=== PATIENT | male | born 1935 | race Caucasian/White ===

== ENCOUNTER → 2016-10-07 | Outpatient (CLI) | payer MEDICARE, OTHER ==
[2015-12-22 11:11] VITALS: BP 136/76
[~2016-10-07] MED LIST: ASPI81TA2 PO; ATOR40TA PO; CARB1TAB20 PO; DILT180C29 PO; DILT180T7 PO; GABA-585 PO; GABA-586 PO; HUM100VI4 SQ; INSU100I13 SQ; LEVO500T38 PO; LISI-334 PO; LISI40TA PO; LOSA100T6 PO; METF-620 PO; METO25TA4 PO; OMEP20CA5 PO; PITA2TAB2 PO; SAW450CA2 PO; TRAM1TAB4 PO
--- NOTE | 2016-10-07 14:01 | RAD ---
APPROVED REPORT Patient Location: OUT-PATIENT Indications PAD VELOCITY AND DOPPLER WAVEFORM ANALYSIS RIGHT cm/secWaveformSeverity LEFT c m/secWaveformSeverity Ext Iliac Art. 121.0TriphasicExt Iliac Art. 81.0Triphasic pCFA 106.0TriphasicpCFA 55.0Triphasic dCFA 111.0TriphasicdCFA 53.0Triphasic Prof Fem Art. 48.0BiphasicProf Fem Art. 46.0Biphasic Fem Art Prox. 70.0TriphasicFem Art Prox. 72.0Triphasic Fem Art Mid. 73.0TriphasicFem Art Mid. 79.0Triphasic Fem Art Dist. 72.0TriphasicFem Art Dist. 57.0Triphasic Pop Art(AK) 85.0TriphasicPop Art(AK) 51.0Triphasic Pop Art(BK) 68.0TriphasicPop Art(BK) 40.0Triphasic MACHINIST MATE Prox. 72.0TriphasicPTA Prox. 39.0Triphasic MACHINIST MATE Dist. 36.0MonophasicPTA Dist. 58.0Triphasic ERIC Prox. 77.0TriphasicATA Prox. 75.0Monophasic Findings Villafuerte scale images of the bilateral lower extremity arterial vessels revealed mild atherosclerotic timothy que. Spectral waveforms are grossly normal from the common femoral to popliteal segments and are trip hasic and biphasic in nature. The P2 and P3 segments of the popliteal artery as well as the below-kne e vessels were not well visualized but overall there appears to be monophasic and biphasic waveforms in the anterior tibial, posterior tibial and popliteal vessels bilaterally. The peroneal vessels were not well visualized and may be occluded. No high-grade stenosis is identified overall. Critical Notification Critical Value: No <Conclusion> 1. No high-grade flow limiting stenosis identified in the bilateral lower extremity arterial vessels duplex study.
--- NOTE | 2016-10-07 14:07 | RAD ---
APPROVED REPORT Patient Location : OUT-PATIENT Indications Lower Extremity Edema : Bilateral Deep System Deep Venous Reflux present : No Findings The right great saphenous vein measures approximately 6.4 mm. Villafuerte scale images of the saphenofemoral junction and the great saphenous vein did not reveal any evidence of thrombus on limited imaging. Sp ectral waveforms and color Doppler did not reveal any evidence of reflux. The left great saphenous vein measures approximately 5.7 mm and does not reveal any evidence of throm bus on limited imaging. Spectral waveforms and color Doppler did not reveal any evidence of reflux. The bilateral lesser saphenous veins do not reveal any evidence of reflux. Critical Notification Critical Value: No <Conclusion> 1. Negative for reflux in the bilateral greater and lesser saphenous veins.
== END | disposition home or self-care (01) ==
LOC: US 11:55
PROVIDERS: ATTEND Internal Medicine Cardiovascular Disease
DX: I82.403 Acute embolism and thrombosis of unspecified deep veins of lower extremity, bilateral (principal); R60.0 Localized edema; I70.213 Atherosclerosis of native arteries of extremities with intermittent claudication, bilateral legs
CPT/HCPCS: 93925; 93970

== ENCOUNTER 2016-12-27 07:42 | Inpatient (IN) | payer MEDICARE, OTHER ==
[~2016-12-27] VITALS: Ht 172.7 cm; Wt 85.3 kg
[~2016-12-27 07:42] MED LIST changes: +ASPI-630 PO; -ASPI81TA2 PO; -LEVO500T38 PO; +LEVO500T59 PO
--- NOTE | 2016-12-27 09:00 | RAD ---
Indication hemoptysis. A single view of the chest was obtained. Comparison is made to an examination 12/21/2015. Postoperative changes are noted. There is no congestive heart failure. Heart size is within normal limits. There is no consolidated pneumonia. An acute finding in the chest is not apparent. IMPRESSION: No acute finding apparent in the chest
--- NOTE | 2016-12-27 09:23 | PHYS DOC ---
Past Medical History Past Medical History: Dementia, Diabetes-Type II, GERD, High Cholesterol, Hypertension Additional Past Medical Histor: neuropathy Past Surgical History: Other Additional Past Surgical Histo: CABG X 5 VESSELS, BACK SX Alcohol Use: Occasionally Drug Use: None Adult General Chief Complaint Chief Complaint: HEMATEMESIS/VOMITING BLOOD [facility] HPI Patient is a 81 year old male with history of hypertension, CABG, high cholesterol, diabetes type 2, who presents today complaining of hemoptysis for 1 -1/2 weeks. Patient denies any fever. Denies any chest pain. He states he has history of chronic shortness of breath due to COPD. PCP Dr. Hilario Mathis Review of Systems Review of Systems Constitutional: Denies fever or chills [] Eyes: Denies change in visual acuity, redness, or eye pain [] HENT: Denies nasal congestion or sore throat [] Respiratory: Hemoptysis with chronic shortness of breath Cardiovascular: No additional information not addressed in HPI [] GI: Denies abdominal pain, nausea, vomiting, bloody stools or diarrhea [] : Denies dysuria or hematuria [] Musculoskeletal: Denies back pain or joint pain [] Integument: Denies rash or skin lesions [] Neurologic: Denies headache, focal weakness or sensory changes [] Endocrine: Denies polyuria or polydipsia [] Current Medications Current Medications Current Medications Medications (Trade) Dose Ordered Sig/Jimmy Start Time Stop Time Status Last Admin Dose Admin Info (Do NOT chart on this entry -- for MONITORING) 1 each PRN DAILY PRN 12/27/16 10:30 12/29/16 10:29 Iohexol (Omnipaque 300 Mg/ml) 75 ml 1X ONCE 12/27/16 10:30 12/27/16 10:31 DC 12/27/16 10:49 75 ML Allergies Allergies Allergies Coded Allergies Type Severity Reaction Last Updated Verified I S O L A T I O N *CONTACT* Allergy Unknown 12/05/14 Yes No Known Medication Allergies Allergy Unknown 12/05/14 Yes Physical Exam Physical Exam Constitutional: Well developed, well nourished, no acute distress, non-toxic appearance. [] HENT: Normocephalic, atraumatic, bilateral external ears normal, oropharynx moist, no oral exudates, nose normal. [] Eyes: PERRLA, EOMI, conjunctiva normal, no discharge. [] Neck: Normal range of motion, no tenderness, supple, no stridor. [] Cardiovascular:Heart rate regular rhythm, no murmur [] Lungs & Thorax: Bilateral breath sounds clear to auscultation [] Abdomen: Bowel sounds normal, soft, no tenderness, no masses, no pulsatile masses. [] Skin: Warm, dry, no erythema, no rash. [] Back: No tenderness, no CVA tenderness. [] Extremities: No tenderness, no cyanosis, no clubbing, ROM intact, no edema. [] Neurologic: Alert and oriented X 3, normal motor function, normal sensory function, no focal deficits noted. [] Psychologic: Affect normal, judgement normal, mood normal. [] Current Patient Data Vital Signs Vital Signs Date Time Temp Pulse Resp B/P (MAP) Pulse Ox O2 Delivery O2 Flow Rate FiO2 12/27/16 10:12 76 25 123/60 (81) 96 Room Air 12/27/16 08:11 97.6 97.6 Lab Values Laboratory Tests Test 12/27/16 09:37 12/27/16 10:00 White Blood Count 7.6 x10^3/uL (4.0-11.0) Red Blood Count 4.24 x10^6/uL (4.30-5.70) L Hemoglobin 12.8 g/dL (13.0-17.5) L Hematocrit 37.8 % (39.0-53.0) L Mean Corpuscular Volume 89 fL (79-100) Mean Corpuscular Hemoglobin 30 pg (25-35) Mean Corpuscular Hemoglobin Concent 34 g/dL (31-37) Red Cell Distribution Width 14.1 % (11.5-14.5) Platelet Count 227 x10^3/uL (140-400) Neutrophils (%) (Auto) 69 % (31-73) Lymphocytes (%) (Auto) 18 % (24-48) L Monocytes (%) (Auto) 11 % (0-9) H Eosinophils (%) (Auto) 2 % (0-3) Basophils (%) (Auto) 1 % (0-3) Neutrophils # (Auto) 5.2 x10^3uL (1.8-7.7) Lymphocytes # (Auto) 1.3 x10^3/uL (1.0-4.8) Monocytes # (Auto) 0.8 x10^3/uL (0.0-1.1) Eosinophils # (Auto) 0.1 x10^3/uL (0.0-0.7) Basophils # (Auto) 0.0 x10^3/uL (0.0-0.2) Prothrombin Time 13.4 SEC (11.7-14.0) Prothrombin Time INR 1.1 (0.8-1.1) PTT 39 SEC (24-38) H D-Dimer (Isabel) 0.70 ug/mlFEU (0.00-0.50) H Sodium Level 140 mmol/L (136-145) Potassium Level 5.0 mmol/L (3.5-5.1) Chloride Level 105 mmol/L (98-107) Carbon Dioxide Level 31 mmol/L (21-32) Anion Gap 4 (6-14) L Blood Urea Nitrogen 13 mg/dL (8-26) Creatinine 1.0 mg/dL (0.7-1.3) Estimated GFR (Cockcroft-Gault) 71.9 Glucose Level 147 mg/dL (70-99) H Calcium Level 8.7 mg/dL (8.5-10.1) Magnesium Level 1.8 mg/dL (1.8-2.4) Creatine Kinase 106 U/L (39-308) Creatine Kinase MB (Mass) 4.1 ng/mL (0.0-3.6) H Creatine Kinase MB Relative Index 3.9 % (0-4) Troponin I Quantitative < 0.017 ng/mL (0.000-0.055) JO-Lyr-J-Type Natriuretic Peptide 619 pg/mL (0-449) H Urine Collection Type Void Urine Color Yellow Urine Clarity Clear Urine pH 7.0 Urine Specific [employer] 1.015 Urine Protein Negative mg/dL (NEG-TRACE) Urine Glucose (UA) Negative mg/dL (NEG) Urine Ketones (Stick) Negative mg/dL (NEG) Urine Blood Negative (NEG) Urine Nitrite Negative (NEG) Urine Bilirubin Negative (NEG) Urine Urobilinogen Dipstick 0.2 mg/dL (0.2 mg/dL) Urine Leukocyte Esterase Small (NEG) Urine RBC 0 /HPF (0-2) Urine WBC >40 /HPF (0-4) Urine Squamous Epithelial Cells Few /LPF Urine Bacteria 0 /HPF (0-FEW) Laboratory Tests 12/27/16 09:37 Laboratory Tests 12/27/16 09:37 EKG EKG 09: 52EKG interpreted by Dr. Fuentes, sinus rhythm heart rate 81, QRS interval 100, no STEMI. [] Radiology/Procedures Radiology/Procedures []PROCEDURE: CT ANGIOGRAPHY CHEST Indication hemoptysis. Axial images to the chest were obtained. The examination was tailored for the detection of pulmonary embolus. Approximately 75 cc of Omnipaque 300 was administered. MIP images were generated and reviewed. No prior CT imaging of the chest is available. Imaging through the abdomen shows no acute finding. There are low-density areas in the right lobe of the liver. There is incompletely evaluated on this exam. The etiology is unclear. Neoplastic disease is not entirely excluded. There is cholelithiasis. The thoracic aorta is unremarkable. Extensive coronary artery calcification is noted. The study is negative for pulmonary embolus. There are few mediastinal lymph nodes. These are positioned predominantly in the pretracheal space. The clinical significance is uncertain. Definite pathologic mediastinal adenopathy is not seen. No significant hilar adenopathy is apparent. There is a 4 cm parenchymal mass in the left lower lobe most suggestive of primary malignancy. There is a much smaller 4 mm nodule peripherally in the left lower lobe adjacent to the pleura probably incidental. The right lung is clear. There is a tiny amount left pleural fluid. A lipoma adjacent to the right scapula is noted IMPRESSION: Negative study for pulmonary embolus. 4 cm parenchymal mass in the left lower lobe most compatible with a primary malignancy. Mild mediastinal adenopathy. The clinical significance or etiology is uncertain. Low-density masses in the liver. These are incompletely evaluated. The etiology is unclear but metastatic disease is not excluded PQRS Compliance Statement: One or more of the following individualized dose reduction techniques were utilized for this examination: 1. Automated exposure control 2. Adjustment of the mA and/or kV according to patient size 3. Use of iterative reconstruction technique DICTATED and SIGNED BY: CAMPOS SEGURA MD DATE: 12/27/16 1101 CC: REJI ESTRADA APRN; NON,STAFF; HILARIO MATHIS Jr, MD ~ Course & Med Decision Making Course & Med Decision Making Pertinent Labs and Imaging studies reviewed. (See chart for details) This a 82-year-old male patient who presents with hemoptysis for 1-1/2 weeks and chronic shortness of breath. Chest x-ray was negative for any acute findings. CBC with hemoglobin of 12.8, hematocrit 37.8. BMP would not acute findings D-dimer was elevated at 0.70. CTA chest was ordered. CTA chest was noted for a 4 cm mass in the left lower lobe most compatible with primary malignancy, patient also has mild mediastinal adenopathy, low-density nose is also noted in the liver that they could not be completely evaluated. Metastatic etiology of this mass is could not be ruled out. Patient was admitted by Dr. Charlton Consulted with Dr. Adamson who will follow-up with patient for pulmonary Dragon Disclaimer Dragon Disclaimer This electronic medical record was generated, in whole or in part, using a voice recognition dictation system. Departure Departure Impression: Primary Impression: Hemoptysis Additional Impression: Lung cancer, lower lobe Disposition: ADMITTED INPATIENT Admitting Physician: Elena Charlton Condition: STABLE Referrals: HILARIO MATHIS Jr, MD (PCP) Problem Qualifiers Additional Impression: Lung cancer, lower lobe Laterality: left Qualified Codes: C34.32 - Malignant neoplasm of lower lobe , left bronchus or lung REJI ESTRADA CHICKEN VACCINATOR Dec 27, 2016 09:23
[2016-12-27 09:50] LABS: BASO % 1 % (0-3); EOS % 2 % (0-3); HEMATOCRIT 37.8 % (39.0-53.0); HEMOGLOBIN 12.8 g/dL (13.0-17.5); LYMPH # 1.3 x10^3/uL (1.0-4.8); LYMPH % 18 % (24-48); MEAN CORPUSCULAR HEMOGLOBIN 30 pg (25-35); MEAN CORPUSCULAR HGB CONC 34 g/dL (31-37); MEAN CORPUSCULAR VOLUME 89 fL (79-100); MONO % 11 % (0-9); NEUT % 69 % (31-73); PLATELET COUNT 227 x10^3/uL (140-400); RED BLOOD COUNT 4.24 x10^6/uL (4.30-5.70); RED CELL DISTRIBUTION WIDTH 14.1 % (11.5-14.5); WHITE BLOOD COUNT 7.6 x10^3/uL (4.0-11.0)
[2016-12-27 09:59] LABS: CALCIUM 8.7 mg/dL (8.5-10.1); GFR 71.9
[2016-12-27 10:00] LABS: MAGNESIUM 1.8 mg/dL (1.8-2.4)
[2016-12-27 10:02] LABS: INR 1.1 (0.8-1.1); PROTHROMBIN TIME PATIENT 13.4 SEC (11.7-14.0)
--- NOTE | 2016-12-27 10:04 | EKG ---
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
[2016-12-27 10:14] LABS: CKMB MASS 4.1 ng/mL (0.0-3.6)
[2016-12-27 10:25] LABS: BILIRUBIN,URINE NEGATIVE (NEG); GLUCOSE,URINE NEGATIVE (NEG); NITRITE,URINE NEGATIVE (NEG); PROTEIN,URINE NEGATIVE (NEG-TRACE); UROBILINOGEN,URINE 0.2 mg/dL (0.2 mg/dL)
[2016-12-27] MEDS ORDERED: IOHEXOL 300 MG/ML 75 ML VIAL IV ONE (10:30)
[2016-12-27] MEDS ORDERED: CONTRAST GIVEN MC PRN (10:30)
--- NOTE | 2016-12-27 11:14 | RAD ---
Indication hemoptysis. Axial images to the chest were obtained. The examination was tailored for the detection of pulmonary embolus. Approximately 75 cc of Omnipaque 300 was administered. MIP images were generated and reviewed. No prior CT imaging of the chest is available. Imaging through the abdomen shows no acute finding. There are low-density areas in the right lobe of the liver. There is incompletely evaluated on this exam. The etiology is unclear. Neoplastic disease is not entirely excluded. There is cholelithiasis. The thoracic aorta is unremarkable. Extensive coronary artery calcification is noted. The study is negative for pulmonary embolus. There are few mediastinal lymph nodes. These are positioned predominantly in the pretracheal space. The clinical significance is uncertain. Definite pathologic mediastinal adenopathy is not seen. No significant hilar adenopathy is apparent. There is a 4 cm parenchymal mass in the left lower lobe most suggestive of primary malignancy. There is a much smaller 4 mm nodule peripherally in the left lower lobe adjacent to the pleura probably incidental. The right lung is clear. There is a tiny amount left pleural fluid. A lipoma adjacent to the right scapula is noted IMPRESSION: Negative study for pulmonary embolus. 4 cm parenchymal mass in the left lower lobe most compatible with a primary malignancy. Mild mediastinal adenopathy. The clinical significance or etiology is uncertain. Low-density masses in the liver. These are incompletely evaluated. The etiology is unclear but metastatic disease is not excluded PQRS Compliance Statement: One or more of the following individualized dose reduction techniques were utilized for this examination: 1. Automated exposure control 2. Adjustment of the mA and/or kV according to patient size 3. Use of iterative reconstruction technique
[2016-12-27 11:23] LABS: BACTERIA,URINE 0 /HPF (0-FEW); RBC,URINE 0 /HPF (0-2); SQUAMOUS EPITHELIAL CELL,UR FEW /LPF; WBC,URINE >40 /HPF (0-4)
[2016-12-27] MEDS ORDERED: DEXTROSE 50% 25 GM / 50ML DISP.SYRIN. IV PRN ×2 (13:15→17:00)
[2016-12-27] MEDS ORDERED: ONDANSETRON PF 4 MG/2 ML VIAL. IV PRN ×2 (13:15→17:00)
[2016-12-27] MEDS ORDERED: MORPHINE SULFATE 4 MG/ML DISP.SYRIN. IV PRN (13:15)
[2016-12-27 15:49] VITALS: BP 110/77
[2016-12-27 15:50] VITALS: BP 110/77
--- NOTE | 2016-12-27 16:16 | PDOC ---
PULMONARY PROGRESS NOTES Vitals Vital Signs Date Time Temp Pulse Resp B/P (MAP) Pulse Ox O2 Delivery O2 Flow Rate FiO2 12/27/16 15:50 97.5 86 19 110/77 (88) 97 Room Air 97.5 General: Alert Lungs: Clear Cardiovascular: S1 Abdomen: Soft Extremities: Other Labs Laboratory Tests Test 12/27/16 09:37 12/27/16 10:00 White Blood Count 7.6 x10^3/uL (4.0-11.0) Red Blood Count 4.24 x10^6/uL (4.30-5.70) Hemoglobin 12.8 g/dL (13.0-17.5) Hematocrit 37.8 % (39.0-53.0) Mean Corpuscular Volume 89 fL (79-100) Mean Corpuscular Hemoglobin 30 pg (25-35) Mean Corpuscular Hemoglobin Concent 34 g/dL (31-37) Red Cell Distribution Width 14.1 % (11.5-14.5) Platelet Count 227 x10^3/uL (140-400) Neutrophils (%) (Auto) 69 % (31-73) Lymphocytes (%) (Auto) 18 % (24-48) Monocytes (%) (Auto) 11 % (0-9) Eosinophils (%) (Auto) 2 % (0-3) Basophils (%) (Auto) 1 % (0-3) Neutrophils # (Auto) 5.2 x10^3uL (1.8-7.7) Lymphocytes # (Auto) 1.3 x10^3/uL (1.0-4.8) Monocytes # (Auto) 0.8 x10^3/uL (0.0-1.1) Eosinophils # (Auto) 0.1 x10^3/uL (0.0-0.7) Basophils # (Auto) 0.0 x10^3/uL (0.0-0.2) Prothrombin Time 13.4 SEC (11.7-14.0) Prothromb Time International Ratio 1.1 (0.8-1.1) Activated Partial Thromboplast Time 39 SEC (24-38) D-Dimer (Isabel) 0.70 ug/mlFEU (0.00-0.50) Sodium Level 140 mmol/L (136-145) Potassium Level 5.0 mmol/L (3.5-5.1) Chloride Level 105 mmol/L (98-107) Carbon Dioxide Level 31 mmol/L (21-32) Anion Gap 4 (6-14) Blood Urea Nitrogen 13 mg/dL (8-26) Creatinine 1.0 mg/dL (0.7-1.3) Estimated GFR (Cockcroft-Gault) 71.9 Glucose Level 147 mg/dL (70-99) Calcium Level 8.7 mg/dL (8.5-10.1) Magnesium Level 1.8 mg/dL (1.8-2.4) Creatine Kinase 106 U/L (39-308) Creatine Kinase MB (Mass) 4.1 ng/mL (0.0-3.6) Creatine Kinase MB Relative Index 3.9 % (0-4) Troponin I Quantitative < 0.017 ng/mL (0.000-0.055) FS-Jer-L-Type Natriuretic Peptide 619 pg/mL (0-449) Urine Collection Type Void Urine Color Yellow Urine Clarity Clear Urine pH 7.0 Urine Specific [place] 1.015 Urine Protein Negative mg/dL (NEG-TRACE) Urine Glucose (UA) Negative mg/dL (NEG) Urine Ketones (Stick) Negative mg/dL (NEG) Urine Blood Negative (NEG) Urine Nitrite Negative (NEG) Urine Bilirubin Negative (NEG) Urine Urobilinogen Dipstick 0.2 mg/dL (0.2 mg/dL) Urine Leukocyte Esterase Small (NEG) Urine RBC 0 /HPF (0-2) Urine WBC >40 /HPF (0-4) Urine Squamous Epithelial Cells Few /LPF Urine Bacteria 0 /HPF (0-FEW) Laboratory Tests Test 12/27/16 09:37 12/27/16 10:00 White Blood Count 7.6 x10^3/uL (4.0-11.0) Red Blood Count 4.24 x10^6/uL (4.30-5.70) Hemoglobin 12.8 g/dL (13.0-17.5) Hematocrit 37.8 % (39.0-53.0) Mean Corpuscular Volume 89 fL (79-100) Mean Corpuscular Hemoglobin 30 pg (25-35) Mean Corpuscular Hemoglobin Concent 34 g/dL (31-37) Red Cell Distribution Width 14.1 % (11.5-14.5) Platelet Count 227 x10^3/uL (140-400) Neutrophils (%) (Auto) 69 % (31-73) Lymphocytes (%) (Auto) 18 % (24-48) Monocytes (%) (Auto) 11 % (0-9) Eosinophils (%) (Auto) 2 % (0-3) Basophils (%) (Auto) 1 % (0-3) Neutrophils # (Auto) 5.2 x10^3uL (1.8-7.7) Lymphocytes # (Auto) 1.3 x10^3/uL (1.0-4.8) Monocytes # (Auto) 0.8 x10^3/uL (0.0-1.1) Eosinophils # (Auto) 0.1 x10^3/uL (0.0-0.7) Basophils # (Auto) 0.0 x10^3/uL (0.0-0.2) Prothrombin Time 13.4 SEC (11.7-14.0) Prothromb Time International Ratio 1.1 (0.8-1.1) Activated Partial Thromboplast Time 39 SEC (24-38) D-Dimer (Isabel) 0.70 ug/mlFEU (0.00-0.50) Sodium Level 140 mmol/L (136-145) Potassium Level 5.0 mmol/L (3.5-5.1) Chloride Level 105 mmol/L (98-107) Carbon Dioxide Level 31 mmol/L (21-32) Anion Gap 4 (6-14) Blood Urea Nitrogen 13 mg/dL (8-26) Creatinine 1.0 mg/dL (0.7-1.3) Estimated GFR (Cockcroft-Gault) 71.9 Glucose Level 147 mg/dL (70-99) Calcium Level 8.7 mg/dL (8.5-10.1) Magnesium Level 1.8 mg/dL (1.8-2.4) Creatine Kinase 106 U/L (39-308) Creatine Kinase MB (Mass) 4.1 ng/mL (0.0-3.6) Creatine Kinase MB Relative Index 3.9 % (0-4) Troponin I Quantitative < 0.017 ng/mL (0.000-0.055) MF-Yme-X-Type Natriuretic Peptide 619 pg/mL (0-449) Urine Collection Type Void Urine Color Yellow Urine Clarity Clear Urine pH 7.0 Urine Specific [place] 1.015 Urine Protein Negative mg/dL (NEG-TRACE) Urine Glucose (UA) Negative mg/dL (NEG) Urine Ketones (Stick) Negative mg/dL (NEG) Urine Blood Negative (NEG) Urine Nitrite Negative (NEG) Urine Bilirubin Negative (NEG) Urine Urobilinogen Dipstick 0.2 mg/dL (0.2 mg/dL) Urine Leukocyte Esterase Small (NEG) Urine RBC 0 /HPF (0-2) Urine WBC >40 /HPF (0-4) Urine Squamous Epithelial Cells Few /LPF Urine Bacteria 0 /HPF (0-FEW) Medications Active Scripts Medications Dose Route/Sig Max Daily Dose Days Date Category [place] (Saw [place] Fruit) 450 Mg Capsule 450 Mg PO DAILY 12/21/15 Reported Losartan Potassium 100 Mg Tablet 100 Mg PO DAILY 12/21/15 Reported Metoprolol Tartrate 25 Mg Tablet 1 Tab PO DAILY 12/21/15 Reported Diltiazem 24HR Cd (Diltiazem Hcl) 180 Mg Cap.er.24h 1 Cap PO DAILY 12/21/15 Reported Lantus Solostar (Insulin Glargine,Hum.rec.anlog) 100 Unit/1 Ml Insuln.pen 30 Unit SQ QHS 12/21/15 Reported Gabapentin 300 Mg Capsule 300 Mg PO TID 11/30/14 Reported Lipitor (Atorvastatin Calcium) 40 Mg Tablet 40 Mg PO HS 11/03/14 Reported Carbidopa-Levodopa 10-100 Tab (Carbidopa/Levodopa) 1 Each Tablet 1 Each PO DAILY 03/01/14 Reported Metformin Hcl 1,000 Mg Tablet 1,000 Mg PO BID 10/17/13 Reported Prilosec (Omeprazole) 20 Mg Capsule.dr 20 Mg PO DAILY 10/17/13 Reported Aspirin 81 Mg Tab.chew Mg PO DAILY 10/17/13 Reported Impression . Hemoptysis suspect lung ca suspect bronch low yield will d/w IR for possible FNA see orders thanks JHONNY ALLEN MD Dec 27, 2016 16:16
--- NOTE | 2016-12-27 16:52 | PDOC1 ---
History and Physical Date of Admission Date of Admission 12/27/16 Identification/Chief Complaint Chief Complaint hemoptysis Problems: Source Source: Chart review, Patient History of Present Illness History of Present Illness HPI HPI Patient is a 81 year old male with history of hypertension, CABG, high cholesterol, diabetes type 2, comes today for hemoptysis x2 weeks. He quit smoking for 20ys. He started to cough with some blood especially in the morning, and some bloody mucus. NO fever, chills, n/v, chest pain, or sob. CT showed left lung mass with possible liver mets hb 12.[address] Hilario Love Past Medical History Cardiovascular: AFIB, CAD, HTN, Syncope, Other Pulmonary: COPD CENTRAL NERVOUS SYSTEM: Other GI: No pertinent hx Heme/Onc: No pertinent hx Hepatobiliary: No pertinent hx Psych: No pertinent hx Rheumatologic: No pertinent hx Infectious disease: No pertinent hx Renal/: UTI Endocrine: Diabetes Past Surgical History Past Surgical History: CABG, Tonsillectomy, Other Family History Family History: Cancer, Diabetes Social History Smoke: Quit ALCOHOL: heavy Drugs: None Current Problem List Problem List Problems Medical Problems: (1) Hemoptysis Status: Acute (2) Lung cancer, lower lobe Status: Acute Current Medications Current Medications Current Medications Medications (Trade) Dose Ordered Sig/Jimmy Start Time Stop Time Status Last Admin Dose Admin Dextrose (Dextrose 50%-Water Syringe) 12.5 gm PRN Q15MIN PRN 12/27/16 13:15 Info (Do NOT chart on this entry -- for MONITORING) 1 each PRN DAILY PRN 12/27/16 10:30 12/29/16 10:29 Iohexol (Omnipaque 300 Mg/ml) 75 ml 1X ONCE 12/27/16 10:30 12/27/16 10:31 DC 12/27/16 10:49 75 ML Levofloxacin/ Dextrose 50 ml @ 50 mls/hr Q24H 12/27/16 16:30 Methylprednisolone Sodium Succinate (SOLU-Medrol 125MG VIAL) 80 mg BID 12/27/16 21:00 Morphine Sulfate 4 mg PRN Q2HR PRN 12/27/16 13:15 12/28/16 13:14 Ondansetron HCl (Zofran) 4 mg PRN Q8HRS PRN 12/27/16 13:15 12/28/16 13:14 Allergies Allergies Allergies Coded Allergies Type Severity Reaction Last Updated Verified I S O L A T I O N *CONTACT* Allergy Unknown 12/05/14 Yes No Known Medication Allergies Allergy Unknown 12/05/14 Yes ROS Review of System CONSTITUTIONAL: No fever or chills EYES: No recent changes SKIN: No rash or itching CARDIOVASCULAR: No chest pain, syncope, palpitations, or edema RESPIRATORY: No SOB or cough GASTROINTESTINAL: No nausea, vomiting or abdominal pain NEUROLOGICAL: No headaches or weakness ENDOCRINE: No cold or heat intolerance GENITOURINARY: No urgency or frequency of urination MUSCULOSKELETAL: No back pain or joint pain LYMPHATICS: No enlarged lymph nodes PSYCHIATRIC: No anxiety or depression Physical Exam Physical Exam GEN.: No apparent distress. Alert and oriented. HEENT: Head is normocephalic, atraumatic NECK: Supple. LUNGS: Clear to auscultation. HEART: RRR, S1, S2 present. Peripheral pulses intact ABDOMEN: Soft, nontender. Positive bowel sounds. EXTREMITIES: Without any cyanosis. NEUROLOGIC: Normal speech, normal tone PSYCHIATRIC: Normal affect, normal mood. SKIN: No ulcerations Vitals Vitals Vital Signs Date Time Temp Pulse Resp B/P (MAP) Pulse Ox O2 Delivery O2 Flow Rate FiO2 12/27/16 15:50 97.5 86 19 110/77 (88) 97 Room Air 97.5 Labs Labs Laboratory Tests Test 12/27/16 09:37 12/27/16 10:00 White Blood Count 7.6 x10^3/uL (4.0-11.0) Red Blood Count 4.24 x10^6/uL (4.30-5.70) Hemoglobin 12.8 g/dL (13.0-17.5) Hematocrit 37.8 % (39.0-53.0) Mean Corpuscular Volume 89 fL (79-100) Mean Corpuscular Hemoglobin 30 pg (25-35) Mean Corpuscular Hemoglobin Concent 34 g/dL (31-37) Red Cell Distribution Width 14.1 % (11.5-14.5) Platelet Count 227 x10^3/uL (140-400) Neutrophils (%) (Auto) 69 % (31-73) Lymphocytes (%) (Auto) 18 % (24-48) Monocytes (%) (Auto) 11 % (0-9) Eosinophils (%) (Auto) 2 % (0-3) Basophils (%) (Auto) 1 % (0-3) Neutrophils # (Auto) 5.2 x10^3uL (1.8-7.7) Lymphocytes # (Auto) 1.3 x10^3/uL (1.0-4.8) Monocytes # (Auto) 0.8 x10^3/uL (0.0-1.1) Eosinophils # (Auto) 0.1 x10^3/uL (0.0-0.7) Basophils # (Auto) 0.0 x10^3/uL (0.0-0.2) Prothrombin Time 13.4 SEC (11.7-14.0) Prothromb Time International Ratio 1.1 (0.8-1.1) Activated Partial Thromboplast Time 39 SEC (24-38) D-Dimer (Isabel) 0.70 ug/mlFEU (0.00-0.50) Sodium Level 140 mmol/L (136-145) Potassium Level 5.0 mmol/L (3.5-5.1) Chloride Level 105 mmol/L (98-107) Carbon Dioxide Level 31 mmol/L (21-32) Anion Gap 4 (6-14) Blood Urea Nitrogen 13 mg/dL (8-26) Creatinine 1.0 mg/dL (0.7-1.3) Estimated GFR (Cockcroft-Gault) 71.9 Glucose Level 147 mg/dL (70-99) Calcium Level 8.7 mg/dL (8.5-10.1) Magnesium Level 1.8 mg/dL (1.8-2.4) Creatine Kinase 106 U/L (39-308) Creatine Kinase MB (Mass) 4.1 ng/mL (0.0-3.6) Creatine Kinase MB Relative Index 3.9 % (0-4) Troponin I Quantitative < 0.017 ng/mL (0.000-0.055) IV-Tjy-E-Type Natriuretic Peptide 619 pg/mL (0-449) Urine Collection Type Void Urine Color Yellow Urine Clarity Clear Urine pH 7.0 Urine Specific [place] 1.015 Urine Protein Negative mg/dL (NEG-TRACE) Urine Glucose (UA) Negative mg/dL (NEG) Urine Ketones (Stick) Negative mg/dL (NEG) Urine Blood Negative (NEG) Urine Nitrite Negative (NEG) Urine Bilirubin Negative (NEG) Urine Urobilinogen Dipstick 0.2 mg/dL (0.2 mg/dL) Urine Leukocyte Esterase Small (NEG) Urine RBC 0 /HPF (0-2) Urine WBC >40 /HPF (0-4) Urine Squamous Epithelial Cells Few /LPF Urine Bacteria 0 /HPF (0-FEW) Laboratory Tests Test 12/27/16 09:37 12/27/16 10:00 White Blood Count 7.6 x10^3/uL (4.0-11.0) Red Blood Count 4.24 x10^6/uL (4.30-5.70) Hemoglobin 12.8 g/dL (13.0-17.5) Hematocrit 37.8 % (39.0-53.0) Mean Corpuscular Volume 89 fL (79-100) Mean Corpuscular Hemoglobin 30 pg (25-35) Mean Corpuscular Hemoglobin Concent 34 g/dL (31-37) Red Cell Distribution Width 14.1 % (11.5-14.5) Platelet Count 227 x10^3/uL (140-400) Neutrophils (%) (Auto) 69 % (31-73) Lymphocytes (%) (Auto) 18 % (24-48) Monocytes (%) (Auto) 11 % (0-9) Eosinophils (%) (Auto) 2 % (0-3) Basophils (%) (Auto) 1 % (0-3) Neutrophils # (Auto) 5.2 x10^3uL (1.8-7.7) Lymphocytes # (Auto) 1.3 x10^3/uL (1.0-4.8) Monocytes # (Auto) 0.8 x10^3/uL (0.0-1.1) Eosinophils # (Auto) 0.1 x10^3/uL (0.0-0.7) Basophils # (Auto) 0.0 x10^3/uL (0.0-0.2) Prothrombin Time 13.4 SEC (11.7-14.0) Prothromb Time International Ratio 1.1 (0.8-1.1) Activated Partial Thromboplast Time 39 SEC (24-38) D-Dimer (Isabel) 0.70 ug/mlFEU (0.00-0.50) Sodium Level 140 mmol/L (136-145) Potassium Level 5.0 mmol/L (3.5-5.1) Chloride Level 105 mmol/L (98-107) Carbon Dioxide Level 31 mmol/L (21-32) Anion Gap 4 (6-14) Blood Urea Nitrogen 13 mg/dL (8-26) Creatinine 1.0 mg/dL (0.7-1.3) Estimated GFR (Cockcroft-Gault) 71.9 Glucose Level 147 mg/dL (70-99) Calcium Level 8.7 mg/dL (8.5-10.1) Magnesium Level 1.8 mg/dL (1.8-2.4) Creatine Kinase 106 U/L (39-308) Creatine Kinase MB (Mass) 4.1 ng/mL (0.0-3.6) Creatine Kinase MB Relative Index 3.9 % (0-4) Troponin I Quantitative < 0.017 ng/mL (0.000-0.055) XI-Guv-U-Type Natriuretic Peptide 619 pg/mL (0-449) Urine Collection Type Void Urine Color Yellow Urine Clarity Clear Urine pH 7.0 Urine Specific [place] 1.015 Urine Protein Negative mg/dL (NEG-TRACE) Urine Glucose (UA) Negative mg/dL (NEG) Urine Ketones (Stick) Negative mg/dL (NEG) Urine Blood Negative (NEG) Urine Nitrite Negative (NEG) Urine Bilirubin Negative (NEG) Urine Urobilinogen Dipstick 0.2 mg/dL (0.2 mg/dL) Urine Leukocyte Esterase Small (NEG) Urine RBC 0 /HPF (0-2) Urine WBC >40 /HPF (0-4) Urine Squamous Epithelial Cells Few /LPF Urine Bacteria 0 /HPF (0-FEW) VTE Prophylaxis Ordered VTE Prophylaxis Devices: Yes VTE Pharmacological Prophylaxi: No Assessment/Plan Assessment/Plan hemoptysis 2/[address] showed left lung MASS with possible liver mets, no PE copd previous smoker dm2 on lantus 30u qhs gerd htn hld h/o CAD with cabg plan: pulm consult, may need IR for bx cont home meds decrease lantus to 20u qhs, ssi labs tmr cough meds duoneb CT abd /pelvis to rule out mets no heparin or lovenox NATHALIA WASSERMAN MD Dec 27, 2016 16:52
[2016-12-27] MEDS ORDERED: ALBUTEROL SULFATE 2.5 MG/3 ML NEBU. NEB PRN (17:00)
[2016-12-27] MEDS ORDERED: MORPHINE SULFATE 2 MG/ML DISP.SYRIN. IV PRN (17:00)
[2016-12-27] MEDS ORDERED: traMADol 50 MG TABLET PO PRN (17:00)
[2016-12-27] MEDS ORDERED: ACETAMINOPHEN 325 MG TABLET. PO PRN (17:00)
[2016-12-27] MEDS ORDERED: DOCUSATE SODIUM 100 MG CAPSULE. PO PRN (17:00)
[2016-12-27] MEDS ORDERED: hydrALAZINE 20 MG/ML VIAL. IVP PRN (17:00)
[2016-12-27] MEDS ORDERED: GABA-585 PO (17:15)
[2016-12-27] MEDS ORDERED: GLUC1TAB71 PO (17:31)
[2016-12-27] MEDS ORDERED: CYAN10005 PO (17:31)
[2016-12-27] MEDS: INSULIN ASPART 300 UNITS/3 ML INSULN.PEN SQ SCH (18:14)
[2016-12-27 19:00] VITALS: BP 140/74
[2016-12-27] MEDS: IPRATRPIUM/ALBUTEROL 0.5/2.5MG 3 ML NEBU. NEB SCH (20:07)
[2016-12-27] MEDS: ATORVASTATIN CALCIUM 40 MG TABLET. PO SCH (20:38)
[2016-12-27] MEDS: GABAPENTIN 100 MG CAPSULE. PO SCH (20:38)
[2016-12-27] MEDS: methylPREDNISolone SOD SUCC PF 125 MG/2 ML VIAL. IV SCH (20:39)
[2016-12-27] MEDS ORDERED: INSULIN DETEMIR 300 UNITS/3 ML INSULN.PEN. SQ SCH ×2 (21:00)
[2016-12-27] MEDS ORDERED: GABAPENTIN 300 MG CAPSULE. PO SCH (21:00)
[2016-12-27 23:00] VITALS: BP 103/70
[2016-12-28 03:01] VITALS: BP 120/78
[2016-12-28 05:55] LABS: BASO % 0 % (0-3); EOS % 0 % (0-3); HEMATOCRIT 37.2 % (39.0-53.0); HEMOGLOBIN 12.2 g/dL (13.0-17.5); LYMPH # 0.5 x10^3/uL (1.0-4.8); LYMPH % 8 % (24-48); MEAN CORPUSCULAR HEMOGLOBIN 30 pg (25-35); MEAN CORPUSCULAR HGB CONC 33 g/dL (31-37); MEAN CORPUSCULAR VOLUME 91 fL (79-100); MONO % 1 % (0-9); NEUT % 91 % (31-73); PLATELET COUNT 197 x10^3/uL (140-400); RED CELL DISTRIBUTION WIDTH 13.8 % (11.5-14.5); WHITE BLOOD COUNT 6.4 x10^3/uL (4.0-11.0)
[2016-12-28 06:04] LABS: CALCIUM 8.3 mg/dL (8.5-10.1); GFR 71.9; POTASSIUM 4.8 mmol/L (3.5-5.1)
[2016-12-28 06:50] VITALS: BP 127/83
[2016-12-28 07:07] LABS: PLT ESTIMATE ADEQUATE (ADEQUATE)
[2016-12-28] MEDS: IPRATRPIUM/ALBUTEROL 0.5/2.5MG 3 ML NEBU. NEB SCH ×4 (08:23→19:44)
[2016-12-28] MEDS ORDERED: METOPROLOL TART IMMED RELEASE 25 MG TABLET. PO SCH (09:00)
[2016-12-28] MEDS: methylPREDNISolone SOD SUCC PF 125 MG/2 ML VIAL. IV SCH ×2 (09:26→20:45)
[2016-12-28] MEDS: CARBIDOPA/LEVODOPA 10/100MG TABLET PO SCH (09:28)
[2016-12-28] MEDS: CYANOCOBALAMIN (VITAMIN B-12) 1,000 MCG TABLET. PO SCH (09:28)
[2016-12-28] MEDS: GABAPENTIN 100 MG CAPSULE. PO SCH ×4 (09:28→21:08)
[2016-12-28] MEDS: PANTOPRAZOLE 40 MG TABLET.DR. PO SCH (09:28)
[2016-12-28] MEDS: LOSARTAN POTASSIUM 50 MG TABLET. PO SCH (09:29)
[2016-12-28] MEDS: INSULIN ASPART 300 UNITS/3 ML INSULN.PEN SQ SCH ×4 (09:38→17:27)
--- NOTE | 2016-12-28 10:01 | PDOC ---
PULMONARY PROGRESS NOTES Subjective PT WITH NO INCREASE SOA HAD HEMOPTYSIS THIS AM I WITNESS IT BRB Vitals Vital Signs Date Time Temp Pulse Resp B/P (MAP) Pulse Ox O2 Delivery O2 Flow Rate FiO2 12/28/16 09:29 114 127/83 12/28/16 08:25 97 Room Air 12/28/16 06:50 97.5 17 97.5 ROS: No Nausea, No Chest Pain, No Abdominal Pain, No Increase Cough General: Alert Lungs: Crackles Cardiovascular: S1 Abdomen: Soft Neuro Exam: Alert Extremities: No Edema, Other Skin: Warm Labs Laboratory Tests Test 12/27/16 09:37 12/27/16 10:00 12/27/16 20:36 12/28/16 04:50 White Blood Count 7.6 x10^3/uL (4.0-11.0) 6.4 x10^3/uL (4.0-11.0) Red Blood Count 4.24 x10^6/uL (4.30-5.70) 4.10 x10^6/uL (4.30-5.70) Hemoglobin 12.8 g/dL (13.0-17.5) 12.2 g/dL (13.0-17.5) Hematocrit 37.8 % (39.0-53.0) 37.2 % (39.0-53.0) Mean Corpuscular Volume 89 fL (79-100) 91 fL (79-100) Mean Corpuscular Hemoglobin 30 pg (25-35) 30 pg (25-35) Mean Corpuscular Hemoglobin Concent 34 g/dL (31-37) 33 g/dL (31-37) Red Cell Distribution Width 14.1 % (11.5-14.5) 13.8 % (11.5-14.5) Platelet Count 227 x10^3/uL (140-400) 197 x10^3/uL (140-400) Neutrophils (%) (Auto) 69 % (31-73) 91 % (31-73) Lymphocytes (%) (Auto) 18 % (24-48) 8 % (24-48) Monocytes (%) (Auto) 11 % (0-9) 1 % (0-9) Eosinophils (%) (Auto) 2 % (0-3) 0 % (0-3) Basophils (%) (Auto) 1 % (0-3) 0 % (0-3) Neutrophils # (Auto) 5.2 x10^3uL (1.8-7.7) 5.8 x10^3uL (1.8-7.7) Lymphocytes # (Auto) 1.3 x10^3/uL (1.0-4.8) 0.5 x10^3/uL (1.0-4.8) Monocytes # (Auto) 0.8 x10^3/uL (0.0-1.1) 0.1 x10^3/uL (0.0-1.1) Eosinophils # (Auto) 0.1 x10^3/uL (0.0-0.7) 0.0 x10^3/uL (0.0-0.7) Basophils # (Auto) 0.0 x10^3/uL (0.0-0.2) 0.0 x10^3/uL (0.0-0.2) Prothrombin Time 13.4 SEC (11.7-14.0) Prothromb Time International Ratio 1.1 (0.8-1.1) Activated Partial Thromboplast Time 39 SEC (24-38) D-Dimer (Isabel) 0.70 ug/mlFEU (0.00-0.50) Sodium Level 140 mmol/L (136-145) 137 mmol/L (136-145) Potassium Level 5.0 mmol/L (3.5-5.1) 4.8 mmol/L (3.5-5.1) Chloride Level 105 mmol/L (98-107) 102 mmol/L (98-107) Carbon Dioxide Level 31 mmol/L (21-32) 27 mmol/L (21-32) Anion Gap 4 (6-14) 8 (6-14) Blood Urea Nitrogen 13 mg/dL (8-26) 15 mg/dL (8-26) Creatinine 1.0 mg/dL (0.7-1.3) 1.0 mg/dL (0.7-1.3) Estimated GFR (Cockcroft-Gault) 71.9 71.9 Glucose Level 147 mg/dL (70-99) 254 mg/dL (70-99) Calcium Level 8.7 mg/dL (8.5-10.1) 8.3 mg/dL (8.5-10.1) Magnesium Level 1.8 mg/dL (1.8-2.4) Creatine Kinase 106 U/L (39-308) Creatine Kinase MB (Mass) 4.1 ng/mL (0.0-3.6) Creatine Kinase MB Relative Index 3.9 % (0-4) Troponin I Quantitative < 0.017 ng/mL (0.000-0.055) UX-Uwe-B-Type Natriuretic Peptide 619 pg/mL (0-449) Urine Collection Type Void Urine Color Yellow Urine Clarity Clear Urine pH 7.0 Urine Specific [place] 1.015 Urine Protein Negative mg/dL (NEG-TRACE) Urine Glucose (UA) Negative mg/dL (NEG) Urine Ketones (Stick) Negative mg/dL (NEG) Urine Blood Negative (NEG) Urine Nitrite Negative (NEG) Urine Bilirubin Negative (NEG) Urine Urobilinogen Dipstick 0.2 mg/dL (0.2 mg/dL) Urine Leukocyte Esterase Small (NEG) Urine RBC 0 /HPF (0-2) Urine WBC >40 /HPF (0-4) Urine Squamous Epithelial Cells Few /LPF Urine Bacteria 0 /HPF (0-FEW) Glucose (Fingerstick) 166 mg/dL (70-99) Segmented Neutrophils % 94 % (35-66) Lymphocytes % 5 % (24-48) Monocytes % 1 % (0-10) Platelet Estimate Adequate (ADEQUATE) Test 12/28/16 06:58 Glucose (Fingerstick) 256 mg/dL (70-99) Laboratory Tests Test 12/27/16 10:00 12/27/16 20:36 12/28/16 04:50 12/28/16 06:58 Urine Collection Type Void Urine Color Yellow Urine Clarity Clear Urine pH 7.0 Urine Specific [place] 1.015 Urine Protein Negative mg/dL (NEG-TRACE) Urine Glucose (UA) Negative mg/dL (NEG) Urine Ketones (Stick) Negative mg/dL (NEG) Urine Blood Negative (NEG) Urine Nitrite Negative (NEG) Urine Bilirubin Negative (NEG) Urine Urobilinogen Dipstick 0.2 mg/dL (0.2 mg/dL) Urine Leukocyte Esterase Small (NEG) Urine RBC 0 /HPF (0-2) Urine WBC >40 /HPF (0-4) Urine Squamous Epithelial Cells Few /LPF Urine Bacteria 0 /HPF (0-FEW) Glucose (Fingerstick) 166 mg/dL (70-99) 256 mg/dL (70-99) White Blood Count 6.4 x10^3/uL (4.0-11.0) Red Blood Count 4.10 x10^6/uL (4.30-5.70) Hemoglobin 12.2 g/dL (13.0-17.5) Hematocrit 37.2 % (39.0-53.0) Mean Corpuscular Volume 91 fL (79-100) Mean Corpuscular Hemoglobin 30 pg (25-35) Mean Corpuscular Hemoglobin Concent 33 g/dL (31-37) Red Cell Distribution Width 13.8 % (11.5-14.5) Platelet Count 197 x10^3/uL (140-400) Neutrophils (%) (Auto) 91 % (31-73) Lymphocytes (%) (Auto) 8 % (24-48) Monocytes (%) (Auto) 1 % (0-9) Eosinophils (%) (Auto) 0 % (0-3) Basophils (%) (Auto) 0 % (0-3) Neutrophils # (Auto) 5.8 x10^3uL (1.8-7.7) Lymphocytes # (Auto) 0.5 x10^3/uL (1.0-4.8) Monocytes # (Auto) 0.1 x10^3/uL (0.0-1.1) Eosinophils # (Auto) 0.0 x10^3/uL (0.0-0.7) Basophils # (Auto) 0.0 x10^3/uL (0.0-0.2) Segmented Neutrophils % 94 % (35-66) Lymphocytes % 5 % (24-48) Monocytes % 1 % (0-10) Platelet Estimate Adequate (ADEQUATE) Sodium Level 137 mmol/L (136-145) Potassium Level 4.8 mmol/L (3.5-5.1) Chloride Level 102 mmol/L (98-107) Carbon Dioxide Level 27 mmol/L (21-32) Anion Gap 8 (6-14) Blood Urea Nitrogen 15 mg/dL (8-26) Creatinine 1.0 mg/dL (0.7-1.3) Estimated GFR (Cockcroft-Gault) 71.9 Glucose Level 254 mg/dL (70-99) Calcium Level 8.3 mg/dL (8.5-10.1) Medications Active Scripts Medications Dose Route/Sig Max Daily Dose Days Date Category Saw [place] (Saw [place] Fruit) 450 Mg Capsule 450 Mg PO DAILY 12/21/15 Reported Losartan Potassium 100 Mg Tablet 100 Mg PO DAILY 12/21/15 Reported Metoprolol Tartrate 25 Mg Tablet 1 Tab PO DAILY 12/21/15 Reported Diltiazem 24HR Cd (Diltiazem Hcl) 180 Mg Cap.er.24h 1 Cap PO DAILY 12/21/15 Reported Lantus Solostar (Insulin Glargine,Hum.rec.anlog) 100 Unit/1 Ml Insuln.pen 30 Unit SQ QHS 12/21/15 Reported Gabapentin 300 Mg Capsule 300 Mg PO TID 11/30/14 Reported Lipitor (Atorvastatin Calcium) 40 Mg Tablet 40 Mg PO HS 11/03/14 Reported Carbidopa-Levodopa 10-100 Tab (Carbidopa/Levodopa) 1 Each Tablet 1 Each PO DAILY 03/01/14 Reported Metformin Hcl 1,000 Mg Tablet 1,000 Mg PO BID 10/17/13 Reported Prilosec (Omeprazole) 20 Mg Capsule.dr 20 Mg PO DAILY 10/17/13 Reported Aspirin 81 Mg Tab.chew Mg PO DAILY 10/17/13 Reported Impression . Hemoptysis suspect lung ca HTN Plan . CONSIDERING HEMOPTYSIS THAT I WITNESS WILL PROCEED WITH BRONCH TO ASSESS AIRWAY A REVIEWED R/B/A TO BRONCH WITH POSSIBLE BIOPSY PT ACCEPTED CONTINUE THE SAME FOR NOW JHONNY ALLEN MD Dec 28, 2016 10:01
[2016-12-28] MEDS ORDERED: CONTRAST GIVEN MC PRN (10:15)
[2016-12-28] MEDS ORDERED: IOHEXOL 300 MG/ML 75 ML VIAL IV ONE (10:15)
[2016-12-28 10:42] VITALS: BP 115/71
--- NOTE | 2016-12-28 11:15 | CONS ---
DATE OF CONSULTATION: 12/27/2016 ATTENDING PHYSICIAN: Jing Charlton MD. DICTATING PHYSICIAN: Jhonny Allen MD REASON FOR CONSULTATION: The patient is seen in pulmonary consultation at the request of Dr. Charlton for hemoptysis and abnormal CT of the chest. HISTORY OF PRESENT ILLNESS: The patient is an 81-year-old, has been having hemoptysis ____ for several weeks is not seek any medical attention. In fact, he had a lower extremity edema of the left side. He went to see a doctor and Venous Dopplers were obtained, which were negative; but he never told him about the hemoptysis. He presented today because his forced him to. He had mainly hemoptysis earlier in the morning. His chest x-ray was obtained, which reveal no significant findings and subsequent CT angiogram was obtained because of his hemoptysis. I reviewed there is a 4 cm parenchymal mass in the left lower lobe. Some mild mediastinal adenopathy and some low density masses in the liver. The patient denies any significant headaches, diplopia or blurred vision, no significant weight loss. PAST MEDICAL HISTORY: Otherwise remarkable for hypertension, type 2 diabetes, coronary artery disease with previous coronary artery bypass grafting. He has not been diagnosed with COPD. No frequent acute exacerbations of COPD, quit tobacco 25 years ago. PAST SURGICAL HISTORY: Coronary artery bypass grafting. ALLERGIES: No known drug allergies. SOCIAL HISTORY: He quit tobacco approximately 25 years ago. HOME MEDICATIONS: List was reviewed. He is currently not on any bronchodilators. REVIEW OF SYSTEMS: As indicated above, otherwise, a 10-point system was reviewed and negative. PHYSICAL EXAMINATION: GENERAL: The patient appeared to be younger than the stated age. VITAL SIGNS: Stable. O2 saturation was greater than 92%, currently on room air. HEENT: Eyes, the sclerae were nonicteric. NECK: Jugular venous distention was not elevated. No lymphadenopathy. CHEST: Full expansion. LUNGS: Adequate airway flow, no wheezes. CARDIOVASCULAR: Regular rate and rhythm with S1, S2, no S3. ABDOMEN: Soft, nontender, nondistended. EXTREMITIES: No clubbing, cyanosis or edema. NEUROLOGIC: The patient was awake, alert, following commands. A detailed neuro exam was not performed. LABORATORY DATA: Reviewed. Electrolytes were noted. BUN and creatinine was noted. White count was normal. Hemoglobin and hematocrit were slightly decreased. UA was noted. CT of the chest as indicated above. IMPRESSION: 1. Hemoptysis secondary to suspect primary bronchogenic carcinoma. 2. Abnormal CT of the chest revealing left lower lobe lung mass. 3. Acute bronchitis. 4. Suspect underlying chronic obstructive pulmonary disease. 5. CT angiogram negative for pulmonary embolism. PLAN: 1. We will continue current medical management, nebulized treatments. 2. Treat acute bronchitis with steroids and antibiotics. 3. Possible bronchoscopy versus fine needle aspiration left lower lobe. I do appreciate the privilege in sharing the patient's care. JHONNY ALLEN MD DR: DEIDRE/brenda JOB#: [id number] / [id number]
[2016-12-28] MEDS ORDERED: INSULIN ASPART 300 UNITS/3 ML INSULN.PEN SQ ONE ×2 (12:30→21:30)
[2016-12-28] MEDS ORDERED: INSULIN DETEMIR 300 UNITS/3 ML INSULN.PEN. SQ ONE (12:30)
--- NOTE | 2016-12-28 12:31 | PDOC ---
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 may need IR for bx if not succeed cont home meds increase levemir to 30u qhs, aspart 10 tid, ssi labs tmr cough meds duoneb CT abd /pelvis to rule out mets solumedrol bid as per pulm gi ppx no heparin or lovenox History of Present Illness History of Present Illness still mild hemoptysis with bloody mucus hyperglycemia with steroid Vitals Vitals Vital Signs Date Time Temp Pulse Resp B/P (MAP) Pulse Ox O2 Delivery O2 Flow Rate FiO2 12/28/16 10:42 97.9 120 17 115/71 (86) 96 Room Air 97.9 Physical Exam General: Alert, Oriented X3, Cooperative Heart: Regular rate, Normal S1, Normal S2 Lungs: Clear, Crackles Abdomen: Normal bowel sounds, Soft Extremities: No clubbing, No cyanosis Labs LABS Laboratory Tests Test 12/27/16 20:36 12/28/16 04:50 12/28/16 06:58 12/28/16 11:47 Glucose (Fingerstick) 166 mg/dL (70-99) 256 mg/dL (70-99) 398 mg/dL (70-99) White Blood Count 6.4 x10^3/uL (4.0-11.0) Red Blood Count 4.10 x10^6/uL (4.30-5.70) Hemoglobin 12.2 g/dL (13.0-17.5) Hematocrit 37.2 % (39.0-53.0) Mean Corpuscular Volume 91 fL (79-100) Mean Corpuscular Hemoglobin 30 pg (25-35) Mean Corpuscular Hemoglobin Concent 33 g/dL (31-37) Red Cell Distribution Width 13.8 % (11.5-14.5) Platelet Count 197 x10^3/uL (140-400) Neutrophils (%) (Auto) 91 % (31-73) Lymphocytes (%) (Auto) 8 % (24-48) Monocytes (%) (Auto) 1 % (0-9) Eosinophils (%) (Auto) 0 % (0-3) Basophils (%) (Auto) 0 % (0-3) Neutrophils # (Auto) 5.8 x10^3uL (1.8-7.7) Lymphocytes # (Auto) 0.5 x10^3/uL (1.0-4.8) Monocytes # (Auto) 0.1 x10^3/uL (0.0-1.1) Eosinophils # (Auto) 0.0 x10^3/uL (0.0-0.7) Basophils # (Auto) 0.0 x10^3/uL (0.0-0.2) Segmented Neutrophils % 94 % (35-66) Lymphocytes % 5 % (24-48) Monocytes % 1 % (0-10) Platelet Estimate Adequate (ADEQUATE) Sodium Level 137 mmol/L (136-145) Potassium Level 4.8 mmol/L (3.5-5.1) Chloride Level 102 mmol/L (98-107) Carbon Dioxide Level 27 mmol/L (21-32) Anion Gap 8 (6-14) Blood Urea Nitrogen 15 mg/dL (8-26) Creatinine 1.0 mg/dL (0.7-1.3) Estimated GFR (Cockcroft-Gault) 71.9 Glucose Level 254 mg/dL (70-99) Calcium Level 8.3 mg/dL (8.5-10.1) Review of Systems Review of Systems no fever, chills, sob or chest pain Assessment and Plan Assessmemt and Plan Problems Medical Problems: (1) Hemoptysis Status: Acute (2) Lung cancer, lower lobe Status: Acute Problems: Comment Review of Relevant I have reviewed the following items katie (where applicable) has been applied. Labs Laboratory Tests Test 12/27/16 09:37 12/27/16 10:00 12/27/16 20:36 12/28/16 04:50 White Blood Count 7.6 x10^3/uL (4.0-11.0) 6.4 x10^3/uL (4.0-11.0) Red Blood Count 4.24 x10^6/uL (4.30-5.70) 4.10 x10^6/uL (4.30-5.70) Hemoglobin 12.8 g/dL (13.0-17.5) 12.2 g/dL (13.0-17.5) Hematocrit 37.8 % (39.0-53.0) 37.2 % (39.0-53.0) Mean Corpuscular Volume 89 fL (79-100) 91 fL (79-100) Mean Corpuscular Hemoglobin 30 pg (25-35) 30 pg (25-35) Mean Corpuscular Hemoglobin Concent 34 g/dL (31-37) 33 g/dL (31-37) Red Cell Distribution Width 14.1 % (11.5-14.5) 13.8 % (11.5-14.5) Platelet Count 227 x10^3/uL (140-400) 197 x10^3/uL (140-400) Neutrophils (%) (Auto) 69 % (31-73) 91 % (31-73) Lymphocytes (%) (Auto) 18 % (24-48) 8 % (24-48) Monocytes (%) (Auto) 11 % (0-9) 1 % (0-9) Eosinophils (%) (Auto) 2 % (0-3) 0 % (0-3) Basophils (%) (Auto) 1 % (0-3) 0 % (0-3) Neutrophils # (Auto) 5.2 x10^3uL (1.8-7.7) 5.8 x10^3uL (1.8-7.7) Lymphocytes # (Auto) 1.3 x10^3/uL (1.0-4.8) 0.5 x10^3/uL (1.0-4.8) Monocytes # (Auto) 0.8 x10^3/uL (0.0-1.1) 0.1 x10^3/uL (0.0-1.1) Eosinophils # (Auto) 0.1 x10^3/uL (0.0-0.7) 0.0 x10^3/uL (0.0-0.7) Basophils # (Auto) 0.0 x10^3/uL (0.0-0.2) 0.0 x10^3/uL (0.0-0.2) Prothrombin Time 13.4 SEC (11.7-14.0) Prothromb Time International Ratio 1.1 (0.8-1.1) Activated Partial Thromboplast Time 39 SEC (24-38) D-Dimer (Isabel) 0.70 ug/mlFEU (0.00-0.50) Sodium Level 140 mmol/L (136-145) 137 mmol/L (136-145) Potassium Level 5.0 mmol/L (3.5-5.1) 4.8 mmol/L (3.5-5.1) Chloride Level 105 mmol/L (98-107) 102 mmol/L (98-107) Carbon Dioxide Level 31 mmol/L (21-32) 27 mmol/L (21-32) Anion Gap 4 (6-14) 8 (6-14) Blood Urea Nitrogen 13 mg/dL (8-26) 15 mg/dL (8-26) Creatinine 1.0 mg/dL (0.7-1.3) 1.0 mg/dL (0.7-1.3) Estimated GFR (Cockcroft-Gault) 71.9 71.9 Glucose Level 147 mg/dL (70-99) 254 mg/dL (70-99) Calcium Level 8.7 mg/dL (8.5-10.1) 8.3 mg/dL (8.5-10.1) Magnesium Level 1.8 mg/dL (1.8-2.4) Creatine Kinase 106 U/L (39-308) Creatine Kinase MB (Mass) 4.1 ng/mL (0.0-3.6) Creatine Kinase MB Relative Index 3.9 % (0-4) Troponin I Quantitative < 0.017 ng/mL (0.000-0.055) VD-Hli-K-Type Natriuretic Peptide 619 pg/mL (0-449) Urine Collection Type Void Urine Color Yellow Urine Clarity Clear Urine pH 7.0 Urine Specific [place] 1.015 Urine Protein Negative mg/dL (NEG-TRACE) Urine Glucose (UA) Negative mg/dL (NEG) Urine Ketones (Stick) Negative mg/dL (NEG) Urine Blood Negative (NEG) Urine Nitrite Negative (NEG) Urine Bilirubin Negative (NEG) Urine Urobilinogen Dipstick 0.2 mg/dL (0.2 mg/dL) Urine Leukocyte Esterase Small (NEG) Urine RBC 0 /HPF (0-2) Urine WBC >40 /HPF (0-4) Urine Squamous Epithelial Cells Few /LPF Urine Bacteria 0 /HPF (0-FEW) Glucose (Fingerstick) 166 mg/dL (70-99) Segmented Neutrophils % 94 % (35-66) Lymphocytes % 5 % (24-48) Monocytes % 1 % (0-10) Platelet Estimate Adequate (ADEQUATE) Test 12/28/16 06:58 12/28/16 11:47 Glucose (Fingerstick) 256 mg/dL (70-99) 398 mg/dL (70-99) Laboratory Tests Test 12/27/16 20:36 12/28/16 04:50 12/28/16 06:58 12/28/16 11:47 Glucose (Fingerstick) 166 mg/dL (70-99) 256 mg/dL (70-99) 398 mg/dL (70-99) White Blood Count 6.4 x10^3/uL (4.0-11.0) Red Blood Count 4.10 x10^6/uL (4.30-5.70) Hemoglobin 12.2 g/dL (13.0-17.5) Hematocrit 37.2 % (39.0-53.0) Mean Corpuscular Volume 91 fL (79-100) Mean Corpuscular Hemoglobin 30 pg (25-35) Mean Corpuscular Hemoglobin Concent 33 g/dL (31-37) Red Cell Distribution Width 13.8 % (11.5-14.5) Platelet Count 197 x10^3/uL (140-400) Neutrophils (%) (Auto) 91 % (31-73) Lymphocytes (%) (Auto) 8 % (24-48) Monocytes (%) (Auto) 1 % (0-9) Eosinophils (%) (Auto) 0 % (0-3) Basophils (%) (Auto) 0 % (0-3) Neutrophils # (Auto) 5.8 x10^3uL (1.8-7.7) Lymphocytes # (Auto) 0.5 x10^3/uL (1.0-4.8) Monocytes # (Auto) 0.1 x10^3/uL (0.0-1.1) Eosinophils # (Auto) 0.0 x10^3/uL (0.0-0.7) Basophils # (Auto) 0.0 x10^3/uL (0.0-0.2) Segmented Neutrophils % 94 % (35-66) Lymphocytes % 5 % (24-48) Monocytes % 1 % (0-10) Platelet Estimate Adequate (ADEQUATE) Sodium Level 137 mmol/L (136-145) Potassium Level 4.8 mmol/L (3.5-5.1) Chloride Level 102 mmol/L (98-107) Carbon Dioxide Level 27 mmol/L (21-32) Anion Gap 8 (6-14) Blood Urea Nitrogen 15 mg/dL (8-26) Creatinine 1.0 mg/dL (0.7-1.3) Estimated GFR (Cockcroft-Gault) 71.9 Glucose Level 254 mg/dL (70-99) Calcium Level 8.3 mg/dL (8.5-10.1) Medications Current Medications Iohexol (Omnipaque 300 Mg/ml) 75 ml 1X ONCE IV Last administered on 12/27/16 10:49; Start 12/27/16 at 10:30; Stop 12/27/16 at 10:31; Status DC Info (Do NOT chart on this entry -- for MONITORING) 1 each PRN DAILY PRN MC SEE COMMENTS; Start 12/27/16 at 10:30; Stop 12/29/16 at 10:29 Ondansetron HCl (Zofran) 4 mg PRN Q8HRS PRN IV NAUSEA/VOMITING; Start 12/27/16 at 13:15; Stop 12/28/16 at 13:14 Morphine Sulfate 4 mg PRN Q2HR PRN IV PAIN; Start 12/27/16 at 13:15; Stop at 13:14 Dextrose (Dextrose 50%-Water Syringe) 12.5 gm PRN Q15MIN PRN IV SEE COMMENTS; Start 12/27/16 at 13:15 Levofloxacin/ Dextrose 50 ml @ 50 mls/hr Q24H IV Last administered on 12/27/16 18:24; Start 12/27/16 at 16:30 Methylprednisolone Sodium Succinate (SOLU-Medrol 125MG VIAL) 80 mg BID IV Last administered on 12/28/16 09:26; Start 12/27/16 at 21:00 Atorvastatin Calcium (Lipitor) 40 mg HS PO Last administered on 12/27/16 20:38 ; Start 12/27/16 at 21:00 Carbidopa/Levodopa (Sinemet 10/100) 1 tab DAILY PO Last administered on 09:28; Start 12/28/16 at 09:00 Diltiazem HCl (Cardizem 24hr Cd) 180 mg DAILY PO Last administered on 12/28/16 09:28; Start 12/28/16 at 09:00 Metoprolol Tartrate (Lopressor) 25 mg DAILY PO ; Start 12/28/16 at 09:00; Stop at 09:00; Status DC Gabapentin (Neurontin) 300 mg TID PO ; Start 12/27/16 at 21:00; Status Cancel Insulin Detemir (Levemir) 30 units QHS SQ ; Start 12/27/16 at 21:00; Stop at 21:00; Status DC Losartan Potassium (Cozaar) 100 mg DAILY PO Last administered on 12/28/16 09:29 ; Start 12/28/16 at 09:00 Pantoprazole Sodium (Protonix) 40 mg DAILYAC PO Last administered on 12/28/16 09:28; Start 12/28/16 at 07:30 Acetaminophen (Tylenol) 650 mg PRN Q6HRS PRN PO FEVER; Start 12/27/16 at 17:00 Ondansetron HCl (Zofran) 4 mg PRN Q6HRS PRN IV NAUSEA/VOMITING; Start 12/27/16 at 17:00 Morphine Sulfate 2 mg PRN Q2HR PRN IV PAIN; Start 12/27/16 at 17:00 Tramadol HCl (Ultram) 50 mg PRN Q6HRS PRN PO PAIN Last administered on 20:39; Start 12/27/16 at 17:00 Hydralazine HCl (Apresoline) 10 mg PRN Q4HRS PRN IVP ELEVATED BP, SEE COMMENTS ; Start 12/27/16 at 17:00 Docusate Sodium (Colace) 100 mg PRN DAILY PRN PO CONSTIPATION; Start 12/27/16 at 17:00 Albuterol/ Ipratropium (Duoneb) 3 ml RTQID NEB Last administered on 12/28/16 08 :23; Start 12/27/16 at 20:00 Albuterol Sulfate (Ventolin Neb Soln) 2.5 mg PRN Q2HR PRN NEB SHORTNESS OF BREATH; Start 12/27/16 at 17:00 Guaifenesin (Mucinex) 600 mg BID PO Last administered on 12/28/16 09:28; Start 12/27/16 at 21:00 Insulin Detemir (Levemir) 20 units QHS SQ Last administered on 12/27/16 20:41; Start 12/27/16 at 21:00; Stop 12/28/16 at 09:40; Status DC Insulin Aspart (NovoLOG) 0-9 UNITS TIDWMEALS SQ Last administered on 12/28/16 09:38; Start 12/27/16 at 17:00 Dextrose (Dextrose 50%-Water Syringe) 12.5 gm PRN Q15MIN PRN IV SEE COMMENTS; Start 12/27/16 at 17:00; Status UNV Cyanocobalamin (Vitamin B-12) 1,000 mcg DAILY PO Last administered on 12/28/16 09:28; Start 12/28/16 at 09:00 Gabapentin (Neurontin) 100 mg TID PO Last administered on 12/28/16 09:28; Start 12/27/16 at 21:00 Insulin Detemir (Levemir) 30 units QHS SQ ; Start 12/28/16 at 21:00 Iohexol (Omnipaque 300 Mg/ml) 75 ml 1X ONCE IV Last administered on 12/28/16 11:10; Start 12/28/16 at 10:15; Stop 12/28/16 at 10:16; Status DC Info (Do NOT chart on this entry -- for MONITORING) 1 each PRN DAILY PRN MC SEE COMMENTS; Start 12/28/16 at 10:15; Stop 12/30/16 at 10:14 Insulin Aspart (NovoLOG) 15 units 1X ONCE SQ Last administered on 12/28/16 12: 24; Start 12/28/16 at 12:30; Stop 12/28/16 at 12:31 Insulin Detemir (Levemir) 10 units 1X ONCE SQ Last administered on 12/28/16 12 :22; Start 12/28/16 at 12:30; Stop 12/28/16 at 12:31 Active Scripts Active Reported Osteo Bi-Flex Caplet (Glucosamine/D3/Boswellia Shruthi) 1 Each Tablet 1 Each PO DAILY Vitamin B-12 (Cyanocobalamin (Vitamin B-12)) 1,000 Mcg Tablet 1 Tab PO DAILY Gabapentin 100 Mg Capsule 100 Mg PO TID Saw Cunningham (Saw [place] Fruit) 450 Mg Capsule 450 Mg PO DAILY Losartan Potassium 100 Mg Tablet 100 Mg PO DAILY Diltiazem 24HR Cd (Diltiazem Hcl) 180 Mg Cap.er.24h 1 Cap PO DAILY Lantus Solostar (Insulin Glargine,Hum.rec.anlog) 100 Unit/1 Ml Insuln.pen 30 Unit SQ QHS Lipitor (Atorvastatin Calcium) 40 Mg Tablet 40 Mg PO HS Carbidopa-Levodopa 10-100 Tab (Carbidopa/Levodopa) 1 Each Tablet 1 Each PO DAILY Metformin Hcl 1,000 Mg Tablet 1,000 Mg PO BID Prilosec (Omeprazole) 20 Mg Capsule.dr 20 Mg PO DAILY Aspirin 81 Mg Tab.chew Mg PO DAILY Vitals/I & O Vital Sign - Last 24 Hours 12/27/16 12/27/16 12/27/16 12/27/16 15:49 15:50 19:00 19:10 Temp 97.4 97.5 97.9 97.4 97.5 97.9 Pulse 86 86 90 Resp B/P (MAP) 110/77 (88) 110/77 (88) 140/74 (96) Pulse Ox 97 97 97 O2 Delivery Room Air Room Air Room Air Room Air 12/27/16 12/27/16 12/27/16 12/27/16 20:00 20:11 20:39 21:46 Pulse Ox 98 O2 Delivery Room Air Room Air Room Air 12/27/16 12/28/16 12/28/16 12/28/16 23:00 03:01 06:50 08:00 Temp 97.5 98.0 97.5 97.5 98.0 97.5 Pulse 105 107 114 Resp B/P (MAP) 103/70 (81) 120/78 (92) 127/83 (98) Pulse Ox 90 93 98 O2 Delivery Room Air Room Air Room Air Room Air 12/28/16 12/28/16 12/28/16 12/28/16 08:25 09:28 09:29 10:42 Temp 97.9 97.9 Pulse 114 114 120 Resp B/P (MAP) 127/83 127/83 115/71 (86) Pulse Ox 97 96 O2 Delivery Room Air Room Air Intake and Output 12/27/16 12/27/16 12/28/16 15:00 23:00 07:00 Intake Total 0 ml 0 ml Balance 0 ml 0 ml NATHALIA WASSERMAN MD Dec 28, 2016 12:31
--- NOTE | 2016-12-28 14:02 | RAD ---
Indication lung mass highly suspect for primary malignancy. Assess for potential metastatic disease in the abdomen or pelvis. Axial images through the abdomen and pelvis were obtained. 75 cc of Omnipaque 300 was administered intravenously. No oral contrast was administered. Note is made of the CT examination one day earlier demonstrating findings highly suspect for primary malignancy in the left lung. Known pathology in the left lower lobe is reproduced. No new or unexpected finding at either lung base, relative to yesterday's examination, is seen. There are several low-density masses in the liver. The largest measures approximately 1.7 cm. The etiology is unclear. They're not entirely typical of cysts. Metastatic disease is not excluded. Hepatic MRI would be useful for additional characterization if clinically warranted. There is cholelithiasis. The spleen appears unremarkable. No pancreatic abnormality is seen. There are no adrenal masses and the kidneys appear unremarkable. Acute finding in the abdomen is not seen. In the pelvis the prostate is noted to be enlarged. A vascular graft is noted in the left pelvis. There are diverticula seen associated with the large bowel. Active inflammation is not seen. Acute finding in the pelvis is not apparent. There is a sclerotic focus at the symphysis in the area the inferior pubic ramus likely reflecting a bone island. There are degenerative changes in the lumbar spine. There is heavy plaquing associated with the abdominal aorta. There is probable moderate narrowing associated with the right common iliac arteries IMPRESSION: Several hepatic masses. The etiology is unclear. Metastatic disease is not excluded. Hepatic MRI should be considered. Enlarged prostate. Cholelithiasis
[2016-12-28 15:19] VITALS: BP 83/53
[2016-12-28 19:00] VITALS: BP 117/74
[2016-12-28] MEDS: ATORVASTATIN CALCIUM 40 MG TABLET. PO SCH (20:44)
[2016-12-28] MEDS: GABAPENTIN 300 MG CAPSULE. PO SCH (21:16)
[2016-12-28] MEDS: INSULIN DETEMIR 300 UNITS/3 ML INSULN.PEN. SQ SCH (21:25)
[2016-12-28 23:00] VITALS: BP 97/50
[2016-12-28] MEDS ORDERED: HYDROcodone/CHLORPHEN POLIS 5 ML SUS.ER.12H PO PRN (23:15)
[2016-12-29] VITALS (7 sets, daily range): BP systolic 86–121; BP diastolic 58–73
[2016-12-29 04:13] LABS: BASO % 0 % (0-3); EOS % 0 % (0-3); HEMATOCRIT 34.6 % (39.0-53.0); HEMOGLOBIN 11.5 g/dL (13.0-17.5); LYMPH # 0.4 x10^3/uL (1.0-4.8); LYMPH % 4 % (24-48); MEAN CORPUSCULAR HEMOGLOBIN 30 pg (25-35); MEAN CORPUSCULAR HGB CONC 33 g/dL (31-37); MEAN CORPUSCULAR VOLUME 91 fL (79-100); MONO % 3 % (0-9); NEUT % 93 % (31-73); PLATELET COUNT 177 x10^3/uL (140-400); RED BLOOD COUNT 3.82 x10^6/uL (4.30-5.70); WHITE BLOOD COUNT 11.8 x10^3/uL (4.0-11.0)
[2016-12-29 04:29] LABS: CALCIUM 8.3 mg/dL (8.5-10.1); CREATININE 1.2 mg/dL (0.7-1.3); GFR 58.3; POTASSIUM 4.3 mmol/L (3.5-5.1)
[2016-12-29] MEDS: PANTOPRAZOLE 40 MG TABLET.DR. PO SCH (07:07)
[2016-12-29] MEDS: LOSARTAN POTASSIUM 50 MG TABLET. PO SCH (07:08)
[2016-12-29] MEDS: CARBIDOPA/LEVODOPA 10/100MG TABLET PO SCH (07:08)
[2016-12-29] MEDS: CYANOCOBALAMIN (VITAMIN B-12) 1,000 MCG TABLET. PO SCH (07:08)
[2016-12-29] MEDS: GABAPENTIN 100 MG CAPSULE. PO SCH ×2 (07:08→13:46)
[2016-12-29] MEDS: IPRATRPIUM/ALBUTEROL 0.5/2.5MG 3 ML NEBU. NEB SCH ×4 (07:09→20:04)
[2016-12-29] MEDS: methylPREDNISolone SOD SUCC PF 125 MG/2 ML VIAL. IV SCH ×2 (08:22→20:19)
[2016-12-29] MEDS: INSULIN ASPART 300 UNITS/3 ML INSULN.PEN SQ SCH ×7 (08:28→21:11)
--- NOTE | 2016-12-29 09:17 | PDOC ---
PULMONARY PROGRESS NOTES Subjective PT WITH NO INCREASE SOA HAD HEMOPTYSIS THIS AM Vitals Vital Signs Date Time Temp Pulse Resp B/P (MAP) Pulse Ox O2 Delivery O2 Flow Rate FiO2 12/29/16 08:00 Room Air 12/29/16 07:15 98.5 118 18 121/65 (83) 96 98.5 ROS: No Nausea, No Chest Pain, No Increase Cough General: Alert, No acute distress Lungs: Clear Cardiovascular: S1 Abdomen: Soft Neuro Exam: Alert Extremities: No Edema, Other Skin: Warm Labs Laboratory Tests Test 12/27/16 09:37 12/27/16 10:00 12/27/16 20:36 12/28/16 04:50 White Blood Count 7.6 x10^3/uL (4.0-11.0) 6.4 x10^3/uL (4.0-11.0) Red Blood Count 4.24 x10^6/uL (4.30-5.70) 4.10 x10^6/uL (4.30-5.70) Hemoglobin 12.8 g/dL (13.0-17.5) 12.2 g/dL (13.0-17.5) Hematocrit 37.8 % (39.0-53.0) 37.2 % (39.0-53.0) Mean Corpuscular Volume 89 fL (79-100) 91 fL (79-100) Mean Corpuscular Hemoglobin 30 pg (25-35) 30 pg (25-35) Mean Corpuscular Hemoglobin Concent 34 g/dL (31-37) 33 g/dL (31-37) Red Cell Distribution Width 14.1 % (11.5-14.5) 13.8 % (11.5-14.5) Platelet Count 227 x10^3/uL (140-400) 197 x10^3/uL (140-400) Neutrophils (%) (Auto) 69 % (31-73) 91 % (31-73) Lymphocytes (%) (Auto) 18 % (24-48) 8 % (24-48) Monocytes (%) (Auto) 11 % (0-9) 1 % (0-9) Eosinophils (%) (Auto) 2 % (0-3) 0 % (0-3) Basophils (%) (Auto) 1 % (0-3) 0 % (0-3) Neutrophils # (Auto) 5.2 x10^3uL (1.8-7.7) 5.8 x10^3uL (1.8-7.7) Lymphocytes # (Auto) 1.3 x10^3/uL (1.0-4.8) 0.5 x10^3/uL (1.0-4.8) Monocytes # (Auto) 0.8 x10^3/uL (0.0-1.1) 0.1 x10^3/uL (0.0-1.1) Eosinophils # (Auto) 0.1 x10^3/uL (0.0-0.7) 0.0 x10^3/uL (0.0-0.7) Basophils # (Auto) 0.0 x10^3/uL (0.0-0.2) 0.0 x10^3/uL (0.0-0.2) Prothrombin Time 13.4 SEC (11.7-14.0) Prothromb Time International Ratio 1.1 (0.8-1.1) Activated Partial Thromboplast Time 39 SEC (24-38) D-Dimer (Isabel) 0.70 ug/mlFEU (0.00-0.50) Sodium Level 140 mmol/L (136-145) 137 mmol/L (136-145) Potassium Level 5.0 mmol/L (3.5-5.1) 4.8 mmol/L (3.5-5.1) Chloride Level 105 mmol/L (98-107) 102 mmol/L (98-107) Carbon Dioxide Level 31 mmol/L (21-32) 27 mmol/L (21-32) Anion Gap 4 (6-14) 8 (6-14) Blood Urea Nitrogen 13 mg/dL (8-26) 15 mg/dL (8-26) Creatinine 1.0 mg/dL (0.7-1.3) 1.0 mg/dL (0.7-1.3) Estimated GFR (Cockcroft-Gault) 71.9 71.9 Glucose Level 147 mg/dL (70-99) 254 mg/dL (70-99) Calcium Level 8.7 mg/dL (8.5-10.1) 8.3 mg/dL (8.5-10.1) Magnesium Level 1.8 mg/dL (1.8-2.4) Creatine Kinase 106 U/L (39-308) Creatine Kinase MB (Mass) 4.1 ng/mL (0.0-3.6) Creatine Kinase MB Relative Index 3.9 % (0-4) Troponin I Quantitative < 0.017 ng/mL (0.000-0.055) CA-Gkh-V-Type Natriuretic Peptide 619 pg/mL (0-449) Urine Collection Type Void Urine Color Yellow Urine Clarity Clear Urine pH 7.0 Urine Specific [place] 1.015 Urine Protein Negative mg/dL (NEG-TRACE) Urine Glucose (UA) Negative mg/dL (NEG) Urine Ketones (Stick) Negative mg/dL (NEG) Urine Blood Negative (NEG) Urine Nitrite Negative (NEG) Urine Bilirubin Negative (NEG) Urine Urobilinogen Dipstick 0.2 mg/dL (0.2 mg/dL) Urine Leukocyte Esterase Small (NEG) Urine RBC 0 /HPF (0-2) Urine WBC >40 /HPF (0-4) Urine Squamous Epithelial Cells Few /LPF Urine Bacteria 0 /HPF (0-FEW) Glucose (Fingerstick) 166 mg/dL (70-99) Segmented Neutrophils % 94 % (35-66) Lymphocytes % 5 % (24-48) Monocytes % 1 % (0-10) Platelet Estimate Adequate (ADEQUATE) Test 12/28/16 05:30 12/28/16 06:58 12/28/16 11:47 12/28/16 16:23 Nasal Screen MRSA (PCR) Negative (Negative) Glucose (Fingerstick) 256 mg/dL (70-99) 398 mg/dL (70-99) 370 mg/dL (70-99) Test 12/28/16 20:57 12/29/16 03:30 12/29/16 08:25 Glucose (Fingerstick) 428 mg/dL (70-99) 318 mg/dL (70-99) White Blood Count 11.8 x10^3/uL (4.0-11.0) Red Blood Count 3.82 x10^6/uL (4.30-5.70) Hemoglobin 11.5 g/dL (13.0-17.5) Hematocrit 34.6 % (39.0-53.0) Mean Corpuscular Volume 91 fL (79-100) Mean Corpuscular Hemoglobin 30 pg (25-35) Mean Corpuscular Hemoglobin Concent 33 g/dL (31-37) Red Cell Distribution Width 14.0 % (11.5-14.5) Platelet Count 177 x10^3/uL (140-400) Neutrophils (%) (Auto) 93 % (31-73) Lymphocytes (%) (Auto) 4 % (24-48) Monocytes (%) (Auto) 3 % (0-9) Eosinophils (%) (Auto) 0 % (0-3) Basophils (%) (Auto) 0 % (0-3) Neutrophils # (Auto) 11.0 x10^3uL (1.8-7.7) Lymphocytes # (Auto) 0.4 x10^3/uL (1.0-4.8) Monocytes # (Auto) 0.4 x10^3/uL (0.0-1.1) Eosinophils # (Auto) 0.0 x10^3/uL (0.0-0.7) Basophils # (Auto) 0.0 x10^3/uL (0.0-0.2) Sodium Level 137 mmol/L (136-145) Potassium Level 4.3 mmol/L (3.5-5.1) Chloride Level 103 mmol/L (98-107) Carbon Dioxide Level 26 mmol/L (21-32) Anion Gap 8 (6-14) Blood Urea Nitrogen 23 mg/dL (8-26) Creatinine 1.2 mg/dL (0.7-1.3) Estimated GFR (Cockcroft-Gault) 58.3 Glucose Level 253 mg/dL (70-99) Calcium Level 8.3 mg/dL (8.5-10.1) Laboratory Tests Test 12/28/16 11:47 12/28/16 16:23 12/28/16 20:57 12/29/16 03:30 Glucose (Fingerstick) 398 mg/dL (70-99) 370 mg/dL (70-99) 428 mg/dL (70-99) White Blood Count 11.8 x10^3/uL (4.0-11.0) Red Blood Count 3.82 x10^6/uL (4.30-5.70) Hemoglobin 11.5 g/dL (13.0-17.5) Hematocrit 34.6 % (39.0-53.0) Mean Corpuscular Volume 91 fL (79-100) Mean Corpuscular Hemoglobin 30 pg (25-35) Mean Corpuscular Hemoglobin Concent 33 g/dL (31-37) Red Cell Distribution Width 14.0 % (11.5-14.5) Platelet Count 177 x10^3/uL (140-400) Neutrophils (%) (Auto) 93 % (31-73) Lymphocytes (%) (Auto) 4 % (24-48) Monocytes (%) (Auto) 3 % (0-9) Eosinophils (%) (Auto) 0 % (0-3) Basophils (%) (Auto) 0 % (0-3) Neutrophils # (Auto) 11.0 x10^3uL (1.8-7.7) Lymphocytes # (Auto) 0.4 x10^3/uL (1.0-4.8) Monocytes # (Auto) 0.4 x10^3/uL (0.0-1.1) Eosinophils # (Auto) 0.0 x10^3/uL (0.0-0.7) Basophils # (Auto) 0.0 x10^3/uL (0.0-0.2) Sodium Level 137 mmol/L (136-145) Potassium Level 4.3 mmol/L (3.5-5.1) Chloride Level 103 mmol/L (98-107) Carbon Dioxide Level 26 mmol/L (21-32) Anion Gap 8 (6-14) Blood Urea Nitrogen 23 mg/dL (8-26) Creatinine 1.2 mg/dL (0.7-1.3) Estimated GFR (Cockcroft-Gault) 58.3 Glucose Level 253 mg/dL (70-99) Calcium Level 8.3 mg/dL (8.5-10.1) Test 12/29/16 08:25 Glucose (Fingerstick) 318 mg/dL (70-99) Medications Active Scripts Medications Dose Route/Sig Max Daily Dose Days Date Category Saw [place] (Saw [place] Fruit) 450 Mg Capsule 450 Mg PO DAILY 12/21/15 Reported Losartan Potassium 100 Mg Tablet 100 Mg PO DAILY 12/21/15 Reported Metoprolol Tartrate 25 Mg Tablet 1 Tab PO DAILY 12/21/15 Reported Diltiazem 24HR Cd (Diltiazem Hcl) 180 Mg Cap.er.24h 1 Cap PO DAILY 12/21/15 Reported Lantus Solostar (Insulin Glargine,Hum.rec.anlog) 100 Unit/1 Ml Insuln.pen 30 Unit SQ QHS 12/21/15 Reported Gabapentin 300 Mg Capsule 300 Mg PO TID 11/30/14 Reported Lipitor (Atorvastatin Calcium) 40 Mg Tablet 40 Mg PO HS 11/03/14 Reported Carbidopa-Levodopa 10-100 Tab (Carbidopa/Levodopa) 1 Each Tablet 1 Each PO DAILY 03/01/14 Reported Metformin Hcl 1,000 Mg Tablet 1,000 Mg PO BID 10/17/13 Reported Prilosec (Omeprazole) 20 Mg Capsule.dr 20 Mg PO DAILY 10/17/13 Reported Aspirin 81 Mg Tab.chew Mg PO DAILY 10/17/13 Reported Impression . 1. 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 Abnormal CT of the chest revealing left lower lobe lung mass. 3. Acute bronchitis. 4. Suspect underlying chronic obstructive pulmonary disease. 5. CT angiogram negative for pulmonary embolism. 6. Multiple liver mets Plan . 1. We will continue current medical management, nebulized treatments. 2. Treat acute bronchitis with steroids and antibiotics. 3. bronchoscopy today. All R/B explained. pt and son agrees to proceed 4. Full PFTS later 5. PET scan as OP KOFFI HERNANDEZ MD Dec 29, 2016 09:17
--- NOTE | 2016-12-29 11:47 | PDOC ---
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 30u qhs - UNCONTROLLED gerd htn hld h/o CAD with cabg History of Present Illness History of Present Illness BS high - 3002- 400s ON solumedrol high doses here per pulmo For bronch later NO hemoptysis today BP also on low side - 90s systolic\ PLAn: Bronhc later OP PET scan Inc novolog to 15 TID Keep levemir 30 qhs HOLD cardizem Vitals Vitals Vital Signs Date Time Temp Pulse Resp B/P (MAP) Pulse Ox O2 Delivery O2 Flow Rate FiO2 12/29/16 11:04 108 109/65 (80) 12/29/16 11:00 97.9 18 97 Room Air 97.9 Physical Exam General: Alert, Oriented X3, Cooperative Heart: Regular rate, Normal S1, Normal S2 Lungs: Clear Abdomen: Normal bowel sounds, Soft Extremities: No clubbing, No cyanosis Labs LABS Laboratory Tests Test 12/28/16 11:47 12/28/16 16:23 12/28/16 20:57 12/29/16 03:30 Glucose (Fingerstick) 398 mg/dL (70-99) 370 mg/dL (70-99) 428 mg/dL (70-99) White Blood Count 11.8 x10^3/uL (4.0-11.0) Red Blood Count 3.82 x10^6/uL (4.30-5.70) Hemoglobin 11.5 g/dL (13.0-17.5) Hematocrit 34.6 % (39.0-53.0) Mean Corpuscular Volume 91 fL (79-100) Mean Corpuscular Hemoglobin 30 pg (25-35) Mean Corpuscular Hemoglobin Concent 33 g/dL (31-37) Red Cell Distribution Width 14.0 % (11.5-14.5) Platelet Count 177 x10^3/uL (140-400) Neutrophils (%) (Auto) 93 % (31-73) Lymphocytes (%) (Auto) 4 % (24-48) Monocytes (%) (Auto) 3 % (0-9) Eosinophils (%) (Auto) 0 % (0-3) Basophils (%) (Auto) 0 % (0-3) Neutrophils # (Auto) 11.0 x10^3uL (1.8-7.7) Lymphocytes # (Auto) 0.4 x10^3/uL (1.0-4.8) Monocytes # (Auto) 0.4 x10^3/uL (0.0-1.1) Eosinophils # (Auto) 0.0 x10^3/uL (0.0-0.7) Basophils # (Auto) 0.0 x10^3/uL (0.0-0.2) Sodium Level 137 mmol/L (136-145) Potassium Level 4.3 mmol/L (3.5-5.1) Chloride Level 103 mmol/L (98-107) Carbon Dioxide Level 26 mmol/L (21-32) Anion Gap 8 (6-14) Blood Urea Nitrogen 23 mg/dL (8-26) Creatinine 1.2 mg/dL (0.7-1.3) Estimated GFR (Cockcroft-Gault) 58.3 Glucose Level 253 mg/dL (70-99) Calcium Level 8.3 mg/dL (8.5-10.1) Test 12/29/16 08:25 Glucose (Fingerstick) 318 mg/dL (70-99) Review of Systems Review of Systems denies 14 pt, low BP he claims Assessment and Plan Assessmemt and Plan Problems Medical Problems: (1) Hemoptysis Status: Acute (2) Lung cancer, lower lobe Status: Acute Problems: Comment Review of Relevant I have reviewed the following items katie (where applicable) has been applied. Labs Laboratory Tests Test 12/27/16 20:36 12/28/16 04:50 12/28/16 05:30 12/28/16 06:58 Glucose (Fingerstick) 166 mg/dL (70-99) 256 mg/dL (70-99) White Blood Count 6.4 x10^3/uL (4.0-11.0) Red Blood Count 4.10 x10^6/uL (4.30-5.70) Hemoglobin 12.2 g/dL (13.0-17.5) Hematocrit 37.2 % (39.0-53.0) Mean Corpuscular Volume 91 fL (79-100) Mean Corpuscular Hemoglobin 30 pg (25-35) Mean Corpuscular Hemoglobin Concent 33 g/dL (31-37) Red Cell Distribution Width 13.8 % (11.5-14.5) Platelet Count 197 x10^3/uL (140-400) Neutrophils (%) (Auto) 91 % (31-73) Lymphocytes (%) (Auto) 8 % (24-48) Monocytes (%) (Auto) 1 % (0-9) Eosinophils (%) (Auto) 0 % (0-3) Basophils (%) (Auto) 0 % (0-3) Neutrophils # (Auto) 5.8 x10^3uL (1.8-7.7) Lymphocytes # (Auto) 0.5 x10^3/uL (1.0-4.8) Monocytes # (Auto) 0.1 x10^3/uL (0.0-1.1) Eosinophils # (Auto) 0.0 x10^3/uL (0.0-0.7) Basophils # (Auto) 0.0 x10^3/uL (0.0-0.2) Segmented Neutrophils % 94 % (35-66) Lymphocytes % 5 % (24-48) Monocytes % 1 % (0-10) Platelet Estimate Adequate (ADEQUATE) Sodium Level 137 mmol/L (136-145) Potassium Level 4.8 mmol/L (3.5-5.1) Chloride Level 102 mmol/L (98-107) Carbon Dioxide Level 27 mmol/L (21-32) Anion Gap 8 (6-14) Blood Urea Nitrogen 15 mg/dL (8-26) Creatinine 1.0 mg/dL (0.7-1.3) Estimated GFR (Cockcroft-Gault) 71.9 Glucose Level 254 mg/dL (70-99) Calcium Level 8.3 mg/dL (8.5-10.1) Nasal Screen MRSA (PCR) Negative (Negative) Test 12/28/16 11:47 12/28/16 16:23 12/28/16 20:57 12/29/16 03:30 Glucose (Fingerstick) 398 mg/dL (70-99) 370 mg/dL (70-99) 428 mg/dL (70-99) White Blood Count 11.8 x10^3/uL (4.0-11.0) Red Blood Count 3.82 x10^6/uL (4.30-5.70) Hemoglobin 11.5 g/dL (13.0-17.5) Hematocrit 34.6 % (39.0-53.0) Mean Corpuscular Volume 91 fL (79-100) Mean Corpuscular Hemoglobin 30 pg (25-35) Mean Corpuscular Hemoglobin Concent 33 g/dL (31-37) Red Cell Distribution Width 14.0 % (11.5-14.5) Platelet Count 177 x10^3/uL (140-400) Neutrophils (%) (Auto) 93 % (31-73) Lymphocytes (%) (Auto) 4 % (24-48) Monocytes (%) (Auto) 3 % (0-9) Eosinophils (%) (Auto) 0 % (0-3) Basophils (%) (Auto) 0 % (0-3) Neutrophils # (Auto) 11.0 x10^3uL (1.8-7.7) Lymphocytes # (Auto) 0.4 x10^3/uL (1.0-4.8) Monocytes # (Auto) 0.4 x10^3/uL (0.0-1.1) Eosinophils # (Auto) 0.0 x10^3/uL (0.0-0.7) Basophils # (Auto) 0.0 x10^3/uL (0.0-0.2) Sodium Level 137 mmol/L (136-145) Potassium Level 4.3 mmol/L (3.5-5.1) Chloride Level 103 mmol/L (98-107) Carbon Dioxide Level 26 mmol/L (21-32) Anion Gap 8 (6-14) Blood Urea Nitrogen 23 mg/dL (8-26) Creatinine 1.2 mg/dL (0.7-1.3) Estimated GFR (Cockcroft-Gault) 58.3 Glucose Level 253 mg/dL (70-99) Calcium Level 8.3 mg/dL (8.5-10.1) Test 12/29/16 08:25 Glucose (Fingerstick) 318 mg/dL (70-99) Laboratory Tests Test 12/28/16 11:47 12/28/16 16:23 12/28/16 20:57 12/29/16 03:30 Glucose (Fingerstick) 398 mg/dL (70-99) 370 mg/dL (70-99) 428 mg/dL (70-99) White Blood Count 11.8 x10^3/uL (4.0-11.0) Red Blood Count 3.82 x10^6/uL (4.30-5.70) Hemoglobin 11.5 g/dL (13.0-17.5) Hematocrit 34.6 % (39.0-53.0) Mean Corpuscular Volume 91 fL (79-100) Mean Corpuscular Hemoglobin 30 pg (25-35) Mean Corpuscular Hemoglobin Concent 33 g/dL (31-37) Red Cell Distribution Width 14.0 % (11.5-14.5) Platelet Count 177 x10^3/uL (140-400) Neutrophils (%) (Auto) 93 % (31-73) Lymphocytes (%) (Auto) 4 % (24-48) Monocytes (%) (Auto) 3 % (0-9) Eosinophils (%) (Auto) 0 % (0-3) Basophils (%) (Auto) 0 % (0-3) Neutrophils # (Auto) 11.0 x10^3uL (1.8-7.7) Lymphocytes # (Auto) 0.4 x10^3/uL (1.0-4.8) Monocytes # (Auto) 0.4 x10^3/uL (0.0-1.1) Eosinophils # (Auto) 0.0 x10^3/uL (0.0-0.7) Basophils # (Auto) 0.0 x10^3/uL (0.0-0.2) Sodium Level 137 mmol/L (136-145) Potassium Level 4.3 mmol/L (3.5-5.1) Chloride Level 103 mmol/L (98-107) Carbon Dioxide Level 26 mmol/L (21-32) Anion Gap 8 (6-14) Blood Urea Nitrogen 23 mg/dL (8-26) Creatinine 1.2 mg/dL (0.7-1.3) Estimated GFR (Cockcroft-Gault) 58.3 Glucose Level 253 mg/dL (70-99) Calcium Level 8.3 mg/dL (8.5-10.1) Test 12/29/16 08:25 Glucose (Fingerstick) 318 mg/dL (70-99) Medications Current Medications Iohexol (Omnipaque 300 Mg/ml) 75 ml 1X ONCE IV Last administered on 12/27/16 10:49; Start 12/27/16 at 10:30; Stop 12/27/16 at 10:31; Status DC Info (Do NOT chart on this entry -- for MONITORING) 1 each PRN DAILY PRN MC SEE COMMENTS; Start 12/27/16 at 10:30; Stop 12/29/16 at 10:29; Status Cancel Ondansetron HCl (Zofran) 4 mg PRN Q8HRS PRN IV NAUSEA/VOMITING; Start 12/27/16 at 13:15; Stop 12/28/16 at 13:14; Status DC Morphine Sulfate 4 mg PRN Q2HR PRN IV PAIN; Start 12/27/16 at 13:15; Stop at 13:14; Status DC Dextrose (Dextrose 50%-Water Syringe) 12.5 gm PRN Q15MIN PRN IV SEE COMMENTS; Start 12/27/16 at 13:15 Levofloxacin/ Dextrose 50 ml @ 50 mls/hr Q24H IV Last administered on 12/28/16 17:18; Start 12/27/16 at 16:30 Methylprednisolone Sodium Succinate (SOLU-Medrol 125MG VIAL) 80 mg BID IV Last administered on 12/29/16 08:22; Start 12/27/16 at 21:00 Atorvastatin Calcium (Lipitor) 40 mg HS PO Last administered on 12/28/16 20:44 ; Start 12/27/16 at 21:00 Carbidopa/Levodopa (Sinemet 10/100) 1 tab DAILY PO Last administered on 09:28; Start 12/28/16 at 09:00 Diltiazem HCl (Cardizem 24hr Cd) 180 mg DAILY PO Last administered on 12/28/16 09:28; Start 12/28/16 at 09:00 Metoprolol Tartrate (Lopressor) 25 mg DAILY PO ; Start 12/28/16 at 09:00; Stop at 09:00; Status DC Gabapentin (Neurontin) 300 mg TID PO ; Start 12/27/16 at 21:00; Status Cancel Insulin Detemir (Levemir) 30 units QHS SQ ; Start 12/27/16 at 21:00; Stop at 21:00; Status DC Losartan Potassium (Cozaar) 100 mg DAILY PO Last administered on 12/28/16 09:29 ; Start 12/28/16 at 09:00 Pantoprazole Sodium (Protonix) 40 mg DAILYAC PO Last administered on 12/28/16 09:28; Start 12/28/16 at 07:30 Acetaminophen (Tylenol) 650 mg PRN Q6HRS PRN PO FEVER; Start 12/27/16 at 17:00 Ondansetron HCl (Zofran) 4 mg PRN Q6HRS PRN IV NAUSEA/VOMITING; Start 12/27/16 at 17:00 Morphine Sulfate 2 mg PRN Q2HR PRN IV PAIN; Start 12/27/16 at 17:00 Tramadol HCl (Ultram) 50 mg PRN Q6HRS PRN PO PAIN Last administered on 20:39; Start 12/27/16 at 17:00 Hydralazine HCl (Apresoline) 10 mg PRN Q4HRS PRN IVP ELEVATED BP, SEE COMMENTS ; Start 12/27/16 at 17:00 Docusate Sodium (Colace) 100 mg PRN DAILY PRN PO CONSTIPATION; Start 12/27/16 at 17:00 Albuterol/ Ipratropium (Duoneb) 3 ml RTQID NEB Last administered on 12/29/16 11 :00; Start 12/27/16 at 20:00 Albuterol Sulfate (Ventolin Neb Soln) 2.5 mg PRN Q2HR PRN NEB SHORTNESS OF BREATH; Start 12/27/16 at 17:00 Guaifenesin (Mucinex) 600 mg BID PO Last administered on 12/28/16 20:44; Start 12/27/16 at 21:00 Insulin Detemir (Levemir) 20 units QHS SQ Last administered on 12/27/16 20:41; Start 12/27/16 at 21:00; Stop 12/28/16 at 09:40; Status DC Insulin Aspart (NovoLOG) 0-9 UNITS TIDWMEALS SQ Last administered on 12/28/16 17:27; Start 12/27/16 at 17:00; Stop 12/28/16 at 21:09; Status DC Dextrose (Dextrose 50%-Water Syringe) 12.5 gm PRN Q15MIN PRN IV SEE COMMENTS; Start 12/27/16 at 17:00; Status UNV Cyanocobalamin (Vitamin B-12) 1,000 mcg DAILY PO Last administered on 12/28/16 09:28; Start 12/28/16 at 09:00 Gabapentin (Neurontin) 100 mg TID PO Last administered on 12/28/16 14:09; Start 12/27/16 at 21:00; Stop 12/28/16 at 21:09; Status DC Insulin Detemir (Levemir) 30 units QHS SQ Last administered on 12/28/16 21:25; Start 12/28/16 at 21:00 Iohexol (Omnipaque 300 Mg/ml) 75 ml 1X ONCE IV Last administered on 12/28/16 11:10; Start 12/28/16 at 10:15; Stop 12/28/16 at 10:16; Status DC Info (Do NOT chart on this entry -- for MONITORING) 1 each PRN DAILY PRN MC SEE COMMENTS; Start 12/28/16 at 10:15; Stop 12/30/16 at 10:14 Insulin Aspart (NovoLOG) 15 units 1X ONCE SQ Last administered on 12/28/16 12: 24; Start 12/28/16 at 12:30; Stop 12/28/16 at 12:31; Status DC Insulin Detemir (Levemir) 10 units 1X ONCE SQ Last administered on 12/28/16 12 :22; Start 12/28/16 at 12:30; Stop 12/28/16 at 12:31; Status DC Insulin Aspart (NovoLOG) 10 units TIDAC SQ Last administered on 12/29/16 08:28 ; Start 12/28/16 at 16:30; Stop 12/29/16 at 10:14; Status DC Gabapentin (Neurontin) 100 mg BID92 PO ; Start 12/29/16 at 09:00 Insulin Aspart (NovoLOG) 0-9 UNITS TIDACHC SQ Last administered on 12/29/16 08: 29; Start 12/29/16 at 07:30 Insulin Aspart (NovoLOG) 12 units 1X ONCE SQ Last administered on 12/28/16 21: 26; Start 12/28/16 at 21:30; Stop 12/28/16 at 21:31; Status DC Gabapentin (Neurontin) 300 mg HS PO Last administered on 12/28/16 21:16; Start 12/28/16 at 21:30 Chlorphenir/ Hydrocodone Polistirex (Tussionex) 5 ml PRN Q12HR PRN PO COUGH Last administered on 12/28/16 23:35; Start 12/28/16 at 23:15 Insulin Aspart (NovoLOG) 15 units TIDAC SQ ; Start 12/29/16 at 11:30 Active Scripts Active Reported Osteo Bi-Flex Caplet (Glucosamine/D3/Boswellia Shruthi) 1 Each Tablet 1 Each PO DAILY Vitamin B-12 (Cyanocobalamin (Vitamin B-12)) 1,000 Mcg Tablet 1 Tab PO DAILY Gabapentin 100 Mg Capsule 100 Mg PO TID Saw Rodessa (Saw Rodessa Fruit) 450 Mg Capsule 450 Mg PO DAILY Losartan Potassium 100 Mg Tablet 100 Mg PO DAILY Diltiazem 24HR Cd (Diltiazem Hcl) 180 Mg Cap.er.24h 1 Cap PO DAILY Lantus Solostar (Insulin Glargine,Hum.rec.anlog) 100 Unit/1 Ml Insuln.pen 30 Unit SQ QHS Lipitor (Atorvastatin Calcium) 40 Mg Tablet 40 Mg PO HS Carbidopa-Levodopa 10-100 Tab (Carbidopa/Levodopa) 1 Each Tablet 1 Each PO DAILY Metformin Hcl 1,000 Mg Tablet 1,000 Mg PO BID Prilosec (Omeprazole) 20 Mg Capsule.dr 20 Mg PO DAILY Aspirin 81 Mg Tab.chew Mg PO DAILY Vitals/I & O Vital Sign - Last 24 Hours 12/28/16 12/28/16 12/28/16 12/28/16 12:55 15:19 16:47 19:00 Temp 97.5 97.4 97.5 97.4 Pulse 102 50 Resp 17 18 B/P (MAP) 83/53 (63) 117/74 (88) Pulse Ox 95 93 O2 Delivery Room Air Room Air Room Air Room Air 12/28/16 12/28/16 12/28/16 12/29/16 19:45 20:05 23:00 03:00 Temp 97.7 96.6 97.7 96.6 Pulse 86 66 Resp 18 18 B/P (MAP) 97/50 (66) 105/63 (77) Pulse Ox 95 95 O2 Delivery Room Air Room Air Room Air Room Air 12/29/16 12/29/16 12/29/16 12/29/16 07:09 07:15 08:00 11:00 Temp 98.5 98.5 Pulse 118 Resp 18 B/P (MAP) 121/65 (83) Pulse Ox 96 96 O2 Delivery Room Air Room Air Room Air Room Air 12/29/16 12/29/16 11:00 11:04 Temp 97.9 97.9 Pulse 105 108 Resp 18 B/P (MAP) 86/58 (67) 109/65 (80) Pulse Ox 97 O2 Delivery Room Air Intake and Output 12/28/16 12/28/16 12/29/16 15:00 23:00 07:00 Intake Total 800 ml Balance 800 ml CAROL MELTON MD Dec 29, 2016 11:47
[2016-12-29] MEDS ORDERED: PROPOFOL 0 ML IV ONE (12:40)
[2016-12-29] MEDS ORDERED: PROPOFOL 20 ML IV ONE (12:40)
--- NOTE | 2016-12-29 14:02 | OP ---
DATE OF SURGERY: 12/29/2016 ATTENDING PHYSICIAN: Dr. Charlton. INDICATIONS: Hemoptysis, lung mass. DESCRIPTION OF PROCEDURE: Informed consent was obtained from the patient, all risks and benefits were explained. They agreed to proceed with the procedure. Sedation with propofol was used by Anesthesia. Bronch was introduced into the left nostril. The upper area was passed. Vocal cords were reached. They moved equally with respiration. The stalin was sharp. The right lung was first examined. There was evidence of bronchomalacia at the right main stem bronchus and white creamy secretions were seen in the right lower lobe and also in the bronchus intermedius. No definite endobronchial lesions seen. Bronch was then introduced into the left lung. Again seen with some creamy secretions in the left upper lobe and lingula. No endobronchial lesions seen in the left upper lobe or lingula. The left lower lobe was examined. There was narrowing of the superior subsegment of the left lower lobe. There was some oozing of blood noticed from this subsegment. Bronchoscope could not be advanced into this subsegment. 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 Bronchoalveolar lavage x 2 was performed from this area and cytology brush x 2 was also performed from this area. No endobronchial biopsies were performed. The patient also was given 2 squirts of epinephrine to stop the oozing of blood. We may not be able to make the diagnosis with this procedure. IMPRESSION: 1. Mucopurulent secretions seen in both the lungs as discussed above. 2. 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 3. Bronchial lavage x 2 and cytology brush x 2 was performed from this area. No endobronchial biopsies were performed. 4. If this is nondiagnostic, then the patient will require CT-guided biopsy of the lung mass or liver mets 5. Follow the results of the cytology. KOFFI HERNANDEZ MD DR: HOLLIS/brenda JOB#: [id number] / [id number] LELO
[2016-12-29] MEDS: ATORVASTATIN CALCIUM 40 MG TABLET. PO SCH (20:19)
[2016-12-29] MEDS: GABAPENTIN 300 MG CAPSULE. PO SCH (20:20)
[2016-12-29] MEDS ORDERED: INSULIN ASPART 300 UNITS/3 ML INSULN.PEN SQ ONE (21:05)
[2016-12-29] MEDS: INSULIN DETEMIR 300 UNITS/3 ML INSULN.PEN. SQ SCH (21:09)
[2016-12-29 22:18] LABS: ALBUMIN 3.1 g/dL (3.4-5.0); DIRECT BILIRUBIN 0.1 mg/dL (0.0-0.2); TOTAL BILIRUBIN 0.3 mg/dL (0.2-1.0); TOTAL PROTEIN 6.8 g/dL (6.4-8.2)
--- NOTE | 2016-12-29 23:52 | ACF ---
Admission Forms Criteria TELEMETRY CARE Telemetry Admission Guidelines (Place 'X' for any and all applicable criteria): Admission to telemetry [A] may be indicated for ANY ONE of the following(1)(2)(3 )(4)(5): [ ]I. Cardiac disease, including ANY ONE of the following (9)(10)(11)(12)(13 ): [ ]a) Postacute AR [ ]b) Low-risk patients with ST-segment elevation AR who have undergone successful percutaneous coronary intervention [ ]c) Unstable angina [ ]d) Suspected AR (until it is ruled out) [ ]e) Post cardiac surgery (first 48 to 72 hours unless complications occur) [ ]f) Acute arrhythmias (including significant tachycardia or bradycardia) [B] [ ]g) Firing of an implantable cardioverter defibrillator [C] [ ]h) Suspected pacemaker or implantable cardioverter defibrillator malfunction (10) [ ]i) New administration or adjustment of an antiarrhythmic drug [D ] [ ]j) Child admitted for acute congestive heart failure [ ]j) Long QT syndrome [ ]k) Advanced heart block (eg, second-degree Mobitz type II, third- degree heart block) [ ]l) Acute myocarditis or pericarditis [ ]m) Short-term (ambulatory or inpatient) monitoring after a cardiac procedure as indicated by ANY ONE of the following [E]: [ ]i) Electrophysiologic studies [ ]ii) Percutaneous coronary intervention with stent placement [ ]iii) Pacemaker placement with cardiac conduction defect [ ]iv) Implantable cardiac defibrillator placement [ ]II. Drug overdose or poisoning with substance that causes arrhythmias or QT prolongation (eg, phenothiazines, sympathomimetic agents, cyclic antidepressants, digitalis, antiarrhythmic drugs)(15) [X ]III. Short-term (ambulatory or inpatient) monitoring after therapeutic or diagnostic procedure requiring conscious sedation or anesthesia (eg, endoscopy, elective cardioversion) [ ]IV. Acute cerebrovascular even[F](18) [ ]V. Massive blood transfusion (eg, at least 10 units of packed red blood cells in 24 hours) [ ]. Variceal bleeding after endoscopy, sclerotherapy, or IV vasopressin [ ]VII. Uncorrected electrolyte abnormalities associated with an increased risk of dangerous arrhythmia [G]; examples include [ ]a) Hyperkalemia with attributable ECG changes [ ]b) Potassium greater than 6.5 mmol/L (mEq/L) in a patient without history of chronic renal disease [ ]c) Prolonged QT attributed to hypokalemia, hypomagnesemia, or hypocalcemia [ ]VIII.Unexplained syncope or other neurologic event suspected of being due to arrhythmia due to a finding that increases risk; examples include(19)(20)(21): [ ]a) High-risk ECG findings (eg, bifascicular block, bradycardia, abnormal QT interval, ventricular pre- excitation) [ ]b) History of previous syncope due to arrhythmia [ ]c) Abnormal ventricular function (eg, reduced ejection fraction ) [ ]d) Exertional or supine syncope [ ]e) Concerning syncope characteristics (eg, sudden loss of consciousness without prodrome) [ ]f) Family history of sudden [ ]g) Use of arrhythmogenic medication [ ]h) Suspected cardiac ischemia [ ]i) Known channelopathy (eg, long QT syndrome, Brugada syndrome, or catecholaminergic paroxysmal ventricular tachycardia) [ ]j) Known structural heart disease (eg, hypertrophic cardiomyopathy , severe valvular disease) [ ]k) Palpitations preceding syncope The original [employer] content created by [employer] has been revised. The portions of the content which have been revised are identified through the use of italic text or in bold, and [employer] [facility] has neither reviewed nor approved the modified material. All other unmodified content is copyright [employer]. Please see references footnoted in the original [employer] edition 2016 Admission Criteria Met?: Yes NITA SANTILLAN Dec 29, 2016 23:52
[2016-12-30] VITALS (17 sets, daily range): BP systolic 88–138; BP diastolic 54–78
[2016-12-30] MEDS: IPRATRPIUM/ALBUTEROL 0.5/2.5MG 3 ML NEBU. NEB SCH ×2 (07:21→11:20)
[2016-12-30] MEDS: INSULIN ASPART 300 UNITS/3 ML INSULN.PEN SQ SCH ×6 (07:30→13:39)
[2016-12-30] MEDS: CYANOCOBALAMIN (VITAMIN B-12) 1,000 MCG TABLET. PO SCH (08:16)
[2016-12-30] MEDS: CARBIDOPA/LEVODOPA 10/100MG TABLET PO SCH (08:16)
[2016-12-30] MEDS: GABAPENTIN 100 MG CAPSULE. PO SCH ×3 (08:16→13:34)
[2016-12-30] MEDS: PANTOPRAZOLE 40 MG TABLET.DR. PO SCH (08:16)
[2016-12-30] MEDS: LOSARTAN POTASSIUM 50 MG TABLET. PO SCH (08:17)
[2016-12-30] MEDS: methylPREDNISolone SOD SUCC PF 125 MG/2 ML VIAL. IV SCH (08:18)
--- NOTE | 2016-12-30 09:15 | PDOC ---
PULMONARY PROGRESS NOTES Subjective no further hemoptysis s/p Bronch 12/29 Vitals Vital Signs Date Time Temp Pulse Resp B/P (MAP) Pulse Ox O2 Delivery O2 Flow Rate FiO2 12/30/16 08:17 98 128/78 12/30/16 07:25 Room Air 12/30/16 07:22 96 12/30/16 07:08 97.5 18 97.5 12/30/16 03:32 94.0 ROS: No Nausea, No Chest Pain, No Increase Cough General: Alert, No acute distress Lungs: Clear Cardiovascular: S1 Abdomen: Soft Neuro Exam: Alert Extremities: No Edema, Other Skin: Warm Labs Laboratory Tests Test 12/28/16 11:47 12/28/16 16:23 12/28/16 20:57 12/29/16 03:30 Glucose (Fingerstick) 398 mg/dL (70-99) 370 mg/dL (70-99) 428 mg/dL (70-99) White Blood Count 11.8 x10^3/uL (4.0-11.0) Red Blood Count 3.82 x10^6/uL (4.30-5.70) Hemoglobin 11.5 g/dL (13.0-17.5) Hematocrit 34.6 % (39.0-53.0) Mean Corpuscular Volume 91 fL (79-100) Mean Corpuscular Hemoglobin 30 pg (25-35) Mean Corpuscular Hemoglobin Concent 33 g/dL (31-37) Red Cell Distribution Width 14.0 % (11.5-14.5) Platelet Count 177 x10^3/uL (140-400) Neutrophils (%) (Auto) 93 % (31-73) Lymphocytes (%) (Auto) 4 % (24-48) Monocytes (%) (Auto) 3 % (0-9) Eosinophils (%) (Auto) 0 % (0-3) Basophils (%) (Auto) 0 % (0-3) Neutrophils # (Auto) 11.0 x10^3uL (1.8-7.7) Lymphocytes # (Auto) 0.4 x10^3/uL (1.0-4.8) Monocytes # (Auto) 0.4 x10^3/uL (0.0-1.1) Eosinophils # (Auto) 0.0 x10^3/uL (0.0-0.7) Basophils # (Auto) 0.0 x10^3/uL (0.0-0.2) Sodium Level 137 mmol/L (136-145) Potassium Level 4.3 mmol/L (3.5-5.1) Chloride Level 103 mmol/L (98-107) Carbon Dioxide Level 26 mmol/L (21-32) Anion Gap 8 (6-14) Blood Urea Nitrogen 23 mg/dL (8-26) Creatinine 1.2 mg/dL (0.7-1.3) Estimated GFR (Cockcroft-Gault) 58.3 Glucose Level 253 mg/dL (70-99) Calcium Level 8.3 mg/dL (8.5-10.1) Total Bilirubin 0.3 mg/dL (0.2-1.0) Direct Bilirubin 0.1 mg/dL (0.0-0.2) Aspartate Amino Transf (AST/SGOT) 23 U/L (15-37) Alanine Aminotransferase (ALT/SGPT) 26 U/L (16-63) Alkaline Phosphatase 63 U/L (46-116) Total Protein 6.8 g/dL (6.4-8.2) Albumin 3.1 g/dL (3.4-5.0) Test 12/29/16 08:25 12/29/16 11:45 12/29/16 16:27 12/29/16 20:47 Glucose (Fingerstick) 318 mg/dL (70-99) 404 mg/dL (70-99) 370 mg/dL (70-99) 377 mg/dL (70-99) Test 12/30/16 07:07 Glucose (Fingerstick) 217 mg/dL (70-99) Laboratory Tests Test 12/29/16 11:45 12/29/16 16:27 12/29/16 20:47 12/30/16 07:07 Glucose (Fingerstick) 404 mg/dL (70-99) 370 mg/dL (70-99) 377 mg/dL (70-99) 217 mg/dL (70-99) Medications Active Scripts Medications Dose Route/Sig Max Daily Dose Days Date Category Saw Perry (Saw Perry Fruit) 450 Mg Capsule 450 Mg PO DAILY 12/21/15 Reported Losartan Potassium 100 Mg Tablet 100 Mg PO DAILY 12/21/15 Reported Metoprolol Tartrate 25 Mg Tablet 1 Tab PO DAILY 12/21/15 Reported Diltiazem 24HR Cd (Diltiazem Hcl) 180 Mg Cap.er.24h 1 Cap PO DAILY 12/21/15 Reported Lantus Solostar (Insulin Glargine,Hum.rec.anlog) 100 Unit/1 Ml Insuln.pen 30 Unit SQ QHS 12/21/15 Reported Gabapentin 300 Mg Capsule 300 Mg PO TID 11/30/14 Reported Lipitor (Atorvastatin Calcium) 40 Mg Tablet 40 Mg PO HS 11/03/14 Reported Carbidopa-Levodopa 10-100 Tab (Carbidopa/Levodopa) 1 Each Tablet 1 Each PO DAILY 03/01/14 Reported Metformin Hcl 1,000 Mg Tablet 1,000 Mg PO BID 10/17/13 Reported Prilosec (Omeprazole) 20 Mg Capsule.dr 20 Mg PO DAILY 10/17/13 Reported Aspirin 81 Mg Tab.chew Mg PO DAILY 10/17/13 Reported Impression . 1. 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 Abnormal CT of the chest revealing left lower lobe lung mass/ liver mets 3. Acute bronchitis. 4. Suspect underlying chronic obstructive pulmonary disease. 5. CT angiogram negative for pulmonary embolism. 6. Multiple liver mets Plan . 1. s/p Bronch. oozing of blood from superior segment LLL, controlled with epi. BAL done. Doubt will give us diagnosis. will consult IR and go for either liver or Lung mass biopsy today 2. Treat acute bronchitis with steroids and antibiotics. 3. pt and son agrees to proceed with IR biopsy. d/w IR 4. Full PFTS later 5. PET scan as OP 6. Consult Oncology. can go home after biopsy KOFFI HERNANDEZ MD Dec 30, 2016 09:15
[2016-12-30] MEDS ORDERED: LIDOCAINE 1% / SOD BICARB 8.4% 20 ML VIAL. IJ ONE ×2 (11:43→12:30)
--- NOTE | 2016-12-30 12:01 | PDOC ---
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 30u qhs - UNCONTROLLED gerd htn hld h/o CAD with cabg History of Present Illness History of Present Illness s/p bronch 12/29/16- saw some bleeding and was addressed with injectable medication NO more hemoptysis so far HGb and VS ok BUt suspicious lesion in liver - for biopsy today BS still high! (377) on high doses steroids PLAN: inc novolog to 20 TID from 15 Inc levemir to 40 fro 30 qhs LIver biopsy today COnt pt/ot Vitals Vitals Vital Signs Date Time Temp Pulse Resp B/P (MAP) Pulse Ox O2 Delivery O2 Flow Rate FiO2 12/30/16 11:21 Room Air 12/30/16 10:52 97.9 106 19 108/70 (83) 98 97.9 12/30/16 03:32 94.0 Physical Exam General: Alert, Oriented X3, Cooperative Heart: Regular rate, Normal S1, Normal S2 Lungs: Clear Abdomen: Normal bowel sounds, Soft Extremities: No clubbing, No cyanosis Labs LABS Laboratory Tests Test 12/29/16 16:27 12/29/16 20:47 12/30/16 07:07 12/30/16 11:50 Glucose (Fingerstick) 370 mg/dL (70-99) 377 mg/dL (70-99) 217 mg/dL (70-99) 309 mg/dL (70-99) Review of Systems Review of Systems denies 14 pt reviewed Assessment and Plan Assessmemt and Plan Problems Medical Problems: (1) Hemoptysis Status: Acute (2) Lung cancer, lower lobe Status: Acute Problems: Comment Review of Relevant I have reviewed the following items katie (where applicable) has been applied. Labs Laboratory Tests Test 12/28/16 16:23 12/28/16 20:57 12/29/16 03:30 12/29/16 08:25 Glucose (Fingerstick) 370 mg/dL (70-99) 428 mg/dL (70-99) 318 mg/dL (70-99) White Blood Count 11.8 x10^3/uL (4.0-11.0) Red Blood Count 3.82 x10^6/uL (4.30-5.70) Hemoglobin 11.5 g/dL (13.0-17.5) Hematocrit 34.6 % (39.0-53.0) Mean Corpuscular Volume 91 fL (79-100) Mean Corpuscular Hemoglobin 30 pg (25-35) Mean Corpuscular Hemoglobin Concent 33 g/dL (31-37) Red Cell Distribution Width 14.0 % (11.5-14.5) Platelet Count 177 x10^3/uL (140-400) Neutrophils (%) (Auto) 93 % (31-73) Lymphocytes (%) (Auto) 4 % (24-48) Monocytes (%) (Auto) 3 % (0-9) Eosinophils (%) (Auto) 0 % (0-3) Basophils (%) (Auto) 0 % (0-3) Neutrophils # (Auto) 11.0 x10^3uL (1.8-7.7) Lymphocytes # (Auto) 0.4 x10^3/uL (1.0-4.8) Monocytes # (Auto) 0.4 x10^3/uL (0.0-1.1) Eosinophils # (Auto) 0.0 x10^3/uL (0.0-0.7) Basophils # (Auto) 0.0 x10^3/uL (0.0-0.2) Sodium Level 137 mmol/L (136-145) Potassium Level 4.3 mmol/L (3.5-5.1) Chloride Level 103 mmol/L (98-107) Carbon Dioxide Level 26 mmol/L (21-32) Anion Gap 8 (6-14) Blood Urea Nitrogen 23 mg/dL (8-26) Creatinine 1.2 mg/dL (0.7-1.3) Estimated GFR (Cockcroft-Gault) 58.3 Glucose Level 253 mg/dL (70-99) Calcium Level 8.3 mg/dL (8.5-10.1) Total Bilirubin 0.3 mg/dL (0.2-1.0) Direct Bilirubin 0.1 mg/dL (0.0-0.2) Aspartate Amino Transf (AST/SGOT) 23 U/L (15-37) Alanine Aminotransferase (ALT/SGPT) 26 U/L (16-63) Alkaline Phosphatase 63 U/L (46-116) Total Protein 6.8 g/dL (6.4-8.2) Albumin 3.1 g/dL (3.4-5.0) Test 12/29/16 11:45 12/29/16 16:27 12/29/16 20:47 12/30/16 07:07 Glucose (Fingerstick) 404 mg/dL (70-99) 370 mg/dL (70-99) 377 mg/dL (70-99) 217 mg/dL (70-99) Test 12/30/16 11:50 Glucose (Fingerstick) 309 mg/dL (70-99) Laboratory Tests Test 12/29/16 16:27 12/29/16 20:47 12/30/16 07:07 12/30/16 11:50 Glucose (Fingerstick) 370 mg/dL (70-99) 377 mg/dL (70-99) 217 mg/dL (70-99) 309 mg/dL (70-99) Microbiology 12/29/16 Gram Stain - Final, Complete Medications Current Medications Iohexol (Omnipaque 300 Mg/ml) 75 ml 1X ONCE IV Last administered on 12/27/16 10:49; Start 12/27/16 at 10:30; Stop 12/27/16 at 10:31; Status DC Info (Do NOT chart on this entry -- for MONITORING) 1 each PRN DAILY PRN MC SEE COMMENTS; Start 12/27/16 at 10:30; Stop 12/29/16 at 10:29; Status Cancel Ondansetron HCl (Zofran) 4 mg PRN Q8HRS PRN IV NAUSEA/VOMITING; Start 12/27/16 at 13:15; Stop 12/28/16 at 13:14; Status DC Morphine Sulfate 4 mg PRN Q2HR PRN IV PAIN; Start 12/27/16 at 13:15; Stop at 13:14; Status DC Dextrose (Dextrose 50%-Water Syringe) 12.5 gm PRN Q15MIN PRN IV SEE COMMENTS; Start 12/27/16 at 13:15 Levofloxacin/ Dextrose 50 ml @ 50 mls/hr Q24H IV Last administered on 12/29/16t 17:36; Start 12/27/16 at 16:30 Methylprednisolone Sodium Succinate (SOLU-Medrol 125MG VIAL) 80 mg BID IV Last administered on 12/30/16 08:18; Start 12/27/16 at 21:00 Atorvastatin Calcium (Lipitor) 40 mg HS PO Last administered on 12/29/16 20:19 ; Start 12/27/16 at 21:00 Carbidopa/Levodopa (Sinemet 10/100) 1 tab DAILY PO Last administered on 08:16; Start 12/28/16 at 09:00 Diltiazem HCl (Cardizem 24hr Cd) 180 mg DAILY PO Last administered on 12/28/16 09:28; Start 12/28/16 at 09:00; Stop 12/29/16 at 11:45; Status DC Metoprolol Tartrate (Lopressor) 25 mg DAILY PO ; Start 12/28/16 at 09:00; Stop at 09:00; Status DC Gabapentin (Neurontin) 300 mg TID PO ; Start 12/27/16 at 21:00; Status Cancel Insulin Detemir (Levemir) 30 units QHS SQ ; Start 12/27/16 at 21:00; Stop at 21:00; Status DC Losartan Potassium (Cozaar) 100 mg DAILY PO Last administered on 12/30/16 08:17 ; Start 12/28/16 at 09:00 Pantoprazole Sodium (Protonix) 40 mg DAILYAC PO Last administered on 12/30/16 08:16; Start 12/28/16 at 07:30 Acetaminophen (Tylenol) 650 mg PRN Q6HRS PRN PO FEVER; Start 12/27/16 at 17:00 Ondansetron HCl (Zofran) 4 mg PRN Q6HRS PRN IV NAUSEA/VOMITING; Start 12/27/16 at 17:00 Morphine Sulfate 2 mg PRN Q2HR PRN IV PAIN; Start 12/27/16 at 17:00 Tramadol HCl (Ultram) 50 mg PRN Q6HRS PRN PO PAIN Last administered on 20:39; Start 12/27/16 at 17:00 Hydralazine HCl (Apresoline) 10 mg PRN Q4HRS PRN IVP ELEVATED BP, SEE COMMENTS ; Start 12/27/16 at 17:00 Docusate Sodium (Colace) 100 mg PRN DAILY PRN PO CONSTIPATION; Start 12/27/16 at 17:00 Albuterol/ Ipratropium (Duoneb) 3 ml RTQID NEB Last administered on 12/30/16 11 :20; Start 12/27/16 at 20:00 Albuterol Sulfate (Ventolin Neb Soln) 2.5 mg PRN Q2HR PRN NEB SHORTNESS OF BREATH Last administered on 12/29/16 12:44; Start 12/27/16 at 17:00 Guaifenesin (Mucinex) 600 mg BID PO Last administered on 12/30/16 08:16; Start 12/27/16 at 21:00 Insulin Detemir (Levemir) 20 units QHS SQ Last administered on 12/27/16 20:41; Start 12/27/16 at 21:00; Stop 12/28/16 at 09:40; Status DC Insulin Aspart (NovoLOG) 0-9 UNITS TIDWMEALS SQ Last administered on 12/28/16 17:27; Start 12/27/16 at 17:00; Stop 12/28/16 at 21:09; Status DC Dextrose (Dextrose 50%-Water Syringe) 12.5 gm PRN Q15MIN PRN IV SEE COMMENTS; Start 12/27/16 at 17:00; Status UNV Cyanocobalamin (Vitamin B-12) 1,000 mcg DAILY PO Last administered on 12/30/16 08:16; Start 12/28/16 at 09:00 Gabapentin (Neurontin) 100 mg TID PO Last administered on 12/28/16 14:09; Start 12/27/16 at 21:00; Stop 12/28/16 at 21:09; Status DC Insulin Detemir (Levemir) 30 units QHS SQ Last administered on 12/29/16 21:09; Start 12/28/16 at 21:00; Stop 12/30/16 at 07:54; Status DC Iohexol (Omnipaque 300 Mg/ml) 75 ml 1X ONCE IV Last administered on 12/28/16 11:10; Start 12/28/16 at 10:15; Stop 12/28/16 at 10:16; Status DC Info (Do NOT chart on this entry -- for MONITORING) 1 each PRN DAILY PRN MC SEE COMMENTS; Start 12/28/16 at 10:15; Stop 12/30/16 at 10:17; Status DC Insulin Aspart (NovoLOG) 15 units 1X ONCE SQ Last administered on 12/28/16 12: 24; Start 12/28/16 at 12:30; Stop 12/28/16 at 12:31; Status DC Insulin Detemir (Levemir) 10 units 1X ONCE SQ Last administered on 12/28/16 12 :22; Start 12/28/16 at 12:30; Stop 12/28/16 at 12:31; Status DC Insulin Aspart (NovoLOG) 10 units TIDAC SQ Last administered on 12/29/16 08:28 ; Start 12/28/16 at 16:30; Stop 12/29/16 at 10:14; Status DC Gabapentin (Neurontin) 100 mg [id number] PO Last administered on 12/30/16 08:16; Start 12/29/16 at 09:00 Insulin Aspart (NovoLOG) 0-9 UNITS TIDACHC SQ Last administered on 12/30/16 08: 22; Start 12/29/16 at 07:30 Insulin Aspart (NovoLOG) 12 units 1X ONCE SQ Last administered on 12/28/16 21: 26; Start 12/28/16 at 21:30; Stop 12/28/16 at 21:31; Status DC Gabapentin (Neurontin) 300 mg HS PO Last administered on 12/29/16 20:20; Start 12/28/16 at 21:30 Chlorphenir/ Hydrocodone Polistirex (Tussionex) 5 ml PRN Q12HR PRN PO COUGH Last administered on 12/28/16 23:35; Start 12/28/16 at 23:15 Insulin Aspart (NovoLOG) 15 units TIDAC SQ Last administered on 12/29/16 17:42 ; Start 12/29/16 at 11:30; Stop 12/30/16 at 07:54; Status DC Propofol 0 ml @ As Directed STK-MED ONCE IV ; Start 12/29/16 at 12:40; Stop at 12:41; Status DC Propofol 20 ml @ As Directed STK-MED ONCE IV ; Start 12/29/16 at 12:40; Stop 12/29 at 12:41; Status DC Insulin Aspart (NovoLOG) 15 units 1X ONCE SQ Last administered on 12/29/16t 21: 11; Start 12/29/16 at 21:05; Stop 12/29/16 at 21:06; Status DC Insulin Aspart (NovoLOG) 20 units TIDAC SQ ; Start 12/30/16 at 11:30 Insulin Detemir (Levemir) 40 units QHS SQ ; Start 12/30/16 at 21:00 Lidocaine/Sodium Bicarbonate (Buffered Lidocaine 1%) 20 ml STK-MED ONCE IJ ; Start 12/30/16 at 11:43; Stop 12/30/16 at 11:44; Status DC Active Scripts Active Reported Osteo Bi-Flex Caplet (Glucosamine/D3/Boswellia Shruthi) 1 Each Tablet 1 Each PO DAILY Vitamin B-12 (Cyanocobalamin (Vitamin B-12)) 1,000 Mcg Tablet 1 Tab PO DAILY Gabapentin 100 Mg Capsule 100 Mg PO TID Saw [place] (Saw [place] Fruit) 450 Mg Capsule 450 Mg PO DAILY Losartan Potassium 100 Mg Tablet 100 Mg PO DAILY Diltiazem 24HR Cd (Diltiazem Hcl) 180 Mg Cap.er.24h 1 Cap PO DAILY Lantus Solostar (Insulin Glargine,Hum.rec.anlog) 100 Unit/1 Ml Insuln.pen 30 Unit SQ QHS Lipitor (Atorvastatin Calcium) 40 Mg Tablet 40 Mg PO HS Carbidopa-Levodopa 10-100 Tab (Carbidopa/Levodopa) 1 Each Tablet 1 Each PO DAILY Metformin Hcl 1,000 Mg Tablet 1,000 Mg PO BID Prilosec (Omeprazole) 20 Mg Capsule.dr 20 Mg PO DAILY Aspirin 81 Mg Tab.chew Mg PO DAILY Vitals/I & O Vital Sign - Last 24 Hours 12/29/16 12/29/16 12/29/16 12/29/16 12:09 12:45 13:30 13:37 Temp 97.9 97.9 97.9 97.9 97.9 97.9 Pulse 118 111 110 Resp 20 18 20 B/P (MAP) 82/56 62/45 Pulse Ox 96 95 96 97 O2 Delivery Room Air Room Air Room Air O2 Flow Rate 3 12/29/16 12/29/16 12/29/16 12/29/16 13:46 13:50 13:56 15:06 Temp 97.9 97.9 97.5 97.9 97.9 97.5 Pulse 112 109 109 115 Resp 18 18 18 19 B/P (MAP) 82/60 90/63 96/63 103/71 (82) Pulse Ox 92 94 98 92 O2 Delivery Simple Mask Simple Mask Nasal Cannula Room Air O2 Flow Rate 5 5 3 12/29/16 12/29/16 12/29/16 12/29/16 15:17 19:44 20:00 20:04 Temp 97.5 97.5 Pulse 113 Resp 16 B/P (MAP) 106/73 (84) Pulse Ox 93 100 O2 Delivery Room Air Room Air Room Air Room Air 12/29/16 12/30/16 12/30/16 12/30/16 23:19 03:32 07:08 07:22 Temp 97.8 97.7 97.5 97.8 97.7 97.5 Pulse 108 100 98 Resp 16 16 18 B/P (MAP) 102/64 (77) 114/72 (86) 128/78 (95) Pulse Ox 95 94 96 O2 Delivery Room Air Room Air Room Air Room Air O2 Flow Rate 94.0 12/30/16 12/30/16 12/30/16 12/30/16 07:25 08:17 10:52 11:21 Temp 97.9 97.9 Pulse 98 106 Resp 19 B/P (MAP) 128/78 108/70 (83) Pulse Ox 98 O2 Delivery Room Air Room Air Room Air Intake and Output 12/29/16 12/29/16 12/30/16 15:00 23:00 07:00 Intake Total 400 ml 300 ml 210 ml Balance 400 ml 300 ml 210 ml CAROL MELTON MD Dec 30, 2016 12:01
[2016-12-30] MEDS ORDERED: fentaNYL PF VIAL 100 MCG/2 ML VIAL ONE (12:07)
[2016-12-30] MEDS ORDERED: MIDAZOLAM HCL/PF 2 MG/2 ML VIAL. ONE (12:07)
[2016-12-30] MEDS ORDERED: GELATIN SPONGE SIZE 12-7MM SPONGE. ONE (12:12)
[2016-12-30] MEDS ORDERED: MIDAZOLAM HCL/PF 2 MG/2 ML VIAL. IV ONE (12:30)
[2016-12-30] MEDS ORDERED: fentaNYL PF VIAL 100 MCG/2 ML VIAL IV ONE (12:30)
--- NOTE | 2016-12-30 12:35 | PDOC3 ---
Discharge Summary Visit Information Date of Admission: Dec 27, 2016 Date of Discharge: Dec 30, 2016 Admitting Diagnosis Comment: hemoptysis 2/2 lung Ca likely s/p bronch ct showed left lung MASS with possible liver mets, no PE s/p liver biopsy copd previous smoker dm2 on lantus 30u qhs - UNCONTROLLED sec to high doses steroids in house gerd htn hld h/o CAD with cabg Final Diagnosis Problems Medical Problems: (1) Hemoptysis Status: Acute (2) Lung cancer, lower lobe Status: Acute Brief Hospital Course Allergies Allergies Coded Allergies Type Severity Reaction Last Updated Verified No Known Medication Allergies Allergy Unknown 12/29/16 Yes Vital Signs Vital Signs Date Time Temp Pulse Resp B/P (MAP) Pulse Ox O2 Delivery O2 Flow Rate FiO2 12/30/16 12:30 114 24 98 Nasal Cannula 2.0 12/30/16 10:52 97.9 108/70 (83) 97.9 Lab Results Laboratory Tests Test 12/28/16 16:23 12/28/16 20:57 12/29/16 03:30 12/29/16 08:25 Glucose (Fingerstick) 370 mg/dL (70-99) 428 mg/dL (70-99) 318 mg/dL (70-99) White Blood Count 11.8 x10^3/uL (4.0-11.0) Red Blood Count 3.82 x10^6/uL (4.30-5.70) Hemoglobin 11.5 g/dL (13.0-17.5) Hematocrit 34.6 % (39.0-53.0) Mean Corpuscular Volume 91 fL (79-100) Mean Corpuscular Hemoglobin 30 pg (25-35) Mean Corpuscular Hemoglobin Concent 33 g/dL (31-37) Red Cell Distribution Width 14.0 % (11.5-14.5) Platelet Count 177 x10^3/uL (140-400) Neutrophils (%) (Auto) 93 % (31-73) Lymphocytes (%) (Auto) 4 % (24-48) Monocytes (%) (Auto) 3 % (0-9) Eosinophils (%) (Auto) 0 % (0-3) Basophils (%) (Auto) 0 % (0-3) Neutrophils # (Auto) 11.0 x10^3uL (1.8-7.7) Lymphocytes # (Auto) 0.4 x10^3/uL (1.0-4.8) Monocytes # (Auto) 0.4 x10^3/uL (0.0-1.1) Eosinophils # (Auto) 0.0 x10^3/uL (0.0-0.7) Basophils # (Auto) 0.0 x10^3/uL (0.0-0.2) Sodium Level 137 mmol/L (136-145) Potassium Level 4.3 mmol/L (3.5-5.1) Chloride Level 103 mmol/L (98-107) Carbon Dioxide Level 26 mmol/L (21-32) Anion Gap 8 (6-14) Blood Urea Nitrogen 23 mg/dL (8-26) Creatinine 1.2 mg/dL (0.7-1.3) Estimated GFR (Cockcroft-Gault) 58.3 Glucose Level 253 mg/dL (70-99) Calcium Level 8.3 mg/dL (8.5-10.1) Total Bilirubin 0.3 mg/dL (0.2-1.0) Direct Bilirubin 0.1 mg/dL (0.0-0.2) Aspartate Amino Transf (AST/SGOT) 23 U/L (15-37) Alanine Aminotransferase (ALT/SGPT) 26 U/L (16-63) Alkaline Phosphatase 63 U/L (46-116) Total Protein 6.8 g/dL (6.4-8.2) Albumin 3.1 g/dL (3.4-5.0) Test 12/29/16 11:45 12/29/16 16:27 12/29/16 20:47 12/30/16 07:07 Glucose (Fingerstick) 404 mg/dL (70-99) 370 mg/dL (70-99) 377 mg/dL (70-99) 217 mg/dL (70-99) Test 12/30/16 11:50 Glucose (Fingerstick) 309 mg/dL (70-99) Laboratory Tests Test 12/29/16 16:27 12/29/16 20:47 12/30/16 07:07 12/30/16 11:50 Glucose (Fingerstick) 370 mg/dL (70-99) 377 mg/dL (70-99) 217 mg/dL (70-99) 309 mg/dL (70-99) Brief Hospital Course Mr. Bridges is a 81 old very pleasant male, admitted for work up of new left lung mass when he presented with hemoptysis, had bronch, also new liver lesion could be metastatic, PET scan to be doen as OP. but did have liver biopsy done on day of dc, Tolerated both procedures well. To ff u heme onc as OP < Dw. Dr. Gregorio Stephen RN [place] Pt seen and examined DispO; home Discharge Information Condition at Discharge: Improved, Stable Follow Up: Weeks (ff up Noam vanessa as OP for biopsy results) Disposition/Orders: D/C to Home Scheduled Aspirin (Aspirin), MG PO DAILY, (Reported) Atorvastatin Calcium (Lipitor), 40 MG PO HS, (Reported) Carbidopa/Levodopa (Carbidopa-Levodopa 10-100 Tab), 1 EACH PO DAILY, (Reported) Cyanocobalamin (Vitamin B-12) (Vitamin B-12), 1 TAB PO DAILY, (Reported) Diltiazem Hcl (Diltiazem 24HR Cd), 1 CAP PO DAILY, (Reported) Gabapentin (Gabapentin), 100 MG PO TID, (Reported) Glucosamine/D3/Boswellia Shruthi (Osteo Bi-Flex Caplet), 1 EACH PO DAILY, ( Reported) Insulin Glargine,Hum.rec.anlog (Lantus Solostar), 30 UNIT SQ QHS, (Reported) Losartan Potassium (Losartan Potassium), 100 MG PO DAILY, (Reported) Metformin Hcl (Metformin Hcl), 1,000 MG PO BID, (Reported) Omeprazole (Prilosec), 20 MG PO DAILY, (Reported) Saw [place] Fruit (Saw [place]), 450 MG PO DAILY, (Reported) Discontinued Medications Gabapentin (Gabapentin), 300 MG PO TID, (Reported) Metoprolol Tartrate (Metoprolol Tartrate), 1 TAB PO DAILY, (Reported) CAROL MELTON MD Dec 30, 2016 12:35
--- NOTE | 2016-12-30 12:44 | PDOC ---
Provider Note Provider Note Reviewed pt's chart and attempted to see pt but he was done for IR bx. D/w - - pt plans to DC this PM. I will plan to set up outpt f/u in our onc clinic early next week when path results available. Clinical contact info provided. D/ W Dr. Awna as well. CASSIE ROBERSON DO Dec 30, 2016 12:44
--- NOTE | 2016-12-30 15:15 | RAD ---
Ultrasound of the liver 01/11/2017 Clinical history: Metastatic lung cancer. Technique: A real-time ultrasound examination of the liver was performed. Multiple images were obtained. Findings: Comparison is made to the patient's CT scan of the abdomen dated 12/29/2015. The liver is normal in size. It measures 15 cm in length. Several hypoechoic masses are seen scattered throughout both lobes of the liver. These measure 1 to 2-cm in size. They are consistent with hepatic metastasis. Impression: Multiple metastasis seen involving the liver as outlined above.
--- NOTE | 2016-12-30 15:57 | RAD ---
Ultrasound-guided biopsy of left hepatic mass 12/30/2016 Indication: Left pelvic mass. Left lung mass. Findings concerning for metastatic lung cancer Discussion: The risks and benefits of the procedure were discussed the patient and his representatives. Informed consent was obtained. The patient brought to the interventional suite and placed in supine position. A timeout procedure was performed. Ultrasound evaluation of the upper abdomen demonstrates a left hepatic mass measuring approximately 2 cm in diameter, amenable percutaneous biopsy. The upper abdomen was prepped and draped using maximum sterile barrier technique. 1% lidocaine without epinephrine was administered for local anesthesia. Under direct ultrasound guidance a 17-gauge guiding needle was advanced into the aforementioned left-sided nodule. 2 x 18-gauge core biopsy samples were obtained from this position. Gelfoam embolization of the biopsy tract was removed performed before movable of the guiding needle. Manual pressure was held for several minutes. A sterile dressing was applied. Repeat ultrasound performed demonstrating no hematoma or other evidence of complication. The patient tolerated the procedure well. The procedure was performed under conscious sedation including continuous cardiopulmonary monitoring via dedicated station nurse. Sedation time: 30 minutes Impression: Successful ultrasound-guided biopsy of left hepatic mass
[2016-12-30] MEDS ORDERED: INSULIN DETEMIR 300 UNITS/3 ML INSULN.PEN. SQ SCH (21:00)
--- NOTE | 2016-12-31 14:56 | PATHOLOGY ---
CYTOPATHOLOGY REPORT CLINICAL HISTORY: Hemoptysis LLL Cancer SPECIMEN(S) RECEIVED: A.Bronchoalveolar lavage, LLL B.Bronchial brushings, Superior subsegment C.Bronchial brush rinse FINAL DIAGNOSIS: A. Left lower lobe bronchoalveolar lavage, ThinPrep: - Few atypical cells identified amongst bronchial epithelial cells, pulmonary macrophages, and inflammatory cells. B. Superior subsegment bronchial brushings, smears: - Atypical cells identified amongst focally reactive bronchial epithelial cells, few squamous epithelial cells, few inflammatory cells and pulmonary macrophages, and red blood cells. C. Bronchial brush rinse, ThinPrep: - Few atypical cells identified amongst focally reactive bronchial epithelial cells, squamous epithelial cells, pulmonary macrophages, and scattered inflammatory cells. COMMENT: There are clusters of atypical epithelial cells identified, some of which show air drying artifact in the brushings, and some of which contain cilia. The findings are nondiagnostic. The case is also examined by Dr. Mamta Escobedo and Dr. Dagmar Pearl, who concurs with the diagnosis. (JPM:mgr; 12/31/2016) PATHOLOGIST: Ryan Arriaza M.D. REPORT ELECTRONICALLY SIGNED BY: Ryan Arriaza M.D. DATE/TIME: 12/31/2016 14:55 GROSS PATHOLOGY: A. Bronchoalveolar lavage, LLL: The specimen is submitted unfixed, labeled "Naveed Ayala". Received by the Cytology Department is five mL of cloudy pink fluid. One ThinPrep slide was prepared. B. Bronchial brushings, Superior subsegment: The specimen is labeled "Naveed Ayala" and consists of two fixed slides. C. Bronchial brush rinse: The specimen is labeled "Naveed Ayala" and consists of a brush tip in fixative. One ThinPrep slide was prepared. (mm 8..2016) SALES SERVICE TECHNICIAN(S): RALPH Hardin([facility]) INITIAL CPT CODE(S): A; 28852 B; 08314 C; 43044 Professional services performed by [facility] at [facility] [address] [place] [id number] Technical services performed by [facility] at [address] [place] [address], [address], [place] [address]. PATIENT: NAVEED AYALA /AGE: 10 1935 (Age: 81) SEX: M PATIENT #: [id number] ALT CASE #: SPECIMEN COLLECTION DATE: 12/29/2016 SPECIMEN RECEIVED DATE: 12/29/2016 [facility] [address] [facility], [address] [place] [address] PHONE: [phone] DIRECTOR: Juan José Jensen M.D. * * * END OF REPORT * * *
--- NOTE | 2017-01-01 17:12 | PATHOLOGY ---
PATHOLOGY REPORT * * * * * * * * FINAL DIAGNOSIS: Liver mass, CT-guided needle biopsy: - Negative for malignancy. See comment. COMMENT: A liver biopsy was performed to rule out metastatic disease. There is no evidence of malignancy present within the liver tissue. However, the liver tissue does appear abnormal and shows focal fatty change and focal prominent areas of portal fibrosis and chronic inflammation. A panel of routine liver special stains will be performed, and the case will be submitted to a health care consultant liver pathologist, the results of which will be reported separately. (JPM:mm; 01/01/2017) REPORT ELECTRONICALLY SIGNED BY: Ryan Arriaza M.D. DATE/TIME: 01/01/2017 17:12 * * * * * * * * GROSS PATHOLOGY: Received in formalin labeled "Naveed Ayala, liver biopsy," are two needle cores of carey soft tissue measuring 0.8 and 2.0 cm in length and less than 0.1 cm in diameter. The specimen is submitted entirely in cassette A1. Multiple slides will be requested. (JPM; 12/30/16) INITIAL CPT CODE(S): A; 04298, 66978, 78572, 19942, 18627, 67336 Professional services performed by [facility] [place] [address] Technical services performed by [facility] at [address] [place] [address], [place] [address]. SPECIMEN(S) RECEIVED: A.Liver mass CLINICAL HISTORY: Hemoptysis, LLL cancer, liver mass PATIENT: NAVEED AYALA /AGE: 10 1935 (Age: 81) PATIENT #: [id number] ALT CASE #: SPECIMEN COLLECTION DATE: 12/30/2016 SPECIMEN RECEIVED DATE: 12/30/2016 [facility] - [address] [place] [address] - PHONE: [phone] * * * END OF REPORT * * *
== END 2016-12-30 16:20 | disposition home or self-care (01) | DRG 167 ==
LOC: ER 07:42 → ED HOLD 12:14 → 6 SOUTH 14:07
PROVIDERS: ADMIT Internal Medicine; ATTEND Internal Medicine
PROC: 0B9J8ZX Drainage of Left Lower Lung Lobe, Via Natural or Artificial Opening Endoscopic, Diagnostic (ICD-10-PCS; principal; 2016-12-29 13:00)
PROC: 0FB23ZX Excision of Left Lobe Liver, Percutaneous Approach, Diagnostic (ICD-10-PCS; 2016-12-30)
DX: C34.90 Malignant neoplasm of unspecified part of unspecified bronchus or lung (principal); K92.0 Hematemesis; J44.0 Chronic obstructive pulmonary disease with (acute) lower respiratory infection; E11.65 Type 2 diabetes mellitus with hyperglycemia; J44.9 Chronic obstructive pulmonary disease, unspecified; I25.10 Atherosclerotic heart disease of native coronary artery without angina pectoris; I10 Essential (primary) hypertension; K21.9 Gastro-esophageal reflux disease without esophagitis; E78.5 Hyperlipidemia, unspecified; E78.00 Pure hypercholesterolemia, unspecified; F03.90 Unspecified dementia, unspecified severity, without behavioral disturbance, psychotic disturbance, mood disturbance, and anxiety; I48.91 Unspecified atrial fibrillation; J98.09 Other diseases of bronchus, not elsewhere classified; Z95.1 Presence of aortocoronary bypass graft; Z91.041 Radiographic dye allergy status; Z87.891 Personal history of nicotine dependence; Z83.3 Family history of diabetes mellitus; Z80.9 Family history of malignant neoplasm, unspecified; Z79.4 Long term (current) use of insulin
CPT/HCPCS: 31622; 36415; 47000; 71010; 71275; 74177; 76705; 76942; 80048; 80076; 81001; 82553; 82962; 83735; 83880; 84484; 85007; 85027; 85379; 85610; 85730; 87070; 87205; 87641; 88104; 88175; 88307; 88313; 93005; 94250; 94640; 94760; 99152; 99153; G0379; J1815; J1956; J2250; J2704; J2930; J3010; J7613; J7620; Q9967; 97110; 97116; 97530; 97535; 99285-25

== ENCOUNTER 2017-01-06 08:19 | Outpatient (CLI) | payer MEDICARE, OTHER ==
[2017-01-06] VITALS (11 sets, daily range): BP systolic 99–137; BP diastolic 50–86
[~2017-01-06] VITALS: Ht 172.7 cm; Wt 85.3 kg
[~2017-01-06 08:19] MED LIST changes: +CYAN10005 PO; +GLUC1TAB71 PO
[2017-01-06 08:45] LABS: BASO # 0.1 x10^3/uL (0.0-0.2); BASO % 1 % (0-3); EOS % 1 % (0-3); HEMATOCRIT 42.8 % (39.0-53.0); HEMOGLOBIN 14.5 g/dL (13.0-17.5); LYMPH # 1.6 x10^3/uL (1.0-4.8); LYMPH % 17 % (24-48); MEAN CORPUSCULAR HEMOGLOBIN 30 pg (25-35); MEAN CORPUSCULAR HGB CONC 34 g/dL (31-37); MEAN CORPUSCULAR VOLUME 88 fL (79-100); MONO % 11 % (0-9); NEUT % 70 % (31-73); PLATELET COUNT 215 x10^3/uL (140-400); RED BLOOD COUNT 4.87 x10^6/uL (4.30-5.70); RED CELL DISTRIBUTION WIDTH 14.1 % (11.5-14.5); WHITE BLOOD COUNT 9.6 x10^3/uL (4.0-11.0)
[2017-01-06] MEDS ORDERED: LIDOCAINE 1% / SOD BICARB 8.4% 20 ML VIAL. IJ ONE ×2 (08:48→09:45)
[2017-01-06 08:58] LABS: PROTHROMBIN TIME PATIENT 12.5 SEC (11.7-14.0)
[2017-01-06] MEDS ORDERED: fentaNYL PF VIAL 100 MCG/2 ML VIAL ONE (09:25)
[2017-01-06] MEDS ORDERED: MIDAZOLAM HCL/PF 2 MG/2 ML VIAL. ONE (09:26)
[2017-01-06] MEDS ORDERED: MIDAZOLAM HCL/PF 2 MG/2 ML VIAL. IV ONE (09:45)
[2017-01-06] MEDS ORDERED: fentaNYL PF VIAL 100 MCG/2 ML VIAL IV ONE (09:45)
--- NOTE | 2017-01-06 09:56 | PDOC1 ---
History and Physical Date of Procedure Date of Admission History of Present Illness Reason for Visit left lung mass Past Medical History Past Medical History see nursing pre-op assessment Current Medications Current Medications Current Medications Lidocaine/Sodium Bicarbonate (Buffered Lidocaine 1%) 20 ml STK-MED ONCE IJ ; Start 01/06/17 at 08:48; Stop 01/06/17 at 08:49; Status DC Fentanyl Citrate (Fentanyl 2ml Vial) 100 mcg STK-MED ONCE .ROUTE ; Start at 09:25; Stop 01/06/17 at 09:26; Status DC Midazolam HCl (Versed) 2 mg STK-MED ONCE .ROUTE ; Start 01/06/17 at 09:26; Stop 01/06/17 at 09:27; Status DC Lidocaine/Sodium Bicarbonate (Buffered Lidocaine 1%) 20 ml 1X ONCE IJ Last administered on 01/06/17 09:53; Start 01/06/17 at 09:45; Stop 01/06/17 at 09:46 ; Status DC Midazolam HCl (Versed) 2 mg 1X ONCE IV Last administered on 01/06/17 09:54; Start 01/06/17 at 09:45; Stop 01/06/17 at 09:46; Status DC Fentanyl Citrate (Fentanyl 2ml Vial) 100 mcg 1X ONCE IV Last administered on 09:53; Start 01/06/17 at 09:45; Stop 01/06/17 at 09:46; Status DC Active Scripts Active Reported Osteo Bi-Flex Caplet (Glucosamine/D3/Boswellia Shruthi) 1 Each Tablet 1 Each PO DAILY Vitamin B-12 (Cyanocobalamin (Vitamin B-12)) 1,000 Mcg Tablet 1 Tab PO DAILY Gabapentin 100 Mg Capsule 100 Mg PO TID Saw [place] (Saw [place] Fruit) 450 Mg Capsule 450 Mg PO DAILY Losartan Potassium 100 Mg Tablet 100 Mg PO DAILY Diltiazem 24HR Cd (Diltiazem Hcl) 180 Mg Cap.er.24h 1 Cap PO DAILY Lantus Solostar (Insulin Glargine,Hum.rec.anlog) 100 Unit/1 Ml Insuln.pen 30 Unit SQ QHS Lipitor (Atorvastatin Calcium) 40 Mg Tablet 40 Mg PO HS Carbidopa-Levodopa 10-100 Tab (Carbidopa/Levodopa) 1 Each Tablet 1 Each PO DAILY Metformin Hcl 1,000 Mg Tablet 1,000 Mg PO BID Prilosec (Omeprazole) 20 Mg Capsule.dr 20 Mg PO DAILY Aspirin 81 Mg Tab.chew Mg PO DAILY Allergies Allergies: Coded Allergies: No Known Medication Allergies (Verified Allergy, Unknown, 12/29/16) Physical Exam Vital Signs Vital Signs Date Time Temp Pulse Resp B/P (MAP) Pulse Ox O2 Delivery O2 Flow Rate FiO2 01/06/17 09:53 16 98 Nasal Cannula 2.0 01/06/17 09:51 88 01/06/17 08:49 97.9 115/79 (91) 97.9 Other see nursing pre-op assessment Assessment Assessment left lung mass Problems: Plan Plan CT bx of left lung mass MAITE PRASAD MD Jan 06, 2017 09:56
--- NOTE | 2017-01-06 09:56 | PDOC ---
BRIEF OPERATIVE NOTE Pre-Op Diagnosis left lung mass Post-Op Diagnosis same Procedure Performed CT lung biopsy Surgeon Bob Anesthesia Type: Conscious Sedation Specimens Obtained 4 x 20g cores Complications trace pneumothorax MAITE PRASAD MD Jan 06, 2017 09:56
--- NOTE | 2017-01-06 09:57 | PDOC ---
MODERATE SEDATION ASSESSMENT RISKS/ALTERNATIVES Risks/Alternatives Risks and alternatives of this type of sedation and procedure discussed with: RISK/ALTERNATIVES: Patient H & P ON CHART H & P H & P on chart and reviewed for co-morbid conditions and appropriate labs. H&P ON CHART: Yes STATUS PREG STATUS ASSESSED: Yes MEDS/ALLERGIES REVIEWED Meds/Allergies Reviewed Medications and Allergies including time and route of recently administered narcotics and sedatives. MEDS/ALLERGIES REVIEWED: Yes ASA RATING ASA RATING: II AIRWAY ASSESSMENT Airway Assessment Airway patency, oral function limitations, presence of caps, crowns, dentures, partials, and ability to extend neck assessed. AIRWAY ASSESSMENT: Yes MALLAMPATI SCORE MALLAMPATI SCORE: II PRE-SEDATION ASSESSMENT PRE-SEDATION ASSESSMENT: Yes MAITE PRASAD MD Jan 06, 2017 09:57
--- NOTE | 2017-01-06 12:28 | RAD ---
Chest radiograph 01/06/2017 at 1205 hours Indication: Status post left lung biopsy. Comparison: Chest radiograph 12/27/2016 Technique: Single portable frontal view of the chest is provided. Findings: Cardiomediastinal silhouette is similar in appearance with obscuration of the left lung mass. Median sternotomy changes are present. No pleural effusions, pulmonary vascular congestion or pneumothorax. The lungs are clear. Osseous structures are normal. Impression: No evidence for pneumothorax.
--- NOTE | 2017-01-06 14:42 | RAD ---
Procedure: CT-guided left lung biopsy Clinical Indication: 81-year-old male with posterior left lung mass Sedation: Conscious sedation was administered for 11 minutes. The patient was monitored by a qualified independent observer throughout the time of sedation. Please refer to the medical record for exact doses of medications utilized to achieve moderate sedation. Antibiotics: None Contrast: None Sterility: The procedure was performed in its entirety using appropriate elements of sterile technique. Consent: The procedure was explained in its entirety to the patient or the patients designated accounting representative by a member of the treatment team, including a discussion of the risks, benefits and commonly accepted alternatives to the procedure, as well as the expected consequences of no therapy whatsoever. Discussion of the risks included, but was not limited to, those that are most frequent and those that are rare but possibly severe or life-threatening, as well as the possibility of unforeseen complications. Technique and Findings: Following informed consent, the patient was prepped and draped in usual sterile fashion. Preliminary CT scan of the area of interest was performed. 1% lidocaine was used to achieve local anesthesia over the area of interest. A small dermatotomy was made. Under periodic CT surveillance, a 19-gauge needle guide was advanced into the area of interest in 4 separate 20-gauge core biopsy specimens were obtained and preserved in formalin. A blood patch was applied as the needle guide was removed and hemostasis was achieved with manual compression. Complications: No immediate Impression: 1. CT-guided left lung biopsy as described PQRS Compliance Statement: One or more of the following individualized dose reduction techniques were utilized for this examination: 1. Automated exposure control 2. Adjustment of the mA and/or kV according to patient size 3. Use of iterative reconstruction technique
--- NOTE | 2017-01-08 13:57 | PATHOLOGY ---
PATHOLOGY REPORT * * * * * * * * FINAL DIAGNOSIS: Lung tissue, left lung mass CT guided biopsies: - SQUAMOUS CELL CARCINOMA, POORLY DIFFERENTIATED. SEE COMMENT. COMMENT: Sections of the left lung mass CT guided biopsy show extensive replacement of lung parenchyma by a malignant epithelial neoplasm. The malignant cells are present in irregular solid nests which infiltrate a reactive desmoplastic, elastotic and inflamed stroma. There are focal individual malignant cells invading the stroma. The malignant cells are relatively large and have ample amounts of amphophilic to pale eosinophilic cytoplasm. The malignant cells possess enlarged, moderately to focally markedly pleomorphic hyperchromatic nuclei sometimes containing prominent nucleoli. Mitotic figures are present. The tumor shows no obvious glandular or squamous differentiation. A panel of immunoperoxidase stains is obtained and yields the following results: Cytokeratin 7: Tumor cells positive. CK5/6: Tumor cells positive. P63: Tumor cells positive. P40: Tumor cells positive. TTF-1: Tumor cells negative. Napsin A: Tumor cells negative. CD56: Few tumor cells focally positive. The morphologic and immunophenotypic findings are supportive of the diagnosis of a poorly differentiated squamous cell carcinoma. The case is also examined by Dr. Escoebdo, who concurs with the diagnosis. (JPM:pit/mary; 01/08/2017) Special Stain: Immunoperoxidase for CK7, TTF-1, Napsin A, CD56, CK5/6, p63 and p40. REPORT ELECTRONICALLY SIGNED BY: Ryan Arriaza M.D. DATE/TIME: 01/08/2017 13:57 * * * * * * * * GROSS PATHOLOGY: Received in formalin labeled "Kang Ayala left lung biopsy," are multiple fragmented needle cores of carey soft tissue ranging from 0.1 to 0.6 cm in length, which are submitted entirely in cassette A1. Multiple slides will be requested. (JPM; 01/06/17) INITIAL CPT CODE(S): A; 30130, 81758, 05852, 76500, 29716, 51345, 68538, 39735 Professional services performed by [facility] at [facility] [address] [place] [id number] Technical services performed by [facility] at [address] [place] [address], [address], [place] [address]. SPECIMEN(S) RECEIVED: A.Left lung mass CLINICAL HISTORY: Left lung mass PATIENT: KANG AYALA /AGE: 10 1935 (Age: 81) PATIENT #: [id number] ALT CASE #: SPECIMEN COLLECTION DATE: 01/06/2017 SPECIMEN RECEIVED DATE: 01/06/2017 [facility] - [address] [place] [address] - PHONE: [phone] * * * END OF REPORT * * *
== END 2017-01-06 12:30 | disposition home or self-care (01) ==
LOC: INTRAD 08:19
PROVIDERS: ATTEND Internal Medicine Critical Care Medicine
DX: C34.92 Malignant neoplasm of unspecified part of left bronchus or lung (principal); E78.00 Pure hypercholesterolemia, unspecified; E11.51 Type 2 diabetes mellitus with diabetic peripheral angiopathy without gangrene; I48.91 Unspecified atrial fibrillation; I10 Essential (primary) hypertension; E66.9 Obesity, unspecified; F17.200 Nicotine dependence, unspecified, uncomplicated; Z98.41 Cataract extraction status, right eye; Z98.42 Cataract extraction status, left eye; Z86.69 Personal history of other diseases of the nervous system and sense organs; Z87.01 Personal history of pneumonia (recurrent); Z68.45 Body mass index [BMI] 70 or greater, adult; Z87.440 Personal history of urinary (tract) infections; Z72.89 Other problems related to lifestyle; Z86.39 Personal history of other endocrine, nutritional and metabolic disease; Z86.14 Personal history of Methicillin resistant Staphylococcus aureus infection
CPT/HCPCS: 32405; 36415; 71035; 77012; 85025; 85610; J2250; J3010; 99152

== ENCOUNTER → 2017-01-22 | Outpatient (CLI) | payer MEDICARE, OTHER ==
[2017-01-06 12:00] VITALS: BP 119/62
[~2017-01-22] MED LIST changes: +GADOBUTROL 7.5 MMOL/7.5 ML VIAL IV ONE; +METO25TA9 PO
--- NOTE | 2017-01-22 12:08 | RAD ---
MRI Brain with and without contrast History: Unsteady gait, new lung cancer diagnosis Technique: Multiplanar, multi sequential pre and postcontrast MR imaging was performed of the brain. Contrast: 7.5 cc Gadavist Comparison: None Findings: There is some motion degradation. There is a small focus of increased diffusion signal of the right parietal peripheral deep and subcortical white matter although isointense on ADC map. There is corresponding T2 and FLAIR hyperintense signal. There is also associated small focus of enhancement on the order of 2 to 3 mm. There is a separate tiny focus of enhancement more posteriorly along the right parietal cortex on the order of 1 mm. There are some possible tiny foci of enhancement of the right frontal lobe as seen on axial images 19 and 18 measuring less than 1 mm difficult to visualize on other planes of postcontrast imaging, not associated with other mass effect or signal change. Ventricular size is within normal limits. There is moderate generalized supratentorial atrophy. There is mild T2 and FLAIR hyperintense abnormality of the supratentorial periventricular white matter bilaterally, other minimal T2 and FLAIR hyperintense abnormality of the deep white matter. There are very small old lacunar infarcts such as of the left stroud radiata and right basal ganglia. There is preservation of the major intracranial flow-voids at the skull base. The cerebellar tonsils are normal in location. There is no significant abnormality of the pineal gland or pituitary gland. There has been lens surgery bilaterally. There is mild bilateral maxillary sinus mucosal thickening, also mucous retention cysts bilaterally, the largest on the left 1.8 cm. There is somewhat complex likely mucous retention cyst of the posterior right maxillary sinus 0.9 cm. There is mild bilateral ethmoid air cell as well as sphenoid and frontal sinus mucosal thickening. The mastoid air cells are aerated. There is preserved marrow signal of the clivus. Impression: 1. There is a small focus of enhancement right parietal lobe, some associated diffusion signal change. Considerations would include a small metastasis or focus of late subacute infarct. There are also a few tiny foci of enhancement of the right parietal cortical surface and right frontal lobe, concerning for tiny metastases given history. Close interval follow-up imaging may be beneficial such as in 6-8 weeks to evaluate for change. 2. Other minimal T2 and FLAIR hyperintense abnormality of the supratentorial white matter is probably due to chronic microvascular ischemic disease in a patient this age. There are old lacunar infarcts as stated. 3. There is moderate generalized supratentorial atrophy. 4. There is paranasal sinus mucosal thickening and mucous retention cysts as stated. Electronically signed by: Huang Dupree MD (01/22/2017 12:05 PM) [id number]
== END | disposition home or self-care (01) ==
LOC: PETSC 09:28
PROVIDERS: ATTEND Internal Medicine Hematology & Oncology
DX: C34.32 Malignant neoplasm of lower lobe, left bronchus or lung (principal)
CPT/HCPCS: 70553; A9585

== ENCOUNTER → 2017-01-23 | Outpatient (CLI) | payer MEDICARE, OTHER ==
[2017-01-06 12:00] VITALS: BP 119/62
[~2017-01-23] MED LIST changes: -GADOBUTROL 7.5 MMOL/7.5 ML VIAL IV ONE; -METO25TA9 PO
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
== END | disposition home or self-care (01) ==
LOC: ONC 09:26
PROVIDERS: ATTEND Radiology Radiation Oncology
DX: C34.32 Malignant neoplasm of lower lobe, left bronchus or lung (principal); J90 Pleural effusion, not elsewhere classified; E11.9 Type 2 diabetes mellitus without complications; I10 Essential (primary) hypertension; I25.10 Atherosclerotic heart disease of native coronary artery without angina pectoris; I73.9 Peripheral vascular disease, unspecified; E11.42 Type 2 diabetes mellitus with diabetic polyneuropathy; E11.40 Type 2 diabetes mellitus with diabetic neuropathy, unspecified; G20 Parkinson's disease; J44.9 Chronic obstructive pulmonary disease, unspecified; E78.5 Hyperlipidemia, unspecified
CPT/HCPCS: 99213

== ENCOUNTER → 2017-01-29 | Outpatient (CLI) | payer MEDICARE, OTHER ==
[2017-01-06 12:00] VITALS: BP 119/62
[~2017-01-29] MED LIST changes: +METO-239 PO
--- NOTE | 2017-01-29 16:16 | RAD ---
FDG tumor localization scan, PET/CT, 01/29/2017: History: Lung cancer Following IV injection of 12.9 mCi of 18 F-FDG, imaging was performed from the skull base to the proximal thighs. The noncontrast CT component was performed for attenuation correction and anatomic localization purposes rather than for primary diagnosis. The patient's blood glucose level at the time of injection was 113 mg/DL. The patient's known left lower lobe mass is hypermetabolic demonstrating a maximum SUV of 19. It lies along the posterior inferior aspect of the left hilum and measures approximately 4.3 cm in diameter. There is a cluster of small hypermetabolic adjacent nodules along the inferomedial margin of the main mass along the anterior aspect of the descending thoracic aorta. These demonstrate a maximum SUV of 4.8. The overall process cannot be clearly from the aorta. No other separate hypermetabolic mediastinal lymph nodes are seen. The chest activity is otherwise unremarkable. Physiologic uptake is evident in the neck. Normal GI tract and urinary tract activity is present in the abdomen and pelvis. No hypermetabolic abdominal or pelvic process is seen. The hepatic activity is heterogeneous as is often the case. FDG activity of the patient's known small hepatic lesions cannot be clearly assessed in the presence of this heterogeneous background uptake. Incidental CT findings include moderate prostatic enlargement. The bladder panchal are thickened, probably due to chronic bladder outlet obstruction. Gallstones are present in the gallbladder. The hepatic margins are slightly irregular raising the possibility of cirrhosis. There is extensive calcific plaquing of the aorta and its branches including the coronary arteries. An intramuscular lipoma is noted along the posterior aspect of the right scapula. The spleen is mildly enlarged. IMPRESSION: 1. Hypermetabolic left infrahilar mass compatible with a primary lung malignancy. 2. Adjacent tiny hypermetabolic nodules along the anterior aspect of the descending thoracic aorta suggesting direct tumor spread versus contiguous adenopathy. 3. No definite PET evidence of metastatic disease in the abdomen or pelvis. 4. Incidental CT findings as described above.
== END | disposition home or self-care (01) ==
LOC: PETSC 11:54
PROVIDERS: ATTEND Internal Medicine Hematology & Oncology
DX: C34.32 Malignant neoplasm of lower lobe, left bronchus or lung (principal); N40.0 Benign prostatic hyperplasia without lower urinary tract symptoms; N32.0 Bladder-neck obstruction; R16.1 Splenomegaly, not elsewhere classified
CPT/HCPCS: 78815; A9552

== ENCOUNTER 2017-02-19 11:52 | Inpatient (IN) | payer MEDICARE, OTHER ==
[~2017-02-19] VITALS: Ht 175.3 cm; Wt 86.2 kg
[2017-02-19 13:03] VITALS: BP 101/50
[2017-02-19 13:04] VITALS: BP 101/50
[2017-02-19] MEDS ORDERED: CALCIUM CARBONATE 500 MG TAB.CHEW PO PRN (13:45)
[2017-02-19] MEDS ORDERED: PROCHLORPERAZINE 25 MG SUPP.RECT. PR PRN (13:45)
[2017-02-19] MEDS ORDERED: MAGNESIUM HYDROXIDE 2,400 MG/30 ML ORAL.SUSP. PO PRN (13:45)
[2017-02-19] MEDS ORDERED: ACETAMINOPHEN 325 MG TABLET. PO PRN (13:45)
[2017-02-19] MEDS ORDERED: MORPHINE SULFATE 4 MG/ML DISP.SYRIN. IV PRN (13:45)
[2017-02-19] MEDS ORDERED: MAG HYDROX/ALUMINUM HYD/SIMETH 30 ML ORAL.SUSP PO PRN (13:45)
[2017-02-19] MEDS ORDERED: BISACODYL 10 MG SUPP.RECT. PR PRN (13:45)
[2017-02-19] MEDS ORDERED: DEXTROSE 50% 25 GM / 50ML DISP.SYRIN. IV PRN (13:45)
[2017-02-19] MEDS ORDERED: ONDANSETRON PF 4 MG/2 ML VIAL. IV PRN (13:45)
[2017-02-19] MEDS ORDERED: PROCHLORPERAZINE 10 MG/2 ML VIAL. IV PRN (13:45)
--- NOTE | 2017-02-19 13:55 | PDOC1 ---
History and Physical Date of Admission Date of Admission DATE: 02/19/17 TIME: 13:47 Identification/Chief Complaint Chief Complaint left arm numbness and weakness x 3 days Problems: Source Source: Caregiver, Chart review, Patient History of Present Illness History of Present Illness 84 y.o very pleasant male with stage 3 lung CA, planned for OP RTx by rad onc Dr. 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 No hx of GI ulcers Past Medical History Cardiovascular: AFIB, CAD, HTN, Syncope, Other Pulmonary: COPD CENTRAL NERVOUS SYSTEM: Other GI: No pertinent hx Heme/Onc: No pertinent hx Hepatobiliary: No pertinent hx Psych: No pertinent hx Musculoskeletal: No pain Rheumatologic: No pertinent hx Infectious disease: No pertinent hx Renal/: UTI Endocrine: Diabetes Past Surgical History Past Surgical History: CABG, Tonsillectomy, Other Family History Family History: Cancer, Diabetes Social History Smoke: No ALCOHOL: none Drugs: None Current Medications Current Medications Current Medications Ondansetron HCl (Zofran) 4 mg PRN Q6HRS PRN IV NAUSEA/VOMITING; Start 02/19/17 at 13:45; Status UNV Prochlorperazine Edisylate (Compazine) 10 mg PRN Q6HRS PRN IV NAUSEA/VOMITING; Start 02/19/17 at 13:45; Status UNV Prochlorperazine (Compazine) 25 mg PRN Q12HR PRN WI NAUSEA/VOMITING; Start at 13:45; Status UNV Al Hydroxide/Mg Hydroxide (Mylanta Plus Xs) 30 ml PRN Q3HRS PRN PO HEARTBURN / GAS; Start 02/19/17 at 13:45; Status UNV Calcium Carbonate/ Glycine (Tums) 500 mg PRN Q3HRS PRN PO UPSET STOMACH; Start 02/19/17 at 13:45; Status UNV Morphine Sulfate 1 mg PRN Q1HR PRN IV PAIN; Start 02/19/17 at 13:45; Status UNV Acetaminophen (Tylenol) 650 mg PRN Q6HRS PRN PO Headaches, Temp > 101.5F; Start 02/19/17 at 13:45; Status UNV Ibuprofen (Motrin) 400 mg PRN Q6HRS PRN PO MILD PAIN; Start 02/19/17 at 13:45; Status UNV Docusate Sodium (Colace) 100 mg BID PO ; Start 02/19/17 at 21:00; Status UNV Magnesium Hydroxide (Milk Of Magnesia) 2,400 mg PRN Q12HR PRN PO CONSTIPATION; Start 02/19/17 at 13:45; Status UNV Bisacodyl (Dulcolax Supp) 10 mg PRN DAILY PRN WI CONSTIPATION; Start 02/19/17 at 13:45; Status UNV Atorvastatin Calcium (Lipitor) 40 mg HS PO ; Start 02/19/17 at 21:00; Status UNV Carbidopa/Levodopa (Sinemet 10/100) 1 tab DAILY PO ; Start 02/20/17 at 09:00; Status UNV Cyanocobalamin (Vitamin B-12) 1,000 mcg DAILY PO ; Start 02/20/17 at 09:00; Status UNV Diltiazem HCl (Cardizem 24hr Cd) 180 mg DAILY PO ; Start 02/20/17 at 09:00; Status UNV Gabapentin (Neurontin) 100 mg TID PO ; Start 02/19/17 at 14:00; Status UNV Lisinopril (Prinivil) 20 mg DAILY PO ; Start 02/20/17 at 09:00; Status UNV Metformin HCl (Glucophage) 1,000 mg BID PO ; Start 02/19/17 at 21:00; Status UNV Non-Formulary Medication 1 each DAILY PO ; Start 02/20/17 at 09:00; Status UNV Non-Formulary Medication 30 unit QHS SQ ; Start 02/19/17 at 21:00; Status UNV Non-Formulary Medication 100 mg DAILY PO ; Start 02/20/17 at 09:00; Status UNV Non-Formulary Medication 20 mg DAILY PO ; Start 02/20/17 at 09:00; Status UNV Non-Formulary Medication 450 mg DAILY PO ; Start 02/20/17 at 09:00; Status UNV Clopidogrel Bisulfate (Plavix) 75 mg DAILYWBKFT PO ; Start 02/19/17 at 13:45; Status UNV Insulin Aspart (NovoLOG) 0-7 UNITS TIDWMEALS SQ ; Start 02/19/17 at 17:00; Status UNV Dextrose (Dextrose 50%-Water Syringe) 12.5 gm PRN Q15MIN PRN IV SEE COMMENTS; Start 02/19/17 at 13:45; Status UNV Active Scripts Active Reported Lisinopril 20 Mg Tablet 20 Mg PO DAILY Osteo Bi-Flex Caplet (Glucosamine/D3/Boswellia Shruthi) 1 Each Tablet 1 Each PO DAILY Vitamin B-12 (Cyanocobalamin (Vitamin B-12)) 1,000 Mcg Tablet 1 Tab PO DAILY Gabapentin 100 Mg Capsule 100 Mg PO TID Saw [place]ve[place] (Saw [place] Fruit) 450 Mg Capsule 450 Mg PO DAILY Losartan Potassium 100 Mg Tablet 100 Mg PO DAILY Diltiazem 24HR Cd (Diltiazem Hcl) 180 Mg Cap.er.24h 1 Cap PO DAILY Lantus Solostar (Insulin Glargine,Hum.rec.anlog) 100 Unit/1 Ml Insuln.pen 30 Unit SQ QHS Lipitor (Atorvastatin Calcium) 40 Mg Tablet 40 Mg PO HS Carbidopa-Levodopa 10-100 Tab (Carbidopa/Levodopa) 1 Each Tablet 1 Each PO DAILY Metformin Hcl 1,000 Mg Tablet 1,000 Mg PO BID Prilosec (Omeprazole) 20 Mg Capsule.dr 20 Mg PO DAILY Aspirin 81 Mg Tab.chew Mg PO DAILY Allergies Allergies: Coded Allergies: No Known Medication Allergies (Verified Allergy, Unknown, 12/29/16) ROS Review of System per HPI, otherwise denies all 14 pt Physical Exam General: Alert, Oriented X3, Cooperative, No acute distress HEENT: Atraumatic, PERRLA Lungs: Clear to auscultation, Normal air movement Heart: S1S2, RRR, no thrills, no rubs, no gallops, no murmurs Cardiovascular: S1, S2 Abdomen: Normal bowel sounds, Soft, No tenderness, No hepatosplenomegaly, No masses Male Genitals Exam: normal genitalia, normal prostate Rectal Exam: not examined PELVIC: Nml ext genitalia Skin: No rashes, No breakdown, No significant lesion Neuro: Normal gait, Normal speech, Normal tone, Sensation intact, Cranial nerves 3-12 NL, Reflexes 2+, Other (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 Acute parieto-occipital ischemic CVA 2. Stage 3 lung CA with NO brain mets - was intially planned for OP radtx 3. Distant hx CABG Plan: Admit Neuro consult SInce was on ASA 81 [employer], and has a new stroke, either he upgrades to ASA 325 or plavix, I have chosen the later - further recs per neuro, and would follow their recs Lipid panel Check echo and carotids stroke protocol PT/OT\ Resume home meds Lives at home with but agreeable to rehab upon dc if needed. Seen in room, dw him and RN CAROL Herman Dr., MD Feb 19, 2017 13:55
[2017-02-19] MEDS: LISINOPRIL 20 MG TABLET PO SCH (14:00)
[2017-02-19] MEDS: CARBIDOPA/LEVODOPA 10/100MG TABLET PO SCH (14:00)
[2017-02-19] MEDS: LOSARTAN POTASSIUM 50 MG TABLET. PO SCH (14:00)
[2017-02-19] MEDS: CLOPIDOGREL BISULFATE 75 MG TABLET PO SCH (14:31)
[2017-02-19] MEDS: GABAPENTIN 100 MG CAPSULE. PO SCH ×2 (14:31→21:16)
[2017-02-19] MEDS: CYANOCOBALAMIN (VITAMIN B-12) 1,000 MCG TABLET. PO SCH (14:31)
[2017-02-19 14:55] VITALS: BP 129/62
--- NOTE | 2017-02-19 15:32 | EKG ---
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
--- NOTE | 2017-02-19 15:40 | RAD ---
Exam : Carotid Duplex with Grayscale Ultrasound and Spectral and Color Doppler Analysis: Clinical Indications: Carotid stenosis. Comparison study: Carotid duplex ultrasound evaluation October 20, 2012 PQRS Compliance Statement - Stenosis calculations for CT, MR and conventional angiography are based upon measurement of the distal ICA diameter in accordance with the NASCET methodology. Stenosis calculations for carotid ultrasound studies are derived from validated velocity criteria which are known to correlate with the NASCET methodology. Findings: The distal right common carotid artery appears to be occluded. There is occlusion of the visualized right internal and external carotid arteries. Flow within the proximal right common carotid artery is seen, though this vessel appears to be heavily calcified. No flow is visualized in the right vertebral artery. The left carotid bifurcation is heavily calcified. Left common carotid artery is heavily calcified. There is mild visual narrowing at the proximal left internal carotid artery. The patient's pulse appears to be irregular. Left vertebral artery flow appears to be antegrade. The following are the velocities and ratios in the carotid arteries on both sides: RIGHT ICA PV: Occludedcm/sec RIGHT CCA PV: Occluded at the bifurcation RIGHT ICA ED: RIGHT IC/CCPV: Not applicable RIGHT VERTEBRAL: No flow visualized, likely occluded LEFT ICA PV: 63cm/sec LEFT CCA PV: 57cm/sec LEFT ICA ED: 16cm/sec LEFT IC/CCPV: 1.2 LEFT VERTEBRAL: antegrade flow LEFT % STENOSIS: [Less than 50%] <50% ICA Stenosis: PSV < 125cm/s (EDV < 40cm/s; SVR < 2.0) 50-69% ICA Stenosis: PSV < 125-229cm/s (EDV 40-99cm/s; SVR 2.0-3.9) >70% ICA Stenosis: PSV > 230cm/s (EDV >100cm/s; SVR >4.0) Impression: 1. 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 2. Occlusion of the right vertebral artery, finding is new from prior study. 3. Significant atherosclerotic vascular calcification of the left carotid bifurcation mild visual narrowing of the proximal left internal carotid artery. Narrowing is less than 50% by ultrasound velocity criteria. 4. Consider CTA for further characterization as clinically indicated 5. Irregular pulse on spectral waveforms. Consider evaluation for arrhythmia.
[2017-02-19 16:25] LABS: BASO % 0 % (0-3); EOS % 1 % (0-3); HEMATOCRIT 39.3 % (39.0-53.0); HEMOGLOBIN 13.2 g/dL (13.0-17.5); LYMPH # 0.5 x10^3/uL (1.0-4.8); LYMPH % 11 % (24-48); MEAN CORPUSCULAR HEMOGLOBIN 29 pg (25-35); MEAN CORPUSCULAR HGB CONC 34 g/dL (31-37); MEAN CORPUSCULAR VOLUME 86 fL (79-100); MONO % 5 % (0-9); NEUT % 84 % (31-73); PLATELET COUNT 185 x10^3/uL (140-400); RED BLOOD COUNT 4.55 x10^6/uL (4.30-5.70); RED CELL DISTRIBUTION WIDTH 13.8 % (11.5-14.5); WHITE BLOOD COUNT 4.7 x10^3/uL (4.0-11.0)
[2017-02-19 16:33] LABS: PROTHROMBIN TIME PATIENT 12.4 SEC (11.7-14.0)
[2017-02-19 16:41] LABS: ALBUMIN 3.3 g/dL (3.4-5.0); ALBUMIN/GLOBULIN RATIO 0.8 (1.0-1.7); CALCIUM 9.6 mg/dL (8.5-10.1); CREATININE 0.9 mg/dL (0.7-1.3); GFR 81.2; POTASSIUM 3.9 mmol/L (3.5-5.1); TOTAL BILIRUBIN 1.1 mg/dL (0.2-1.0); TOTAL PROTEIN 7.3 g/dL (6.4-8.2)
[2017-02-19 16:59] LABS: CHOLESTEROL/HDL RATIO 2.8
[2017-02-19] MEDS: ASPIRIN CHEWABLE 81 MG TABLET. PO SCH (17:07)
[2017-02-19] MEDS: PANTOPRAZOLE 40 MG TABLET.DR. PO SCH (17:07)
[2017-02-19] MEDS: INSULIN ASPART 300 UNITS/3 ML INSULN.PEN SQ SCH (17:12)
--- NOTE | 2017-02-19 18:01 | PDOC2 ---
NEUROLOGY CONSULT Date of Admission Date of Admission DATE: 02/19/17 TIME: 17:50 Reason for Consult Reason for Consult: IMPRESSION: Multiple subacute infracts in right hemisphere. Left side numbness and weakness x 4 days before admission. 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 DM HLD PD Obesity RECOMMENDATIONS/PLAN: Plavix 75 mg daily. ASA 325 mg daily. Lipitor 40 mg HS. Echo + Bubble study. Lab: see orders. OT/PT Rehab as needed. Discussed with his son in detail at bedside. HISTORY OF THE PRESENT ILLNESS: 89-y-old male patient with above medical diseases developed symptoms of left side UE > Le numbness and weakness to come to the ER of [facility] today on . Further evaluation revealed multiple subacute embolic infarcts and artery occlusion in anterior and posterior circulation. Past Medical History Cardiovascular: AFIB, CAD, HTN, Syncope, Other Pulmonary: COPD CENTRAL NERVOUS SYSTEM: Other GI: No pertinent hx Heme/Onc: No pertinent hx Hepatobiliary: No pertinent hx Psych: No pertinent hx Musculoskeletal: No pain Rheumatologic: No pertinent hx Infectious disease: No pertinent hx Renal/: UTI Endocrine: Diabetes Past Surgical History CABG, Tonsillectomy, Other Family History Cancer, Diabetes Social History Smoke: No ALCOHOL: none Drugs: None ALLERGY: Reviewed. MEDICATIONS: Refer to [facility] REVIEW OF SYSTEMS: Constitutional: No malnutrition, weight loss, cachexia. Head: No traumatic brain or head injury. Skin: No edema, or rash. Ear: No infection. Eyes: No vision loss or color blindness. Nose: No bleeding or purulent discharges. Hearing: No hearing decrease. Neck: No injury. Cardiac: HTN, HLD. Pulmonary: No COPD. GI: No GI ulcer, GI bleeding. Urinary/genital: UTI. Endocrinologic: Diabetes Mellitus, obesity. Skeletomuscular: No muscular atrophy, deformity=. Neurological: see HP. Psychiatric: Denies drug use/abuse. Otherwise, not [id number] review of systems. PHYSICAL EXAMINATION: General appearance is in subacute distress. HEENT: Normocephalic and nontraumatic. Eyes, nose, ears, and throat are unremarkable. Neck is supple. No lymphadenopathy. No crepitus. Cardiovascular: S1, S2, seemed regular rate and rhythm. Pulmonary: Clear to auscultation bilaterally. Abdomen: Bowel sounds are positive. Extremities: No rash, lesions, or edema. No restriction of range of motion NEUROLOGICAL EXAMINATION: Awake. Oriented to time, place and person. PERRL. EOMI. CN: no focal findings. Muscle tone: within normal. Muscle strength: 3+ left UE, 4 left LE, 5 right side. DTR: 2 UE, 0-1 knee. Plantar reflex: Neutral response bilaterally Gait: not examined in chair. Sensory exam: no acute abnormal findings. No acute cerebellar signs elicited. F-T-N test not very accurate. Current Medications Current Medications Current Medications Ondansetron HCl (Zofran) 4 mg PRN Q6HRS PRN IV NAUSEA/VOMITING; Start 02/19/17 at 13:45 Prochlorperazine Edisylate (Compazine) 10 mg PRN Q6HRS PRN IV NAUSEA/VOMITING; Start 02/19/17 at 13:45 Prochlorperazine (Compazine) 25 mg PRN Q12HR PRN RI NAUSEA/VOMITING; Start at 13:45 Al Hydroxide/Mg Hydroxide (Mylanta Plus Xs) 30 ml PRN Q3HRS PRN PO HEARTBURN / GAS; Start 02/19/17 at 13:45 Calcium Carbonate/ Glycine (Tums) 500 mg PRN Q3HRS PRN PO UPSET STOMACH; Start 02/19/17 at 13:45 Morphine Sulfate 1 mg PRN Q1HR PRN IV PAIN; Start 02/19/17 at 13:45 Acetaminophen (Tylenol) 650 mg PRN Q6HRS PRN PO Headaches, Temp > 101.5F; Start 02/19/17 at 13:45 Ibuprofen (Motrin) 400 mg PRN Q6HRS PRN PO MILD PAIN; Start 02/19/17 at 13:45 Docusate Sodium (Colace) 100 mg BID PO ; Start 02/19/17 at 21:00 Magnesium Hydroxide (Milk Of Magnesia) 2,400 mg PRN Q12HR PRN PO CONSTIPATION; Start 02/19/17 at 13:45 Bisacodyl (Dulcolax Supp) 10 mg PRN DAILY PRN RI CONSTIPATION; Start 02/19/17 at 13:45 Atorvastatin Calcium (Lipitor) 40 mg HS PO ; Start 02/19/17 at 21:00 Carbidopa/Levodopa (Sinemet 10/100) 1 tab DAILY PO ; Start 02/19/17 at 14:00 Cyanocobalamin (Vitamin B-12) 1,000 mcg DAILY PO Last administered on 14:31; Start 02/19/17 at 14:00 Diltiazem HCl (Cardizem 24hr Cd) 180 mg DAILY PO ; Start 02/19/17 at 14:00 Gabapentin (Neurontin) 100 mg TID PO Last administered on 02/19/17 14:31; Start 02/19/17 at 14:00 Lisinopril (Prinivil) 20 mg DAILY PO ; Start 02/19/17 at 14:00 Metformin HCl (Glucophage) 1,000 mg BIDWMEALS PO Last administered on 17:07; Start 02/19/17 at 17:00 Non-Formulary Medication 1 each DAILY PO ; Start 02/20/17 at 09:00; Stop at 09:00; Status DC Insulin Detemir (Levemir) 30 units QHS SQ ; Start 02/19/17 at 21:00 Losartan Potassium (Cozaar) 100 mg DAILY PO ; Start 02/19/17 at 14:00 Pantoprazole Sodium (Protonix) 40 mg DAILYAC PO Last administered on 02/19/17 17:07; Start 02/19/17 at 16:30 Non-Formulary Medication 450 mg DAILY PO ; Start 02/20/17 at 09:00; Stop at 09:00; Status DC Clopidogrel Bisulfate (Plavix) 75 mg DAILYWBKFT PO Last administered on 14:31; Start 02/19/17 at 13:45 Insulin Aspart (NovoLOG) 0-7 UNITS TIDWMEALS SQ Last administered on 02/19/17 17:12; Start 02/19/17 at 17:00 Dextrose (Dextrose 50%-Water Syringe) 12.5 gm PRN Q15MIN PRN IV SEE COMMENTS; Start 02/19/17 at 13:45 Aspirin (Children'S Aspirin) 81 mg DAILYWBKFT PO Last administered on 17:07; Start 02/19/17 at 17:00 Active Scripts Active Reported Lisinopril 20 Mg Tablet 20 Mg PO DAILY Osteo Bi-Flex Caplet (Glucosamine/D3/Boswellia Shruthi) 1 Each Tablet 1 Each PO DAILY Vitamin B-12 (Cyanocobalamin (Vitamin B-12)) 1,000 Mcg Tablet 1 Tab PO DAILY Gabapentin 100 Mg Capsule 100 Mg PO TID Saw [place] (Saw [place] Fruit) 450 Mg Capsule 450 Mg PO DAILY Losartan Potassium 100 Mg Tablet 100 Mg PO DAILY Diltiazem 24HR Cd (Diltiazem Hcl) 180 Mg Cap.er.24h 1 Cap PO DAILY Lantus Solostar (Insulin Glargine,Hum.rec.anlog) 100 Unit/1 Ml Insuln.pen 30 Unit SQ QHS Lipitor (Atorvastatin Calcium) 40 Mg Tablet 40 Mg PO HS Carbidopa-Levodopa 10-100 Tab (Carbidopa/Levodopa) 1 Each Tablet 1 Each PO DAILY Metformin Hcl 1,000 Mg Tablet 1,000 Mg PO BID Prilosec (Omeprazole) 20 Mg Capsule.dr 20 Mg PO DAILY Aspirin 81 Mg Tab.chew Mg PO DAILY Allergies Allergies: Coded Allergies: No Known Medication Allergies (Verified Allergy, Unknown, 12/29/16) Vitals VITALS Vital Signs Date Time Temp Pulse Resp B/P (MAP) Pulse Ox O2 Delivery O2 Flow Rate FiO2 02/19/17 14:55 98.1 65 19 129/62 (84) 97 Room Air 98.1 Labs Labs Laboratory Tests Test 02/19/17 15:55 02/19/17 17:08 White Blood Count 4.7 x10^3/uL (4.0-11.0) Red Blood Count 4.55 x10^6/uL (4.30-5.70) Hemoglobin 13.2 g/dL (13.0-17.5) Hematocrit 39.3 % (39.0-53.0) Mean Corpuscular Volume 86 fL (79-100) Mean Corpuscular Hemoglobin 29 pg (25-35) Mean Corpuscular Hemoglobin Concent 34 g/dL (31-37) Red Cell Distribution Width 13.8 % (11.5-14.5) Platelet Count 185 x10^3/uL (140-400) Neutrophils (%) (Auto) 84 % (31-73) Lymphocytes (%) (Auto) 11 % (24-48) Monocytes (%) (Auto) 5 % (0-9) Eosinophils (%) (Auto) 1 % (0-3) Basophils (%) (Auto) 0 % (0-3) Neutrophils # (Auto) 3.9 x10^3uL (1.8-7.7) Lymphocytes # (Auto) 0.5 x10^3/uL (1.0-4.8) Monocytes # (Auto) 0.2 x10^3/uL (0.0-1.1) Eosinophils # (Auto) 0.0 x10^3/uL (0.0-0.7) Basophils # (Auto) 0.0 x10^3/uL (0.0-0.2) Prothrombin Time 12.4 SEC (11.7-14.0) Prothromb Time International Ratio 1.0 (0.8-1.1) Sodium Level 139 mmol/L (136-145) Potassium Level 3.9 mmol/L (3.5-5.1) Chloride Level 103 mmol/L (98-107) Carbon Dioxide Level 27 mmol/L (21-32) Anion Gap 9 (6-14) Blood Urea Nitrogen 33 mg/dL (8-26) Creatinine 0.9 mg/dL (0.7-1.3) Estimated GFR (Cockcroft-Gault) 81.2 BUN/Creatinine Ratio 37 (6-20) Glucose Level 110 mg/dL (70-99) Calcium Level 9.6 mg/dL (8.5-10.1) Total Bilirubin 1.1 mg/dL (0.2-1.0) Aspartate Amino Transf (AST/SGOT) 30 U/L (15-37) Alanine Aminotransferase (ALT/SGPT) 52 U/L (16-63) Alkaline Phosphatase 71 U/L (46-116) Total Protein 7.3 g/dL (6.4-8.2) Albumin 3.3 g/dL (3.4-5.0) Albumin/Globulin Ratio 0.8 (1.0-1.7) Triglycerides Level 83 mg/dL (0-150) Cholesterol Level 109 mg/dL (0-200) LDL Cholesterol, Calculated 53 mg/dL (0-100) VLDL Cholesterol, Calculated 17 mg/dL (0-40) Non-HDL Cholesterol Calculated 70 mg/dL (0-129) HDL Cholesterol 39 mg/dL (40-60) Cholesterol/HDL Ratio 2.8 Glucose (Fingerstick) 235 mg/dL (70-99) Laboratory Tests Test 02/19/17 15:55 02/19/17 17:08 White Blood Count 4.7 x10^3/uL (4.0-11.0) Red Blood Count 4.55 x10^6/uL (4.30-5.70) Hemoglobin 13.2 g/dL (13.0-17.5) Hematocrit 39.3 % (39.0-53.0) Mean Corpuscular Volume 86 fL (79-100) Mean Corpuscular Hemoglobin 29 pg (25-35) Mean Corpuscular Hemoglobin Concent 34 g/dL (31-37) Red Cell Distribution Width 13.8 % (11.5-14.5) Platelet Count 185 x10^3/uL (140-400) Neutrophils (%) (Auto) 84 % (31-73) Lymphocytes (%) (Auto) 11 % (24-48) Monocytes (%) (Auto) 5 % (0-9) Eosinophils (%) (Auto) 1 % (0-3) Basophils (%) (Auto) 0 % (0-3) Neutrophils # (Auto) 3.9 x10^3uL (1.8-7.7) Lymphocytes # (Auto) 0.5 x10^3/uL (1.0-4.8) Monocytes # (Auto) 0.2 x10^3/uL (0.0-1.1) Eosinophils # (Auto) 0.0 x10^3/uL (0.0-0.7) Basophils # (Auto) 0.0 x10^3/uL (0.0-0.2) Prothrombin Time 12.4 SEC (11.7-14.0) Prothromb Time International Ratio 1.0 (0.8-1.1) Sodium Level 139 mmol/L (136-145) Potassium Level 3.9 mmol/L (3.5-5.1) Chloride Level 103 mmol/L (98-107) Carbon Dioxide Level 27 mmol/L (21-32) Anion Gap 9 (6-14) Blood Urea Nitrogen 33 mg/dL (8-26) Creatinine 0.9 mg/dL (0.7-1.3) Estimated GFR (Cockcroft-Gault) 81.2 BUN/Creatinine Ratio 37 (6-20) Glucose Level 110 mg/dL (70-99) Calcium Level 9.6 mg/dL (8.5-10.1) Total Bilirubin 1.1 mg/dL (0.2-1.0) Aspartate Amino Transf (AST/SGOT) 30 U/L (15-37) Alanine Aminotransferase (ALT/SGPT) 52 U/L (16-63) Alkaline Phosphatase 71 U/L (46-116) Total Protein 7.3 g/dL (6.4-8.2) Albumin 3.3 g/dL (3.4-5.0) Albumin/Globulin Ratio 0.8 (1.0-1.7) Triglycerides Level 83 mg/dL (0-150) Cholesterol Level 109 mg/dL (0-200) LDL Cholesterol, Calculated 53 mg/dL (0-100) VLDL Cholesterol, Calculated 17 mg/dL (0-40) Non-HDL Cholesterol Calculated 70 mg/dL (0-129) HDL Cholesterol 39 mg/dL (40-60) Cholesterol/HDL Ratio 2.8 Glucose (Fingerstick) 235 mg/dL (70-99) MARTHA PAGAN MD Feb 19, 2017 18:01
[2017-02-19 19:25] VITALS: BP 114/59
[2017-02-19 20:17] LABS: BILIRUBIN,URINE NEGATIVE (NEG); GLUCOSE,URINE 250 mg/dL (NEG); NITRITE,URINE NEGATIVE (NEG); PROTEIN,URINE NEGATIVE (NEG-TRACE); UROBILINOGEN,URINE 0.2 mg/dL (0.2 mg/dL)
[2017-02-19 20:25] LABS: BACTERIA,URINE FEW /HPF (0-FEW); RBC,URINE OCC /HPF (0-2); SQUAMOUS EPITHELIAL CELL,UR OCC /LPF; WBC,URINE >40 /HPF (0-4)
[2017-02-19] MEDS: DOCUSATE SODIUM 100 MG CAPSULE. PO SCH (21:16)
[2017-02-19] MEDS: ATORVASTATIN CALCIUM 40 MG TABLET. PO SCH (21:16)
[2017-02-19] MEDS: INSULIN DETEMIR 300 UNITS/3 ML INSULN.PEN. SQ SCH (21:20)
[2017-02-19] MEDS: IBUPROFEN 400 MG TABLET. PO PRN (21:22)
[2017-02-19 23:25] VITALS: BP 123/65
[2017-02-20 03:30] VITALS: BP 106/58
[2017-02-20 07:00] VITALS: BP 158/86
[2017-02-20] MEDS: INSULIN ASPART 300 UNITS/3 ML INSULN.PEN SQ SCH ×3 (08:00→16:28)
[2017-02-20] MEDS: GABAPENTIN 100 MG CAPSULE. PO SCH ×3 (08:11→21:01)
[2017-02-20] MEDS: PANTOPRAZOLE 40 MG TABLET.DR. PO SCH (08:11)
[2017-02-20] MEDS: CYANOCOBALAMIN (VITAMIN B-12) 1,000 MCG TABLET. PO SCH (08:11)
[2017-02-20] MEDS: CLOPIDOGREL BISULFATE 75 MG TABLET PO SCH (08:11)
[2017-02-20] MEDS: CARBIDOPA/LEVODOPA 10/100MG TABLET PO SCH (08:11)
[2017-02-20] MEDS: ASPIRIN CHEWABLE 81 MG TABLET. PO SCH (08:11)
[2017-02-20] MEDS: DOCUSATE SODIUM 100 MG CAPSULE. PO SCH ×2 (08:11→21:01)
[2017-02-20] MEDS: LOSARTAN POTASSIUM 50 MG TABLET. PO SCH (08:12)
[2017-02-20] MEDS: LISINOPRIL 20 MG TABLET PO SCH (08:13)
[2017-02-20] MEDS ORDERED: NON FORMULARY ITEM (Saw Palmetto Fruit (Saw Palmetto) 450 MG) PO SCH (09:00)
[2017-02-20] MEDS ORDERED: NON FORMULARY ITEM (Glucosamine/D3/Boswellia Serra (Osteo Bi-Flex Caplet) 1 EACH) PO SCH (09:00)
--- NOTE | 2017-02-20 09:00 | PDOC ---
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 On treatment with radiation and chemo. Prior mild left hand weakness and numbness that progressed over two days prior to admit. MRI head small right parietal lobe ischemic infarcts and larger rt occipital infarct new vs MRI. Dopplers U/S of carotid arteries: occlusion of distal right common carotid, internal carotid and vertebral arteries. Lt side < 50 % occluded. Neurology recommended asa and Plavix. Now feeling better with improved left hand strength. Impression: St III squamous cell carcinoma of lung. He presented with hemoptysis which has resolves while on treatment. Treatment well tolerated thus far. We will resume today. Multiple rt hemispheric embolic CVA. Sxs improving. Agree with recommendation for antiplatelet treatment as hemoptysis has resolved following the initiation of treatment of lung cancer. Discussed with patient and son by phone and Dr Herring. DUNG FRANCO MD Feb 20, 2017 09:00
--- NOTE | 2017-02-20 09:58 | PDOC ---
PROGRESS NOTES Chief Complaint Chief Complaint Stage III lung cancer CVA AFIB, CAD, HTN, Syncope, Other COPD History of Present Illness History of Present Illness Pt S&E VSS ADRIANO OH RN and daughter too Vitals Vitals Vital Signs Date Time Temp Pulse Resp B/P (MAP) Pulse Ox O2 Delivery O2 Flow Rate FiO2 02/20/17 08:13 88 158/86 02/20/17 07:47 Room Air 02/20/17 07:00 98.0 20 96 98.0 Physical Exam General: Alert, Oriented X3, Cooperative, No acute distress Heart: Regular rate, Normal S1 Lungs: Clear Abdomen: Normal bowel sounds, Soft, No tenderness, No hepatosplenomegaly, No masses Extremities: No clubbing, No cyanosis Skin: No rashes, No breakdown, No significant lesion Labs LABS Laboratory Tests Test 02/19/17 15:55 02/19/17 17:08 02/19/17 18:00 02/19/17 21:16 White Blood Count 4.7 x10^3/uL (4.0-11.0) Red Blood Count 4.55 x10^6/uL (4.30-5.70) Hemoglobin 13.2 g/dL (13.0-17.5) Hematocrit 39.3 % (39.0-53.0) Mean Corpuscular Volume 86 fL (79-100) Mean Corpuscular Hemoglobin 29 pg (25-35) Mean Corpuscular Hemoglobin Concent 34 g/dL (31-37) Red Cell Distribution Width 13.8 % (11.5-14.5) Platelet Count 185 x10^3/uL (140-400) Neutrophils (%) (Auto) 84 % (31-73) Lymphocytes (%) (Auto) 11 % (24-48) Monocytes (%) (Auto) 5 % (0-9) Eosinophils (%) (Auto) 1 % (0-3) Basophils (%) (Auto) 0 % (0-3) Neutrophils # (Auto) 3.9 x10^3uL (1.8-7.7) Lymphocytes # (Auto) 0.5 x10^3/uL (1.0-4.8) Monocytes # (Auto) 0.2 x10^3/uL (0.0-1.1) Eosinophils # (Auto) 0.0 x10^3/uL (0.0-0.7) Basophils # (Auto) 0.0 x10^3/uL (0.0-0.2) Prothrombin Time 12.4 SEC (11.7-14.0) Prothromb Time International Ratio 1.0 (0.8-1.1) Sodium Level 139 mmol/L (136-145) Potassium Level 3.9 mmol/L (3.5-5.1) Chloride Level 103 mmol/L (98-107) Carbon Dioxide Level 27 mmol/L (21-32) Anion Gap 9 (6-14) Blood Urea Nitrogen 33 mg/dL (8-26) Creatinine 0.9 mg/dL (0.7-1.3) Estimated GFR (Cockcroft-Gault) 81.2 BUN/Creatinine Ratio 37 (6-20) Glucose Level 110 mg/dL (70-99) Calcium Level 9.6 mg/dL (8.5-10.1) Total Bilirubin 1.1 mg/dL (0.2-1.0) Aspartate Amino Transf (AST/SGOT) 30 U/L (15-37) Alanine Aminotransferase (ALT/SGPT) 52 U/L (16-63) Alkaline Phosphatase 71 U/L (46-116) Total Protein 7.3 g/dL (6.4-8.2) Albumin 3.3 g/dL (3.4-5.0) Albumin/Globulin Ratio 0.8 (1.0-1.7) Triglycerides Level 83 mg/dL (0-150) Cholesterol Level 109 mg/dL (0-200) LDL Cholesterol, Calculated 53 mg/dL (0-100) VLDL Cholesterol, Calculated 17 mg/dL (0-40) Non-HDL Cholesterol Calculated 70 mg/dL (0-129) HDL Cholesterol 39 mg/dL (40-60) Cholesterol/HDL Ratio 2.8 Glucose (Fingerstick) 235 mg/dL (70-99) 189 mg/dL (70-99) Urine Collection Type Unknown Urine Color Yellow Urine Clarity Cloudy Urine pH 6.0 Urine Specific [place] 1.020 Urine Protein Negative mg/dL (NEG-TRACE) Urine Glucose (UA) 250 mg/dL (NEG) Urine Ketones (Stick) Negative mg/dL (NEG) Urine Blood Trace (NEG) Urine Nitrite Negative (NEG) Urine Bilirubin Negative (NEG) Urine Urobilinogen Dipstick 0.2 mg/dL (0.2 mg/dL) Urine Leukocyte Esterase Large (NEG) Urine RBC Occ /HPF (0-2) Urine WBC >40 /HPF (0-4) Urine Squamous Epithelial Cells Occ /LPF Urine Bacteria Few /HPF (0-FEW) Urine Mucus Slight /LPF Test 02/20/17 07:45 02/20/17 08:11 Glucose (Fingerstick) 64 mg/dL (70-99) 110 mg/dL (70-99) Review of Systems Review of Systems co weakness co thirst Assessment and Plan Assessmemt and Plan Stage III lung cancer CVA AFIB, CAD, HTN, Syncope, Other COPD Plan Radiation Therapy today Echo today PTOT Home meds Labs Problems: Comment Review of Relevant I have reviewed the following items katie (where applicable) has been applied. Labs Laboratory Tests Test 02/19/17 15:55 02/19/17 17:08 02/19/17 18:00 02/19/17 21:16 White Blood Count 4.7 x10^3/uL (4.0-11.0) Red Blood Count 4.55 x10^6/uL (4.30-5.70) Hemoglobin 13.2 g/dL (13.0-17.5) Hematocrit 39.3 % (39.0-53.0) Mean Corpuscular Volume 86 fL (79-100) Mean Corpuscular Hemoglobin 29 pg (25-35) Mean Corpuscular Hemoglobin Concent 34 g/dL (31-37) Red Cell Distribution Width 13.8 % (11.5-14.5) Platelet Count 185 x10^3/uL (140-400) Neutrophils (%) (Auto) 84 % (31-73) Lymphocytes (%) (Auto) 11 % (24-48) Monocytes (%) (Auto) 5 % (0-9) Eosinophils (%) (Auto) 1 % (0-3) Basophils (%) (Auto) 0 % (0-3) Neutrophils # (Auto) 3.9 x10^3uL (1.8-7.7) Lymphocytes # (Auto) 0.5 x10^3/uL (1.0-4.8) Monocytes # (Auto) 0.2 x10^3/uL (0.0-1.1) Eosinophils # (Auto) 0.0 x10^3/uL (0.0-0.7) Basophils # (Auto) 0.0 x10^3/uL (0.0-0.2) Prothrombin Time 12.4 SEC (11.7-14.0) Prothromb Time International Ratio 1.0 (0.8-1.1) Sodium Level 139 mmol/L (136-145) Potassium Level 3.9 mmol/L (3.5-5.1) Chloride Level 103 mmol/L (98-107) Carbon Dioxide Level 27 mmol/L (21-32) Anion Gap 9 (6-14) Blood Urea Nitrogen 33 mg/dL (8-26) Creatinine 0.9 mg/dL (0.7-1.3) Estimated GFR (Cockcroft-Gault) 81.2 BUN/Creatinine Ratio 37 (6-20) Glucose Level 110 mg/dL (70-99) Calcium Level 9.6 mg/dL (8.5-10.1) Total Bilirubin 1.1 mg/dL (0.2-1.0) Aspartate Amino Transf (AST/SGOT) 30 U/L (15-37) Alanine Aminotransferase (ALT/SGPT) 52 U/L (16-63) Alkaline Phosphatase 71 U/L (46-116) Total Protein 7.3 g/dL (6.4-8.2) Albumin 3.3 g/dL (3.4-5.0) Albumin/Globulin Ratio 0.8 (1.0-1.7) Triglycerides Level 83 mg/dL (0-150) Cholesterol Level 109 mg/dL (0-200) LDL Cholesterol, Calculated 53 mg/dL (0-100) VLDL Cholesterol, Calculated 17 mg/dL (0-40) Non-HDL Cholesterol Calculated 70 mg/dL (0-129) HDL Cholesterol 39 mg/dL (40-60) Cholesterol/HDL Ratio 2.8 Glucose (Fingerstick) 235 mg/dL (70-99) 189 mg/dL (70-99) Urine Collection Type Unknown Urine Color Yellow Urine Clarity Cloudy Urine pH 6.0 Urine Specific [place] 1.020 Urine Protein Negative mg/dL (NEG-TRACE) Urine Glucose (UA) 250 mg/dL (NEG) Urine Ketones (Stick) Negative mg/dL (NEG) Urine Blood Trace (NEG) Urine Nitrite Negative (NEG) Urine Bilirubin Negative (NEG) Urine Urobilinogen Dipstick 0.2 mg/dL (0.2 mg/dL) Urine Leukocyte Esterase Large (NEG) Urine RBC Occ /HPF (0-2) Urine WBC >40 /HPF (0-4) Urine Squamous Epithelial Cells Occ /LPF Urine Bacteria Few /HPF (0-FEW) Urine Mucus Slight /LPF Test 02/20/17 07:45 02/20/17 08:11 Glucose (Fingerstick) 64 mg/dL (70-99) 110 mg/dL (70-99) Laboratory Tests Test 02/19/17 15:55 02/19/17 17:08 02/19/17 18:00 02/19/17 21:16 White Blood Count 4.7 x10^3/uL (4.0-11.0) Red Blood Count 4.55 x10^6/uL (4.30-5.70) Hemoglobin 13.2 g/dL (13.0-17.5) Hematocrit 39.3 % (39.0-53.0) Mean Corpuscular Volume 86 fL (79-100) Mean Corpuscular Hemoglobin 29 pg (25-35) Mean Corpuscular Hemoglobin Concent 34 g/dL (31-37) Red Cell Distribution Width 13.8 % (11.5-14.5) Platelet Count 185 x10^3/uL (140-400) Neutrophils (%) (Auto) 84 % (31-73) Lymphocytes (%) (Auto) 11 % (24-48) Monocytes (%) (Auto) 5 % (0-9) Eosinophils (%) (Auto) 1 % (0-3) Basophils (%) (Auto) 0 % (0-3) Neutrophils # (Auto) 3.9 x10^3uL (1.8-7.7) Lymphocytes # (Auto) 0.5 x10^3/uL (1.0-4.8) Monocytes # (Auto) 0.2 x10^3/uL (0.0-1.1) Eosinophils # (Auto) 0.0 x10^3/uL (0.0-0.7) Basophils # (Auto) 0.0 x10^3/uL (0.0-0.2) Prothrombin Time 12.4 SEC (11.7-14.0) Prothromb Time International Ratio 1.0 (0.8-1.1) Sodium Level 139 mmol/L (136-145) Potassium Level 3.9 mmol/L (3.5-5.1) Chloride Level 103 mmol/L (98-107) Carbon Dioxide Level 27 mmol/L (21-32) Anion Gap 9 (6-14) Blood Urea Nitrogen 33 mg/dL (8-26) Creatinine 0.9 mg/dL (0.7-1.3) Estimated GFR (Cockcroft-Gault) 81.2 BUN/Creatinine Ratio 37 (6-20) Glucose Level 110 mg/dL (70-99) Calcium Level 9.6 mg/dL (8.5-10.1) Total Bilirubin 1.1 mg/dL (0.2-1.0) Aspartate Amino Transf (AST/SGOT) 30 U/L (15-37) Alanine Aminotransferase (ALT/SGPT) 52 U/L (16-63) Alkaline Phosphatase 71 U/L (46-116) Total Protein 7.3 g/dL (6.4-8.2) Albumin 3.3 g/dL (3.4-5.0) Albumin/Globulin Ratio 0.8 (1.0-1.7) Triglycerides Level 83 mg/dL (0-150) Cholesterol Level 109 mg/dL (0-200) LDL Cholesterol, Calculated 53 mg/dL (0-100) VLDL Cholesterol, Calculated 17 mg/dL (0-40) Non-HDL Cholesterol Calculated 70 mg/dL (0-129) HDL Cholesterol 39 mg/dL (40-60) Cholesterol/HDL Ratio 2.8 Glucose (Fingerstick) 235 mg/dL (70-99) 189 mg/dL (70-99) Urine Collection Type Unknown Urine Color Yellow Urine Clarity Cloudy Urine pH 6.0 Urine Specific [place] 1.020 Urine Protein Negative mg/dL (NEG-TRACE) Urine Glucose (UA) 250 mg/dL (NEG) Urine Ketones (Stick) Negative mg/dL (NEG) Urine Blood Trace (NEG) Urine Nitrite Negative (NEG) Urine Bilirubin Negative (NEG) Urine Urobilinogen Dipstick 0.2 mg/dL (0.2 mg/dL) Urine Leukocyte Esterase Large (NEG) Urine RBC Occ /HPF (0-2) Urine WBC >40 /HPF (0-4) Urine Squamous Epithelial Cells Occ /LPF Urine Bacteria Few /HPF (0-FEW) Urine Mucus Slight /LPF Test 02/20/17 07:45 02/20/17 08:11 Glucose (Fingerstick) 64 mg/dL (70-99) 110 mg/dL (70-99) Medications Current Medications Ondansetron HCl (Zofran) 4 mg PRN Q6HRS PRN IV NAUSEA/VOMITING; Start 02/19/17 at 13:45 Prochlorperazine Edisylate (Compazine) 10 mg PRN Q6HRS PRN IV NAUSEA/VOMITING; Start 02/19/17 at 13:45 Prochlorperazine (Compazine) 25 mg PRN Q12HR PRN [place] NAUSEA/VOMITING; Start at 13:45 Al Hydroxide/Mg Hydroxide (Mylanta Plus Xs) 30 ml PRN Q3HRS PRN PO HEARTBURN / GAS; Start 02/19/17 at 13:45 Calcium Carbonate/ Glycine (Tums) 500 mg PRN Q3HRS PRN PO UPSET STOMACH; Start 02/19/17 at 13:45 Morphine Sulfate 1 mg PRN Q1HR PRN IV PAIN; Start 02/19/17 at 13:45 Acetaminophen (Tylenol) 650 mg PRN Q6HRS PRN PO Headaches, Temp > 101.5F; Start 02/19/17 at 13:45 Ibuprofen (Motrin) 400 mg PRN Q6HRS PRN PO MILD PAIN Last administered on 21:22; Start 02/19/17 at 13:45 Docusate Sodium (Colace) 100 mg BID PO Last administered on 02/20/17 08:11; Start 02/19/17 at 21:00 Magnesium Hydroxide (Milk Of Magnesia) 2,400 mg PRN Q12HR PRN PO CONSTIPATION; Start 02/19/17 at 13:45 Bisacodyl (Dulcolax Supp) 10 mg PRN DAILY PRN [place] CONSTIPATION; Start 02/19/17 at 13:45 Atorvastatin Calcium (Lipitor) 40 mg HS PO Last administered on 02/19/17 21:16 ; Start 02/19/17 at 21:00 Carbidopa/Levodopa (Sinemet 10/100) 1 tab DAILY PO Last administered on 08:11; Start 02/19/17 at 14:00 Cyanocobalamin (Vitamin B-12) 1,000 mcg DAILY PO Last administered on 08:11; Start 02/19/17 at 14:00 Diltiazem HCl (Cardizem 24hr Cd) 180 mg DAILY PO Last administered on 08:12; Start 02/19/17 at 14:00 Gabapentin (Neurontin) 100 mg TID PO Last administered on 02/20/17 08:11; Start 02/19/17 at 14:00 Lisinopril (Prinivil) 20 mg DAILY PO Last administered on 02/20/17 08:13; Start 02/19/17 at 14:00 Metformin HCl (Glucophage) 1,000 mg BIDWMEALS PO Last administered on 08:11; Start 02/19/17 at 17:00 Non-Formulary Medication 1 each DAILY PO ; Start 02/20/17 at 09:00; Stop at 09:00; Status DC Insulin Detemir (Levemir) 30 units QHS SQ Last administered on 02/19/17 21:20 ; Start 02/19/17 at 21:00 Losartan Potassium (Cozaar) 100 mg DAILY PO Last administered on 02/20/17 08: 12; Start 02/19/17 at 14:00 Pantoprazole Sodium (Protonix) 40 mg DAILYAC PO Last administered on 02/20/17 08:11; Start 02/19/17 at 16:30 Non-Formulary Medication 450 mg DAILY PO ; Start 02/20/17 at 09:00; Stop at 09:00; Status DC Clopidogrel Bisulfate (Plavix) 75 mg DAILYWBKFT PO Last administered on 08:11; Start 02/19/17 at 13:45 Insulin Aspart (NovoLOG) 0-7 UNITS TIDWMEALS SQ Last administered on 02/19/17 17:12; Start 02/19/17 at 17:00 Dextrose (Dextrose 50%-Water Syringe) 12.5 gm PRN Q15MIN PRN IV SEE COMMENTS; Start 02/19/17 at 13:45 Aspirin (Children'S Aspirin) 81 mg DAILYWBKFT PO Last administered on t 08:11; Start 02/19/17 at 17:00 Active Scripts Active Reported Lisinopril 20 Mg Tablet 20 Mg PO DAILY Osteo Bi-Flex Caplet (Glucosamine/D3/Boswellia Shruthi) 1 Each Tablet 1 Each PO DAILY Vitamin B-12 (Cyanocobalamin (Vitamin B-12)) 1,000 Mcg Tablet 1 Tab PO DAILY Gabapentin 100 Mg Capsule 100 Mg PO TID [place] ([place] Fruit) 450 Mg Capsule 450 Mg PO DAILY Losartan Potassium 100 Mg Tablet 100 Mg PO DAILY Diltiazem 24HR Cd (Diltiazem Hcl) 180 Mg Cap.er.24h 1 Cap PO DAILY Lantus Solostar (Insulin Glargine,Hum.rec.anlog) 100 Unit/1 Ml Insuln.pen 30 Unit SQ QHS Lipitor (Atorvastatin Calcium) 40 Mg Tablet 40 Mg PO HS Carbidopa-Levodopa 10-100 Tab (Carbidopa/Levodopa) 1 Each Tablet 1 Each PO DAILY Metformin Hcl 1,000 Mg Tablet 1,000 Mg PO BID Prilosec (Omeprazole) 20 Mg Capsule.dr 20 Mg PO DAILY Aspirin 81 Mg Tab.chew Mg PO DAILY Vitals/I & O Vital Sign - Last 24 Hours 02/19/17 02/19/17 02/19/17 02/19/17 13:03 13:04 13:08 14:55 Temp 97.9 97.9 98.1 97.9 97.9 98.1 Pulse 83 83 65 Resp 18 18 19 B/P (MAP) 101/50 (67) 101/50 (67) 129/62 (84) Pulse Ox 98 98 97 O2 Delivery Room Air Room Air Room Air Room Air 02/19/17 02/19/17 02/19/17 02/20/17 19:25 20:00 23:25 03:30 Temp 97.4 97.7 97.5 97.4 97.7 97.5 Pulse 101 96 86 Resp 18 18 18 B/P (MAP) 114/59 (77) 123/65 (84) 106/58 (74) Pulse Ox 98 97 96 O2 Delivery Room Air Room Air Room Air Room Air 02/20/17 02/20/17 02/20/17 02/20/17 07:00 07:47 08:12 08:12 Temp 98.0 98.0 Pulse 88 88 88 Resp 20 B/P (MAP) 158/86 (110) 158/86 158/86 Pulse Ox 96 O2 Delivery Room Air Room Air 02/20/17 08:13 Pulse 88 B/P (MAP) 158/86 GRIFFIN JOYA III DO Feb 20, 2017 09:58
[2017-02-20 11:00] VITALS: BP 140/76
--- NOTE | 2017-02-20 11:29 | CARD ---
APPROVED REPORT EXAM: Two-dimensional and M-mode echocardiogram with Doppler and color Doppler. Other Information Quality : Good INDICATION CVA/TIA 2D DIMENSIONS RVDd2.7 (2.9-3.5cm)Left Atrium(2D)4.3 (1.6-4.0cm) IVSd1.6 (0.7-1.1cm)Aortic Root(2D)3.1 (2.0-3.7cm) LVDd3.3 (3.9-5.9cm)LVOT Diameter2.2 (1.8-2.4cm) PWd1.3 (0.7-1.1cm)LVDs2.5 (2.5-4.0cm) FS (%) 25.0 %SV21.5 ml LVEF(%)50.0 (>50%) Aortic Valve AoV Peak Garfield.77.2cm/sAoV VTI14.1cm AO Peak GR.2.4mmHgLVOT VTI 13.52cm AO Mean GR.1mmHgAVA (VTI)3.60cm2 Mitral Valve MV E Xyvwpbxg71.3cm/sMV DECEL ULQJ853ms MV A Ezzhbkrp964.6cm/sE/A Ratio0.6 TDI Lateral E' P. V5.99cm/sMedial E' P. V4.31cm/s E/Lateral E'12.9E/Medial E'17.9 Tricuspid Valve TR P. Ewcbnhqx732ai/sRAP ITWEKOGN3jmQr TR Peak Gr.79xpLfABNA25yfTl Pulmonary Vein S1 Jpcnogrf04.1cm/sS2 Ghniyqqr57.54cm/s D2 Wbrgwaig52.5cm/s LEFT VENTRICLE The left ventricle is normal size. There is mild to moderate concentric left ventricular hypertrophy. Left ventricle systolic function is likely moderately reduced. Difficult to estimate due to suboptim al images. Suspect EF of 40%. There is moderate hypokinesis in the anteroseptal and inferior panchal. T ransmitral Doppler flow pattern is Grade I-abnormal relaxation pattern. RIGHT VENTRICLE The right ventricle is normal size. The right ventricular systolic function is normal. ATRIA The left atrium is mildly dilated. The right atrium size is normal. The interatrial septum is intact with no evidence for an atrial septal defect or patent foramen ovale as noted on 2-D or Doppler imagi ng. AORTIC VALVE The aortic valve is calcified and is not well visualized. Doppler and Color Flow revealed no signific ant aortic regurgitation. There is no significant aortic valvular stenosis. MITRAL VALVE The mitral valve is calcified but opens well. Mitral annular calcification is mild. There is no evide nce of mitral valve prolapse. There is no mitral valve stenosis. Doppler and Color-flow revealed trac e mitral regurgitation. TRICUSPID VALVE The tricuspid valve is normal in structure and function. Doppler and Color Flow revealed trace tricus pid regurgitation. There is mild pulmonary hypertension. The PA pressure was estimated at 30 mmHg. Th ere is no tricuspid valve stenosis. PULMONIC VALVE Doppler and Color Flow revealed trace to mild pulmonic valvular regurgitation. There is no pulmonic v alvular stenosis. GREAT VESSELS The aortic root is normal in size. The ascending aorta is normal in size. The IVC is normal in size a nd collapses >50% with inspiration. PERICARDIAL EFFUSION There is no evidence of significant pericardial effusion. Critical Notification Critical Value: No <Conclusion> Left ventricle systolic function is likely moderately reduced. Difficult to estimate due to suboptima l images. Suspect EF of 40%. There is moderate hypokinesis in the anteroseptal and inferior panchal. Aortic valve not well visualized, cannot rule out stenosis.
--- NOTE | 2017-02-20 11:49 | CONS ---
DATE OF CONSULTATION: 02/19/2017 REFERRING PHYSICIAN: Cornelio Sun MD. 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 Following diagnosis, he was initiated on chest radiation and chemotherapy with radiation initiated here on 02/04/2017. He now has had progressive left arm weakness and numbness extending to the left leg, worse over the last 2 days. MRI scan of the brain obtained earlier today on 02/19/2017 reveals multiple foci of acute early subacute infarcts in the right cerebral hemisphere, largest in the right occipital lobe and several tiny foci in the right frontoparietal cortical surfaces compatible with new CVA. He is now being admitted for further assessment and management of this with a direct admission from our clinic to the hospital service. ICD 10 C34.32 The patient is an 81-year-old gentleman who presented with intermittent gross hemoptysis that began in August 2016, which then cleared. During this time, he had stable chronic shortness of breath with no chest pain with stable weight and appetite. CT scan of the chest on 12/27/2016 revealed a 4 cm mass in the left lower lobe extending to the adjacent airway with a 4 mm peripheral left lower lobe nodule adjacent to the pleura and minimal pleural effusion. There was subcarinal and pretracheal lymph nodes bordering on adenopathy and ill-defined low density lesions in the liver. Initial bronchoscopy was nondiagnostic. Ultrasound liver biopsy, which did reveal several hypoechoic masses throughout both lobes of the liver. Biopsy of liver revealed no malignancy. Followup CT-guided biopsy of the primary left lower lobe lesion did confirm poorly differentiated squamous cell carcinoma. Followup PET CT imaging on 01/29/2017 revealed hypermetabolic left infrahilar mass consistent with primary lung cancer with a cluster of small hypermetabolic adjacent nodules along the margin of the mass, along the anterior aspect of the descending aorta. Liver and mediastinum revealed no uptake to suggest metastatic disease. MRI scan of the brain from 01/22/2017 revealed 3 small foci of enhancement in the posterior right parietal lobe of uncertain significance. He then initiated chest radiation with systemic chemotherapy beginning chest radiation on 02/04/2017. To date he has received 12 of 33 treatments or 24 Gy thus far. Over the last 2 weeks, worse over the last 2 days, he has had progressive left hand weakness and numbness extending into the forearm and arm, now also impairing his left leg with some weakness and numbness as well. He has had no headache, nausea, vomiting or seizures. Repeat MRI obtained earlier today with gadolinium on 02/19/2017 revealed multiple foci of acute early subacute infarcts in the right cerebral hemisphere, largest in the inferior pole of the right occipital lobe, multiple tiny foci in the right frontoparietal cortical surfaces. 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 No hemorrhagic findings were noted. Previously noted enhancing spots in the right parietal lobe were absent. As a result of these findings, we are advising admission for further stroke assessment and treatment as well as rehabilitation for recovery. Depending on his overall status, we may continue treatment for his lung cancer as well. PAST MEDICAL HISTORY: Remarkable for diabetes, hypertension, coronary artery disease, peripheral vascular disease, hyperlipidemia, COPD, osteoarthritis, Parkinson disease, diabetic neuropathy affecting his feet, previous coronary artery bypass graft surgery, left femoral endarterectomy, tonsillectomy, lumbar back surgery, herpes zoster over the left flank with postherpetic numbness. ALLERGIES: No known allergies. MEDICATIONS PRIOR TO ADMISSION: Aspirin, atorvastatin, Sinemet, diltiazem, gabapentin, lisinopril, glucosamine and chondroitin, metformin, metoprolol, omeprazole. FAMILY HISTORY: Father from metastatic lung cancer at age 81. SOCIAL HISTORY: for 61 years, 2 sons alive, one handicapped son from chocking at age 32. Lives in [place] in [place], [place], an area recently devastated by the [place]. 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 Lives on [place] with his . He smoked 2-3 packs a day from 18 to 55. No significant alcohol use. PHYSICAL EXAMINATION: GENERAL: Revealed a pleasant elderly gentleman in no acute distress, conversant, alert, and appropriate. VITAL SIGNS: Blood pressure 92/70, pulse 92, pulse oximetry on room air is 97%. HEENT: Unremarkable. LYMPH NODES: He had no palpable adenopathy. LUNGS: Clear. HEART: Regular. ABDOMEN: Unremarkable. 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 Left arm had diminished sensation to light touch. He was globally weak in both legs, subtly worse on the left side. Cranial nerves 2-12 are grossly intact and no facial oximetry. Gait was not tested. LABORATORY DATA: Most recent laboratory studies from 02/16/[address] Sun's office, hemoglobin 12.9, white count 8500, platelet count 209,000. Chemistry panel from 02/09/2017, normal electrolytes, creatinine 0.99, glucose 353. Normal liver function tests. ASSESSMENT AND PLAN: In summary, my impression is that of stage IIIA (T2N2M0) squamous cell carcinoma of the left lower lobe. He had been doing well with combined treatment. His disease-related hemoptysis has resolved. 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 At this time, he will be admitted for the consideration of anticoagulant and antiplatelet therapy and physical therapy to improve functional status. We will reassess him to consider ongoing treatment while hospitalized here. I reviewed this with the patient and his family as well as with Dr. Awan, who will be the admitting hospitalist in his care. Thank you for allowing us to participate in his evaluation. DUNG FRANCO MD DR: REJI/brenda JOB#: [id number] / [id number] JHONNY Banda MD, WILLIAM MD MTDD
[2017-02-20 15:00] VITALS: BP 107/61
--- NOTE | 2017-02-20 15:04 | PDOC ---
PROGRESS NOTES Assessment Assessment Multiple subacute infracts in right hemisphere. Left side numbness and weakness x 4 days before admission. 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 CHF, EF 40%. DM HLD PD Lung cancer, stage III. Falls and risk of falls. Obesity RECOMMENDATIONS/PLAN: Plavix 75 mg daily. ASA 325 mg daily. Lipitor 40 mg HS. Please consult Cardiology for CHF and other cardiac issues. OT/PT Rehab as needed. Discussed with his son in detail at bedside. Echo + Bubble study : HISTORY OF THE PRESENT ILLNESS: 89-y-old male patient with above medical diseases developed symptoms of left side UE > Le numbness and weakness to come to the ER of [facility] today on . Further evaluation revealed multiple subacute embolic infarcts and artery occlusion in anterior and posterior circulation. Past Medical History Cardiovascular: AFIB, CAD, HTN, Syncope, Other Pulmonary: COPD CENTRAL NERVOUS SYSTEM: Other GI: No pertinent hx Heme/Onc: No pertinent hx Hepatobiliary: No pertinent hx Psych: No pertinent hx Musculoskeletal: No pain Rheumatologic: No pertinent hx Infectious disease: No pertinent hx Renal/: UTI Endocrine: Diabetes Past Surgical History CABG, Tonsillectomy, Other Family History Cancer, Diabetes Social History Smoke: No ALCOHOL: none Drugs: None ALLERGY: Reviewed. MEDICATIONS: Refer to [facility] REVIEW OF SYSTEMS: Constitutional: No malnutrition, weight loss, cachexia. Head: No traumatic brain or head injury. Skin: No edema, or rash. Ear: No infection. Eyes: No vision loss or color blindness. Nose: No bleeding or purulent discharges. Hearing: No hearing decrease. Neck: No injury. Cardiac: HTN, HLD. Pulmonary: No COPD. GI: No GI ulcer, GI bleeding. Urinary/genital: UTI. Endocrinologic: Diabetes Mellitus, obesity. Skeletomuscular: No muscular atrophy, deformity=. Neurological: see HP. Psychiatric: Denies drug use/abuse. Otherwise, not [id number] review of systems. PHYSICAL EXAMINATION: General appearance is in subacute distress. HEENT: Normocephalic and nontraumatic. Eyes, nose, ears, and throat are unremarkable. Neck is supple. No lymphadenopathy. No crepitus. Cardiovascular: S1, S2, seemed regular rate and rhythm. Pulmonary: Clear to auscultation bilaterally. Abdomen: Bowel sounds are positive. Extremities: No rash, lesions, or edema. No restriction of range of motion NEUROLOGICAL EXAMINATION: Awake. Oriented to time, place and person. PERRL. EOMI. CN: no focal findings. Muscle tone: within normal. Muscle strength: 4 left UE, 4+ left LE, 5 right side. DTR: 2 UE, 0-1 knee. Plantar reflex: Neutral response bilaterally Gait: not examined in bed. Sensory exam: no acute abnormal findings. No acute cerebellar signs elicited. F-T-N test fine. Objective Objective Vital Signs Date Time Temp Pulse Resp B/P (MAP) Pulse Ox O2 Delivery O2 Flow Rate FiO2 02/20/17 11:00 97.9 82 22 140/76 (97) 97 Room Air 97.9 Vitals Signs Vitals VS - Last 72 Hours, by Label Date Time Temp Pulse Resp B/P (MAP) Pulse Ox O2 Delivery O2 Flow Rate FiO2 02/20/17 11:00 97.9 82 22 140/76 (97) 97 Room Air 97.9 02/20/17 08:13 88 158/86 02/20/17 08:12 88 158/86 02/20/17 08:12 88 158/86 02/20/17 07:47 Room Air 02/20/17 07:00 98.0 88 20 158/86 (110) 96 Room Air 98.0 02/20/17 03:30 97.5 86 18 106/58 (74) 96 Room Air 97.5 02/19/17 23:25 97.7 96 18 123/65 (84) 97 Room Air 97.7 02/19/17 20:00 Room Air 02/19/17 19:25 97.4 101 18 114/59 (77) 98 Room Air 97.4 02/19/17 14:55 98.1 65 19 129/62 (84) 97 Room Air 98.1 02/19/17 13:08 Room Air 02/19/17 13:04 97.9 83 18 101/50 (67) 98 Room Air 97.9 02/19/17 13:03 97.9 83 18 101/50 (67) 98 Room Air 97.9 Laboratory Laboratory Laboratory Tests Test 02/19/17 15:55 02/19/17 17:08 02/19/17 18:00 02/19/17 21:16 White Blood Count 4.7 x10^3/uL (4.0-11.0) Red Blood Count 4.55 x10^6/uL (4.30-5.70) Hemoglobin 13.2 g/dL (13.0-17.5) Hematocrit 39.3 % (39.0-53.0) Mean Corpuscular Volume 86 fL (79-100) Mean Corpuscular Hemoglobin 29 pg (25-35) Mean Corpuscular Hemoglobin Concent 34 g/dL (31-37) Red Cell Distribution Width 13.8 % (11.5-14.5) Platelet Count 185 x10^3/uL (140-400) Neutrophils (%) (Auto) 84 % (31-73) Lymphocytes (%) (Auto) 11 % (24-48) Monocytes (%) (Auto) 5 % (0-9) Eosinophils (%) (Auto) 1 % (0-3) Basophils (%) (Auto) 0 % (0-3) Neutrophils # (Auto) 3.9 x10^3uL (1.8-7.7) Lymphocytes # (Auto) 0.5 x10^3/uL (1.0-4.8) Monocytes # (Auto) 0.2 x10^3/uL (0.0-1.1) Eosinophils # (Auto) 0.0 x10^3/uL (0.0-0.7) Basophils # (Auto) 0.0 x10^3/uL (0.0-0.2) Prothrombin Time 12.4 SEC (11.7-14.0) Prothromb Time International Ratio 1.0 (0.8-1.1) Sodium Level 139 mmol/L (136-145) Potassium Level 3.9 mmol/L (3.5-5.1) Chloride Level 103 mmol/L (98-107) Carbon Dioxide Level 27 mmol/L (21-32) Anion Gap 9 (6-14) Blood Urea Nitrogen 33 mg/dL (8-26) Creatinine 0.9 mg/dL (0.7-1.3) Estimated GFR (Cockcroft-Gault) 81.2 BUN/Creatinine Ratio 37 (6-20) Glucose Level 110 mg/dL (70-99) Calcium Level 9.6 mg/dL (8.5-10.1) Total Bilirubin 1.1 mg/dL (0.2-1.0) Aspartate Amino Transf (AST/SGOT) 30 U/L (15-37) Alanine Aminotransferase (ALT/SGPT) 52 U/L (16-63) Alkaline Phosphatase 71 U/L (46-116) Total Protein 7.3 g/dL (6.4-8.2) Albumin 3.3 g/dL (3.4-5.0) Albumin/Globulin Ratio 0.8 (1.0-1.7) Triglycerides Level 83 mg/dL (0-150) Cholesterol Level 109 mg/dL (0-200) LDL Cholesterol, Calculated 53 mg/dL (0-100) VLDL Cholesterol, Calculated 17 mg/dL (0-40) Non-HDL Cholesterol Calculated 70 mg/dL (0-129) HDL Cholesterol 39 mg/dL (40-60) Cholesterol/HDL Ratio 2.8 Glucose (Fingerstick) 235 mg/dL (70-99) 189 mg/dL (70-99) Urine Collection Type Unknown Urine Color Yellow Urine Clarity Cloudy Urine pH 6.0 Urine Specific [place] 1.020 Urine Protein Negative mg/dL (NEG-TRACE) Urine Glucose (UA) 250 mg/dL (NEG) Urine Ketones (Stick) Negative mg/dL (NEG) Urine Blood Trace (NEG) Urine Nitrite Negative (NEG) Urine Bilirubin Negative (NEG) Urine Urobilinogen Dipstick 0.2 mg/dL (0.2 mg/dL) Urine Leukocyte Esterase Large (NEG) Urine RBC Occ /HPF (0-2) Urine WBC >40 /HPF (0-4) Urine Squamous Epithelial Cells Occ /LPF Urine Bacteria Few /HPF (0-FEW) Urine Mucus Slight /LPF Test 02/20/17 07:45 02/20/17 08:11 02/20/17 11:18 Glucose (Fingerstick) 64 mg/dL (70-99) 110 mg/dL (70-99) 234 mg/dL (70-99) Medication Medications Current Medications Aspirin (Children'S Aspirin) 81 mg DAILYWBKFT PO Last administered on 08:11; Start 02/19/17 at 17:00 Atorvastatin Calcium (Lipitor) 40 mg HS PO Last administered on 02/19/17 21:16 ; Start 02/19/17 at 21:00 Docusate Sodium (Colace) 100 mg BID PO Last administered on 02/20/17 08:11; Start 02/19/17 at 21:00 Insulin Aspart (NovoLOG) 0-7 UNITS TIDWMEALS SQ Last administered on 02/20/17 11:41; Start 02/19/17 at 17:00 Insulin Detemir (Levemir) 30 units QHS SQ Last administered on 02/19/17 21:20 ; Start 02/19/17 at 21:00 Metformin HCl (Glucophage) 1,000 mg BIDWMEALS PO Last administered on 08:11; Start 02/19/17 at 17:00 Non-Formulary Medication 1 each DAILY PO ; Start 02/20/17 at 09:00; Stop at 09:00; Status DC Non-Formulary Medication 450 mg DAILY PO ; Start 02/20/17 at 09:00; Stop at 09:00; Status DC Pantoprazole Sodium (Protonix) 40 mg DAILYAC PO Last administered on 02/20/17 08:11; Start 02/19/17 at 16:30 Comment Review of Relevant I have reviewed the following items katie (where applicable) has been applied. MARTHA PAGAN MD Feb 20, 2017 15:03
[2017-02-20 19:20] VITALS: BP 116/67
[2017-02-20] MEDS: IBUPROFEN 400 MG TABLET. PO PRN (21:01)
[2017-02-20] MEDS: ATORVASTATIN CALCIUM 40 MG TABLET. PO SCH (21:01)
[2017-02-20] MEDS: INSULIN DETEMIR 300 UNITS/3 ML INSULN.PEN. SQ SCH (21:04)
[2017-02-20 23:20] VITALS: BP 105/62
[2017-02-21 03:20] VITALS: BP 90/52
[2017-02-21 07:20] VITALS: BP 118/70
[2017-02-21] MEDS: INSULIN ASPART 300 UNITS/3 ML INSULN.PEN SQ SCH ×3 (08:00→17:35)
--- NOTE | 2017-02-21 08:22 | PDOC2 ---
ELLI GALDAMEZ APRN 02/21/17 0821: CARDIAC CONSULT DATE OF CONSULT Date of Consult DATE: 02/21/17 TIME: 08:10 HISTORY OF PRESENT ILLNESS HISTORY OF PRESENT ILLNESS Mr Bridges is an 81 year old male with history of coronary artery disease s/p bypass, PAD, PAF and lung cancer who presents with complaints of several days of progressive weakness on the right side who had MRI suggestive of embolic stroke. Consult was called due to cardiac history. He denies any chest discomfort. He reports dyspnea on exertion that he says is baseline. He denies any congestive symptoms, palpitations, lightheadedness or syncope. PAST MEDICAL HISTORY Past Medical History Cardiovascular: AFIB, CAD, HTN, Syncope, Other (PVD with left EIA to SFA bypass with re-implantation of profunda and left femoral endarterectomy; 11/2014) , syncope Pulmonary: COPD CENTRAL NERVOUS SYSTEM: Other (none) GI: No pertinent hx Heme/Onc: lung cancer Hepatobiliary: No pertinent hx Psych: No pertinent hx Musculoskeletal: No pain Rheumatologic: No pertinent hx Infectious disease: No pertinent hx ENT: No pertinent hx Renal/: UTI Endocrine: Diabetes (with neuropathy) Dermatology: No pertinent hx PAST SURGICAL HISTORY Past Surgical History PAST SURGICAL HISTORY Past Surgical History: CABG x 5 2012, Tonsillectomy, Other (left EIA to SFA bypass with re-implantation of profunda and left femoral endarterectomy) FAMILY HISTORY Family History FAMILY HISTORY Family History: Cancer (father), Diabetes (mother; sister) SOCIAL HISTORY Social History SOCIAL HISTORY Smoke: Quit ALCOHOL: heavy (8 ounces of wine/day) Drugs: None Lives: with Family CURRENT MEDICATIONS CURRENT MEDICATIONS Current cardiac meds Atorvastatin 40 mg HS aspirin 81 mg daily lisinopril 10 mg daily Losartan 100 mg daily cardizem 180 mg daily plavix 75 mg daily ALLERGIES ALLERGIES: Coded Allergies: No Known Medication Allergies (Verified Allergy, Unknown, 12/29/16) ROS Review of System as per HPI PHYSICAL EXAM General: Alert, Oriented X3, Cooperative, No acute distress HEENT: Atraumatic, EOMI Lungs: Clear to auscultation Heart: Regular rate, Normal S1, Normal S2, No murmurs, Other (no gallops clicks or rubs) Abdomen: Normal bowel sounds, Soft Extremities: No cyanosis, No edema Neuro: Normal speech, Other (left sided weakness) Psych/Mental Status: Mental status NL, Mood NL VITALS VITALS Vital Signs Date Time Temp Pulse Resp B/P (MAP) Pulse Ox O2 Delivery O2 Flow Rate FiO2 02/21/17 03:20 97.6 90 18 90/52 (65) 94 Room Air 97.6 LABS Lab: Laboratory Tests Test 02/20/17 08:11 02/20/17 11:18 02/20/17 16:28 02/20/17 20:26 Glucose (Fingerstick) 110 mg/dL (70-99) 234 mg/dL (70-99) 125 mg/dL (70-99) 213 mg/dL (70-99) IMAGES IMAGES carotid duplex Impression: 1. 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 2. Occlusion of the right vertebral artery, finding is new from prior study. 3. Significant atherosclerotic vascular calcification of the left carotid bifurcation mild visual narrowing of the proximal left internal carotid artery. Narrowing is less than 50% by ultrasound velocity criteria. 4. Consider CTA for further characterization as clinically indicated 5. Irregular pulse on spectral waveforms. Consider evaluation for arrhythmia. EKG EKG sinus rhythm with pac, no acute st/t abn ECHOCARDIOGRAM ECHOCARDIOGRAM 02/20/17 Left ventricle systolic function is likely moderately reduced. Difficult to estimate due to suboptimal images. Suspect EF of 40%. There is moderate hypokinesis in the anteroseptal and inferior panchal. Aortic valve not well visualized, cannot rule out stenosis. No evidence of ASD/PFO ASSESSMENT/PLAN ASSESSMENT/PLAN 1. CAD/CABG status 2012 - angina free. Echo shows decreased EF and wall motion abn new from last echo 2. CVA, embolic 3. PAF - sinus rhythm at this time. on cardizem and aspirin. [id number] = 7. History of hemoptysis earlier this year, resolved. Consider addition of full anticoagulation. outpatient [facility] for af burden. 4. hypertension - mildly hypotensive, on both ACEI and ARB - will discontinue one 5. hyperlipidemia - continue statin 6. CMP - no overt heart failure. resume beta estefania as BP tolerates 7. PAD - new right sided carotid and vertebral artery occlusion. Problems: BAMBI BARRAGAN MD 02/21/17 1316: CARDIAC CONSULT ALLERGIES ALLERGIES: Coded Allergies: No Known Medication Allergies (Verified Allergy, Unknown, 12/29/16) ASSESSMENT/PLAN ASSESSMENT/PLAN Patient seen and examined. Agree with above nurse practitioner note. 81-year-old male presenting with a new onset stroke with multiple emboli. Prior history of proximal atrial fibrillation. Denies any current chest pain but has had some chronic dyspnea and fatigue. On examination his lung sounds are fairly clear. Heart sounds are normal. Reviewed echocardiograms from one year ago and yesterday and he does have significant change in LV function. We will initiate anticoagulation in the form of Eliquis 5 mg twice a day and most likely hold Plavix unless necessary from a neurologic perspective. Ultimately on an outpatient basis he may benefit from myocardial perfusion imaging to further assess for any new onset ischemic heart disease as a source of his LV dysfunction. Thank you for this consultation we will follow along closely. Problems: ELLI GALDAMEZ APRN Feb 21, 2017 08:21 BAMBI BARRAGAN MD Feb 21, 2017 13:16
[2017-02-21] MEDS: CARBIDOPA/LEVODOPA 10/100MG TABLET PO SCH (08:24)
[2017-02-21] MEDS: CLOPIDOGREL BISULFATE 75 MG TABLET PO SCH (08:24)
[2017-02-21] MEDS: CYANOCOBALAMIN (VITAMIN B-12) 1,000 MCG TABLET. PO SCH (08:24)
[2017-02-21] MEDS: DOCUSATE SODIUM 100 MG CAPSULE. PO SCH ×2 (08:25→21:07)
[2017-02-21] MEDS: PANTOPRAZOLE 40 MG TABLET.DR. PO SCH (08:25)
[2017-02-21] MEDS: ASPIRIN CHEWABLE 81 MG TABLET. PO SCH (08:25)
[2017-02-21] MEDS: GABAPENTIN 100 MG CAPSULE. PO SCH ×3 (08:25→21:07)
[2017-02-21] MEDS: LISINOPRIL 20 MG TABLET PO SCH ×2 (08:28→11:30)
[2017-02-21] MEDS: LOSARTAN POTASSIUM 50 MG TABLET. PO SCH (08:34)
[2017-02-21 10:42] VITALS: BP 131/68
[2017-02-21] MEDS: IBUPROFEN 400 MG TABLET. PO PRN (11:30)
--- NOTE | 2017-02-21 13:19 | PDOC ---
PROGRESS NOTES Chief Complaint Chief Complaint Left arm weakness/numbness for 3 days PMH: Afib CAD HTN Syncope CPOD DM UTIs Stage 3 lung cancer History of Present Illness History of Present Illness PT was in bed and conversant. was also in the room. Discussed plan of care with them including keeping him longer for abnormal U/A and low BP. Pt and were ok with this. No other complaints from PT, just wants to know when he can leave. Neuro - multiple subacute infarcts in right hemisphere Right vertebral artery occlusion Left ICA 50% stenosed Plavix 75 mg ASA 325 mg Lipitor 40 mg Possible echo and bubble study Vitals Vitals Vital Signs Date Time Temp Pulse Resp B/P (MAP) Pulse Ox O2 Delivery O2 Flow Rate FiO2 02/21/17 11:30 68 131/68 02/21/17 10:42 98.4 19 97 Room Air 98.4 Physical Exam General: Alert, Oriented X3, Cooperative, No acute distress Heart: Regular rate, Normal S1, Normal S2, No murmurs, Other (no gallops clicks or rubs) Lungs: Clear Abdomen: Normal bowel sounds, Soft Extremities: No cyanosis, No edema Skin: No rashes, No breakdown, No significant lesion Labs LABS Laboratory Tests Test 02/20/17 16:28 02/20/17 20:26 02/21/17 07:59 02/21/17 10:55 Glucose (Fingerstick) 125 mg/dL (70-99) 213 mg/dL (70-99) 79 mg/dL (70-99) 219 mg/dL (70-99) Review of Systems Review of Systems Pt complains of fatigue Pt complains of hunger Assessment and Plan Assessmemt and Plan Left arm weakness/numbness for 3 days PMH: Afib CAD HTN Syncope CPOD DM UTIs Stage 3 lung cancer Plan: Give NS at 100 mL/hr Give cipro 400 mg BID Continue monitoring cont. meds Appreciate subspecialty input recheck labs PT/OT Problems: Comment Review of Relevant I have reviewed the following items katie (where applicable) has been applied. Labs Laboratory Tests Test 02/19/17 15:55 02/19/17 17:08 02/19/17 18:00 02/19/17 21:16 White Blood Count 4.7 x10^3/uL (4.0-11.0) Red Blood Count 4.55 x10^6/uL (4.30-5.70) Hemoglobin 13.2 g/dL (13.0-17.5) Hematocrit 39.3 % (39.0-53.0) Mean Corpuscular Volume 86 fL (79-100) Mean Corpuscular Hemoglobin 29 pg (25-35) Mean Corpuscular Hemoglobin Concent 34 g/dL (31-37) Red Cell Distribution Width 13.8 % (11.5-14.5) Platelet Count 185 x10^3/uL (140-400) Neutrophils (%) (Auto) 84 % (31-73) Lymphocytes (%) (Auto) 11 % (24-48) Monocytes (%) (Auto) 5 % (0-9) Eosinophils (%) (Auto) 1 % (0-3) Basophils (%) (Auto) 0 % (0-3) Neutrophils # (Auto) 3.9 x10^3uL (1.8-7.7) Lymphocytes # (Auto) 0.5 x10^3/uL (1.0-4.8) Monocytes # (Auto) 0.2 x10^3/uL (0.0-1.1) Eosinophils # (Auto) 0.0 x10^3/uL (0.0-0.7) Basophils # (Auto) 0.0 x10^3/uL (0.0-0.2) Prothrombin Time 12.4 SEC (11.7-14.0) Prothromb Time International Ratio 1.0 (0.8-1.1) Sodium Level 139 mmol/L (136-145) Potassium Level 3.9 mmol/L (3.5-5.1) Chloride Level 103 mmol/L (98-107) Carbon Dioxide Level 27 mmol/L (21-32) Anion Gap 9 (6-14) Blood Urea Nitrogen 33 mg/dL (8-26) Creatinine 0.9 mg/dL (0.7-1.3) Estimated GFR (Cockcroft-Gault) 81.2 BUN/Creatinine Ratio 37 (6-20) Glucose Level 110 mg/dL (70-99) Calcium Level 9.6 mg/dL (8.5-10.1) Total Bilirubin 1.1 mg/dL (0.2-1.0) Aspartate Amino Transf (AST/SGOT) 30 U/L (15-37) Alanine Aminotransferase (ALT/SGPT) 52 U/L (16-63) Alkaline Phosphatase 71 U/L (46-116) Total Protein 7.3 g/dL (6.4-8.2) Albumin 3.3 g/dL (3.4-5.0) Albumin/Globulin Ratio 0.8 (1.0-1.7) Triglycerides Level 83 mg/dL (0-150) Cholesterol Level 109 mg/dL (0-200) LDL Cholesterol, Calculated 53 mg/dL (0-100) VLDL Cholesterol, Calculated 17 mg/dL (0-40) Non-HDL Cholesterol Calculated 70 mg/dL (0-129) HDL Cholesterol 39 mg/dL (40-60) Cholesterol/HDL Ratio 2.8 Glucose (Fingerstick) 235 mg/dL (70-99) 189 mg/dL (70-99) Urine Collection Type Unknown Urine Color Yellow Urine Clarity Cloudy Urine pH 6.0 Urine Specific [place] 1.020 Urine Protein Negative mg/dL (NEG-TRACE) Urine Glucose (UA) 250 mg/dL (NEG) Urine Ketones (Stick) Negative mg/dL (NEG) Urine Blood Trace (NEG) Urine Nitrite Negative (NEG) Urine Bilirubin Negative (NEG) Urine Urobilinogen Dipstick 0.2 mg/dL (0.2 mg/dL) Urine Leukocyte Esterase Large (NEG) Urine RBC Occ /HPF (0-2) Urine WBC >40 /HPF (0-4) Urine Squamous Epithelial Cells Occ /LPF Urine Bacteria Few /HPF (0-FEW) Urine Mucus Slight /LPF Test 02/20/17 07:45 02/20/17 08:11 02/20/17 11:18 02/20/17 16:28 Glucose (Fingerstick) 64 mg/dL (70-99) 110 mg/dL (70-99) 234 mg/dL (70-99) 125 mg/dL (70-99) Test 02/20/17 20:26 02/21/17 07:59 02/21/17 10:55 Glucose (Fingerstick) 213 mg/dL (70-99) 79 mg/dL (70-99) 219 mg/dL (70-99) Laboratory Tests Test 02/20/17 16:28 02/20/17 20:26 02/21/17 07:59 02/21/17 10:55 Glucose (Fingerstick) 125 mg/dL (70-99) 213 mg/dL (70-99) 79 mg/dL (70-99) 219 mg/dL (70-99) Medications Current Medications Ondansetron HCl (Zofran) 4 mg PRN Q6HRS PRN IV NAUSEA/VOMITING; Start 02/19/17 at 13:45 Prochlorperazine Edisylate (Compazine) 10 mg PRN Q6HRS PRN IV NAUSEA/VOMITING; Start 02/19/17 at 13:45 Prochlorperazine (Compazine) 25 mg PRN Q12HR PRN [place] NAUSEA/VOMITING; Start at 13:45 Al Hydroxide/Mg Hydroxide (Mylanta Plus Xs) 30 ml PRN Q3HRS PRN PO HEARTBURN / GAS; Start 02/19/17 at 13:45 Calcium Carbonate/ Glycine (Tums) 500 mg PRN Q3HRS PRN PO UPSET STOMACH; Start 02/19/17 at 13:45 Morphine Sulfate 1 mg PRN Q1HR PRN IV PAIN; Start 02/19/17 at 13:45 Acetaminophen (Tylenol) 650 mg PRN Q6HRS PRN PO Headaches, Temp > 101.5F; Start 02/19/17 at 13:45 Ibuprofen (Motrin) 400 mg PRN Q6HRS PRN PO MILD PAIN Last administered on 11:30; Start 02/19/17 at 13:45 Docusate Sodium (Colace) 100 mg BID PO Last administered on 02/21/17 08:25; Start 02/19/17 at 21:00 Magnesium Hydroxide (Milk Of Magnesia) 2,400 mg PRN Q12HR PRN PO CONSTIPATION; Start 02/19/17 at 13:45 Bisacodyl (Dulcolax Supp) 10 mg PRN DAILY PRN [place] CONSTIPATION; Start 02/19/17 at 13:45 Atorvastatin Calcium (Lipitor) 40 mg HS PO Last administered on 02/20/17 21:01 ; Start 02/19/17 at 21:00 Carbidopa/Levodopa (Sinemet 10/100) 1 tab DAILY PO Last administered on 08:24; Start 02/19/17 at 14:00 Cyanocobalamin (Vitamin B-12) 1,000 mcg DAILY PO Last administered on 08:24; Start 02/19/17 at 14:00 Diltiazem HCl (Cardizem 24hr Cd) 180 mg DAILY PO Last administered on 08:35; Start 02/19/17 at 14:00 Gabapentin (Neurontin) 100 mg TID PO Last administered on 02/21/17 08:25; Start 02/19/17 at 14:00 Lisinopril (Prinivil) 20 mg DAILY PO Last administered on 02/21/17 11:30; Start 02/19/17 at 14:00 Metformin HCl (Glucophage) 1,000 mg BIDWMEALS PO Last administered on 11:30; Start 02/19/17 at 17:00 Non-Formulary Medication 1 each DAILY PO ; Start 02/20/17 at 09:00; Stop at 09:00; Status DC Insulin Detemir (Levemir) 30 units QHS SQ Last administered on 02/20/17 21:04 ; Start 02/19/17 at 21:00 Losartan Potassium (Cozaar) 100 mg DAILY PO Last administered on 02/21/17 08: 34; Start 02/19/17 at 14:00; Stop 02/21/17 at 11:47; Status DC Pantoprazole Sodium (Protonix) 40 mg DAILYAC PO Last administered on 02/21/17 08:25; Start 02/19/17 at 16:30 Non-Formulary Medication 450 mg DAILY PO ; Start 02/20/17 at 09:00; Stop at 09:00; Status DC Clopidogrel Bisulfate (Plavix) 75 mg DAILYWBKFT PO Last administered on 08:24; Start 02/19/17 at 13:45 Insulin Aspart (NovoLOG) 0-7 UNITS TIDWMEALS SQ Last administered on 02/21/17 11:32; Start 02/19/17 at 17:00 Dextrose (Dextrose 50%-Water Syringe) 12.5 gm PRN Q15MIN PRN IV SEE COMMENTS; Start 02/19/17 at 13:45 Aspirin (Children'S Aspirin) 81 mg DAILYWBKFT PO Last administered on t 08:25; Start 02/19/17 at 17:00 Sodium Chloride 1,000 ml @ 100 mls/hr Q10H IV ; Start 02/21/17 at 13:30 Ciprofloxacin/ Dextrose 200 ml @ 200 mls/hr Q12HR IV ; Start 02/21/17 at 13:30 Active Scripts Active Reported Lisinopril 20 Mg Tablet 20 Mg PO DAILY Osteo Bi-Flex Caplet (Glucosamine/D3/Boswellia Shruthi) 1 Each Tablet 1 Each PO DAILY Vitamin B-12 (Cyanocobalamin (Vitamin B-12)) 1,000 Mcg Tablet 1 Tab PO DAILY Gabapentin 100 Mg Capsule 100 Mg PO TID Saw Aurora (Saw Aurora Fruit) 450 Mg Capsule 450 Mg PO DAILY Losartan Potassium 100 Mg Tablet 100 Mg PO DAILY Diltiazem 24HR Cd (Diltiazem Hcl) 180 Mg Cap.er.24h 1 Cap PO DAILY Lantus Solostar (Insulin Glargine,Hum.rec.anlog) 100 Unit/1 Ml Insuln.pen 30 Unit SQ QHS Lipitor (Atorvastatin Calcium) 40 Mg Tablet 40 Mg PO HS Carbidopa-Levodopa 10-100 Tab (Carbidopa/Levodopa) 1 Each Tablet 1 Each PO DAILY Metformin Hcl 1,000 Mg Tablet 1,000 Mg PO BID Prilosec (Omeprazole) 20 Mg Capsule.dr 20 Mg PO DAILY Aspirin 81 Mg Tab.chew Mg PO DAILY Vitals/I & O Vital Sign - Last 24 Hours 02/20/17 02/20/17 02/20/17 02/20/17 15:00 19:20 20:00 23:20 Temp 97.7 97.5 97.7 97.7 97.5 97.7 Pulse 97 95 90 Resp 20 20 18 B/P (MAP) 107/61 (76) 116/67 (83) 105/62 (76) Pulse Ox 96 98 95 O2 Delivery Room Air Room Air Room Air Room Air 02/21/17 02/21/17 02/21/17 02/21/17 03:20 07:20 08:05 08:34 Temp 97.6 98.6 97.6 98.6 Pulse 90 81 81 Resp 18 19 B/P (MAP) 90/52 (65) 118/70 (86) 118/70 Pulse Ox 94 96 O2 Delivery Room Air Room Air Room Air 02/21/17 02/21/17 02/21/17 08:35 10:42 11:30 Temp 98.4 98.4 Pulse 81 68 68 Resp 19 B/P (MAP) 118/70 131/68 (89) 131/68 Pulse Ox 97 O2 Delivery Room Air GRIFFIN JOYA III DO Feb 21, 2017 13:19
[2017-02-21] MEDS: IV NORMAL SALINE 1000ML BAG 1,000 ML IV SCH (14:47)
[2017-02-21] MEDS: CIPROFLOXACIN 400MG PREMIX 200 ML IV SCH ×2 (14:47→21:14)
[2017-02-21] MEDS: APIXABAN 5 MG TABLET. PO SCH ×2 (14:48→21:07)
[2017-02-21 15:53] VITALS: BP 99/46
[2017-02-21 19:28] LABS: BILIRUBIN,URINE NEGATIVE (NEG); GLUCOSE,URINE 250 mg/dL (NEG); NITRITE,URINE NEGATIVE (NEG); PH,URINE 5.5; PROTEIN,URINE NEGATIVE (NEG-TRACE); UROBILINOGEN,URINE 0.2 mg/dL (0.2 mg/dL)
[2017-02-21 19:50] LABS: BACTERIA,URINE FEW /HPF (0-FEW); RBC,URINE 20-40 /HPF (0-2); SQUAMOUS EPITHELIAL CELL,UR OCC /LPF; WBC,URINE OCC /HPF (0-4)
[2017-02-21 19:53] VITALS: BP 119/62
[2017-02-21] MEDS: diphenhydrAMINE HCL 25 MG CAPSULE PO PRN (21:07)
[2017-02-21] MEDS: ATORVASTATIN CALCIUM 40 MG TABLET. PO SCH (21:07)
[2017-02-21] MEDS: INSULIN DETEMIR 300 UNITS/3 ML INSULN.PEN. SQ SCH (21:11)
[2017-02-21 23:07] VITALS: BP 127/70
[2017-02-22 03:05] VITALS: BP 106/60
[2017-02-22] MEDS: IV NORMAL SALINE 1000ML BAG 1,000 ML IV SCH ×3 (03:17→17:19)
[2017-02-22 04:57] LABS: BASO % 1 % (0-3); EOS % 1 % (0-3); HEMATOCRIT 33.9 % (39.0-53.0); HEMOGLOBIN 11.6 g/dL (13.0-17.5); LYMPH # 0.4 x10^3/uL (1.0-4.8); LYMPH % 19 % (24-48); MEAN CORPUSCULAR HEMOGLOBIN 29 pg (25-35); MEAN CORPUSCULAR HGB CONC 34 g/dL (31-37); MEAN CORPUSCULAR VOLUME 85 fL (79-100); MONO % 11 % (0-9); NEUT % 68 % (31-73); PLATELET COUNT 122 x10^3/uL (140-400); RED BLOOD COUNT 3.99 x10^6/uL (4.30-5.70); RED CELL DISTRIBUTION WIDTH 13.8 % (11.5-14.5); WHITE BLOOD COUNT 2.3 x10^3/uL (4.0-11.0)
[2017-02-22 05:02] LABS: CALCIUM 8.4 mg/dL (8.5-10.1); CREATININE 0.8 mg/dL (0.7-1.3); POTASSIUM 4.1 mmol/L (3.5-5.1)
[2017-02-22 06:59] VITALS: BP 113/71
[2017-02-22] MEDS: GABAPENTIN 100 MG CAPSULE. PO SCH ×3 (07:56→21:07)
[2017-02-22] MEDS: CIPROFLOXACIN 400MG PREMIX 200 ML IV SCH ×2 (07:57→21:07)
[2017-02-22] MEDS: ASPIRIN CHEWABLE 81 MG TABLET. PO SCH (07:57)
[2017-02-22] MEDS: CYANOCOBALAMIN (VITAMIN B-12) 1,000 MCG TABLET. PO SCH (07:57)
[2017-02-22] MEDS: APIXABAN 5 MG TABLET. PO SCH ×2 (07:57→21:07)
[2017-02-22] MEDS: DOCUSATE SODIUM 100 MG CAPSULE. PO SCH ×2 (07:57→21:07)
[2017-02-22] MEDS: PANTOPRAZOLE 40 MG TABLET.DR. PO SCH (07:57)
[2017-02-22] MEDS: CARBIDOPA/LEVODOPA 10/100MG TABLET PO SCH (07:57)
[2017-02-22] MEDS: LISINOPRIL 20 MG TABLET PO SCH (07:58)
[2017-02-22] MEDS: INSULIN ASPART 300 UNITS/3 ML INSULN.PEN SQ SCH ×3 (08:00→17:00)
--- NOTE | 2017-02-22 10:25 | PDOC ---
CARDIOLOGY PROGRESS NOTE SUBJECTIVE: No events overnight. OBJECTIVE: Vital SIgns: Vital Signs Date Time Temp Pulse Resp B/P (MAP) Pulse Ox O2 Delivery O2 Flow Rate FiO2 02/22/17 08:05 Room Air 02/22/17 07:58 101 113/71 02/22/17 06:59 98.6 19 99 98.6 Objective: GEN.: No apparent distress. Alert and oriented. HEENT: Head is normocephalic, atraumatic NECK: Supple. LUNGS: Clear to auscultation. HEART: RRR, S1, S2 present. Peripheral pulses intact ABDOMEN: Soft, nontender. Positive bowel sounds. EXTREMITIES: Without any cyanosis. NEUROLOGIC: Normal speech, normal tone PSYCHIATRIC: Normal affect, normal mood. SKIN: No ulcerations CURRENT MEDICATIONS: Current Medications Medications (Trade) Dose Ordered Sig/Jimmy Start Time Stop Time Status Last Admin Dose Admin Acetaminophen (Tylenol) 650 mg PRN Q6HRS PRN 02/19/17 13:45 Al Hydroxide/Mg Hydroxide (Mylanta Plus Xs) 30 ml PRN Q3HRS PRN 02/19/17 13:45 Apixaban (Eliquis) 5 mg BID 02/21/17 14:00 02/22/17 07:57 5 MG Aspirin (Children'S Aspirin) 81 mg DAILYWBKFT 02/19/17 17:00 02/22/17 07:57 81 MG Atorvastatin Calcium (Lipitor) 40 mg HS 02/19/17 21:00 02/21/17 21:07 40 MG Bisacodyl (Dulcolax Supp) 10 mg PRN DAILY PRN 02/19/17 13:45 Calcium Carbonate/ Glycine (Tums) 500 mg PRN Q3HRS PRN 02/19/17 13:45 Carbidopa/Levodopa (Sinemet 10/100) 1 tab DAILY 02/19/17 14:00 02/22/17 07:57 1 TAB Ciprofloxacin/ Dextrose 200 ml @ 200 mls/hr Q12HR 02/21/17 13:30 02/22/17 07:57 200 MLS/HR Clopidogrel Bisulfate (Plavix) 75 mg DAILYWBKFT 02/19/17 13:45 02/21/17 13:20 DC 02/21/17 08:24 75 MG Cyanocobalamin (Vitamin B-12) 1,000 mcg DAILY 02/19/17 14:00 02/22/17 07:57 1,000 MCG Dextrose (Dextrose 50%-Water Syringe) 12.5 gm PRN Q15MIN PRN 02/19/17 13:45 Diltiazem HCl (Cardizem 24hr Cd) 180 mg DAILY 02/19/17 14:00 02/22/17 07:58 180 MG Diphenhydramine HCl (Benadryl) 25 mg PRN QHS PRN 02/21/17 18:45 02/21/17 21:07 25 MG Docusate Sodium (Colace) 100 mg BID 02/19/17 21:00 02/22/17 07:57 100 MG Gabapentin (Neurontin) 100 mg TID 02/19/17 14:00 02/22/17 07:56 100 MG Ibuprofen (Motrin) 400 mg PRN Q6HRS PRN 02/19/17 13:45 02/21/17 11:30 400 MG Info (Anti-Coagulation Monitoring By Pharmacy) 1 each PRN DAILY PRN 02/21/17 19:00 Insulin Aspart (NovoLOG) 0-7 UNITS TIDWMEALS 02/19/17 17:00 02/21/17 17:35 3 UNITS Insulin Detemir (Levemir) 30 units QHS 02/19/17 21:00 02/21/17 21:11 30 UNITS Lisinopril (Prinivil) 20 mg DAILY 02/19/17 14:00 02/22/17 07:58 20 MG Losartan Potassium (Cozaar) 100 mg DAILY 02/19/17 14:00 02/21/17 11:47 DC 02/21/17 08:34 100 MG Magnesium Hydroxide (Milk Of Magnesia) 2,400 mg PRN Q12HR PRN 02/19/17 13:45 Metformin HCl (Glucophage) 1,000 mg BIDWMEALS 02/19/17 17:00 02/22/17 07:57 1,000 MG Morphine Sulfate 1 mg PRN Q1HR PRN 02/19/17 13:45 Non-Formulary Medication 450 mg DAILY 02/20/17 09:00 02/20/17 09:00 DC Ondansetron HCl (Zofran) 4 mg PRN Q6HRS PRN 02/19/17 13:45 Pantoprazole Sodium (Protonix) 40 mg DAILYAC 02/19/17 16:30 02/22/17 07:57 40 MG Prochlorperazine (Compazine) 25 mg PRN Q12HR PRN 02/19/17 13:45 Prochlorperazine Edisylate (Compazine) 10 mg PRN Q6HRS PRN 02/19/17 13:45 Sodium Chloride 1,000 ml @ 100 mls/hr Q10H 02/21/17 13:30 02/22/17 03:17 100 MLS/HR ASSESSMENT: 1. PAf 2. CVA 3. HTN 4. New onset cardiomyopathy 5. CAD Problems: PLAN: 1. Continue present medical therapy. 2. home on Eliquis. Will call from office regarding eliquis samples and help with any payments prn. Ultimately, if he has persistent LV dysfunction, may need to stop dilt. Ok to DC from CV perspective. Thanks for consult. Will set up outpt f/u tmrw with Dr. Ashton. BAMBI BARRAGAN MD Feb 22, 2017 10:24
[2017-02-22 11:10] VITALS: BP 97/74
--- NOTE | 2017-02-22 12:17 | PDOC ---
PROGRESS NOTES Chief Complaint Chief Complaint Left arm weakness/numbness for 3 days UTI PMH: Afib CAD HTN Syncope CPOD DM UTIs Stage 3 lung cancer History of Present Illness History of Present Illness PT was sitting in bed and conversant. was also in the room. Discussed plan of care including possibly going home tomorrow if ok w/ subspecialists. Pt mentioned starting radiation tomorrow and chemotherapy on Thursday for lung CA. Pt has no other complaints at this time. UA - still positive for large LE since yesterday WBC have gone down Few bacteria Vitals Vitals Vital Signs Date Time Temp Pulse Resp B/P (MAP) Pulse Ox O2 Delivery O2 Flow Rate FiO2 02/22/17 11:10 97.4 57 20 97/74 (82) 100 Room Air 97.4 Physical Exam General: Alert, Oriented X3, Cooperative, No acute distress Heart: Regular rate, Normal S1, Normal S2, No murmurs, Other (no gallops clicks or rubs) Lungs: Wheezing Abdomen: Normal bowel sounds, Soft Extremities: No cyanosis, No edema Skin: No rashes, No breakdown, No significant lesion Labs LABS Laboratory Tests Test 02/21/17 16:08 02/21/17 19:00 02/22/17 04:00 02/22/17 07:34 Glucose (Fingerstick) 183 mg/dL (70-99) 110 mg/dL (70-99) Urine Collection Type Unknown Urine Color Yellow Urine Clarity Clear Urine pH 5.5 Urine Specific [place] 1.020 Urine Protein Negative mg/dL (NEG-TRACE) Urine Glucose (UA) 250 mg/dL (NEG) Urine Ketones (Stick) Negative mg/dL (NEG) Urine Blood Negative (NEG) Urine Nitrite Negative (NEG) Urine Bilirubin Negative (NEG) Urine Urobilinogen Dipstick 0.2 mg/dL (0.2 mg/dL) Urine Leukocyte Esterase Large (NEG) Urine RBC 20-40 /HPF (0-2) Urine WBC Occ /HPF (0-4) Urine Squamous Epithelial Cells Occ /LPF Urine Bacteria Few /HPF (0-FEW) White Blood Count 2.3 x10^3/uL (4.0-11.0) Red Blood Count 3.99 x10^6/uL (4.30-5.70) Hemoglobin 11.6 g/dL (13.0-17.5) Hematocrit 33.9 % (39.0-53.0) Mean Corpuscular Volume 85 fL (79-100) Mean Corpuscular Hemoglobin 29 pg (25-35) Mean Corpuscular Hemoglobin Concent 34 g/dL (31-37) Red Cell Distribution Width 13.8 % (11.5-14.5) Platelet Count 122 x10^3/uL (140-400) Neutrophils (%) (Auto) 68 % (31-73) Lymphocytes (%) (Auto) 19 % (24-48) Monocytes (%) (Auto) 11 % (0-9) Eosinophils (%) (Auto) 1 % (0-3) Basophils (%) (Auto) 1 % (0-3) Neutrophils # (Auto) 1.6 x10^3uL (1.8-7.7) Lymphocytes # (Auto) 0.4 x10^3/uL (1.0-4.8) Monocytes # (Auto) 0.2 x10^3/uL (0.0-1.1) Eosinophils # (Auto) 0.0 x10^3/uL (0.0-0.7) Basophils # (Auto) 0.0 x10^3/uL (0.0-0.2) Sodium Level 141 mmol/L (136-145) Potassium Level 4.1 mmol/L (3.5-5.1) Chloride Level 107 mmol/L (98-107) Carbon Dioxide Level 28 mmol/L (21-32) Anion Gap 6 (6-14) Blood Urea Nitrogen 17 mg/dL (8-26) Creatinine 0.8 mg/dL (0.7-1.3) Estimated GFR (Cockcroft-Gault) 93.0 Glucose Level 60 mg/dL (70-99) Calcium Level 8.4 mg/dL (8.5-10.1) Test 02/22/17 11:24 Glucose (Fingerstick) 158 mg/dL (70-99) Review of Systems Review of Systems Pt complains of hunger Pt complains of fatigue Pt complains of achiness Assessment and Plan Assessmemt and Plan Left arm weakness/numbness for 3 days UTI PMH: Afib CAD HTN Syncope CPOD DM UTIs Stage 3 lung cancer Plan: Plan to keep one more day Cont. Cipro Cont. fluids Appreciate subspecialty input Recheck labs Hope to D/C tomorrow if ok with subspecialists PT/OT Problems: Comment Review of Relevant I have reviewed the following items katie (where applicable) has been applied. Labs Laboratory Tests Test 02/20/17 16:28 02/20/17 20:26 02/21/17 07:59 02/21/17 10:55 Glucose (Fingerstick) 125 mg/dL (70-99) 213 mg/dL (70-99) 79 mg/dL (70-99) 219 mg/dL (70-99) Test 02/21/17 16:08 02/21/17 19:00 02/22/17 04:00 02/22/17 07:34 Glucose (Fingerstick) 183 mg/dL (70-99) 110 mg/dL (70-99) Urine Collection Type Unknown Urine Color Yellow Urine Clarity Clear Urine pH 5.5 Urine Specific [place] 1.020 Urine Protein Negative mg/dL (NEG-TRACE) Urine Glucose (UA) 250 mg/dL (NEG) Urine Ketones (Stick) Negative mg/dL (NEG) Urine Blood Negative (NEG) Urine Nitrite Negative (NEG) Urine Bilirubin Negative (NEG) Urine Urobilinogen Dipstick 0.2 mg/dL (0.2 mg/dL) Urine Leukocyte Esterase Large (NEG) Urine RBC 20-40 /HPF (0-2) Urine WBC Occ /HPF (0-4) Urine Squamous Epithelial Cells Occ /LPF Urine Bacteria Few /HPF (0-FEW) White Blood Count 2.3 x10^3/uL (4.0-11.0) Red Blood Count 3.99 x10^6/uL (4.30-5.70) Hemoglobin 11.6 g/dL (13.0-17.5) Hematocrit 33.9 % (39.0-53.0) Mean Corpuscular Volume 85 fL (79-100) Mean Corpuscular Hemoglobin 29 pg (25-35) Mean Corpuscular Hemoglobin Concent 34 g/dL (31-37) Red Cell Distribution Width 13.8 % (11.5-14.5) Platelet Count 122 x10^3/uL (140-400) Neutrophils (%) (Auto) 68 % (31-73) Lymphocytes (%) (Auto) 19 % (24-48) Monocytes (%) (Auto) 11 % (0-9) Eosinophils (%) (Auto) 1 % (0-3) Basophils (%) (Auto) 1 % (0-3) Neutrophils # (Auto) 1.6 x10^3uL (1.8-7.7) Lymphocytes # (Auto) 0.4 x10^3/uL (1.0-4.8) Monocytes # (Auto) 0.2 x10^3/uL (0.0-1.1) Eosinophils # (Auto) 0.0 x10^3/uL (0.0-0.7) Basophils # (Auto) 0.0 x10^3/uL (0.0-0.2) Sodium Level 141 mmol/L (136-145) Potassium Level 4.1 mmol/L (3.5-5.1) Chloride Level 107 mmol/L (98-107) Carbon Dioxide Level 28 mmol/L (21-32) Anion Gap 6 (6-14) Blood Urea Nitrogen 17 mg/dL (8-26) Creatinine 0.8 mg/dL (0.7-1.3) Estimated GFR (Cockcroft-Gault) 93.0 Glucose Level 60 mg/dL (70-99) Calcium Level 8.4 mg/dL (8.5-10.1) Test 02/22/17 11:24 Glucose (Fingerstick) 158 mg/dL (70-99) Laboratory Tests Test 02/21/17 16:08 02/21/17 19:00 02/22/17 04:00 02/22/17 07:34 Glucose (Fingerstick) 183 mg/dL (70-99) 110 mg/dL (70-99) Urine Collection Type Unknown Urine Color Yellow Urine Clarity Clear Urine pH 5.5 Urine Specific [place] 1.020 Urine Protein Negative mg/dL (NEG-TRACE) Urine Glucose (UA) 250 mg/dL (NEG) Urine Ketones (Stick) Negative mg/dL (NEG) Urine Blood Negative (NEG) Urine Nitrite Negative (NEG) Urine Bilirubin Negative (NEG) Urine Urobilinogen Dipstick 0.2 mg/dL (0.2 mg/dL) Urine Leukocyte Esterase Large (NEG) Urine RBC 20-40 /HPF (0-2) Urine WBC Occ /HPF (0-4) Urine Squamous Epithelial Cells Occ /LPF Urine Bacteria Few /HPF (0-FEW) White Blood Count 2.3 x10^3/uL (4.0-11.0) Red Blood Count 3.99 x10^6/uL (4.30-5.70) Hemoglobin 11.6 g/dL (13.0-17.5) Hematocrit 33.9 % (39.0-53.0) Mean Corpuscular Volume 85 fL (79-100) Mean Corpuscular Hemoglobin 29 pg (25-35) Mean Corpuscular Hemoglobin Concent 34 g/dL (31-37) Red Cell Distribution Width 13.8 % (11.5-14.5) Platelet Count 122 x10^3/uL (140-400) Neutrophils (%) (Auto) 68 % (31-73) Lymphocytes (%) (Auto) 19 % (24-48) Monocytes (%) (Auto) 11 % (0-9) Eosinophils (%) (Auto) 1 % (0-3) Basophils (%) (Auto) 1 % (0-3) Neutrophils # (Auto) 1.6 x10^3uL (1.8-7.7) Lymphocytes # (Auto) 0.4 x10^3/uL (1.0-4.8) Monocytes # (Auto) 0.2 x10^3/uL (0.0-1.1) Eosinophils # (Auto) 0.0 x10^3/uL (0.0-0.7) Basophils # (Auto) 0.0 x10^3/uL (0.0-0.2) Sodium Level 141 mmol/L (136-145) Potassium Level 4.1 mmol/L (3.5-5.1) Chloride Level 107 mmol/L (98-107) Carbon Dioxide Level 28 mmol/L (21-32) Anion Gap 6 (6-14) Blood Urea Nitrogen 17 mg/dL (8-26) Creatinine 0.8 mg/dL (0.7-1.3) Estimated GFR (Cockcroft-Gault) 93.0 Glucose Level 60 mg/dL (70-99) Calcium Level 8.4 mg/dL (8.5-10.1) Test 02/22/17 11:24 Glucose (Fingerstick) 158 mg/dL (70-99) Medications Current Medications Ondansetron HCl (Zofran) 4 mg PRN Q6HRS PRN IV NAUSEA/VOMITING; Start 02/19/17 at 13:45 Prochlorperazine Edisylate (Compazine) 10 mg PRN Q6HRS PRN IV NAUSEA/VOMITING; Start 02/19/17 at 13:45 Prochlorperazine (Compazine) 25 mg PRN Q12HR PRN RI NAUSEA/VOMITING; Start at 13:45 Al Hydroxide/Mg Hydroxide (Mylanta Plus Xs) 30 ml PRN Q3HRS PRN PO HEARTBURN / GAS; Start 02/19/17 at 13:45 Calcium Carbonate/ Glycine (Tums) 500 mg PRN Q3HRS PRN PO UPSET STOMACH; Start 02/19/17 at 13:45 Morphine Sulfate 1 mg PRN Q1HR PRN IV PAIN; Start 02/19/17 at 13:45 Acetaminophen (Tylenol) 650 mg PRN Q6HRS PRN PO Headaches, Temp > 101.5F; Start 02/19/17 at 13:45 Ibuprofen (Motrin) 400 mg PRN Q6HRS PRN PO MILD PAIN Last administered on 11:30; Start 02/19/17 at 13:45 Docusate Sodium (Colace) 100 mg BID PO Last administered on 02/22/17 07:57; Start 02/19/17 at 21:00 Magnesium Hydroxide (Milk Of Magnesia) 2,400 mg PRN Q12HR PRN PO CONSTIPATION; Start 02/19/17 at 13:45 Bisacodyl (Dulcolax Supp) 10 mg PRN DAILY PRN RI CONSTIPATION; Start 02/19/17 at 13:45 Atorvastatin Calcium (Lipitor) 40 mg HS PO Last administered on 02/21/17 21:07 ; Start 02/19/17 at 21:00 Carbidopa/Levodopa (Sinemet 10/100) 1 tab DAILY PO Last administered on 07:57; Start 02/19/17 at 14:00 Cyanocobalamin (Vitamin B-12) 1,000 mcg DAILY PO Last administered on 07:57; Start 02/19/17 at 14:00 Diltiazem HCl (Cardizem 24hr Cd) 180 mg DAILY PO Last administered on 07:58; Start 02/19/17 at 14:00 Gabapentin (Neurontin) 100 mg TID PO Last administered on 02/22/17 07:56; Start 02/19/17 at 14:00 Lisinopril (Prinivil) 20 mg DAILY PO Last administered on 02/22/17 07:58; Start 02/19/17 at 14:00 Metformin HCl (Glucophage) 1,000 mg BIDWMEALS PO Last administered on 07:57; Start 02/19/17 at 17:00 Non-Formulary Medication 1 each DAILY PO ; Start 02/20/17 at 09:00; Stop at 09:00; Status DC Insulin Detemir (Levemir) 30 units QHS SQ Last administered on 02/21/17 21:11 ; Start 02/19/17 at 21:00 Losartan Potassium (Cozaar) 100 mg DAILY PO Last administered on 02/21/17 08: 34; Start 02/19/17 at 14:00; Stop 02/21/17 at 11:47; Status DC Pantoprazole Sodium (Protonix) 40 mg DAILYAC PO Last administered on 02/22/17 07:57; Start 02/19/17 at 16:30 Non-Formulary Medication 450 mg DAILY PO ; Start 02/20/17 at 09:00; Stop at 09:00; Status DC Clopidogrel Bisulfate (Plavix) 75 mg DAILYWBKFT PO Last administered on 08:24; Start 02/19/17 at 13:45; Stop 02/21/17 at 13:20; Status DC Insulin Aspart (NovoLOG) 0-7 UNITS TIDWMEALS SQ Last administered on 02/22/17 11:56; Start 02/19/17 at 17:00 Dextrose (Dextrose 50%-Water Syringe) 12.5 gm PRN Q15MIN PRN IV SEE COMMENTS; Start 02/19/17 at 13:45 Aspirin (Children'S Aspirin) 81 mg DAILYWBKFT PO Last administered on 07:57; Start 02/19/17 at 17:00 Sodium Chloride 1,000 ml @ 100 mls/hr Q10H IV Last administered on 02/22/17 03:17; Start 02/21/17 at 13:30 Ciprofloxacin/ Dextrose 200 ml @ 200 mls/hr Q12HR IV Last administered on 02/22 07:57; Start 02/21/17 at 13:30 Apixaban (Eliquis) 5 mg BID PO Last administered on 02/22/17 07:57; Start at 14:00 Diphenhydramine HCl (Benadryl) 25 mg PRN QHS PRN PO INSOMNIA Last administered on 02/21/17 21:07; Start 02/21/17 at 18:45 Info (Anti-Coagulation Monitoring By Pharmacy) 1 each PRN DAILY PRN MC SEE COMMENTS; Start 02/21/17 at 19:00 Active Scripts Active Reported Lisinopril 20 Mg Tablet 20 Mg PO DAILY Osteo Bi-Flex Caplet (Glucosamine/D3/Boswellia Shruthi) 1 Each Tablet 1 Each PO DAILY Vitamin B-12 (Cyanocobalamin (Vitamin B-12)) 1,000 Mcg Tablet 1 Tab PO DAILY Gabapentin 100 Mg Capsule 100 Mg PO TID [place] (Saw [place] Fruit) 450 Mg Capsule 450 Mg PO DAILY Losartan Potassium 100 Mg Tablet 100 Mg PO DAILY Diltiazem 24HR Cd (Diltiazem Hcl) 180 Mg Cap.er.24h 1 Cap PO DAILY Lantus Solostar (Insulin Glargine,Hum.rec.anlog) 100 Unit/1 Ml Insuln.pen 30 Unit SQ QHS Lipitor (Atorvastatin Calcium) 40 Mg Tablet 40 Mg PO HS Carbidopa-Levodopa 10-100 Tab (Carbidopa/Levodopa) 1 Each Tablet 1 Each PO DAILY Metformin Hcl 1,000 Mg Tablet 1,000 Mg PO BID Prilosec (Omeprazole) 20 Mg Capsule.dr 20 Mg PO DAILY Aspirin 81 Mg Tab.chew Mg PO DAILY Vitals/I & O Vital Sign - Last 24 Hours 02/21/17 02/21/17 02/21/17 02/21/17 15:53 19:53 20:00 23:07 Temp 98.5 97.8 97.8 98.5 97.8 97.8 Pulse 69 87 81 Resp 19 20 20 B/P (MAP) 99/46 (63) 119/62 (81) 127/70 (89) Pulse Ox 97 99 97 O2 Delivery Room Air Room Air Room Air Room Air 02/22/17 02/22/17 02/22/17 02/22/17 03:05 06:59 07:58 07:58 Temp 98.1 98.6 98.1 98.6 Pulse 105 101 101 101 Resp 16 19 B/P (MAP) 106/60 (75) 113/71 (85) 113/71 113/71 Pulse Ox 93 99 O2 Delivery Room Air Room Air 02/22/17 02/22/17 08:05 11:10 Temp 97.4 97.4 Pulse 57 Resp 20 B/P (MAP) 97/74 (82) Pulse Ox 100 O2 Delivery Room Air Room Air GRIFFIN JOYA III DO Feb 22, 2017 12:17
[2017-02-22] MEDS: ANTI-COAG MONITOR BY PHARMACY. MC PRN (13:23)
[2017-02-22 15:46] VITALS: BP 123/64
[2017-02-22 19:48] VITALS: BP 134/72
[2017-02-22] MEDS: diphenhydrAMINE HCL 25 MG CAPSULE PO PRN (21:07)
[2017-02-22] MEDS: ATORVASTATIN CALCIUM 40 MG TABLET. PO SCH (21:07)
[2017-02-22] MEDS: INSULIN DETEMIR 300 UNITS/3 ML INSULN.PEN. SQ SCH (21:11)
[2017-02-22 23:14] VITALS: BP 147/81
[2017-02-23 03:10] VITALS: BP 88/58
[2017-02-23] MEDS: IV NORMAL SALINE 1000ML BAG 1,000 ML IV SCH ×2 (03:41→05:36)
[2017-02-23 05:30] LABS: BASO % 1 % (0-3); EOS % 1 % (0-3); HEMATOCRIT 31.8 % (39.0-53.0); HEMOGLOBIN 10.6 g/dL (13.0-17.5); LYMPH # 0.5 x10^3/uL (1.0-4.8); LYMPH % 19 % (24-48); MEAN CORPUSCULAR HEMOGLOBIN 29 pg (25-35); MEAN CORPUSCULAR HGB CONC 33 g/dL (31-37); MEAN CORPUSCULAR VOLUME 87 fL (79-100); MONO % 13 % (0-9); NEUT % 67 % (31-73); PLATELET COUNT 117 x10^3/uL (140-400); RED BLOOD COUNT 3.67 x10^6/uL (4.30-5.70); WHITE BLOOD COUNT 2.6 x10^3/uL (4.0-11.0)
[2017-02-23 06:00] LABS: CALCIUM 8.1 mg/dL (8.5-10.1); CREATININE 0.7 mg/dL (0.7-1.3); GFR 108.5
[2017-02-23 07:00] VITALS: BP 108/61
[2017-02-23] MEDS: INSULIN ASPART 300 UNITS/3 ML INSULN.PEN SQ SCH ×2 (08:00→12:00)
[2017-02-23] MEDS: CARBIDOPA/LEVODOPA 10/100MG TABLET PO SCH (08:18)
[2017-02-23] MEDS: CYANOCOBALAMIN (VITAMIN B-12) 1,000 MCG TABLET. PO SCH (08:18)
[2017-02-23] MEDS: APIXABAN 5 MG TABLET. PO SCH (08:18)
[2017-02-23] MEDS: GABAPENTIN 100 MG CAPSULE. PO SCH ×2 (08:18→15:04)
[2017-02-23] MEDS: CIPROFLOXACIN 400MG PREMIX 200 ML IV SCH (08:19)
[2017-02-23] MEDS: DOCUSATE SODIUM 100 MG CAPSULE. PO SCH (08:20)
[2017-02-23] MEDS: PANTOPRAZOLE 40 MG TABLET.DR. PO SCH (08:20)
[2017-02-23] MEDS: ASPIRIN CHEWABLE 81 MG TABLET. PO SCH (08:22)
[2017-02-23] MEDS: LISINOPRIL 20 MG TABLET PO SCH (08:28)
[2017-02-23] MEDS: ANTI-COAG MONITOR BY PHARMACY. MC PRN (10:40)
--- NOTE | 2017-02-23 10:50 | PDOC ---
PROGRESS NOTES Chief Complaint Chief Complaint Left arm weakness/numbness for 3 days UTI PMH: Afib CAD HTN Syncope CPOD DM UTIs Stage 3 lung cancer History of Present Illness History of Present Illness Pt was sitting in bed and conversant. Discussed plan of care with pt including the drop in SBP overnight to <90. Will plan to D/C to home if BP remains stable. Pt was on NS 100ml/hr and cipro 400 mg BID Vitals Vitals Vital Signs Date Time Temp Pulse Resp B/P (MAP) Pulse Ox O2 Delivery O2 Flow Rate FiO2 02/23/17 08:28 101 108/61 02/23/17 08:00 Room Air 02/23/17 07:00 98.0 18 96 98.0 Physical Exam General: Alert, Oriented X3, Cooperative, No acute distress Heart: Regular rate, Normal S1, Normal S2, No murmurs, Other (no gallops clicks or rubs) Lungs: Wheezing Abdomen: Normal bowel sounds, Soft Extremities: No clubbing, No cyanosis, No edema Skin: No rashes, No breakdown, No significant lesion Labs LABS Laboratory Tests Test 02/22/17 11:24 02/22/17 15:57 02/22/17 20:47 02/23/17 04:10 Glucose (Fingerstick) 158 mg/dL (70-99) 141 mg/dL (70-99) 235 mg/dL (70-99) White Blood Count 2.6 x10^3/uL (4.0-11.0) Red Blood Count 3.67 x10^6/uL (4.30-5.70) Hemoglobin 10.6 g/dL (13.0-17.5) Hematocrit 31.8 % (39.0-53.0) Mean Corpuscular Volume 87 fL (79-100) Mean Corpuscular Hemoglobin 29 pg (25-35) Mean Corpuscular Hemoglobin Concent 33 g/dL (31-37) Red Cell Distribution Width 14.0 % (11.5-14.5) Platelet Count 117 x10^3/uL (140-400) Neutrophils (%) (Auto) 67 % (31-73) Lymphocytes (%) (Auto) 19 % (24-48) Monocytes (%) (Auto) 13 % (0-9) Eosinophils (%) (Auto) 1 % (0-3) Basophils (%) (Auto) 1 % (0-3) Neutrophils # (Auto) 1.8 x10^3uL (1.8-7.7) Lymphocytes # (Auto) 0.5 x10^3/uL (1.0-4.8) Monocytes # (Auto) 0.3 x10^3/uL (0.0-1.1) Eosinophils # (Auto) 0.0 x10^3/uL (0.0-0.7) Basophils # (Auto) 0.0 x10^3/uL (0.0-0.2) Sodium Level 141 mmol/L (136-145) Potassium Level 4.0 mmol/L (3.5-5.1) Chloride Level 108 mmol/L (98-107) Carbon Dioxide Level 25 mmol/L (21-32) Anion Gap 8 (6-14) Blood Urea Nitrogen 12 mg/dL (8-26) Creatinine 0.7 mg/dL (0.7-1.3) Estimated GFR (Cockcroft-Gault) 108.5 Glucose Level 59 mg/dL (70-99) Calcium Level 8.1 mg/dL (8.5-10.1) Test 02/23/17 07:40 Glucose (Fingerstick) 58 mg/dL (70-99) Review of Systems Review of Systems Pt complains of fatigue Pt complains of hunger Pt complains of mild arm weakness Assessment and Plan Assessmemt and Plan Left arm weakness/numbness for 3 days UTI PMH: Afib CAD HTN Syncope CPOD DM UTIs Stage 3 lung cancer Plan: Recheck labs cont. IVF cont. Abx PT/OT BP monitoring Appreciate subspecialty input Will D/C if BP remains normal Problems: Comment Review of Relevant I have reviewed the following items katie (where applicable) has been applied. Labs Laboratory Tests Test 02/21/17 10:55 02/21/17 16:08 02/21/17 19:00 02/21/17 20:45 Glucose (Fingerstick) 219 mg/dL (70-99) 183 mg/dL (70-99) 157 mg/dL (70-99) Urine Collection Type Unknown Urine Color Yellow Urine Clarity Clear Urine pH 5.5 Urine Specific [place] 1.020 Urine Protein Negative mg/dL (NEG-TRACE) Urine Glucose (UA) 250 mg/dL (NEG) Urine Ketones (Stick) Negative mg/dL (NEG) Urine Blood Negative (NEG) Urine Nitrite Negative (NEG) Urine Bilirubin Negative (NEG) Urine Urobilinogen Dipstick 0.2 mg/dL (0.2 mg/dL) Urine Leukocyte Esterase Large (NEG) Urine RBC 20-40 /HPF (0-2) Urine WBC Occ /HPF (0-4) Urine Squamous Epithelial Cells Occ /LPF Urine Bacteria Few /HPF (0-FEW) Test 02/22/17 04:00 02/22/17 07:34 02/22/17 11:24 02/22/17 15:57 White Blood Count 2.3 x10^3/uL (4.0-11.0) Red Blood Count 3.99 x10^6/uL (4.30-5.70) Hemoglobin 11.6 g/dL (13.0-17.5) Hematocrit 33.9 % (39.0-53.0) Mean Corpuscular Volume 85 fL (79-100) Mean Corpuscular Hemoglobin 29 pg (25-35) Mean Corpuscular Hemoglobin Concent 34 g/dL (31-37) Red Cell Distribution Width 13.8 % (11.5-14.5) Platelet Count 122 x10^3/uL (140-400) Neutrophils (%) (Auto) 68 % (31-73) Lymphocytes (%) (Auto) 19 % (24-48) Monocytes (%) (Auto) 11 % (0-9) Eosinophils (%) (Auto) 1 % (0-3) Basophils (%) (Auto) 1 % (0-3) Neutrophils # (Auto) 1.6 x10^3uL (1.8-7.7) Lymphocytes # (Auto) 0.4 x10^3/uL (1.0-4.8) Monocytes # (Auto) 0.2 x10^3/uL (0.0-1.1) Eosinophils # (Auto) 0.0 x10^3/uL (0.0-0.7) Basophils # (Auto) 0.0 x10^3/uL (0.0-0.2) Sodium Level 141 mmol/L (136-145) Potassium Level 4.1 mmol/L (3.5-5.1) Chloride Level 107 mmol/L (98-107) Carbon Dioxide Level 28 mmol/L (21-32) Anion Gap 6 (6-14) Blood Urea Nitrogen 17 mg/dL (8-26) Creatinine 0.8 mg/dL (0.7-1.3) Estimated GFR (Cockcroft-Gault) 93.0 Glucose Level 60 mg/dL (70-99) Calcium Level 8.4 mg/dL (8.5-10.1) Glucose (Fingerstick) 110 mg/dL (70-99) 158 mg/dL (70-99) 141 mg/dL (70-99) Test 02/22/17 20:47 02/23/17 04:10 02/23/17 07:40 Glucose (Fingerstick) 235 mg/dL (70-99) 58 mg/dL (70-99) White Blood Count 2.6 x10^3/uL (4.0-11.0) Red Blood Count 3.67 x10^6/uL (4.30-5.70) Hemoglobin 10.6 g/dL (13.0-17.5) Hematocrit 31.8 % (39.0-53.0) Mean Corpuscular Volume 87 fL (79-100) Mean Corpuscular Hemoglobin 29 pg (25-35) Mean Corpuscular Hemoglobin Concent 33 g/dL (31-37) Red Cell Distribution Width 14.0 % (11.5-14.5) Platelet Count 117 x10^3/uL (140-400) Neutrophils (%) (Auto) 67 % (31-73) Lymphocytes (%) (Auto) 19 % (24-48) Monocytes (%) (Auto) 13 % (0-9) Eosinophils (%) (Auto) 1 % (0-3) Basophils (%) (Auto) 1 % (0-3) Neutrophils # (Auto) 1.8 x10^3uL (1.8-7.7) Lymphocytes # (Auto) 0.5 x10^3/uL (1.0-4.8) Monocytes # (Auto) 0.3 x10^3/uL (0.0-1.1) Eosinophils # (Auto) 0.0 x10^3/uL (0.0-0.7) Basophils # (Auto) 0.0 x10^3/uL (0.0-0.2) Sodium Level 141 mmol/L (136-145) Potassium Level 4.0 mmol/L (3.5-5.1) Chloride Level 108 mmol/L (98-107) Carbon Dioxide Level 25 mmol/L (21-32) Anion Gap 8 (6-14) Blood Urea Nitrogen 12 mg/dL (8-26) Creatinine 0.7 mg/dL (0.7-1.3) Estimated GFR (Cockcroft-Gault) 108.5 Glucose Level 59 mg/dL (70-99) Calcium Level 8.1 mg/dL (8.5-10.1) Laboratory Tests Test 02/22/17 11:24 02/22/17 15:57 02/22/17 20:47 02/23/17 04:10 Glucose (Fingerstick) 158 mg/dL (70-99) 141 mg/dL (70-99) 235 mg/dL (70-99) White Blood Count 2.6 x10^3/uL (4.0-11.0) Red Blood Count 3.67 x10^6/uL (4.30-5.70) Hemoglobin 10.6 g/dL (13.0-17.5) Hematocrit 31.8 % (39.0-53.0) Mean Corpuscular Volume 87 fL (79-100) Mean Corpuscular Hemoglobin 29 pg (25-35) Mean Corpuscular Hemoglobin Concent 33 g/dL (31-37) Red Cell Distribution Width 14.0 % (11.5-14.5) Platelet Count 117 x10^3/uL (140-400) Neutrophils (%) (Auto) 67 % (31-73) Lymphocytes (%) (Auto) 19 % (24-48) Monocytes (%) (Auto) 13 % (0-9) Eosinophils (%) (Auto) 1 % (0-3) Basophils (%) (Auto) 1 % (0-3) Neutrophils # (Auto) 1.8 x10^3uL (1.8-7.7) Lymphocytes # (Auto) 0.5 x10^3/uL (1.0-4.8) Monocytes # (Auto) 0.3 x10^3/uL (0.0-1.1) Eosinophils # (Auto) 0.0 x10^3/uL (0.0-0.7) Basophils # (Auto) 0.0 x10^3/uL (0.0-0.2) Sodium Level 141 mmol/L (136-145) Potassium Level 4.0 mmol/L (3.5-5.1) Chloride Level 108 mmol/L (98-107) Carbon Dioxide Level 25 mmol/L (21-32) Anion Gap 8 (6-14) Blood Urea Nitrogen 12 mg/dL (8-26) Creatinine 0.7 mg/dL (0.7-1.3) Estimated GFR (Cockcroft-Gault) 108.5 Glucose Level 59 mg/dL (70-99) Calcium Level 8.1 mg/dL (8.5-10.1) Test 02/23/17 07:40 Glucose (Fingerstick) 58 mg/dL (70-99) Medications Current Medications Ondansetron HCl (Zofran) 4 mg PRN Q6HRS PRN IV NAUSEA/VOMITING; Start 02/19/17 at 13:45 Prochlorperazine Edisylate (Compazine) 10 mg PRN Q6HRS PRN IV NAUSEA/VOMITING; Start 02/19/17 at 13:45 Prochlorperazine (Compazine) 25 mg PRN Q12HR PRN UT NAUSEA/VOMITING; Start at 13:45 Al Hydroxide/Mg Hydroxide (Mylanta Plus Xs) 30 ml PRN Q3HRS PRN PO HEARTBURN / GAS; Start 02/19/17 at 13:45 Calcium Carbonate/ Glycine (Tums) 500 mg PRN Q3HRS PRN PO UPSET STOMACH; Start 02/19/17 at 13:45 Morphine Sulfate 1 mg PRN Q1HR PRN IV PAIN; Start 02/19/17 at 13:45 Acetaminophen (Tylenol) 650 mg PRN Q6HRS PRN PO Headaches, Temp > 101.5F; Start 02/19/17 at 13:45 Ibuprofen (Motrin) 400 mg PRN Q6HRS PRN PO MILD PAIN Last administered on 11:30; Start 02/19/17 at 13:45 Docusate Sodium (Colace) 100 mg BID PO Last administered on 02/23/17 08:20; Start 02/19/17 at 21:00 Magnesium Hydroxide (Milk Of Magnesia) 2,400 mg PRN Q12HR PRN PO CONSTIPATION; Start 02/19/17 at 13:45 Bisacodyl (Dulcolax Supp) 10 mg PRN DAILY PRN UT CONSTIPATION; Start 02/19/17 at 13:45 Atorvastatin Calcium (Lipitor) 40 mg HS PO Last administered on 02/22/17 21:07 ; Start 02/19/17 at 21:00 Carbidopa/Levodopa (Sinemet 10/100) 1 tab DAILY PO Last administered on 08:18; Start 02/19/17 at 14:00 Cyanocobalamin (Vitamin B-12) 1,000 mcg DAILY PO Last administered on 08:18; Start 02/19/17 at 14:00 Diltiazem HCl (Cardizem 24hr Cd) 180 mg DAILY PO Last administered on 08:28; Start 02/19/17 at 14:00 Gabapentin (Neurontin) 100 mg TID PO Last administered on 02/23/17 08:18; Start 02/19/17 at 14:00 Lisinopril (Prinivil) 20 mg DAILY PO Last administered on 02/23/17 08:28; Start 02/19/17 at 14:00 Metformin HCl (Glucophage) 1,000 mg BIDWMEALS PO Last administered on 08:18; Start 02/19/17 at 17:00 Non-Formulary Medication 1 each DAILY PO ; Start 02/20/17 at 09:00; Stop at 09:00; Status DC Insulin Detemir (Levemir) 30 units QHS SQ Last administered on 02/22/17 21:11 ; Start 02/19/17 at 21:00 Losartan Potassium (Cozaar) 100 mg DAILY PO Last administered on 02/21/17 08: 34; Start 02/19/17 at 14:00; Stop 02/21/17 at 11:47; Status DC Pantoprazole Sodium (Protonix) 40 mg DAILYAC PO Last administered on 02/23/17 08:20; Start 02/19/17 at 16:30 Non-Formulary Medication 450 mg DAILY PO ; Start 02/20/17 at 09:00; Stop at 09:00; Status DC Clopidogrel Bisulfate (Plavix) 75 mg DAILYWBKFT PO Last administered on 08:24; Start 02/19/17 at 13:45; Stop 02/21/17 at 13:20; Status DC Insulin Aspart (NovoLOG) 0-7 UNITS TIDWMEALS SQ Last administered on 02/22/17 11:56; Start 02/19/17 at 17:00 Dextrose (Dextrose 50%-Water Syringe) 12.5 gm PRN Q15MIN PRN IV SEE COMMENTS; Start 02/19/17 at 13:45 Aspirin (Children'S Aspirin) 81 mg DAILYWBKFT PO Last administered on 08:22; Start 02/19/17 at 17:00 Sodium Chloride 1,000 ml @ 100 mls/hr Q10H IV Last administered on 02/23/17 03:41; Start 02/21/17 at 13:30 Ciprofloxacin/ Dextrose 200 ml @ 200 mls/hr Q12HR IV Last administered on 02/23 08:19; Start 02/21/17 at 13:30 Apixaban (Eliquis) 5 mg BID PO Last administered on 02/23/17 08:18; Start at 14:00 Diphenhydramine HCl (Benadryl) 25 mg PRN QHS PRN PO INSOMNIA Last administered on 02/22/17 21:07; Start 02/21/17 at 18:45 Info (Anti-Coagulation Monitoring By Pharmacy) 1 each PRN DAILY PRN MC SEE COMMENTS Last administered on 02/23/17 10:40; Start 02/21/17 at 19:00 Active Scripts Active Reported Lisinopril 20 Mg Tablet 20 Mg PO DAILY Osteo Bi-Flex Caplet (Glucosamine/D3/Boswellia Shruthi) 1 Each Tablet 1 Each PO DAILY Vitamin B-12 (Cyanocobalamin (Vitamin B-12)) 1,000 Mcg Tablet 1 Tab PO DAILY Gabapentin 100 Mg Capsule 100 Mg PO TID Saw [place] (Saw [place] Fruit) 450 Mg Capsule 450 Mg PO DAILY Losartan Potassium 100 Mg Tablet 100 Mg PO DAILY Diltiazem 24HR Cd (Diltiazem Hcl) 180 Mg Cap.er.24h 1 Cap PO DAILY Lantus Solostar (Insulin Glargine,Hum.rec.anlog) 100 Unit/1 Ml Insuln.pen 30 Unit SQ QHS Lipitor (Atorvastatin Calcium) 40 Mg Tablet 40 Mg PO HS Carbidopa-Levodopa 10-100 Tab (Carbidopa/Levodopa) 1 Each Tablet 1 Each PO DAILY Metformin Hcl 1,000 Mg Tablet 1,000 Mg PO BID Prilosec (Omeprazole) 20 Mg Capsule.dr 20 Mg PO DAILY Aspirin 81 Mg Tab.chew Mg PO DAILY Vitals/I & O Vital Sign - Last 24 Hours 02/22/17 02/22/17 02/22/17 02/22/17 11:10 15:46 19:48 20:00 Temp 97.4 98.0 97.9 97.4 98.0 97.9 Pulse 57 82 100 Resp 20 19 20 B/P (MAP) 97/74 (82) 123/64 (83) 134/72 (92) Pulse Ox 100 97 98 O2 Delivery Room Air Room Air Room Air Room Air 02/22/17 02/23/17 02/23/17 02/23/17 23:14 03:10 07:00 08:00 Temp 97.9 98.6 98.0 97.9 98.6 98.0 Pulse 96 94 101 Resp 20 20 18 B/P (MAP) 147/81 (103) 88/58 (68) 108/61 (77) Pulse Ox 97 98 96 O2 Delivery Room Air Room Air Room Air Room Air 02/23/17 02/23/17 08:28 08:28 Pulse 101 101 B/P (MAP) 108/61 108/61 GRIFFIN JOYA III DO Feb 23, 2017 10:49
[2017-02-23 11:00] VITALS: BP 138/79
--- NOTE | 2017-02-23 11:20 | PDOC ---
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 He developed progressive left arm weakness prior to admission. MRI multiple right parietal and right occipital ischemic infarcts, No evidence for metastatic disease. No recurrent hemoptysis from lung cancer since beginning treatment so he did resume aspirin and Plavix was added. Now feeling better. Left sided weakness better. No treatment related sore throat. Impression: Good tolerance of chest radiation. We will continue as planned. Right CVA, sxs better since beginning Plavix. OK to discharge from my perspective and continue treatment as an outpatient. DUNG FRANCO MD Feb 23, 2017 11:20
--- NOTE | 2017-02-23 11:52 | PDOC ---
CARDIO Progress Notes Date and Time Date of Service 02/23/2017 Time of Evaluation 1130 Subjective Subjective: No Chest Pain, No shortness of breath, No Palpitations Vitals Vitals Vital Signs Date Time Temp Pulse Resp B/P (MAP) Pulse Ox O2 Delivery O2 Flow Rate FiO2 02/23/17 11:00 97.8 105 18 138/79 (98) 96 Room Air 97.8 Weight Weight [ ] Laboratory Labs Laboratory Tests Test 02/22/17 15:57 02/22/17 20:47 02/23/17 04:10 02/23/17 07:40 Glucose (Fingerstick) 141 mg/dL (70-99) 235 mg/dL (70-99) 58 mg/dL (70-99) White Blood Count 2.6 x10^3/uL (4.0-11.0) Red Blood Count 3.67 x10^6/uL (4.30-5.70) Hemoglobin 10.6 g/dL (13.0-17.5) Hematocrit 31.8 % (39.0-53.0) Mean Corpuscular Volume 87 fL (79-100) Mean Corpuscular Hemoglobin 29 pg (25-35) Mean Corpuscular Hemoglobin Concent 33 g/dL (31-37) Red Cell Distribution Width 14.0 % (11.5-14.5) Platelet Count 117 x10^3/uL (140-400) Neutrophils (%) (Auto) 67 % (31-73) Lymphocytes (%) (Auto) 19 % (24-48) Monocytes (%) (Auto) 13 % (0-9) Eosinophils (%) (Auto) 1 % (0-3) Basophils (%) (Auto) 1 % (0-3) Neutrophils # (Auto) 1.8 x10^3uL (1.8-7.7) Lymphocytes # (Auto) 0.5 x10^3/uL (1.0-4.8) Monocytes # (Auto) 0.3 x10^3/uL (0.0-1.1) Eosinophils # (Auto) 0.0 x10^3/uL (0.0-0.7) Basophils # (Auto) 0.0 x10^3/uL (0.0-0.2) Sodium Level 141 mmol/L (136-145) Potassium Level 4.0 mmol/L (3.5-5.1) Chloride Level 108 mmol/L (98-107) Carbon Dioxide Level 25 mmol/L (21-32) Anion Gap 8 (6-14) Blood Urea Nitrogen 12 mg/dL (8-26) Creatinine 0.7 mg/dL (0.7-1.3) Estimated GFR (Cockcroft-Gault) 108.5 Glucose Level 59 mg/dL (70-99) Calcium Level 8.1 mg/dL (8.5-10.1) Physical Exam HEENT: Neck Supple W Full Motion Chest: Symmetric LUNGS: Clear to Auscultation Heart: S1S2, RRR Abdomen: Soft N/T Extremities: No Calf Tenderness Neurology: alert, oriented, follow commands Assessment Assessment 1. PAFIB 2. CVA: neurology following 3. HTN 4. 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 CAD 6. Stage 3 Squamous cell lung CA: radiation ongoing. Chemo being planned. Recommendations 1. Follow up in office in 4 weeks with TTE. Continue with secondary prevention 2. Continue with ECASA 81 mg daily. No plavix but will continue with eliquis and will provide initial samples. 3. Responding well with cardizem. No BB for now with episodes of low BP. Continue cardizem for now and will obtain event monitor and note AFIB burden and any further need for therapy adjustment. SASKIA BANGURA APRN Feb 23, 2017 11:52
--- NOTE | 2017-02-23 13:32 | PDOC ---
PROGRESS NOTES Assessment Multiple subacute infracts in right hemisphere. 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 Lung cancer, stage III. Falls and risk of falls. Obesity Plan Plavix 75 mg daily. ASA 325 mg daily. Lipitor 40 mg HS. Okay for discharge Outpatient rehab, inpatient rehab is recommended, but given the cancer diagnosis , most appropriate to let them go home and have some outpatient rehab Follow-up with neurology as needed. Subjective No complaints Objective Vital Signs Date Time Temp Pulse Resp B/P (MAP) Pulse Ox O2 Delivery O2 Flow Rate FiO2 02/23/17 11:00 97.8 105 18 138/79 (98) 96 Room Air 97.8 PHYSICAL EXAM Alert. Oriented to time, place and person. PERRL. EOMI. CN: no focal findings. Muscle tone: normal. Muscle strength: 4/5 left, 5/5 right DTR: +1 Plantar reflex: flexor Gait: not examined in bed. Sensory exam: no abnormal findings. No cerebellar signs elicited. Review of Relevant I have reviewed the following items katie (where applicable) has been applied. Labs Laboratory Tests Test 02/21/17 16:08 02/21/17 19:00 02/21/17 20:45 02/22/17 04:00 Glucose (Fingerstick) 183 mg/dL (70-99) 157 mg/dL (70-99) Urine Collection Type Unknown Urine Color Yellow Urine Clarity Clear Urine pH 5.5 Urine Specific [place] 1.020 Urine Protein Negative mg/dL (NEG-TRACE) Urine Glucose (UA) 250 mg/dL (NEG) Urine Ketones (Stick) Negative mg/dL (NEG) Urine Blood Negative (NEG) Urine Nitrite Negative (NEG) Urine Bilirubin Negative (NEG) Urine Urobilinogen Dipstick 0.2 mg/dL (0.2 mg/dL) Urine Leukocyte Esterase Large (NEG) Urine RBC 20-40 /HPF (0-2) Urine WBC Occ /HPF (0-4) Urine Squamous Epithelial Cells Occ /LPF Urine Bacteria Few /HPF (0-FEW) White Blood Count 2.3 x10^3/uL (4.0-11.0) Red Blood Count 3.99 x10^6/uL (4.30-5.70) Hemoglobin 11.6 g/dL (13.0-17.5) Hematocrit 33.9 % (39.0-53.0) Mean Corpuscular Volume 85 fL (79-100) Mean Corpuscular Hemoglobin 29 pg (25-35) Mean Corpuscular Hemoglobin Concent 34 g/dL (31-37) Red Cell Distribution Width 13.8 % (11.5-14.5) Platelet Count 122 x10^3/uL (140-400) Neutrophils (%) (Auto) 68 % (31-73) Lymphocytes (%) (Auto) 19 % (24-48) Monocytes (%) (Auto) 11 % (0-9) Eosinophils (%) (Auto) 1 % (0-3) Basophils (%) (Auto) 1 % (0-3) Neutrophils # (Auto) 1.6 x10^3uL (1.8-7.7) Lymphocytes # (Auto) 0.4 x10^3/uL (1.0-4.8) Monocytes # (Auto) 0.2 x10^3/uL (0.0-1.1) Eosinophils # (Auto) 0.0 x10^3/uL (0.0-0.7) Basophils # (Auto) 0.0 x10^3/uL (0.0-0.2) Sodium Level 141 mmol/L (136-145) Potassium Level 4.1 mmol/L (3.5-5.1) Chloride Level 107 mmol/L (98-107) Carbon Dioxide Level 28 mmol/L (21-32) Anion Gap 6 (6-14) Blood Urea Nitrogen 17 mg/dL (8-26) Creatinine 0.8 mg/dL (0.7-1.3) Estimated GFR (Cockcroft-Gault) 93.0 Glucose Level 60 mg/dL (70-99) Calcium Level 8.4 mg/dL (8.5-10.1) Test 02/22/17 07:34 02/22/17 11:24 02/22/17 15:57 02/22/17 20:47 Glucose (Fingerstick) 110 mg/dL (70-99) 158 mg/dL (70-99) 141 mg/dL (70-99) 235 mg/dL (70-99) Test 02/23/17 04:10 02/23/17 07:40 02/23/17 13:01 White Blood Count 2.6 x10^3/uL (4.0-11.0) Red Blood Count 3.67 x10^6/uL (4.30-5.70) Hemoglobin 10.6 g/dL (13.0-17.5) Hematocrit 31.8 % (39.0-53.0) Mean Corpuscular Volume 87 fL (79-100) Mean Corpuscular Hemoglobin 29 pg (25-35) Mean Corpuscular Hemoglobin Concent 33 g/dL (31-37) Red Cell Distribution Width 14.0 % (11.5-14.5) Platelet Count 117 x10^3/uL (140-400) Neutrophils (%) (Auto) 67 % (31-73) Lymphocytes (%) (Auto) 19 % (24-48) Monocytes (%) (Auto) 13 % (0-9) Eosinophils (%) (Auto) 1 % (0-3) Basophils (%) (Auto) 1 % (0-3) Neutrophils # (Auto) 1.8 x10^3uL (1.8-7.7) Lymphocytes # (Auto) 0.5 x10^3/uL (1.0-4.8) Monocytes # (Auto) 0.3 x10^3/uL (0.0-1.1) Eosinophils # (Auto) 0.0 x10^3/uL (0.0-0.7) Basophils # (Auto) 0.0 x10^3/uL (0.0-0.2) Sodium Level 141 mmol/L (136-145) Potassium Level 4.0 mmol/L (3.5-5.1) Chloride Level 108 mmol/L (98-107) Carbon Dioxide Level 25 mmol/L (21-32) Anion Gap 8 (6-14) Blood Urea Nitrogen 12 mg/dL (8-26) Creatinine 0.7 mg/dL (0.7-1.3) Estimated GFR (Cockcroft-Gault) 108.5 Glucose Level 59 mg/dL (70-99) Calcium Level 8.1 mg/dL (8.5-10.1) Glucose (Fingerstick) 58 mg/dL (70-99) 136 mg/dL (70-99) Laboratory Tests Test 02/22/17 15:57 02/22/17 20:47 02/23/17 04:10 02/23/17 07:40 Glucose (Fingerstick) 141 mg/dL (70-99) 235 mg/dL (70-99) 58 mg/dL (70-99) White Blood Count 2.6 x10^3/uL (4.0-11.0) Red Blood Count 3.67 x10^6/uL (4.30-5.70) Hemoglobin 10.6 g/dL (13.0-17.5) Hematocrit 31.8 % (39.0-53.0) Mean Corpuscular Volume 87 fL (79-100) Mean Corpuscular Hemoglobin 29 pg (25-35) Mean Corpuscular Hemoglobin Concent 33 g/dL (31-37) Red Cell Distribution Width 14.0 % (11.5-14.5) Platelet Count 117 x10^3/uL (140-400) Neutrophils (%) (Auto) 67 % (31-73) Lymphocytes (%) (Auto) 19 % (24-48) Monocytes (%) (Auto) 13 % (0-9) Eosinophils (%) (Auto) 1 % (0-3) Basophils (%) (Auto) 1 % (0-3) Neutrophils # (Auto) 1.8 x10^3uL (1.8-7.7) Lymphocytes # (Auto) 0.5 x10^3/uL (1.0-4.8) Monocytes # (Auto) 0.3 x10^3/uL (0.0-1.1) Eosinophils # (Auto) 0.0 x10^3/uL (0.0-0.7) Basophils # (Auto) 0.0 x10^3/uL (0.0-0.2) Sodium Level 141 mmol/L (136-145) Potassium Level 4.0 mmol/L (3.5-5.1) Chloride Level 108 mmol/L (98-107) Carbon Dioxide Level 25 mmol/L (21-32) Anion Gap 8 (6-14) Blood Urea Nitrogen 12 mg/dL (8-26) Creatinine 0.7 mg/dL (0.7-1.3) Estimated GFR (Cockcroft-Gault) 108.5 Glucose Level 59 mg/dL (70-99) Calcium Level 8.1 mg/dL (8.5-10.1) Test 02/23/17 13:01 Glucose (Fingerstick) 136 mg/dL (70-99) Medications Current Medications Ondansetron HCl (Zofran) 4 mg PRN Q6HRS PRN IV NAUSEA/VOMITING (1st Choice) Last administered on 02/23/17 12:04; Start 02/19/17 at 13:45 Prochlorperazine Edisylate (Compazine) 10 mg PRN Q6HRS PRN IV NAUSEA/VOMITING ( 2nd Choice); Start 02/19/17 at 13:45 Prochlorperazine (Compazine) 25 mg PRN Q12HR PRN [place] NAUSEA/VOMITING; Start at 13:45 Al Hydroxide/Mg Hydroxide (Mylanta Plus Xs) 30 ml PRN Q3HRS PRN PO HEARTBURN / GAS; Start 02/19/17 at 13:45 Calcium Carbonate/ Glycine (Tums) 500 mg PRN Q3HRS PRN PO UPSET STOMACH; Start 02/19/17 at 13:45 Morphine Sulfate 1 mg PRN Q1HR PRN IV PAIN; Start 02/19/17 at 13:45 Acetaminophen (Tylenol) 650 mg PRN Q6HRS PRN PO Headaches, Temp > 101.5F; Start 02/19/17 at 13:45 Ibuprofen (Motrin) 400 mg PRN Q6HRS PRN PO MILD PAIN Last administered on 11:30; Start 02/19/17 at 13:45 Docusate Sodium (Colace) 100 mg BID PO Last administered on 02/23/17 08:20; Start 02/19/17 at 21:00 Magnesium Hydroxide (Milk Of Magnesia) 2,400 mg PRN Q12HR PRN PO CONSTIPATION; Start 02/19/17 at 13:45 Bisacodyl (Dulcolax Supp) 10 mg PRN DAILY PRN [place] CONSTIPATION; Start 02/19/17 at 13:45 Atorvastatin Calcium (Lipitor) 40 mg HS PO Last administered on 02/22/17 21:07 ; Start 02/19/17 at 21:00 Carbidopa/Levodopa (Sinemet 10/100) 1 tab DAILY PO Last administered on 08:18; Start 02/19/17 at 14:00 Cyanocobalamin (Vitamin B-12) 1,000 mcg DAILY PO Last administered on 08:18; Start 02/19/17 at 14:00 Diltiazem HCl (Cardizem 24hr Cd) 180 mg DAILY PO Last administered on 08:28; Start 02/19/17 at 14:00 Gabapentin (Neurontin) 100 mg TID PO Last administered on 02/23/17 08:18; Start 02/19/17 at 14:00 Lisinopril (Prinivil) 20 mg DAILY PO Last administered on 02/23/17 08:28; Start 02/19/17 at 14:00 Metformin HCl (Glucophage) 1,000 mg BIDWMEALS PO Last administered on 08:18; Start 02/19/17 at 17:00 Non-Formulary Medication 1 each DAILY PO ; Start 02/20/17 at 09:00; Stop at 09:00; Status DC Insulin Detemir (Levemir) 30 units QHS SQ Last administered on 02/22/17 21:11 ; Start 02/19/17 at 21:00 Losartan Potassium (Cozaar) 100 mg DAILY PO Last administered on 02/21/17 08: 34; Start 02/19/17 at 14:00; Stop 02/21/17 at 11:47; Status DC Pantoprazole Sodium (Protonix) 40 mg DAILYAC PO Last administered on 02/23/17 08:20; Start 02/19/17 at 16:30 Non-Formulary Medication 450 mg DAILY PO ; Start 02/20/17 at 09:00; Stop at 09:00; Status DC Clopidogrel Bisulfate (Plavix) 75 mg DAILYWBKFT PO Last administered on 08:24; Start 02/19/17 at 13:45; Stop 02/21/17 at 13:20; Status DC Insulin Aspart (NovoLOG) 0-7 UNITS TIDWMEALS SQ Last administered on 02/22/17 11:56; Start 02/19/17 at 17:00 Dextrose (Dextrose 50%-Water Syringe) 12.5 gm PRN Q15MIN PRN IV SEE COMMENTS; Start 02/19/17 at 13:45 Aspirin (Children'S Aspirin) 81 mg DAILYWBKFT PO Last administered on 08:22; Start 02/19/17 at 17:00 Sodium Chloride 1,000 ml @ 100 mls/hr Q10H IV Last administered on 02/23/17 03:41; Start 02/21/17 at 13:30 Ciprofloxacin/ Dextrose 200 ml @ 200 mls/hr Q12HR IV Last administered on 02/23 08:19; Start 02/21/17 at 13:30 Apixaban (Eliquis) 5 mg BID PO Last administered on 02/23/17 08:18; Start at 14:00 Diphenhydramine HCl (Benadryl) 25 mg PRN QHS PRN PO INSOMNIA Last administered on 02/22/17 21:07; Start 02/21/17 at 18:45 Info (Anti-Coagulation Monitoring By Pharmacy) 1 each PRN DAILY PRN MC SEE COMMENTS Last administered on 02/23/17 10:40; Start 02/21/17 at 19:00 Active Scripts Active Reported Lisinopril 20 Mg Tablet 20 Mg PO DAILY Osteo Bi-Flex Caplet (Glucosamine/D3/Boswellia Shruthi) 1 Each Tablet 1 Each PO DAILY Vitamin B-12 (Cyanocobalamin (Vitamin B-12)) 1,000 Mcg Tablet 1 Tab PO DAILY Gabapentin 100 Mg Capsule 100 Mg PO TID Saw Zenda (Saw Zenda Fruit) 450 Mg Capsule 450 Mg PO DAILY Losartan Potassium 100 Mg Tablet 100 Mg PO DAILY Diltiazem 24HR Cd (Diltiazem Hcl) 180 Mg Cap.er.24h 1 Cap PO DAILY Lantus Solostar (Insulin Glargine,Hum.rec.anlog) 100 Unit/1 Ml Insuln.pen 30 Unit SQ QHS Lipitor (Atorvastatin Calcium) 40 Mg Tablet 40 Mg PO HS Carbidopa-Levodopa 10-100 Tab (Carbidopa/Levodopa) 1 Each Tablet 1 Each PO DAILY Metformin Hcl 1,000 Mg Tablet 1,000 Mg PO BID Prilosec (Omeprazole) 20 Mg Capsule.dr 20 Mg PO DAILY Aspirin 81 Mg Tab.chew Mg PO DAILY Vitals/I & O Vital Sign - Last 24 Hours 02/22/17 02/22/17 02/22/17 02/22/17 15:46 19:48 20:00 23:14 Temp 98.0 97.9 97.9 98.0 97.9 97.9 Pulse 82 100 96 Resp 19 20 20 B/P (MAP) 123/64 (83) 134/72 (92) 147/81 (103) Pulse Ox 97 98 97 O2 Delivery Room Air Room Air Room Air Room Air 02/23/17 02/23/17 02/23/17 02/23/17 03:10 07:00 08:00 08:28 Temp 98.6 98.0 98.6 98.0 Pulse 94 101 101 Resp 20 18 B/P (MAP) 88/58 (68) 108/61 (77) 108/61 Pulse Ox 98 96 O2 Delivery Room Air Room Air Room Air 02/23/17 02/23/17 08:28 11:00 Temp 97.8 97.8 Pulse 101 105 Resp 18 B/P (MAP) 108/61 138/79 (98) Pulse Ox 96 O2 Delivery Room Air SUSAN JIN MD Feb 23, 2017 13:32
[2017-02-23 13:57] VITALS: BP 94/51
== END 2017-02-23 16:00 | disposition home or self-care (01) | DRG 65 ==
LOC: 6 SOUTH 12:04
PROVIDERS: ADMIT Internal Medicine; ATTEND Internal Medicine
DX: I63.232 Cerebral infarction due to unspecified occlusion or stenosis of left carotid arteries (principal); C34.90 Malignant neoplasm of unspecified part of unspecified bronchus or lung; I11.0 Hypertensive heart disease with heart failure; I42.9 Cardiomyopathy, unspecified; I50.9 Heart failure, unspecified; E11.40 Type 2 diabetes mellitus with diabetic neuropathy, unspecified; J44.9 Chronic obstructive pulmonary disease, unspecified; N39.0 Urinary tract infection, site not specified; E11.51 Type 2 diabetes mellitus with diabetic peripheral angiopathy without gangrene; E66.9 Obesity, unspecified; E78.5 Hyperlipidemia, unspecified; G20 Parkinson's disease; I25.10 Atherosclerotic heart disease of native coronary artery without angina pectoris; I48.0 Paroxysmal atrial fibrillation; Z80.1 Family history of malignant neoplasm of trachea, bronchus and lung; Z83.3 Family history of diabetes mellitus; Z85.118 Personal history of other malignant neoplasm of bronchus and lung; Z86.73 Personal history of transient ischemic attack (TIA), and cerebral infarction without residual deficits; Z87.891 Personal history of nicotine dependence; Z95.1 Presence of aortocoronary bypass graft
CPT/HCPCS: 36415; 70553; 77387; 77412; 80048; 80053; 80061; 81001; 82962; 85025; 85610; 93005; 93306; 93880; A9585; J0744; J1815; J2405; J7030; Q0163; 97110; 97116

== ENCOUNTER 2017-04-13 13:54 | Emergency (ER) | payer MEDICARE ==
[~2017-04-13 13:54] MED LIST changes: +APIX5TAB PO; +BENZ100C15 PO; +CEFP100T PO; +DIGO250T PO; +GUAI5SYR PO; +INSU100I17 SQ; +PREG75CA PO
[2017-04-13] MEDS ORDERED: IV NORMAL SALINE 1000ML BAG 1,000 ML IV ONE (14:30)
--- NOTE | 2017-04-13 14:32 | EKG ---
[facility] [address] [place] [address] Test Date: 2017-04-13 Test Time: 14:18:07 Pat Name: KANG AYALA Department: Room: Gender: Respiratory Tech: : [id number] Requested By: FRANK CORONA Order Number: [id number] Reading MD: Measurements Intervals [place] Rate: 116 P: -24 LA: 104 QRS: -23 QRSD: 92 T: 152 QT: 306 QTc: 431 Interpretive Statements SINUS TACHYCARDIA LEFTWARD AXIS LOW LIMB LEAD VOLTAGE CONSIDER LEFT VENTRICULAR HYPERTROPHY QRS(T) CONTOUR ABNORMALITY CONSIDER ANTEROSEPTAL MYOCARDIAL DAMAGE ST & T ABNORMALITY, CONSIDER HIGH LATERAL ISCHEMIA OR LEFT VENTRICULAR STRAIN ABNORMAL ECG RI6.01 No previous ECG available for comparison
--- NOTE | 2017-04-13 14:34 | PHYS DOC ---
Past Medical History Past Medical History: Dementia, Diabetes-Type II, GERD, High Cholesterol, Hypertension Additional Past Medical Histor: neuropathy, lung cancer Past Surgical History: Other Additional Past Surgical Histo: CABG X 5 VESSELS, BACK SX Alcohol Use: Occasionally Drug Use: None Adult General Chief Complaint Chief Complaint: weakness HPI HPI Patient is a 82 year old male who presents with weakness and cough. Patient's had a cough for several days, generalized weakness, no known fevers. Patient's completed treatment for lung cancer, no recent chemotherapy. He was instructed to calm here from the oncologist office due to abnormal lab values, the significant abnormality is not known at this time. Patient denies any abdominal pain, no chest pain, no dysuria. Primary care physician is Dr. Shiela Mathis Review of Systems Review of Systems Constitutional: Denies fever or chills [] Eyes: Denies change in visual acuity, redness, or eye pain [] HENT: Denies nasal congestion or sore throat [] Respiratory: History of present illness Cardiovascular: Denies chest pain GI: Denies abdominal pain, nausea, vomiting, bloody stools or diarrhea [] : Denies dysuria or hematuria [] Musculoskeletal: Denies back pain or joint pain [] Integument: Denies rash or skin lesions [] Neurologic: Denies headache, focal weakness or sensory changes [] All other systems were reviewed and found to be within normal limits, except as documented in this note. Current Medications Current Medications Current Medications Medications (Trade) Dose Ordered Sig/Jimmy Start Time Stop Time Status Last Admin Dose Admin Sodium Chloride 1,000 ml @ 1,000 mls/hr 1X ONCE 04/13/17 14:30 04/13/17 15:29 DC 04/13/17 14:30 1,000 MLS/HR Allergies Allergies Allergies Coded Allergies Type Severity Reaction Last Updated Verified No Known Medication Allergies Allergy Unknown 12/29/16 Yes Physical Exam Physical Exam Constitutional: Well developed, well nourished, no acute distress, non-toxic appearance. [] HENT: Normocephalic, atraumatic, bilateral external ears normal, oropharynx dry , no oral exudates, nose normal. [] Eyes: PERRLA, EOMI, conjunctiva normal, no discharge. [] Neck: Normal range of motion, no tenderness, supple, no stridor. [] Cardiovascular:Heart rate tachycardic with regular rhythm, no murmur [] Lungs & Thorax: tachypnic, Bilateral breath sounds , moderate air movement, R anterior chest crackle Abdomen: Bowel sounds normal, soft, no tenderness, no masses, no pulsatile masses. [] Skin: Warm, dry, no erythema, no rash. [] Back: No tenderness, no CVA tenderness. [] Extremities: No tenderness, no cyanosis, no clubbing, ROM intact, no edema. [] Neurologic: Alert and oriented X 3, normal motor function, normal sensory function, no focal deficits noted. [] Psychologic: Affect normal, judgement normal, mood normal. [] Current Patient Data Vital Signs Vital Signs Date Time Temp Pulse Resp B/P (MAP) Pulse Ox O2 Delivery O2 Flow Rate FiO2 04/13/17 15:40 111 20 142/65 (90) 96 04/13/17 15:21 98.1 Room Air 98.1 Lab Values Laboratory Tests Test 04/13/17 15:05 White Blood Count 10.6 x10^3/uL (4.0-11.0) Red Blood Count 4.08 x10^6/uL (4.30-5.70) L Hemoglobin 11.8 g/dL (13.0-17.5) L Hematocrit 35.3 % (39.0-53.0) L Mean Corpuscular Volume 86 fL (79-100) Mean Corpuscular Hemoglobin 29 pg (25-35) Mean Corpuscular Hemoglobin Concent 33 g/dL (31-37) Red Cell Distribution Width 19.3 % (11.5-14.5) H Platelet Count 298 x10^3/uL (140-400) Neutrophils (%) (Auto) 62 % (31-73) Lymphocytes (%) (Auto) 13 % (24-48) L Monocytes (%) (Auto) 23 % (0-9) H Eosinophils (%) (Auto) 0 % (0-3) Basophils (%) (Auto) 1 % (0-3) Neutrophils # (Auto) 6.6 x10^3uL (1.8-7.7) Lymphocytes # (Auto) 1.4 x10^3/uL (1.0-4.8) Monocytes # (Auto) 2.5 x10^3/uL (0.0-1.1) H Eosinophils # (Auto) 0.0 x10^3/uL (0.0-0.7) Basophils # (Auto) 0.1 x10^3/uL (0.0-0.2) Sodium Level 133 mmol/L (136-145) L Potassium Level 3.6 mmol/L (3.5-5.1) Chloride Level 96 mmol/L (98-107) L Carbon Dioxide Level 26 mmol/L (21-32) Anion Gap 11 (6-14) Blood Urea Nitrogen 22 mg/dL (8-26) Creatinine 1.0 mg/dL (0.7-1.3) Estimated GFR (Cockcroft-Gault) 71.7 BUN/Creatinine Ratio 22 (6-20) H Glucose Level 209 mg/dL (70-99) H Lactic Acid Level 1.6 mmol/L (0.4-2.0) Calcium Level 9.3 mg/dL (8.5-10.1) Total Bilirubin 0.8 mg/dL (0.2-1.0) Aspartate Amino Transferase (AST) 31 U/L (15-37) Alanine Aminotransferase (ALT) 28 U/L (16-63) Alkaline Phosphatase 90 U/L (46-116) Total Protein 7.5 g/dL (6.4-8.2) Albumin 2.8 g/dL (3.4-5.0) L Albumin/Globulin Ratio 0.6 (1.0-1.7) L Laboratory Tests 04/13/17 15:05 Laboratory Tests 04/13/17 15:05 EKG EKG 116 bpm, appears sinus tach, low voltage, normal axis, no ST elevation or depression appreciated, wandering baseline, interpreted by me reel cutter shows 160 bpm, sinus tach, no appreciable dysrhythmia, interpreted by me SPO2 shows 94% on room air with good waveform, interpreted by me[] Radiology/Procedures Radiology/Procedures CXR :Impression: Minimal patchy parenchymal density right midlung field and left upper lung suggestive of atelectasis or infiltrate. Follow-up to confirm clearing could be performed. [] Course & Med Decision Making Course & Med Decision Making Pertinent Labs and Imaging studies reviewed. (See chart for details) CXR, lab work, lactate ordered, 1 L of IV fluids ordered HR improved, pt feeling improved, no hypotension in the ED. Labs improved, no signs of sepsis here, pt continues to have some sign of pna on CXR. I discussed with pt and Dr. Sun, pt prefers dc home and Dr. Sun agreeable to plan to dc with abx. Pt to f/u closely with PCP, return precautions given, pt and his voice understanding. Rx for levaquin given. Dragon Disclaimer Dragon Disclaimer This electronic medical record was generated, in whole or in part, using a voice recognition dictation system. Departure Departure Impression: Primary Impression: Pneumonia Disposition: 01 HOME, SELF-CARE Condition: IMPROVED Referrals: SHIELA MATHIS Jr, MD (PCP) Scripts Levofloxacin (LEVAQUIN) 750 Mg Tablet 1 TAB PO DAILY, #7 TAB Prov: FRANK CORONA MD 04/13/17 FRANK CORONA MD Apr 13, 2017 14:34
--- NOTE | 2017-04-13 14:53 | RAD ---
Indication: Cough and weakness. Time of exam 1440 hours. Correlation is made with prior exam from 03/20/2017. The heart size is stable. There are changes of median sternotomy. There are areas of linear parenchymal density left upper lobe and left perihilar region, likely scarring or atelectasis. There is also a focal area of patchy parenchymal density right midlung field. No effusion or pneumothorax is seen. Impression: Minimal patchy parenchymal density right midlung field and left upper lung suggestive of atelectasis or infiltrate. Follow-up to confirm clearing could be performed.
[2017-04-13 15:11] LABS: BASO # 0.1 x10^3/uL (0.0-0.2); BASO % 1 % (0-3); EOS % 0 % (0-3); HEMATOCRIT 35.3 % (39.0-53.0); HEMOGLOBIN 11.8 g/dL (13.0-17.5); LYMPH # 1.4 x10^3/uL (1.0-4.8); LYMPH % 13 % (24-48); MEAN CORPUSCULAR HEMOGLOBIN 29 pg (25-35); MEAN CORPUSCULAR HGB CONC 33 g/dL (31-37); MEAN CORPUSCULAR VOLUME 86 fL (79-100); MONO % 23 % (0-9); NEUT % 62 % (31-73); PLATELET COUNT 298 x10^3/uL (140-400); RED BLOOD COUNT 4.08 x10^6/uL (4.30-5.70); RED CELL DISTRIBUTION WIDTH 19.3 % (11.5-14.5); WHITE BLOOD COUNT 10.6 x10^3/uL (4.0-11.0)
[2017-04-13 15:19] LABS: CALCIUM 9.3 mg/dL (8.5-10.1); GFR 71.7; POTASSIUM 3.6 mmol/L (3.5-5.1)
[2017-04-13 15:24] LABS: ALBUMIN 2.8 g/dL (3.4-5.0); ALBUMIN/GLOBULIN RATIO 0.6 (1.0-1.7); TOTAL BILIRUBIN 0.8 mg/dL (0.2-1.0); TOTAL PROTEIN 7.5 g/dL (6.4-8.2)
[2017-04-13 15:40] VITALS: BP 142/65
[2017-04-13] MEDS ORDERED: LEVO750T31 PO (16:33)
== END 2017-04-13 16:42 | disposition home or self-care (01) ==
LOC: ER 13:54
DX: J18.9 Pneumonia, unspecified organism (principal); F03.90 Unspecified dementia, unspecified severity, without behavioral disturbance, psychotic disturbance, mood disturbance, and anxiety; E11.40 Type 2 diabetes mellitus with diabetic neuropathy, unspecified; K21.9 Gastro-esophageal reflux disease without esophagitis; E78.00 Pure hypercholesterolemia, unspecified; I10 Essential (primary) hypertension; Z95.1 Presence of aortocoronary bypass graft
CPT/HCPCS: 36415; 71010; 80053; 83605; 85025; 93005; 96360; 99285; J7030

== ENCOUNTER 2017-04-14 08:46 | Emergency (ER) | payer MEDICARE ==
[~2017-04-14] VITALS: Ht 172.7 cm; Wt 78.9 kg
[~2017-04-14 08:46] MED LIST changes: +LEVO750T31 PO
[2017-04-14] MEDS ORDERED: IV NORMAL SALINE 1000ML BAG 1,000 ML IV ONE (09:15)
--- NOTE | 2017-04-14 09:25 | PHYS DOC ---
Past Medical History Past Medical History: Dementia, Diabetes-Type II, GERD, High Cholesterol, Hypertension Additional Past Medical Histor: neuropathy, lung cancer Past Surgical History: Other Additional Past Surgical Histo: CABG X 5 VESSELS, BACK SX Alcohol Use: Occasionally Drug Use: None Adult General Chief Complaint Chief Complaint: HYPERGLYCEMIA HPI HPI Patient is a 82 year old male who presents with elevated blood sugar. Patient awoke this morning and took his blood sugar and it was in the 500s. Patient takes oral medication with insulin at bedtime only. He did not take any additional medication when he arrived. He is in the 150s. Patient put lotion on his hands and thinks that maybe this erroneously elevated the blood sugar. Pt seen yesterday for abnormal labs, reported ongoing cough, found to have ongoing pneumonia, had felt weakness and improved with fluids. Pt dc'd home with levaquin and took dose last night. Pt denies pain, reports improvement in his weakness. no reported fevers, has an appointment with Dr. Grissom at noon. Review of Systems Review of Systems Constitutional: Denies fever or chills [] Eyes: Denies change in visual acuity, redness, or eye pain [] HENT: Denies nasal congestion or sore throat [] Respiratory: per hpi Cardiovascular: denies chest pain GI: Denies abdominal pain, nausea, vomiting, bloody stools or diarrhea [] : Denies dysuria or hematuria [] Musculoskeletal: Denies back pain or joint pain [] Integument: Denies rash or skin lesions [] Neurologic: Denies headache, focal weakness or sensory changes [] Current Medications Current Medications Current Medications Medications (Trade) Dose Ordered Sig/Jimmy Start Time Stop Time Status Last Admin Dose Admin Benzonatate (Tessalon Perle) 100 mg 1X ONCE 04/14/17 10:45 04/14/17 10:46 DC Info (Do NOT chart on this entry -- for MONITORING) 1 each PRN DAILY PRN 04/14/17 11:15 04/16/17 11:14 Iohexol (Omnipaque 300 Mg/ml) 75 ml 1X ONCE 04/14/17 11:00 04/14/17 11:02 DC 04/14/17 11:08 75 ML Sodium Chloride 1,000 ml @ 1,000 mls/hr 1X ONCE 04/14/17 09:15 04/14/17 10:14 DC 04/14/17 09:19 1,000 MLS/HR Allergies Allergies Allergies Coded Allergies Type Severity Reaction Last Updated Verified No Known Medication Allergies Allergy Unknown 12/29/16 Yes Physical Exam Physical Exam Constitutional: Well developed, well nourished, no acute distress, non-toxic appearance. [] HENT: Normocephalic, atraumatic, bilateral external ears normal, oropharynx dry , no oral exudates, nose normal. [] Eyes: PERRLA, EOMI, conjunctiva normal, no discharge. [] Neck: Normal range of motion, no tenderness, supple, no stridor. [] Cardiovascular:Heart rate tachy, regular rhythm, no murmur [] Lungs & Thorax: Bilateral breath sounds clear to auscultation [] Abdomen: Bowel sounds normal, soft, no tenderness, no masses, no pulsatile masses. [] Skin: Warm, dry, no erythema, no rash. [] Back: No tenderness, no CVA tenderness. [] Extremities: No tenderness, no cyanosis, no clubbing, ROM intact, no edema. [] Neurologic: Alert and oriented X 3, normal motor function, normal sensory function, no focal deficits noted. [] Psychologic: Affect normal, judgement normal, mood normal. [] Current Patient Data Vital Signs Vital Signs Date Time Temp Pulse Resp B/P (MAP) Pulse Ox O2 Delivery O2 Flow Rate FiO2 04/14/17 11:15 118 22 109/75 (86) 94 Room Air 04/14/17 08:47 97.7 97.7 Lab Values Laboratory Tests Test 04/14/17 08:59 04/14/17 09:15 04/14/17 09:35 Glucose (Fingerstick) 151 mg/dL (70-99) H White Blood Count 8.6 x10^3/uL (4.0-11.0) Red Blood Count 3.84 x10^6/uL (4.30-5.70) L Hemoglobin 11.0 g/dL (13.0-17.5) L Hematocrit 32.9 % (39.0-53.0) L Mean Corpuscular Volume 86 fL (79-100) Mean Corpuscular Hemoglobin 29 pg (25-35) Mean Corpuscular Hemoglobin Concent 34 g/dL (31-37) Red Cell Distribution Width 19.0 % (11.5-14.5) H Platelet Count 260 x10^3/uL (140-400) Neutrophils (%) (Auto) 63 % (31-73) Lymphocytes (%) (Auto) 13 % (24-48) L Monocytes (%) (Auto) 23 % (0-9) H Eosinophils (%) (Auto) 1 % (0-3) Basophils (%) (Auto) 1 % (0-3) Neutrophils # (Auto) 5.4 x10^3uL (1.8-7.7) Lymphocytes # (Auto) 1.1 x10^3/uL (1.0-4.8) Monocytes # (Auto) 2.0 x10^3/uL (0.0-1.1) H Eosinophils # (Auto) 0.1 x10^3/uL (0.0-0.7) Basophils # (Auto) 0.1 x10^3/uL (0.0-0.2) Platelet Estimate Pending Sodium Level 136 mmol/L (136-145) Potassium Level 3.6 mmol/L (3.5-5.1) Chloride Level 100 mmol/L (98-107) Carbon Dioxide Level 27 mmol/L (21-32) Anion Gap 9 (6-14) Blood Urea Nitrogen 16 mg/dL (8-26) Creatinine 0.9 mg/dL (0.7-1.3) Estimated GFR (Cockcroft-Gault) 81.0 BUN/Creatinine Ratio 18 (6-20) Glucose Level 168 mg/dL (70-99) H Lactic Acid Level 1.5 mmol/L (0.4-2.0) Calcium Level 8.9 mg/dL (8.5-10.1) Total Bilirubin 0.6 mg/dL (0.2-1.0) Aspartate Amino Transferase (AST) 30 U/L (15-37) Alanine Aminotransferase (ALT) 29 U/L (16-63) Alkaline Phosphatase 83 U/L (46-116) Total Protein 7.0 g/dL (6.4-8.2) Albumin 2.4 g/dL (3.4-5.0) L Albumin/Globulin Ratio 0.5 (1.0-1.7) L Urine Collection Type Unknown Urine Color Yellow Urine Clarity Clear Urine pH 6.0 Urine Specific [place] 1.020 Urine Protein 30 mg/dL (NEG-TRACE) Urine Glucose (UA) Negative mg/dL (NEG) Urine Ketones (Stick) Trace mg/dL (NEG) Urine Blood Negative (NEG) Urine Nitrite Negative (NEG) Urine Bilirubin Negative (NEG) Urine Urobilinogen Dipstick 1.0 mg/dL (0.2 mg/dL) Urine Leukocyte Esterase Moderate (NEG) Urine RBC 1-2 /HPF (0-2) Urine WBC 11-20 /HPF (0-4) Urine Squamous Epithelial Cells Few /LPF Urine Bacteria Few /HPF (0-FEW) Urine Mucus Mod /LPF Laboratory Tests 04/14/17 09:15 Laboratory Tests 04/14/17 09:15 EKG EKG 120 bpm, sinus tach, leftward axis, normal intervals, no ST elevation or depression appreciated, nonischemic T waves, interpreted by me[] Radiology/Procedures Radiology/Procedures reviewed chest XRay from yesterday CTA chest: IMPRESSION: 1. There is no CT evidence of pulmonary embolus. 2. There are new groundglass opacities in the bilateral upper lobes that may be infectious/inflammatory. 3. Dominant spiculated nodule in the left upper lobe has increased in size. There are multiple other irregular pulmonary nodules bilaterally that are similar. There are new nodules in the posterior left upper lobe. 4. Consolidation in the posterior right lower lobe has resolved. 5. Stable consolidation and cavitation in the superior segment of the left lower lobe. 6. Right hepatic lobe lesion is less well seen, likely due to different contrast phase. Course & Med Decision Making Course & Med Decision Making Pertinent Labs and Imaging studies reviewed. (See chart for details) Pt is tachy and appears dry. meets SIRS criteria , labs, lactic acid, ekg ordered, 1 L NS bolus ordered. Pt allowed to take home medications. I contacted Dr. Grissom, agrees with proceeding with CTA chest. If no acute findings/PE, pt can keep f/u with Dr. Grissom today. No PE, pna noted, pt was started on Abx yesterday, recommend continuing. Pt has f/u today with Dr. Grissom, stressed importance of going to that appointment and finishing antibiotics. Dragon Disclaimer Dragon Disclaimer This electronic medical record was generated, in whole or in part, using a voice recognition dictation system. Departure Departure Impression: Primary Impression: Pneumonia Disposition: HOME, SELF-CARE Condition: STABLE Referrals: SHIELA MATHIS Jr, MD (PCP) FRANK CORONA MD Apr 14, 2017 09:25
[2017-04-14 09:30] LABS: BASO # 0.1 x10^3/uL (0.0-0.2); BASO % 1 % (0-3); EOS % 1 % (0-3); HEMATOCRIT 32.9 % (39.0-53.0); LYMPH # 1.1 x10^3/uL (1.0-4.8); LYMPH % 13 % (24-48); MEAN CORPUSCULAR HEMOGLOBIN 29 pg (25-35); MEAN CORPUSCULAR HGB CONC 34 g/dL (31-37); MEAN CORPUSCULAR VOLUME 86 fL (79-100); MONO % 23 % (0-9); NEUT % 63 % (31-73); PLATELET COUNT 260 x10^3/uL (140-400); RED BLOOD COUNT 3.84 x10^6/uL (4.30-5.70); WHITE BLOOD COUNT 8.6 x10^3/uL (4.0-11.0)
--- NOTE | 2017-04-14 09:37 | EKG ---
[facility] [address] [place] [address] Test Date: 2017-04-14 Test Time: 09:12:05 Pat Name: KANG AYALA Department: Room: Gender: Patient Care Manager: : 1935 Requested By: FRANK CORONA Order Number: [id number] Reading MD: Measurements Intervals [place] Rate: 120 P: 41 IA: 142 QRS: -27 QRSD: 94 T: 63 QT: 300 QTc: 429 Interpretive Statements SINUS TACHYCARDIA LEFTWARD AXIS LOW LIMB LEAD VOLTAGE QRS(T) CONTOUR ABNORMALITY CONSIDER ANTEROSEPTAL MYOCARDIAL DAMAGE ST & T ABNORMALITY, CONSIDER HIGH LATERAL ISCHEMIA OR LEFT VENTRICULAR STRAIN ABNORMAL ECG RI6.01 No previous ECG available for comparison
[2017-04-14 09:51] LABS: BILIRUBIN,URINE NEGATIVE (NEG); GLUCOSE,URINE NEGATIVE (NEG); NITRITE,URINE NEGATIVE (NEG); PROTEIN,URINE 30 mg/dL (NEG-TRACE)
[2017-04-14 09:57] LABS: CALCIUM 8.9 mg/dL (8.5-10.1); CREATININE 0.9 mg/dL (0.7-1.3); POTASSIUM 3.6 mmol/L (3.5-5.1)
[2017-04-14 10:01] LABS: ALBUMIN 2.4 g/dL (3.4-5.0); ALBUMIN/GLOBULIN RATIO 0.5 (1.0-1.7); TOTAL BILIRUBIN 0.6 mg/dL (0.2-1.0)
[2017-04-14 10:08] LABS: BACTERIA,URINE FEW /HPF (0-FEW); SQUAMOUS EPITHELIAL CELL,UR FEW /LPF
[2017-04-14] MEDS ORDERED: BENZONATATE 100 MG CAPSULE. PO ONE (10:45)
[2017-04-14] MEDS ORDERED: IOHEXOL 300 MG/ML 100ML VIAL. IV ONE (11:00)
[2017-04-14] MEDS ORDERED: CONTRAST GIVEN MC PRN (11:15)
--- NOTE | 2017-04-14 11:45 | RAD ---
PQRS Compliance Statement: One or more of the following individualized dose reduction techniques were utilized for this examination: 1. Automated exposure control 2. Adjustment of the mA and/or kV according to patient size 3. Use of iterative reconstruction technique CT CHEST WITH CONTRAST, PULMONARY ANGIOGRAM History: TACHY, H/O CANCER. Comparison: CT chest with contrast, March 22, 2017. Technique: Helical CT of the chest was performed after the administration of 75 cc of Omnipaque 300 intravenous contrast according to PE protocol. Axial and coronal reconstructions were obtained. 3-D MIP images were constructed to better evaluate the pulmonary arteries. Findings: Pulmonary arteries are adequately opacified. There is no evidence of pulmonary embolism. No thoracic aortic dissection is identified. 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 The great vessels are normal caliber. There is three-vessel coronary artery disease. There are median sternotomy wires and changes of CABG. There is mitral annular calcification. The cardiac size is normal, no pericardial effusion. Subcentimeter mediastinal lymph nodes. Mild retained secretions or mucous dependently in the trachea and the left mainstem bronchus. There are scattered irregular nodules throughout the lungs. Consolidation in the posterior right lower lobe has resolved. There is new groundglass opacity in the anterior right upper lobe. There are new nodular opacities in the posterior left upper lobe, for example image 33. There is new groundglass opacity in the anterior left upper lobe. There is a spiculated nodule in the left upper lobe that has increased in size measuring up to 2.5 cm. There is consolidation and cavitation in the superior segment of the left lower lobe that is unchanged. Cholelithiasis. There is a 2 cm lesion in the right hepatic lobe near the dome that is less well seen on today's exam, image 105. No compression fracture in the thoracic spine. IMPRESSION: 1. There is no CT evidence of pulmonary embolus. 2. There are new groundglass opacities in the bilateral upper lobes that may be infectious/inflammatory. 3. Dominant spiculated nodule in the left upper lobe has increased in size. There are multiple other irregular pulmonary nodules bilaterally that are similar. There are new nodules in the posterior left upper lobe. 4. Consolidation in the posterior right lower lobe has resolved. 5. Stable consolidation and cavitation in the superior segment of the left lower lobe. 6. Right hepatic lobe lesion is less well seen, likely due to different contrast phase. Electronically signed by: Michael Tavarez MD (04/14/2017 11:42 AM) [id number]
[2017-04-14 12:00] VITALS: BP 112/74
[2017-04-14 12:15] LABS: % BASOS 1 % (0-3); % EOS 2 % (0-5); NUCLEATED RBC 1
[2017-04-14 12:18] LABS: PLT ESTIMATE ADEQUATE (ADEQUATE)
[2017-04-14 12:19] LABS: ANISOCYTOSIS SLIGHT; MICROCYTOSIS SLIGHT; POIKILOCYTOSIS SLIGHT
== END 2017-04-14 12:15 | disposition home or self-care (01) ==
LOC: ER 08:46
DX: J18.9 Pneumonia, unspecified organism (principal); F03.90 Unspecified dementia, unspecified severity, without behavioral disturbance, psychotic disturbance, mood disturbance, and anxiety; E11.40 Type 2 diabetes mellitus with diabetic neuropathy, unspecified; K21.9 Gastro-esophageal reflux disease without esophagitis; E78.00 Pure hypercholesterolemia, unspecified; I10 Essential (primary) hypertension; Z95.1 Presence of aortocoronary bypass graft; Z79.4 Long term (current) use of insulin
CPT/HCPCS: 36415; 71275; 80053; 81001; 82962; 83605; 85007; 85025; 87086; 93005; 96360; 99285; J7030; Q9967

== ENCOUNTER 2017-05-03 11:45 | Inpatient (IN) | payer MEDICARE ==
[~2017-05-03] VITALS: Ht 172.7 cm; Wt 73.5 kg
[~2017-05-03 11:45] MED LIST changes: +BENZ-8 PO; -BENZ100C15 PO; -SAW450CA2 PO; +SAW450CA7 PO
--- NOTE | 2017-05-03 12:11 | EKG ---
[facility] [address] [place] [address] Test Date: 2017-05-03 Test Time: 12:05:19 Pat Name: KANG AYALA Department: Room: Gender: Life Insurance Actuary: [place] : 1935 Requested By: ERICK WARD Order Number: [id number] Reading MD: Santino Burton MD Measurements Intervals [place] Rate: 121 P: 65 DC: 140 QRS: -34 QRSD: 98 T: 120 QT: 310 QTc: 442 Interpretive Statements SINUS TACHYCARDIA PAC'S LAFB POSSIBLE LVH Electronically Signed On 05-11-2017 11:59:30 DRY CLEANER APPRENTICE by Santino Burton MD
--- NOTE | 2017-05-03 12:13 | PHYS DOC ---
Past Medical History Past Medical History: Dementia, Diabetes-Type II, GERD, High Cholesterol, Hypertension Additional Past Medical Histor: neuropathy, lung cancer Past Surgical History: Other Additional Past Surgical Histo: CABG X 5 VESSELS, BACK SX Alcohol Use: Occasionally Drug Use: None Adult General Chief Complaint Chief Complaint: DIZZY/LIGHT HEADED HPI HPI Patient is a 82 year old M who presents with increased weakness and dizziness. Patient was brought in by his son who states that this morning he was doing just fine however got into a coughing spell ever since that he's been extremely weak, shortness breath, dizziness. Patient's son states that after the spell the patient wanted to be brought to the emergency room for further evaluation and management. Patient is a heart catheter scheduled for tomorrow with his insurance salesperson. Patient denies any fevers. Patient states his cough was productive with green sputum. Patient denies any chest pain. Patient states he is no longer dizzy and emergency room however he just feels fatigued. Patient denies any nausea/vomiting/diarrhea. Patient is no other complaints. Review of Systems Review of Systems GEN: Denies fevers, chills, sweats HEENT: Denies blurred vision, sore throat CV: Denies chest pain RESP: Shortness of breath and cough GI: Denies n/v/d NEURO: Dizziness MSK: Denies weakness, joint pain/swelling All other systems were reviewed and found to be within normal limits, except as documented in this note. Current Medications Current Medications Current Medications Medications (Trade) Dose Ordered Sig/Jimmy Start Time Stop Time Status Last Admin Dose Admin Azithromycin 250 ml @ 250 mls/hr 1X ONCE 05/03/17 13:15 05/03/17 14:14 Ceftriaxone Sodium 50 ml @ 100 mls/hr 1X ONCE 05/03/17 13:15 05/03/17 13:44 05/03/17 13:23 100 MLS/HR Sodium Chloride 1,000 ml @ 1,000 mls/hr 1X ONCE 05/03/17 12:15 05/03/17 13:14 DC 05/03/17 12:35 1,000 MLS/HR Allergies Allergies Allergies Coded Allergies Type Severity Reaction Last Updated Verified No Known Medication Allergies Allergy Unknown 12/29/16 Yes Physical Exam Physical Exam GEN.: No apparent distress. Alert and oriented. HEENT: Head is normocephalic, atraumatic NECK: Supple. LUNGS: Decreased breath sounds bilaterally with wheezing in the upper lobes bilaterally. HEART: Tachycardia, S1, S2 present. Peripheral pulses intact ABDOMEN: Soft, nontender. Positive bowel sounds. EXTREMITIES: Without any cyanosis. NEUROLOGIC: Normal speech, normal tone PSYCHIATRIC: Normal affect, normal mood. SKIN: No ulcerations Current Patient Data Vital Signs Vital Signs Date Time Temp Pulse Resp B/P (MAP) Pulse Ox O2 Delivery O2 Flow Rate FiO2 05/03/17 12:10 98.0 121 20 92/69 (77) 96 Room Air 98.0 Lab Values Laboratory Tests Test 05/03/17 12:15 05/03/17 12:27 05/03/17 13:29 Sodium Level 137 mmol/L (136-145) Potassium Level 4.5 mmol/L (3.5-5.1) Chloride Level 98 mmol/L (98-107) Carbon Dioxide Level 27 mmol/L (21-32) Anion Gap 12 (6-14) Blood Urea Nitrogen 22 mg/dL (8-26) Creatinine 0.8 mg/dL (0.7-1.3) Estimated GFR (Cockcroft-Gault) 92.8 BUN/Creatinine Ratio 28 (6-20) H Glucose Level 256 mg/dL (70-99) H Lactic Acid Level 1.7 mmol/L (0.4-2.0) Calcium Level 8.8 mg/dL (8.5-10.1) Total Bilirubin 0.6 mg/dL (0.2-1.0) Aspartate Amino Transferase (AST) 52 U/L (15-37) H Alanine Aminotransferase (ALT) 18 U/L (16-63) Alkaline Phosphatase 139 U/L (46-116) H Troponin I Quantitative < 0.017 ng/mL (0.000-0.055) NF-Som-I-Type Natriuretic Peptide 1788 pg/mL (0-449) H Total Protein 7.2 g/dL (6.4-8.2) Albumin 2.2 g/dL (3.4-5.0) L Albumin/Globulin Ratio 0.4 (1.0-1.7) L Urine Collection Type Void Urine Color Yellow Urine Clarity Clear Urine pH 6.0 Urine Specific [place] 1.025 Urine Protein 30 mg/dL (NEG-TRACE) Urine Glucose (UA) 100 mg/dL (NEG) Urine Ketones (Stick) Trace mg/dL (NEG) Urine Blood Negative (NEG) Urine Nitrite Negative (NEG) Urine Bilirubin Negative (NEG) Urine Urobilinogen Dipstick 1.0 mg/dL (0.2 mg/dL) Urine Leukocyte Esterase Large (NEG) Urine RBC 1-2 /HPF (0-2) Urine WBC >40 /HPF (0-4) Urine Squamous Epithelial Cells Few /LPF Urine Bacteria 0 /HPF (0-FEW) Urine Mucus Slight /LPF White Blood Count 6.7 x10^3/uL (4.0-11.0) Red Blood Count 3.72 x10^6/uL (4.30-5.70) L Hemoglobin 10.2 g/dL (13.0-17.5) L Hematocrit 31.4 % (39.0-53.0) L Mean Corpuscular Volume 85 fL (79-100) Mean Corpuscular Hemoglobin 27 pg (25-35) Mean Corpuscular Hemoglobin Concent 32 g/dL (31-37) Red Cell Distribution Width 17.9 % (11.5-14.5) H Platelet Count 240 x10^3/uL (140-400) Neutrophils (%) (Auto) 77 % (31-73) H Lymphocytes (%) (Auto) 7 % (24-48) L Monocytes (%) (Auto) 13 % (0-9) H Eosinophils (%) (Auto) 3 % (0-3) Basophils (%) (Auto) 0 % (0-3) Neutrophils # (Auto) 5.2 x10^3uL (1.8-7.7) Lymphocytes # (Auto) 0.5 x10^3/uL (1.0-4.8) L Monocytes # (Auto) 0.8 x10^3/uL (0.0-1.1) Eosinophils # (Auto) 0.2 x10^3/uL (0.0-0.7) Basophils # (Auto) 0.0 x10^3/uL (0.0-0.2) Laboratory Tests 05/03/17 13:29 Laboratory Tests 05/03/17 12:15 EKG EKG 1206: EKG shows sinus tach rate of 122 no STEMI[] Radiology/Procedures Radiology/Procedures Chest x-ray: Left lung pneumonia CT scan of the head NAD[] Course & Med Decision Making Course & Med Decision Making Pertinent Labs and Imaging studies reviewed. (See chart for details) ED course: Patient was seen and examined emergency room a septic workup was ordered 1219: Discussed CC/HP/PMH with Dr. Ashton and recommends admit to medicine and we'll keep the patient on the [employer] Crossing Guard scheduled for tomorrow 1315: Updated patient on x-ray results and plan to admit and treat for pneumonia and we'll still keep scheduled heart catheter for tomorrow 1332: Discussed CC/HP/PMH with Dr. Herring and recommends admit and consult pulmonary MDM: After reviewing the chart, CC/HPI/PMH, physical exam, [lab results], [ radiological results], I believe the patient has an acute pneumonia recurrent admission the hospital for IV antibiotics and oxygen. I do not believe the patient has severe sepsis. Patient has a heart catheter that was scheduled for tomorrow and will keep that on schedule. [] Dragon Disclaimer Dragon Disclaimer This electronic medical record was generated, in whole or in part, using a voice recognition dictation system. Departure Departure Impression: Primary Impression: Left lower lobe pneumonia Disposition: ADMITTED INPATIENT Admitting Physician: Vickey Herring Condition: STABLE Referrals: SHIELA MATIHS Jr, MD (PCP) ERICK WARD DO May 03, 2017 12:13
[2017-05-03] MEDS ORDERED: IV NORMAL SALINE 1000ML BAG 1,000 ML IV ONE (12:15)
--- NOTE | 2017-05-03 12:48 | RAD ---
One or more of the following individualized dose reduction techniques were utilized for this examination: 1. Automated exposure control 2. Adjustment of the mA and/or kV according to patient size 3. Use of iterative reconstruction technique CT brain without contrast. History: Altered mental status CT scan of the brain was done without contrast. Comparison is made with a study from March 22. There is mild mucosal thickening in the right maxillary sinus. Remaining sinuses are clear. There is diffuse atrophy intracranially. There is no intracranial hemorrhage or subdural hematoma. Ventricles are normal in size. There is no mass or shift of the midline. 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 An acute CVA is not identified. Impression: 1. Atrophy. 2. Old the left external capsule small lacunar infarct. 3. No intracranial hemorrhage or definite acute CVA noted.
--- NOTE | 2017-05-03 12:49 | RAD ---
PA and lateral chest. History: Cough PA and lateral views were taken of the chest. There is a left lung infiltrate consistent with an acute pneumonia. Heart is normal in size with evidence of prior bypass. There is no pleural effusion. Impression: 1. Left lung pneumonia.
[2017-05-03 12:59] LABS: CALCIUM 8.8 mg/dL (8.5-10.1); CREATININE 0.8 mg/dL (0.7-1.3); GFR 92.8; POTASSIUM 4.5 mmol/L (3.5-5.1)
[2017-05-03 13:12] LABS: ALBUMIN 2.2 g/dL (3.4-5.0); ALBUMIN/GLOBULIN RATIO 0.4 (1.0-1.7); TOTAL BILIRUBIN 0.6 mg/dL (0.2-1.0); TOTAL PROTEIN 7.2 g/dL (6.4-8.2)
[2017-05-03] MEDS ORDERED: AZITHRMYCN 500MG IVPB FOR OMNI 250 ML IV ONE (13:15)
[2017-05-03 13:21] LABS: BILIRUBIN,URINE NEGATIVE (NEG); GLUCOSE,URINE 100 mg/dL (NEG); NITRITE,URINE NEGATIVE (NEG); PROTEIN,URINE 30 mg/dL (NEG-TRACE)
[2017-05-03 13:30] LABS: BACTERIA,URINE 0 /HPF (0-FEW); SQUAMOUS EPITHELIAL CELL,UR FEW /LPF; WBC,URINE >40 /HPF (0-4)
[2017-05-03 13:33] LABS: BASO % 0 % (0-3); EOS % 3 % (0-3); HEMATOCRIT 31.4 % (39.0-53.0); HEMOGLOBIN 10.2 g/dL (13.0-17.5); LYMPH # 0.5 x10^3/uL (1.0-4.8); LYMPH % 7 % (24-48); MEAN CORPUSCULAR HEMOGLOBIN 27 pg (25-35); MEAN CORPUSCULAR HGB CONC 32 g/dL (31-37); MEAN CORPUSCULAR VOLUME 85 fL (79-100); MONO % 13 % (0-9); NEUT % 77 % (31-73); PLATELET COUNT 240 x10^3/uL (140-400); RED BLOOD COUNT 3.72 x10^6/uL (4.30-5.70); RED CELL DISTRIBUTION WIDTH 17.9 % (11.5-14.5); WHITE BLOOD COUNT 6.7 x10^3/uL (4.0-11.0)
[2017-05-03] MEDS ORDERED: ONDANSETRON PF 4 MG/2 ML VIAL. IV PRN (13:45)
[2017-05-03] MEDS ORDERED: MORPHINE SULFATE 4 MG/ML DISP.SYRIN. IV PRN (13:45)
[2017-05-03] MEDS ORDERED: NITROGLYCERIN SUBLINGUAL 0.4 MG BOTTLE OF 25. SL PRN (13:45)
[2017-05-03 15:00] VITALS: BP 98/78
[2017-05-03] MEDS ORDERED: GUAI600T79 PO (17:04)
[2017-05-03] MEDS ORDERED: METO-239 PO (17:04)
[2017-05-03] MEDS ORDERED: MELA3TAB2 PO (17:04)
[2017-05-03] MEDS ORDERED: BENZ100C PO (17:04)
--- NOTE | 2017-05-03 18:04 | HP ---
ADMIT DATE: 05/03/2017 CHIEF COMPLAINT: Shortness of breath, dizziness. HISTORY OF PRESENT ILLNESS: The patient is a pleasant 82-year-old male who presents with shortness of breath, dizziness and weakness, rates it 12/01. He has associated nausea. We did a chest x-ray in the Emergency Room showing left lower lobe pneumonia. I have discussed the case with Emergency Room physician. We are going to admit the patient and consult Pulmonary Medicine. The patient is also scheduled for cardiac catheterization in the a.m. We are going to go ahead and consult Cardiology. He is going to go ahead and go for his cath in a.m. as well. PAST MEDICAL HISTORY: A 5-vessel bypass, dementia, diabetes, hypertension, hyperlipidemia, neuropathy, lung cancer. ALLERGIES: None. FAMILY HISTORY: Diabetes. SOCIAL HISTORY: He does not drink, smoke or take drugs. MEDICATIONS: Reviewed. REVIEW OF SYSTEMS: GENERAL: No history of weight change, weakness or fevers. SKIN: No bruising, hair changes or rashes. EYES: No blurred, double or loss of vision. NOSE AND THROAT: No history of nosebleeds, hoarseness or sore throat. HEART: No history of palpitations, chest pain or shortness of breath on exertion. LUNGS: He complains of shortness of breath. GASTROINTESTINAL: Denies changes in appetite, nausea, vomiting, diarrhea or constipation. GENITOURINARY: No history of frequency, urgency, hesitancy or nocturia. NEUROLOGIC: He complains of dizziness. PSYCHIATRIC: No history of panic, anxiety or depression. ENDOCRINE: No history of heat or cold intolerance, polyuria or polydipsia. EXTREMITIES: Denies muscle weakness, joint pain, pain on walking or stiffness. PHYSICAL EXAMINATION: VITAL SIGNS: Temperature afebrile, pulse 92, respirations 18, blood pressure 114/70. GENERAL: He is alert, cooperative, weak. HEART: Normal S1, S2 with a soft S3. LUNGS: Slight crackles. ABDOMEN: Soft. EXTREMITIES: No edema. ENDOCRINE: No thyromegaly. LYMPHATICS: No cervical nodes. HEMATOPOIETIC: No bruising. LABORATORY DATA: White count 6, hemoglobin 10, platelets 240. BNP 1788. Troponin is 0. ASSESSMENT AND PLAN: Acute on chronic systolic and diastolic heart failure with incidental finding of new pneumonia. The patient has been admitted. We will start IV antibiotics, breathing treatments, oxygen. Consult Pulmonary, consult Cardiology. Cardiac monitoring, serial enzymes, serial EKGs. GRIFFIN JOYA DO DR: URSZULA/brenda JOB#: [id number] / [id number]
[2017-05-03 19:00] VITALS: BP 89/64
[2017-05-03 23:00] VITALS: BP 98/72
[2017-05-04] VITALS (18 sets, daily range): BP systolic 85–123; BP diastolic 50–78
[2017-05-04 01:36] LABS: BASO % 1 % (0-3); EOS % 6 % (0-3); HEMATOCRIT 31.3 % (39.0-53.0); LYMPH # 0.5 x10^3/uL (1.0-4.8); LYMPH % 9 % (24-48); MEAN CORPUSCULAR HEMOGLOBIN 27 pg (25-35); MEAN CORPUSCULAR HGB CONC 32 g/dL (31-37); MEAN CORPUSCULAR VOLUME 85 fL (79-100); MONO % 15 % (0-9); NEUT % 70 % (31-73); PLATELET COUNT 242 x10^3/uL (140-400); RED BLOOD COUNT 3.69 x10^6/uL (4.30-5.70); RED CELL DISTRIBUTION WIDTH 18.2 % (11.5-14.5); WHITE BLOOD COUNT 5.7 x10^3/uL (4.0-11.0)
[2017-05-04 01:48] LABS: CALCIUM 8.3 mg/dL (8.5-10.1); CREATININE 0.7 mg/dL (0.7-1.3); GFR 108.2; POTASSIUM 4.1 mmol/L (3.5-5.1)
[2017-05-04] MEDS ORDERED: LIDOCAINE 2% 20 ML VIAL. ONE (09:54)
[2017-05-04] MEDS ORDERED: IODIXANOL 320 MG/ML 100 ML VIAL. ONE (09:54)
--- NOTE | 2017-05-04 09:58 | PDOC ---
MODERATE SEDATION ASSESSMENT RISKS/ALTERNATIVES Risks/Alternatives Risks and alternatives of this type of sedation and procedure discussed with: RISK/ALTERNATIVES: Patient H & P ON CHART H & P H & P on chart and reviewed for co-morbid conditions and appropriate labs. H&P ON CHART: Yes STATUS PREG STATUS ASSESSED: N/A MEDS/ALLERGIES REVIEWED Meds/Allergies Reviewed Medications and Allergies including time and route of recently administered narcotics and sedatives. MEDS/ALLERGIES REVIEWED: Yes ASA RATING ASA RATING: II AIRWAY ASSESSMENT Airway Assessment Airway patency, oral function limitations, presence of caps, crowns, dentures, partials, and ability to extend neck assessed. AIRWAY ASSESSMENT: Yes MALLAMPATI SCORE MALLAMPATI SCORE: II PRE-SEDATION ASSESSMENT PRE-SEDATION ASSESSMENT: Yes BAKARI GARCIA MD May 04, 2017 09:58
--- NOTE | 2017-05-04 10:35 | PDOC ---
Provider Note Provider Note dictated KOFFI HERNANDEZ MD May 04, 2017 10:34
--- NOTE | 2017-05-04 10:50 | CONS ---
DATE OF CONSULTATION: ATTENDING PHYSICIAN: Dr. Herring. REASON FOR CONSULTATION: Lung cancer, dyspnea, abnormal CT chest and chest x-ray. HISTORY OF PRESENT ILLNESS: The patient is an 82-year-old male who was diagnosed with lung cancer about 4-6 months ago. He is under care of Dr. Sun. Details of his cancer are not available. He has received chemo and his last chemo was 5 weeks ago. He was seen in the Emergency Room with complaint of weakness and dizziness. He was also having spells of dozing off. He takes hydrocodone at home as well. He also has a cough, which is productive of yellow to white sputum. The patient smoked 2-3 packs per day for 20 years, quit 40 years ago. He is on Eliquis for prior history of strokes. He was also having some chest pains as well. He is scheduled for a cardiac catheterization this morning. I have reviewed the patient's chest x-ray dated 05/03/2017. He has some interstitial infiltrates in the left lung involving the left lower lobe and lingula. The patient also had a CT chest done on 04/14/2017. At that time, he had multiple abnormalities including new ground-glass opacities in bilateral upper lobes and also increase in the size of the left upper lobe nodule. There were some new nodules in the posterior left upper lobe. The consolidation in the posterior right lower lobe had resolved and cavitary consolidation in the superior segment of left lower lobe was stable. PAST MEDICAL HISTORY: Significant for history of lung cancer status post chemo, details of which are not available at present; history of possible chronic obstructive pulmonary disease, dementia, type 2 diabetes, gastroesophageal reflux disease, dyslipidemia, hypertension, neuropathy. PAST SURGICAL HISTORY: Coronary artery bypass graft and back surgery. ALLERGIES: None. CURRENT MEDICATIONS: Reviewed as listed in the [facility], including antibiotics that he received and including Rocephin and Zithromax. SOCIAL HISTORY: Smoked for 20 years, 2-3 packs per day, quit 40 years ago. REVIEW OF SYSTEMS: Twelve-point system obtained. Pertinent positives discussed in my history of present illness, otherwise noncontributory. All systems that were negative were reviewed as well. FAMILY HISTORY: Noncontributory to lungs. PHYSICAL EXAMINATION: GENERAL: He is awake, following commands. VITAL SIGNS: Blood pressure 100/70, afebrile, pulse ox 92% on 2 liters. HEENT: Sclerae nonicteric. NECK: Supple. LUNGS: Diminished breath sounds bilaterally, no wheezing. CARDIOVASCULAR: Regular rate and rhythm. ABDOMEN: Soft, nontender. EXTREMITIES: With no pitting edema. LABORATORY DATA: Reviewed. White cell count 5.7, hemoglobin 10.0, platelets are 242. BUN 14, creatinine 0.7. IMPRESSION: 1. Left lung pneumonia. This is a patient who is status post chemo 5 weeks ago for lung cancer and his CT chest from 04/14/2017 had shown ground-glass opacities in the upper lobes consistent with an infectious etiology and chest x-ray on 05/03/2017 is showing interstitial opacities in the left lung. Most likely this is consistent with infection and inflammatory etiology; however, the possibility of chemo-induced interstitial pneumonitis cannot be ruled out. We will obtain details of the chemo that he receives with Dr. Sun. 2. History of lung cancer with a left lower lobe cavitary mass. He had abnormal CT chest on 04/14/2017, which is showing increase in the size of the left upper lobe nodule, which is 2.5 cm now and there were a few new nodules and new ground-glass opacities in the upper lobes. We will continue to need followup CAT scan in the future. 3. Possible underlying chronic obstructive pulmonary disease. 4. Chest pains, undergoing cardiac catheterization now. 5. Dizziness and weakness. Could be secondary to underlying malignancy/pneumonia along with the use of hydrocodone. 6. History of chronic anticoagulation use secondary to prior strokes. RECOMMENDATIONS: 1. From a pulmonary standpoint, continue with present oxygen. 2. Empiric antibiotics to continue. 3. We will obtain details of the chemo and lung cancer stage from Dr. Sun's office. 4. We will need a followup CT chest in a few weeks. 5. Bronchodilators. 6. Follow up cardiac catheterization findings. 7. Minimize the use of narcotics. 8. Discussed with the patient's entire family. KOFFI HERNANDZE MD DR: HOLLIS/brenda JOB#: [id number] / [id number]
[2017-05-04] MEDS ORDERED: IODIXANOL 320 MG/ML 100 ML VIAL. IART ONE (11:00)
[2017-05-04] MEDS ORDERED: HEPARIN for IV BOLUS 10,000 UNIT/10 ML VIAL. IART ONE (11:00)
[2017-05-04] MEDS ORDERED: NITROGLYCERIN 200 MCG/2 ML SYRINGE FOR CATH/VASC LAB. IART ONE (11:00)
[2017-05-04] MEDS ORDERED: LIDOCAINE 2% 20 ML VIAL. IJ ONE (11:00)
[2017-05-04] MEDS ORDERED: MIDAZOLAM HCL/PF 2 MG/2 ML VIAL. IV ONE (11:00)
[2017-05-04] MEDS ORDERED: VERAPAMIL 5 MG/2 ML VIAL. IART ONE (11:00)
[2017-05-04] MEDS ORDERED: fentaNYL PF VIAL 100 MCG/2 ML VIAL IV ONE (11:00)
[2017-05-04] MEDS ORDERED: CONTRAST GIVEN MC PRN (11:15)
--- NOTE | 2017-05-04 13:50 | CARD ---
APPROVED REPORT Procedure(s) performed: Left heart catheterization, selective coronary angiography and selective angie ography of the bypass grafts Moderate Sedation: 67 Minutes INDICATION The indication(s) include : unstable angina . PROCEDURE NARRATIVE After explaining the risks, benefits and alternative options, informed consent was obtained from amarjit ent. Patient was brought to the [facility] and his left wrist was prepped and draped in the usua l fashion after confirming a positive modified Gregorio's test. Arterial access was obtained in the left radial artery and a 6 [place] sheath was inserted. 6 [place] JR4 catheter was used to perform selectiv e angiography of the left internal mammary artery graft to the left anterior descending artery. Sever al attempts to engage right coronary artery and the bypass grafts using the 6 [place] JR4 catheter wer e unsuccessful due to loss of torquability from left subclavian artery tortuosity. Hence a decision w as made to switch arterial access to right common femoral artery. 20 mL of 2% lidocaine was infiltrat ed into the skin and subcutaneous tissues of the right groin for local anesthesia. Arterial access wa s obtained in the right common femoral artery and 6 [place] sheath was inserted. 6 [place] JR4 catheter was used to perform selective angiography of the right coronary artery, saphenous vein graft to the diagonal branch, sequential saphenous vein graft to the ramus intermedius and obtuse marginal branch. 6 [place] artery probe was catheter was used to perform selective angiography of the saphenous vein g raft to the posterior descending branch of right coronary artery. 6 [place] JL4 catheter was used to p erform selective angiography of the left coronary artery. LVEDP and transaortic gradients were measur ed. Hemostasis was achieved using Angio-Seal in the right groin and TR band in the left wrist. Patien t tolerated the procedure well.There were no immediate complications. The following findings were not ed. FINDINGS 1. Left ventricle end-diastolic pressure 9 mmHg. No pullback gradient across the aortic valve. 2. Coronary and bypass graft angiography: a. The left main coronary artery arose from the left sinus of Valsalva, gave rise to the left anteri or descending and left circumflex arteries and showed 40% calcified stenosis in the distal segment. b. The left anterior descending artery showed 60% stenosis in the midsegment. c. The ramus intermedius artery showed complete occlusion in the proximal segment. d. The left circumflex artery showed 100% chronic occlusion in the proximal segment. e. The right coronary artery was a dominant vessel arising from the right sinus of Valsalva that ben wed 40% stenosis in the occiput segment. The posterior descending branch showed 70% stenosis in the p roximal segment. f. The left internal mammary artery graft to the left anterior descending artery was a medium calibe r vessel that showed 50% stenosis in the very proximal segment. Competitive flow is seen in the mid a nd distal segments from retrograde filling via [place] left anterior descending artery. g. The saphenous vein graft to the diagonal branch was widely patent. h. The sequential saphenous vein graft to the ramus intermedius artery and obtuse marginal branch of left circumflex artery was widely patent. i. The saphenous vein graft to the posterior descending branch of right coronary artery was widely p atent. Conclusion Coronary artery disease s/p coronary artery bypass surgery as described above with patent RUEDA to LAD , patent SVG to diagonal, patent sequential SVG to ramus intermedius and obtuse marginal branch and p atent saphenous vein graft to the right coronary artery. Recommendations Optimization of medical therapy.
[2017-05-04] MEDS: cefTRIAXone IV Push 1 GM VIAL. IVP SCH (13:52)
--- NOTE | 2017-05-04 13:57 | PDOC2 ---
CONSULT Date of Consult Date of Consult DATE: 05/04/17 TIME: 13:57 Reason for Consult Reason for Consult: Dyspnea Referring Physician Referring Physician: Dr. Herring Identification/Chief Complaint Chief Complaint Dyspnea Problems: Source Source: Chart review, Patient History of Present Illness Reason for Visit: 82 y/o male with history of lung cancer, CAD s/p CABG, PAD s/p surgical revascularization and paroxysmal atrial fibrillation was recently seen in our office 04/29/17 for chest pain and dyspnea on exertion and was scheduled for cardiac cath as outpatient. He however presented to ED yesterday with dyspnea and weakness and was diagnosed with pneumonia. He denied any palpitations or syncope. Past Medical History Cardiovascular: AFIB, CAD, HTN, Syncope, Other Pulmonary: COPD CENTRAL NERVOUS SYSTEM: Other GI: No pertinent hx Heme/Onc: No pertinent hx Hepatobiliary: No pertinent hx Psych: No pertinent hx Musculoskeletal: No pain Rheumatologic: No pertinent hx Infectious disease: No pertinent hx Renal/: UTI Endocrine: Diabetes Past Surgical History Past Surgical History: CABG, Tonsillectomy, Other Family History Family History: Cancer, Diabetes Social History ALCOHOL: other Drugs: None Lives: with Family Current Problem List Problem List Problems Medical Problems: (1) Left lower lobe pneumonia Status: Acute Current Medications Current Medications Current Medications Sodium Chloride 1,000 ml @ 1,000 mls/hr 1X ONCE IV Last administered on 05/03 12:35; Start 05/03/17 at 12:15; Stop 05/03/17 at 13:14; Status DC Ceftriaxone Sodium 50 ml @ 100 mls/hr 1X ONCE IV Last administered on 13:23; Start 05/03/17 at 13:15; Stop 05/03/17 at 13:44; Status DC Azithromycin 250 ml @ 250 mls/hr 1X ONCE IV Last administered on 05/03/17 13:58; Start 05/03/17 at 13:15; Stop 05/03/17 at 14:14; Status DC Ondansetron HCl (Zofran) 4 mg PRN Q8HRS PRN IV NAUSEA/VOMITING; Start at 13:45; Stop 05/04/17 at 13:44; Status DC Morphine Sulfate 4 mg PRN Q2HR PRN IV PAIN; Start 05/03/17 at 13:45; Stop 04/10 at 13:44; Status DC Nitroglycerin (Nitrostat) 0.4 mg PRN Q5MIN PRN SL CHEST PAIN; Start 05/03/17 at 13:45; Stop 05/04/17 at 13:44; Status DC Iodixanol (Visipaque 320) 100 ml STK-MED ONCE .ROUTE ; Start 05/04/17 at 09:54 ; Stop 05/04/17 at 09:55; Status DC Lidocaine HCl 20 ml STK-MED ONCE .ROUTE ; Start 05/04/17 at 09:54; Stop at 09:55; Status DC Heparin Sodium/ Sodium Chloride 500 ml @ As Directed STK-MED ONCE .ROUTE ; Start 05/04/17 at 09:54; Stop 05/04/17 at 09:55; Status DC Ceftriaxone Sodium 1 gm/ Dextrose 50 ml @ 100 mls/hr Q24H IV ; Start 05/04/17 at 10:45; Status UNV Ceftriaxone Sodium (Rocephin) 1 gm Q24H IVP Last administered on 05/04/17 13: 52; Start 05/04/17 at 11:00 Azithromycin (Zithromax) 250 mg DAILY PO ; Start 05/04/17 at 11:00; Stop 05/08 at 10:59 Nitroglycerin (Nitroglycerin) 200 mcg 1X ONCE IART Last administered on 11:08; Start 05/04/17 at 11:00; Stop 05/04/17 at 11:03; Status DC Verapamil HCl (Verapamil) 2.5 mg 1X ONCE IART Last administered on 05/04/17 11:08; Start 05/04/17 at 11:00; Stop 05/04/17 at 11:03; Status DC Heparin Sodium (Porcine) (Heparin Sodium) 2,500 unit 1X ONCE IART Last administered on 05/04/17 11:09; Start 05/04/17 at 11:00; Stop 05/04/17 at 11 :03; Status DC Heparin Sodium/ Sodium Chloride 1,000 unit 1X ONCE IART Last administered on 05/04/17 11:07; Start 05/04/17 at 11:00; Stop 05/04/17 at 11:03; Status DC Midazolam HCl (Versed) 1 mg 1X ONCE IV Last administered on 05/04/17 11:09; Start 05/04/17 at 11:00; Stop 05/04/17 at 11:03; Status DC Fentanyl Citrate (Fentanyl 2ml Vial) 50 mcg 1X ONCE IV Last administered on 11:09; Start 05/04/17 at 11:00; Stop 05/04/17 at 11:03; Status DC Iodixanol (Visipaque 320) 155 ml 1X ONCE IART Last administered on 05/04/17 11:08; Start 05/04/17 at 11:00; Stop 05/04/17 at 11:03; Status DC Lidocaine HCl 11 ml 1X ONCE IJ Last administered on 05/04/17 11:08; Start 05/04/17 at 11:00; Stop 05/04/17 at 11:03; Status DC Info (Do NOT chart on this entry -- for MONITORING) 1 each PRN DAILY PRN MC SEE COMMENTS; Start 05/04/17 at 11:15; Stop 05/06/17 at 11:14 Active Scripts Active Novolog Flexpen (Insulin Aspart) 100 Unit/1 Ml Insuln.pen 0 Units SQ TIDWMEALS 30 Days Digoxin 250 Mcg Tablet 250 Mcg PO DAILY Reported Guaifenesin 600 Mg Tablet.er 600 Mg PO BID Metoprolol Succinate ( Xl ) (Metoprolol Succinate) 25 Mg Tab.er.24h 50 Mg PO BID Tessalon Perle (Benzonatate) 100 Mg Capsule 1 Cap PO TID Melatonin 3 Mg Tablet 10 Mg PO HS Lantus Solostar (Insulin Glargine,Hum.rec.anlog) 100 Unit/1 Ml Insuln.pen 25 Unit SQ QHS Lyrica (Pregabalin) 75 Mg Capsule 75 Mg PO BID Eliquis (Apixaban) 5 Mg Tablet 5 Mg PO BID Osteo Bi-Flex Caplet (Glucosamine/D3/Boswellia Shruthi) 1 Each Tablet 1 Each PO DAILY Vitamin B-12 (Cyanocobalamin (Vitamin B-12)) 1,000 Mcg Tablet 1 Tab PO DAILY [place] ([place] Fruit) 450 Mg Capsule 450 Mg PO DAILY Lipitor (Atorvastatin Calcium) 40 Mg Tablet 40 Mg PO HS Carbidopa-Levodopa 10-100 Tab (Carbidopa/Levodopa) 1 Each Tablet 1 Each PO DAILY Metformin Hcl 1,000 Mg Tablet 1,000 Mg PO BID Prilosec (Omeprazole) 20 Mg Capsule.dr 20 Mg PO DAILY Allergies Allergies: Coded Allergies: No Known Medication Allergies (Verified Allergy, Unknown, 12/29/16) ROS PSYCHOLOGICAL ROS: No: Hallucinations Eyes: No Loss of vision HEENT: No: Epistaxis Respiratory: YES: Cough, Shortness of breath Cardiovascular: yes Chest Pain Gastrointestinal: No Vomiting Genitourinary: No Hematuria Neurological: No Seizures Skin: No Rash Physical Exam General: Alert, No acute distress HEENT: Atraumatic, PERRLA, EOMI Lungs: Other (scattered crepts) Heart: Regular rate Abdomen: Soft Extremities: Other (trace edema) Psych/Mental Status: Mood NL Vitals VITALS Vital Signs Date Time Temp Pulse Resp B/P (MAP) Pulse Ox O2 Delivery O2 Flow Rate FiO2 05/04/17 13:45 109 18 106/73 (84) 99 Room Air 05/04/17 13:09 4.0 05/04/17 07:00 97.9 97.9 Labs Labs Laboratory Tests Test 05/03/17 12:15 05/03/17 12:27 05/03/17 13:29 05/03/17 14:59 Sodium Level 137 mmol/L (136-145) Potassium Level 4.5 mmol/L (3.5-5.1) Chloride Level 98 mmol/L (98-107) Carbon Dioxide Level 27 mmol/L (21-32) Anion Gap 12 (6-14) Blood Urea Nitrogen 22 mg/dL (8-26) Creatinine 0.8 mg/dL (0.7-1.3) Estimated GFR (Cockcroft-Gault) 92.8 BUN/Creatinine Ratio 28 (6-20) Glucose Level 256 mg/dL (70-99) Lactic Acid Level 1.7 mmol/L (0.4-2.0) Calcium Level 8.8 mg/dL (8.5-10.1) Total Bilirubin 0.6 mg/dL (0.2-1.0) Aspartate Amino Transf (AST/SGOT) 52 U/L (15-37) Alanine Aminotransferase (ALT/SGPT) 18 U/L (16-63) Alkaline Phosphatase 139 U/L (46-116) Troponin I Quantitative < 0.017 ng/mL (0.000-0.055) QU-Cgd-L-Type Natriuretic Peptide 1788 pg/mL (0-449) Total Protein 7.2 g/dL (6.4-8.2) Albumin 2.2 g/dL (3.4-5.0) Albumin/Globulin Ratio 0.4 (1.0-1.7) Urine Collection Type Void Urine Color Yellow Urine Clarity Clear Urine pH 6.0 Urine Specific [place] 1.025 Urine Protein 30 mg/dL (NEG-TRACE) Urine Glucose (UA) 100 mg/dL (NEG) Urine Ketones (Stick) Trace mg/dL (NEG) Urine Blood Negative (NEG) Urine Nitrite Negative (NEG) Urine Bilirubin Negative (NEG) Urine Urobilinogen Dipstick 1.0 mg/dL (0.2 mg/dL) Urine Leukocyte Esterase Large (NEG) Urine RBC 1-2 /HPF (0-2) Urine WBC >40 /HPF (0-4) Urine Squamous Epithelial Cells Few /LPF Urine Bacteria 0 /HPF (0-FEW) Urine Mucus Slight /LPF White Blood Count 6.7 x10^3/uL (4.0-11.0) Red Blood Count 3.72 x10^6/uL (4.30-5.70) Hemoglobin 10.2 g/dL (13.0-17.5) Hematocrit 31.4 % (39.0-53.0) Mean Corpuscular Volume 85 fL (79-100) Mean Corpuscular Hemoglobin 27 pg (25-35) Mean Corpuscular Hemoglobin Concent 32 g/dL (31-37) Red Cell Distribution Width 17.9 % (11.5-14.5) Platelet Count 240 x10^3/uL (140-400) Neutrophils (%) (Auto) 77 % (31-73) Lymphocytes (%) (Auto) 7 % (24-48) Monocytes (%) (Auto) 13 % (0-9) Eosinophils (%) (Auto) 3 % (0-3) Basophils (%) (Auto) 0 % (0-3) Neutrophils # (Auto) 5.2 x10^3uL (1.8-7.7) Lymphocytes # (Auto) 0.5 x10^3/uL (1.0-4.8) Monocytes # (Auto) 0.8 x10^3/uL (0.0-1.1) Eosinophils # (Auto) 0.2 x10^3/uL (0.0-0.7) Basophils # (Auto) 0.0 x10^3/uL (0.0-0.2) Glucose (Fingerstick) 203 mg/dL (70-99) Test 05/03/17 15:25 05/03/17 17:16 05/03/17 19:25 05/03/17 21:01 Lactic Acid Level 0.9 mmol/L (0.4-2.0) Glucose (Fingerstick) 231 mg/dL (70-99) 249 mg/dL (70-99) Troponin I Quantitative 0.022 ng/mL (0.000-0.055) Test 05/04/17 01:30 05/04/17 07:26 White Blood Count 5.7 x10^3/uL (4.0-11.0) Red Blood Count 3.69 x10^6/uL (4.30-5.70) Hemoglobin 10.0 g/dL (13.0-17.5) Hematocrit 31.3 % (39.0-53.0) Mean Corpuscular Volume 85 fL (79-100) Mean Corpuscular Hemoglobin 27 pg (25-35) Mean Corpuscular Hemoglobin Concent 32 g/dL (31-37) Red Cell Distribution Width 18.2 % (11.5-14.5) Platelet Count 242 x10^3/uL (140-400) Neutrophils (%) (Auto) 70 % (31-73) Lymphocytes (%) (Auto) 9 % (24-48) Monocytes (%) (Auto) 15 % (0-9) Eosinophils (%) (Auto) 6 % (0-3) Basophils (%) (Auto) 1 % (0-3) Neutrophils # (Auto) 4.0 x10^3uL (1.8-7.7) Lymphocytes # (Auto) 0.5 x10^3/uL (1.0-4.8) Monocytes # (Auto) 0.8 x10^3/uL (0.0-1.1) Eosinophils # (Auto) 0.3 x10^3/uL (0.0-0.7) Basophils # (Auto) 0.0 x10^3/uL (0.0-0.2) Sodium Level 140 mmol/L (136-145) Potassium Level 4.1 mmol/L (3.5-5.1) Chloride Level 103 mmol/L (98-107) Carbon Dioxide Level 27 mmol/L (21-32) Anion Gap 10 (6-14) Blood Urea Nitrogen 14 mg/dL (8-26) Creatinine 0.7 mg/dL (0.7-1.3) Estimated GFR (Cockcroft-Gault) 108.2 Glucose Level 238 mg/dL (70-99) Calcium Level 8.3 mg/dL (8.5-10.1) Troponin I Quantitative 0.021 ng/mL (0.000-0.055) Glucose (Fingerstick) 224 mg/dL (70-99) Laboratory Tests Test 05/03/17 14:59 05/03/17 15:25 05/03/17 17:16 05/03/17 19:25 Glucose (Fingerstick) 203 mg/dL (70-99) 231 mg/dL (70-99) Lactic Acid Level 0.9 mmol/L (0.4-2.0) Troponin I Quantitative 0.022 ng/mL (0.000-0.055) Test 05/03/17 21:01 05/04/17 01:30 05/04/17 07:26 Glucose (Fingerstick) 249 mg/dL (70-99) 224 mg/dL (70-99) White Blood Count 5.7 x10^3/uL (4.0-11.0) Red Blood Count 3.69 x10^6/uL (4.30-5.70) Hemoglobin 10.0 g/dL (13.0-17.5) Hematocrit 31.3 % (39.0-53.0) Mean Corpuscular Volume 85 fL (79-100) Mean Corpuscular Hemoglobin 27 pg (25-35) Mean Corpuscular Hemoglobin Concent 32 g/dL (31-37) Red Cell Distribution Width 18.2 % (11.5-14.5) Platelet Count 242 x10^3/uL (140-400) Neutrophils (%) (Auto) 70 % (31-73) Lymphocytes (%) (Auto) 9 % (24-48) Monocytes (%) (Auto) 15 % (0-9) Eosinophils (%) (Auto) 6 % (0-3) Basophils (%) (Auto) 1 % (0-3) Neutrophils # (Auto) 4.0 x10^3uL (1.8-7.7) Lymphocytes # (Auto) 0.5 x10^3/uL (1.0-4.8) Monocytes # (Auto) 0.8 x10^3/uL (0.0-1.1) Eosinophils # (Auto) 0.3 x10^3/uL (0.0-0.7) Basophils # (Auto) 0.0 x10^3/uL (0.0-0.2) Sodium Level 140 mmol/L (136-145) Potassium Level 4.1 mmol/L (3.5-5.1) Chloride Level 103 mmol/L (98-107) Carbon Dioxide Level 27 mmol/L (21-32) Anion Gap 10 (6-14) Blood Urea Nitrogen 14 mg/dL (8-26) Creatinine 0.7 mg/dL (0.7-1.3) Estimated GFR (Cockcroft-Gault) 108.2 Glucose Level 238 mg/dL (70-99) Calcium Level 8.3 mg/dL (8.5-10.1) Troponin I Quantitative 0.021 ng/mL (0.000-0.055) Assessment/Plan Assessment/Plan 1. Pneumonia: continue IV antibiotics. Pulm following 2. CAD s/p CABG presently with symptoms suspicious for unstable angina. Plan for cardiac cath as previously planned today. Continue current secondary prevention measures 3. PAD s/p surgical revasc: stable without any claudication 4. Parox atrial fibrillation: resume eliquis after cardiac cath 5. HTN: controlled 6. HLP: statins 7. DM-2: treat per IM Thank you for your consultation. BAKARI GARCIA MD May 04, 2017 13:57
[2017-05-04] MEDS: AZITHROMYCIN 250 MG TABLET. PO SCH (14:17)
[2017-05-04] MEDS ORDERED: DEXTROSE 50% 25 GM / 50ML DISP.SYRIN. IV PRN (14:30)
--- NOTE | 2017-05-04 15:44 | PDOC ---
PROGRESS NOTES Chief Complaint Chief Complaint dyspnea pneumonia acute on chronic diastolic CHF lung cancer hypoxia Hx CVA, weakness and debility History of Present Illness History of Present Illness cardiac cath today, problems stable PULM following, cont ABx OOB, PT Vitals Vitals Vital Signs Date Time Temp Pulse Resp B/P (MAP) Pulse Ox O2 Delivery O2 Flow Rate FiO2 05/04/17 14:30 108 18 105/70 (82) 100 Room Air 05/04/17 13:09 4.0 05/04/17 07:00 97.9 97.9 Physical Exam General: Alert, Oriented X3, No acute distress Heart: Regular rate, No murmurs Lungs: Other (dull bases, no wheeze, ) Abdomen: Soft, No hepatosplenomegaly Extremities: Normal pulses Skin: No rashes Labs LABS Laboratory Tests Test 05/03/17 17:16 05/03/17 19:25 05/03/17 21:01 05/04/17 01:30 Glucose (Fingerstick) 231 mg/dL (70-99) 249 mg/dL (70-99) Troponin I Quantitative 0.022 ng/mL (0.000-0.055) 0.021 ng/mL (0.000-0.055) White Blood Count 5.7 x10^3/uL (4.0-11.0) Red Blood Count 3.69 x10^6/uL (4.30-5.70) Hemoglobin 10.0 g/dL (13.0-17.5) Hematocrit 31.3 % (39.0-53.0) Mean Corpuscular Volume 85 fL (79-100) Mean Corpuscular Hemoglobin 27 pg (25-35) Mean Corpuscular Hemoglobin Concent 32 g/dL (31-37) Red Cell Distribution Width 18.2 % (11.5-14.5) Platelet Count 242 x10^3/uL (140-400) Neutrophils (%) (Auto) 70 % (31-73) Lymphocytes (%) (Auto) 9 % (24-48) Monocytes (%) (Auto) 15 % (0-9) Eosinophils (%) (Auto) 6 % (0-3) Basophils (%) (Auto) 1 % (0-3) Neutrophils # (Auto) 4.0 x10^3uL (1.8-7.7) Lymphocytes # (Auto) 0.5 x10^3/uL (1.0-4.8) Monocytes # (Auto) 0.8 x10^3/uL (0.0-1.1) Eosinophils # (Auto) 0.3 x10^3/uL (0.0-0.7) Basophils # (Auto) 0.0 x10^3/uL (0.0-0.2) Sodium Level 140 mmol/L (136-145) Potassium Level 4.1 mmol/L (3.5-5.1) Chloride Level 103 mmol/L (98-107) Carbon Dioxide Level 27 mmol/L (21-32) Anion Gap 10 (6-14) Blood Urea Nitrogen 14 mg/dL (8-26) Creatinine 0.7 mg/dL (0.7-1.3) Estimated GFR (Cockcroft-Gault) 108.2 Glucose Level 238 mg/dL (70-99) Calcium Level 8.3 mg/dL (8.5-10.1) Test 05/04/17 07:26 Glucose (Fingerstick) 224 mg/dL (70-99) Review of Systems Review of Systems no n,.v.d Assessment and Plan Assessmemt and Plan Problems Medical Problems: (1) Left lower lobe pneumonia Status: Acute Problems: Comment Review of Relevant I have reviewed the following items katie (where applicable) has been applied. Labs Laboratory Tests Test 05/03/17 12:15 05/03/17 12:27 05/03/17 13:29 05/03/17 14:59 Sodium Level 137 mmol/L (136-145) Potassium Level 4.5 mmol/L (3.5-5.1) Chloride Level 98 mmol/L (98-107) Carbon Dioxide Level 27 mmol/L (21-32) Anion Gap 12 (6-14) Blood Urea Nitrogen 22 mg/dL (8-26) Creatinine 0.8 mg/dL (0.7-1.3) Estimated GFR (Cockcroft-Gault) 92.8 BUN/Creatinine Ratio 28 (6-20) Glucose Level 256 mg/dL (70-99) Lactic Acid Level 1.7 mmol/L (0.4-2.0) Calcium Level 8.8 mg/dL (8.5-10.1) Total Bilirubin 0.6 mg/dL (0.2-1.0) Aspartate Amino Transf (AST/SGOT) 52 U/L (15-37) Alanine Aminotransferase (ALT/SGPT) 18 U/L (16-63) Alkaline Phosphatase 139 U/L (46-116) Troponin I Quantitative < 0.017 ng/mL (0.000-0.055) XZ-Har-E-Type Natriuretic Peptide 1788 pg/mL (0-449) Total Protein 7.2 g/dL (6.4-8.2) Albumin 2.2 g/dL (3.4-5.0) Albumin/Globulin Ratio 0.4 (1.0-1.7) Urine Collection Type Void Urine Color Yellow Urine Clarity Clear Urine pH 6.0 Urine Specific [place] 1.025 Urine Protein 30 mg/dL (NEG-TRACE) Urine Glucose (UA) 100 mg/dL (NEG) Urine Ketones (Stick) Trace mg/dL (NEG) Urine Blood Negative (NEG) Urine Nitrite Negative (NEG) Urine Bilirubin Negative (NEG) Urine Urobilinogen Dipstick 1.0 mg/dL (0.2 mg/dL) Urine Leukocyte Esterase Large (NEG) Urine RBC 1-2 /HPF (0-2) Urine WBC >40 /HPF (0-4) Urine Squamous Epithelial Cells Few /LPF Urine Bacteria 0 /HPF (0-FEW) Urine Mucus Slight /LPF White Blood Count 6.7 x10^3/uL (4.0-11.0) Red Blood Count 3.72 x10^6/uL (4.30-5.70) Hemoglobin 10.2 g/dL (13.0-17.5) Hematocrit 31.4 % (39.0-53.0) Mean Corpuscular Volume 85 fL (79-100) Mean Corpuscular Hemoglobin 27 pg (25-35) Mean Corpuscular Hemoglobin Concent 32 g/dL (31-37) Red Cell Distribution Width 17.9 % (11.5-14.5) Platelet Count 240 x10^3/uL (140-400) Neutrophils (%) (Auto) 77 % (31-73) Lymphocytes (%) (Auto) 7 % (24-48) Monocytes (%) (Auto) 13 % (0-9) Eosinophils (%) (Auto) 3 % (0-3) Basophils (%) (Auto) 0 % (0-3) Neutrophils # (Auto) 5.2 x10^3uL (1.8-7.7) Lymphocytes # (Auto) 0.5 x10^3/uL (1.0-4.8) Monocytes # (Auto) 0.8 x10^3/uL (0.0-1.1) Eosinophils # (Auto) 0.2 x10^3/uL (0.0-0.7) Basophils # (Auto) 0.0 x10^3/uL (0.0-0.2) Glucose (Fingerstick) 203 mg/dL (70-99) Test 05/03/17 15:25 05/03/17 17:16 05/03/17 19:25 05/03/17 21:01 Lactic Acid Level 0.9 mmol/L (0.4-2.0) Glucose (Fingerstick) 231 mg/dL (70-99) 249 mg/dL (70-99) Troponin I Quantitative 0.022 ng/mL (0.000-0.055) Test 05/04/17 01:30 05/04/17 07:26 White Blood Count 5.7 x10^3/uL (4.0-11.0) Red Blood Count 3.69 x10^6/uL (4.30-5.70) Hemoglobin 10.0 g/dL (13.0-17.5) Hematocrit 31.3 % (39.0-53.0) Mean Corpuscular Volume 85 fL (79-100) Mean Corpuscular Hemoglobin 27 pg (25-35) Mean Corpuscular Hemoglobin Concent 32 g/dL (31-37) Red Cell Distribution Width 18.2 % (11.5-14.5) Platelet Count 242 x10^3/uL (140-400) Neutrophils (%) (Auto) 70 % (31-73) Lymphocytes (%) (Auto) 9 % (24-48) Monocytes (%) (Auto) 15 % (0-9) Eosinophils (%) (Auto) 6 % (0-3) Basophils (%) (Auto) 1 % (0-3) Neutrophils # (Auto) 4.0 x10^3uL (1.8-7.7) Lymphocytes # (Auto) 0.5 x10^3/uL (1.0-4.8) Monocytes # (Auto) 0.8 x10^3/uL (0.0-1.1) Eosinophils # (Auto) 0.3 x10^3/uL (0.0-0.7) Basophils # (Auto) 0.0 x10^3/uL (0.0-0.2) Sodium Level 140 mmol/L (136-145) Potassium Level 4.1 mmol/L (3.5-5.1) Chloride Level 103 mmol/L (98-107) Carbon Dioxide Level 27 mmol/L (21-32) Anion Gap 10 (6-14) Blood Urea Nitrogen 14 mg/dL (8-26) Creatinine 0.7 mg/dL (0.7-1.3) Estimated GFR (Cockcroft-Gault) 108.2 Glucose Level 238 mg/dL (70-99) Calcium Level 8.3 mg/dL (8.5-10.1) Troponin I Quantitative 0.021 ng/mL (0.000-0.055) Glucose (Fingerstick) 224 mg/dL (70-99) Laboratory Tests Test 05/03/17 17:16 05/03/17 19:25 05/03/17 21:01 05/04/17 01:30 Glucose (Fingerstick) 231 mg/dL (70-99) 249 mg/dL (70-99) Troponin I Quantitative 0.022 ng/mL (0.000-0.055) 0.021 ng/mL (0.000-0.055) White Blood Count 5.7 x10^3/uL (4.0-11.0) Red Blood Count 3.69 x10^6/uL (4.30-5.70) Hemoglobin 10.0 g/dL (13.0-17.5) Hematocrit 31.3 % (39.0-53.0) Mean Corpuscular Volume 85 fL (79-100) Mean Corpuscular Hemoglobin 27 pg (25-35) Mean Corpuscular Hemoglobin Concent 32 g/dL (31-37) Red Cell Distribution Width 18.2 % (11.5-14.5) Platelet Count 242 x10^3/uL (140-400) Neutrophils (%) (Auto) 70 % (31-73) Lymphocytes (%) (Auto) 9 % (24-48) Monocytes (%) (Auto) 15 % (0-9) Eosinophils (%) (Auto) 6 % (0-3) Basophils (%) (Auto) 1 % (0-3) Neutrophils # (Auto) 4.0 x10^3uL (1.8-7.7) Lymphocytes # (Auto) 0.5 x10^3/uL (1.0-4.8) Monocytes # (Auto) 0.8 x10^3/uL (0.0-1.1) Eosinophils # (Auto) 0.3 x10^3/uL (0.0-0.7) Basophils # (Auto) 0.0 x10^3/uL (0.0-0.2) Sodium Level 140 mmol/L (136-145) Potassium Level 4.1 mmol/L (3.5-5.1) Chloride Level 103 mmol/L (98-107) Carbon Dioxide Level 27 mmol/L (21-32) Anion Gap 10 (6-14) Blood Urea Nitrogen 14 mg/dL (8-26) Creatinine 0.7 mg/dL (0.7-1.3) Estimated GFR (Cockcroft-Gault) 108.2 Glucose Level 238 mg/dL (70-99) Calcium Level 8.3 mg/dL (8.5-10.1) Test 05/04/17 07:26 Glucose (Fingerstick) 224 mg/dL (70-99) Microbiology 05/03/17 Blood Culture - Preliminary, Resulted NO GROWTH AFTER 1 DAY 05/03/17 Urine Culture - Preliminary, Resulted 05/03/17 Urine Culture Result 1 (SWAPNIL) - Preliminary, Resulted Medications Current Medications Sodium Chloride 1,000 ml @ 1,000 mls/hr 1X ONCE IV Last administered on 05/03 12:35; Start 05/03/17 at 12:15; Stop 05/03/17 at 13:14; Status DC Ceftriaxone Sodium 50 ml @ 100 mls/hr 1X ONCE IV Last administered on 13:23; Start 05/03/17 at 13:15; Stop 05/03/17 at 13:44; Status DC Azithromycin 250 ml @ 250 mls/hr 1X ONCE IV Last administered on 05/03/17 13:58; Start 05/03/17 at 13:15; Stop 05/03/17 at 14:14; Status DC Ondansetron HCl (Zofran) 4 mg PRN Q8HRS PRN IV NAUSEA/VOMITING; Start at 13:45; Stop 05/04/17 at 13:44; Status DC Morphine Sulfate 4 mg PRN Q2HR PRN IV PAIN; Start 05/03/17 at 13:45; Stop 04/10 at 13:44; Status DC Nitroglycerin (Nitrostat) 0.4 mg PRN Q5MIN PRN SL CHEST PAIN; Start 05/03/17 at 13:45; Stop 05/04/17 at 13:44; Status DC Iodixanol (Visipaque 320) 100 ml STK-MED ONCE .ROUTE ; Start 05/04/17 at 09:54 ; Stop 05/04/17 at 09:55; Status DC Lidocaine HCl 20 ml STK-MED ONCE .ROUTE ; Start 05/04/17 at 09:54; Stop at 09:55; Status DC Heparin Sodium/ Sodium Chloride 500 ml @ As Directed STK-MED ONCE .ROUTE ; Start 05/04/17 at 09:54; Stop 05/04/17 at 09:55; Status DC Ceftriaxone Sodium 1 gm/ Dextrose 50 ml @ 100 mls/hr Q24H IV ; Start 05/04/17 at 10:45; Status UNV Ceftriaxone Sodium (Rocephin) 1 gm Q24H IVP Last administered on 05/04/17 13: 52; Start 05/04/17 at 11:00 Azithromycin (Zithromax) 250 mg DAILY PO Last administered on 05/04/17 14:17 ; Start 05/04/17 at 11:00; Stop 05/08/17 at 10:59 Nitroglycerin (Nitroglycerin) 200 mcg 1X ONCE IART Last administered on 11:08; Start 05/04/17 at 11:00; Stop 05/04/17 at 11:03; Status DC Verapamil HCl (Verapamil) 2.5 mg 1X ONCE IART Last administered on 05/04/17 11:08; Start 05/04/17 at 11:00; Stop 05/04/17 at 11:03; Status DC Heparin Sodium (Porcine) (Heparin Sodium) 2,500 unit 1X ONCE IART Last administered on 05/04/17 11:09; Start 05/04/17 at 11:00; Stop 05/04/17 at 11 :03; Status DC Heparin Sodium/ Sodium Chloride 1,000 unit 1X ONCE IART Last administered on 05/04/17 11:07; Start 05/04/17 at 11:00; Stop 05/04/17 at 11:03; Status DC Midazolam HCl (Versed) 1 mg 1X ONCE IV Last administered on 05/04/17 11:09; Start 05/04/17 at 11:00; Stop 05/04/17 at 11:03; Status DC Fentanyl Citrate (Fentanyl 2ml Vial) 50 mcg 1X ONCE IV Last administered on 11:09; Start 05/04/17 at 11:00; Stop 05/04/17 at 11:03; Status DC Iodixanol (Visipaque 320) 155 ml 1X ONCE IART Last administered on 05/04/17 11:08; Start 05/04/17 at 11:00; Stop 05/04/17 at 11:03; Status DC Lidocaine HCl 11 ml 1X ONCE IJ Last administered on 05/04/17 11:08; Start 05/04/17 at 11:00; Stop 05/04/17 at 11:03; Status DC Info (Do NOT chart on this entry -- for MONITORING) 1 each PRN DAILY PRN MC SEE COMMENTS; Start 05/04/17 at 11:15; Stop 05/06/17 at 11:14 Insulin Aspart (NovoLOG) 0-7 UNITS TIDWMEALS SQ ; Start 05/04/17 at 17:00 Dextrose (Dextrose 50%-Water Syringe) 12.5 gm PRN Q15MIN PRN IV SEE COMMENTS; Start 05/04/17 at 14:30 Insulin Detemir (Levemir) 6 units QHS SQ ; Start 05/04/17 at 21:00 Active Scripts Active Novolog Flexpen (Insulin Aspart) 100 Unit/1 Ml Insuln.pen 0 Units SQ TIDWMEALS 30 Days Digoxin 250 Mcg Tablet 250 Mcg PO DAILY Reported Guaifenesin 600 Mg Tablet.er 600 Mg PO BID Metoprolol Succinate ( Xl ) (Metoprolol Succinate) 25 Mg Tab.er.24h 50 Mg PO BID Tessalon Perle (Benzonatate) 100 Mg Capsule 1 Cap PO TID Melatonin 3 Mg Tablet 10 Mg PO HS Lantus Solostar (Insulin Glargine,Hum.rec.anlog) 100 Unit/1 Ml Insuln.pen 25 Unit SQ QHS Lyrica (Pregabalin) 75 Mg Capsule 75 Mg PO BID Eliquis (Apixaban) 5 Mg Tablet 5 Mg PO BID Osteo Bi-Flex Caplet (Glucosamine/D3/Boswellia Shruthi) 1 Each Tablet 1 Each PO DAILY Vitamin B-12 (Cyanocobalamin (Vitamin B-12)) 1,000 Mcg Tablet 1 Tab PO DAILY [place] (S[place] Fruit) 450 Mg Capsule 450 Mg PO DAILY Lipitor (Atorvastatin Calcium) 40 Mg Tablet 40 Mg PO HS Carbidopa-Levodopa 10-100 Tab (Carbidopa/Levodopa) 1 Each Tablet 1 Each PO DAILY Metformin Hcl 1,000 Mg Tablet 1,000 Mg PO BID Prilosec (Omeprazole) 20 Mg Capsule.dr 20 Mg PO DAILY Vitals/I & O Vital Sign - Last 24 Hours 05/03/17 05/03/17 05/03/17 05/04/17 19:00 20:00 23:00 02:48 Temp 97.1 97.3 97.5 97.1 97.3 97.5 Pulse 112 99 111 Resp 18 18 18 B/P (MAP) 89/64 (72) 98/72 (81) 90/66 (74) Pulse Ox 90 92 96 O2 Delivery Nasal Cannula Nasal Cannula Nasal Cannula Nasal Cannula O2 Flow Rate 2.0 2.0 2.0 2.0 05/04/17 05/04/17 05/04/17 05/04/17 07:00 11:04 11:08 11:09 Temp 97.9 97.9 Pulse 123 104 114 Resp 18 24 24 B/P (MAP) 100/70 (80) Pulse Ox 92 100 100 O2 Delivery Nasal Cannula Nasal Cannula Nasal Cannula O2 Flow Rate 2.0 4.0 4.0 05/04/17 05/04/17 05/04/17 05/04/17 11:24 11:37 11:39 11:50 Pulse 106 106 106 Resp 24 16 16 Pulse Ox 98 99 99 O2 Delivery Nasal Cannula Nasal Cannula Nasal Cannula Nasal Cannula O2 Flow Rate 4.0 4.0 3.0 4.0 05/04/17 05/04/17 05/04/17 05/04/17 12:07 12:22 12:36 12:52 Pulse 109 110 114 114 Resp 16 20 16 16 Pulse Ox 99 99 99 99 O2 Delivery Nasal Cannula Nasal Cannula Nasal Cannula Nasal Cannula O2 Flow Rate 4.0 4.0 4.0 4.0 05/04/17 05/04/17 05/04/17 05/04/17 13:00 13:09 13:30 13:45 Pulse 108 110 110 109 Resp 18 16 18 18 B/P (MAP) 85/55 (65) 103/69 (80) 106/73 (84) Pulse Ox 99 99 100 99 O2 Delivery Room Air Nasal Cannula Room Air Room Air O2 Flow Rate 4.0 05/04/17 05/04/17 14:00 14:30 Pulse 111 108 Resp 18 18 B/P (MAP) 107/74 (85) 105/70 (82) Pulse Ox 99 100 O2 Delivery Room Air Room Air Intake and Output 05/03/17 05/03/17 05/04/17 15:00 23:00 07:00 Intake Total 1050 ml Output Total 200 ml Balance 1050 ml -200 ml ROLANDO MYRICK MD May 04, 2017 15:44
[2017-05-04] MEDS: INSULIN ASPART 300 UNITS/3 ML INSULN.PEN SQ SCH (16:33)
[2017-05-04] MEDS: INSULIN DETEMIR 300 UNITS/3 ML INSULN.PEN. SQ SCH (21:24)
[2017-05-05 03:00] VITALS: BP 90/63
[2017-05-05 07:00] VITALS: BP 91/64
[2017-05-05] MEDS: AZITHROMYCIN 250 MG TABLET. PO SCH (08:16)
[2017-05-05] MEDS: INSULIN ASPART 300 UNITS/3 ML INSULN.PEN SQ SCH ×3 (08:20→17:03)
[2017-05-05 10:56] VITALS: BP 101/65
[2017-05-05] MEDS: cefTRIAXone IV Push 1 GM VIAL. IVP SCH (11:03)
--- NOTE | 2017-05-05 11:25 | PDOC ---
PULMONARY PROGRESS NOTES Subjective FEELS BETTER, WANTS TO GO HOME Vitals Vital Signs Date Time Temp Pulse Resp B/P (MAP) Pulse Ox O2 Delivery O2 Flow Rate FiO2 05/05/17 10:56 97.8 115 18 101/65 (77) 93 Nasal Cannula 2.0 97.8 General: Alert, No acute distress Lungs: Other (dull bases, no wheeze, ) Cardiovascular: S1, S2 Abdomen: Soft Neuro Exam: Alert Extremities: No Edema, Other Skin: Warm Labs Laboratory Tests Test 05/03/17 12:15 05/03/17 12:27 05/03/17 13:29 05/03/17 14:59 Sodium Level 137 mmol/L (136-145) Potassium Level 4.5 mmol/L (3.5-5.1) Chloride Level 98 mmol/L (98-107) Carbon Dioxide Level 27 mmol/L (21-32) Anion Gap 12 (6-14) Blood Urea Nitrogen 22 mg/dL (8-26) Creatinine 0.8 mg/dL (0.7-1.3) Estimated GFR (Cockcroft-Gault) 92.8 BUN/Creatinine Ratio 28 (6-20) Glucose Level 256 mg/dL (70-99) Lactic Acid Level 1.7 mmol/L (0.4-2.0) Calcium Level 8.8 mg/dL (8.5-10.1) Total Bilirubin 0.6 mg/dL (0.2-1.0) Aspartate Amino Transf (AST/SGOT) 52 U/L (15-37) Alanine Aminotransferase (ALT/SGPT) 18 U/L (16-63) Alkaline Phosphatase 139 U/L (46-116) Troponin I Quantitative < 0.017 ng/mL (0.000-0.055) QX-Ozh-E-Type Natriuretic Peptide 1788 pg/mL (0-449) Total Protein 7.2 g/dL (6.4-8.2) Albumin 2.2 g/dL (3.4-5.0) Albumin/Globulin Ratio 0.4 (1.0-1.7) Urine Collection Type Void Urine Color Yellow Urine Clarity Clear Urine pH 6.0 Urine Specific [place] 1.025 Urine Protein 30 mg/dL (NEG-TRACE) Urine Glucose (UA) 100 mg/dL (NEG) Urine Ketones (Stick) Trace mg/dL (NEG) Urine Blood Negative (NEG) Urine Nitrite Negative (NEG) Urine Bilirubin Negative (NEG) Urine Urobilinogen Dipstick 1.0 mg/dL (0.2 mg/dL) Urine Leukocyte Esterase Large (NEG) Urine RBC 1-2 /HPF (0-2) Urine WBC >40 /HPF (0-4) Urine Squamous Epithelial Cells Few /LPF Urine Bacteria 0 /HPF (0-FEW) Urine Mucus Slight /LPF White Blood Count 6.7 x10^3/uL (4.0-11.0) Red Blood Count 3.72 x10^6/uL (4.30-5.70) Hemoglobin 10.2 g/dL (13.0-17.5) Hematocrit 31.4 % (39.0-53.0) Mean Corpuscular Volume 85 fL (79-100) Mean Corpuscular Hemoglobin 27 pg (25-35) Mean Corpuscular Hemoglobin Concent 32 g/dL (31-37) Red Cell Distribution Width 17.9 % (11.5-14.5) Platelet Count 240 x10^3/uL (140-400) Neutrophils (%) (Auto) 77 % (31-73) Lymphocytes (%) (Auto) 7 % (24-48) Monocytes (%) (Auto) 13 % (0-9) Eosinophils (%) (Auto) 3 % (0-3) Basophils (%) (Auto) 0 % (0-3) Neutrophils # (Auto) 5.2 x10^3uL (1.8-7.7) Lymphocytes # (Auto) 0.5 x10^3/uL (1.0-4.8) Monocytes # (Auto) 0.8 x10^3/uL (0.0-1.1) Eosinophils # (Auto) 0.2 x10^3/uL (0.0-0.7) Basophils # (Auto) 0.0 x10^3/uL (0.0-0.2) Glucose (Fingerstick) 203 mg/dL (70-99) Test 05/03/17 15:25 05/03/17 17:16 05/03/17 19:25 05/03/17 21:01 Lactic Acid Level 0.9 mmol/L (0.4-2.0) Glucose (Fingerstick) 231 mg/dL (70-99) 249 mg/dL (70-99) Troponin I Quantitative 0.022 ng/mL (0.000-0.055) Test 05/04/17 01:30 05/04/17 07:26 05/04/17 13:31 05/04/17 16:14 White Blood Count 5.7 x10^3/uL (4.0-11.0) Red Blood Count 3.69 x10^6/uL (4.30-5.70) Hemoglobin 10.0 g/dL (13.0-17.5) Hematocrit 31.3 % (39.0-53.0) Mean Corpuscular Volume 85 fL (79-100) Mean Corpuscular Hemoglobin 27 pg (25-35) Mean Corpuscular Hemoglobin Concent 32 g/dL (31-37) Red Cell Distribution Width 18.2 % (11.5-14.5) Platelet Count 242 x10^3/uL (140-400) Neutrophils (%) (Auto) 70 % (31-73) Lymphocytes (%) (Auto) 9 % (24-48) Monocytes (%) (Auto) 15 % (0-9) Eosinophils (%) (Auto) 6 % (0-3) Basophils (%) (Auto) 1 % (0-3) Neutrophils # (Auto) 4.0 x10^3uL (1.8-7.7) Lymphocytes # (Auto) 0.5 x10^3/uL (1.0-4.8) Monocytes # (Auto) 0.8 x10^3/uL (0.0-1.1) Eosinophils # (Auto) 0.3 x10^3/uL (0.0-0.7) Basophils # (Auto) 0.0 x10^3/uL (0.0-0.2) Sodium Level 140 mmol/L (136-145) Potassium Level 4.1 mmol/L (3.5-5.1) Chloride Level 103 mmol/L (98-107) Carbon Dioxide Level 27 mmol/L (21-32) Anion Gap 10 (6-14) Blood Urea Nitrogen 14 mg/dL (8-26) Creatinine 0.7 mg/dL (0.7-1.3) Estimated GFR (Cockcroft-Gault) 108.2 Glucose Level 238 mg/dL (70-99) Calcium Level 8.3 mg/dL (8.5-10.1) Troponin I Quantitative 0.021 ng/mL (0.000-0.055) Glucose (Fingerstick) 224 mg/dL (70-99) 206 mg/dL (70-99) 231 mg/dL (70-99) Test 05/04/17 21:00 05/05/17 07:24 05/05/17 11:13 Glucose (Fingerstick) 244 mg/dL (70-99) 203 mg/dL (70-99) 292 mg/dL (70-99) Laboratory Tests Test 05/04/17 13:31 05/04/17 16:14 05/04/17 21:00 05/05/17 07:24 Glucose (Fingerstick) 206 mg/dL (70-99) 231 mg/dL (70-99) 244 mg/dL (70-99) 203 mg/dL (70-99) Test 05/05/17 11:13 Glucose (Fingerstick) 292 mg/dL (70-99) Medications Active Scripts Medications Dose Route/Sig Max Daily Dose Days Date Category Guaifenesin 600 Mg Tablet.er 600 Mg PO BID 05/03/17 Reported Metoprolol Succinate ( Xl ) (Metoprolol Succinate) 25 Mg Tab.er.24h 50 Mg PO BID 05/03/17 Reported Tessalon Perle (Benzonatate) 100 Mg Capsule 1 Cap PO TID 05/03/17 Reported Melatonin 3 Mg Tablet 10 Mg PO HS 05/03/17 Reported Lantus Solostar (Insulin Glargine,Hum.rec.anlog) 100 Unit/1 Ml Insuln.pen 25 Unit SQ QHS 04/23/17 Reported Novolog Flexpen (Insulin Aspart) 100 Unit/1 Ml Insuln.pen 0 Units SQ TIDWMEALS 30 03/26/17 Rx Digoxin 250 Mcg Tablet 250 Mcg PO DAILY 03/26/17 Rx Lyrica (Pregabalin) 75 Mg Capsule 75 Mg PO BID 03/09/17 Reported Eliquis (Apixaban) 5 Mg Tablet 5 Mg PO BID 03/02/17 Reported Osteo Bi-Flex Caplet (Glucosamine/D3/Boswellia Shruthi) 1 Each Tablet 1 Each PO DAILY 12/27/16 Reported Vitamin B-12 (Cyanocobalamin (Vitamin B-12)) 1,000 Mcg Tablet 1 Tab PO DAILY 12/27/16 Reported Saw [place] (S[place] Fruit) 450 Mg Capsule 450 Mg PO DAILY 12/21/15 Reported Lipitor (Atorvastatin Calcium) 40 Mg Tablet 40 Mg PO HS 11/03/14 Reported Carbidopa-Levodopa 10-100 Tab (Carbidopa/Levodopa) 1 Each Tablet 1 Each PO DAILY 03/01/14 Reported Metformin Hcl 1,000 Mg Tablet 1,000 Mg PO BID 10/17/13 Reported Prilosec (Omeprazole) 20 Mg Capsule. 20 Mg PO DAILY 10/17/13 Reported Impression . . Left lung pneumonia. This is a patient who is status post chemo 5 weeks ago for lung cancer, NSCLC, Stage IIIA, and his CT chest from 04/14/2017 had shown ground-glass opacities in the upper lobes consistent with an infectious etiology and chest x-ray on 05/03/2017 is showing interstitial opacities in the left lung. Most likely this is consistent with infection and inflammatory etiology; however, the possibility of chemo-induced interstitial pneumonitis cannot be ruled out. 2. History of lung cancer with a left lower lobe cavitary mass. He had abnormal CT chest on 04/14/2017, which is showing increase in the size of the left upper lobe nodule, which is 2.5 cm now and there were a few new nodules and new ground-glass opacities in the upper lobes. We will continue to need followup CAT scan in the future. 3. Possible underlying chronic obstructive pulmonary disease. 4. Chest pains, undergoing cardiac catheterization now. 5. Dizziness and weakness. Could be secondary to underlying malignancy/pneumonia along with the use of hydrocodone. 6. History of chronic anticoagulation use secondary to prior strokes. Plan . 1. From a pulmonary standpoint,he is better . wean off present oxygen. 2. Empiric antibiotics . can change to PO augmentin 3. d/w Dr Sun. He received carbo/ taxol on 03/20, less likely chemo induced pneumonitis. 4. We will need a followup CT chest as OP by Dr Sun 5. Bronchodilators. 6. s/p cardiac catheterization . no acute findings. 7. Minimize the use of narcotics. 8. Discussed with the patient's entire family. can go home today KOFFI HERNANDEZ MD May 05, 2017 11:25
[2017-05-05 14:50] VITALS: BP 102/64
[2017-05-05 19:00] VITALS: BP 97/75
--- NOTE | 2017-05-05 19:06 | PDOC ---
PROGRESS NOTES Chief Complaint Chief Complaint dyspnea, continues to feel very fatigued with activity pneumonia acute on chronic diastolic CHF lung cancer hypoxia Hx CVA, weakness and debility CHEMO INDUCED PNEUMONITIS CAD , need to optimize medical therapy Chief Complaint Chief Complaint dyspnea pneumonia acute on chronic diastolic CHF lung cancer hypoxia Hx CVA, weakness and debility History of Present Illness History of Present Illness cardiac cath today, problems stable PULM following, cont ABx OOB, PT Vitals Vitals Vital Signs Date Time Temp Pulse Resp B/P (MAP) Pulse Ox O2 Delivery O2 Flow Rate FiO2 05/04/17 14:30 108 18 105/70 (82) 100 Room Air 05/04/17 13:09 4.0 05/04/17 07:00 97.9 97.9 Physical Exam General: Alert, Oriented X3, No acute distress Heart: Regular rate, No murmurs Lungs: Other (dull bases, no wheeze, ) Abdomen: Soft, No hepatosplenomegaly Extremities: Normal pulses Skin: No rashes Labs History of Present Illness History of Present Illness cardiac cath PULM following, cont ABx OOB, PT Vitals Vitals Vital Signs Date Time Temp Pulse Resp B/P (MAP) Pulse Ox O2 Delivery O2 Flow Rate FiO2 05/05/17 14:50 97.8 109 18 102/64 (77) 94 Room Air 97.8 05/05/17 10:56 2.0 Physical Exam Physical Exam Lungs: Other (dull bases, still wheeze, ) Cardiovascular: S1, S2 Abdomen: Soft Neuro Exam: Alert Extremities: No Edema, Other Skin: Warm Procedure(s) performed: Left heart catheterization, selective coronary angiography and selective angiography of the bypass grafts Moderate Sedation: 67 Minutes INDICATION The indication(s) include : unstable angina . PROCEDURE NARRATIVE After explaining the risks, benefits and alternative options, informed consent was obtained from patient. Patient was brought to the [facility] [employer] and his left wrist was prepped and draped in the usual fashion after confirming a positive modified Gregorio's test. Arterial access was obtained in the left radial artery and a 6 [place] sheath was inserted. 6 [place] JR4 catheter was used to perform selective angiography of the left internal mammary artery graft to the left anterior descending artery. Several attempts to engage right coronary artery and the bypass grafts using the 6 [place] JR4 catheter were unsuccessful due to loss of torquability from left subclavian artery tortuosity. Hence a decision was made to switch arterial access to right common femoral artery. 20 mL of 2% lidocaine was infiltrated into the skin and subcutaneous tissues of the right groin for local anesthesia. Arterial access was obtained in the right common femoral artery and 6 [place] sheath was inserted. 6 [place] JR4 catheter was used to perform selective angiography of the right coronary artery, saphenous vein graft to the diagonal branch, sequential saphenous vein graft to the ramus intermedius and obtuse marginal branch. 6 [place] artery probe was catheter was used to perform selective angiography of the saphenous vein graft to the posterior descending branch of right coronary artery. 6 [place] JL4 catheter was used to perform selective angiography of the left coronary artery. LVEDP and transaortic gradients were measured. Hemostasis was achieved using Angio-Seal in the right groin and TR band in the left wrist. Patient tolerated the procedure well.There were no immediate complications. The following findings were noted. FINDINGS 1. Left ventricle end-diastolic pressure 9 mmHg. No pullback gradient across the aortic valve. 2. Coronary and bypass graft angiography: a. The left main coronary artery arose from the left sinus of Valsalva, gave rise to the left anterior descending and left circumflex arteries and showed 40 % calcified stenosis in the distal segment. b. The left anterior descending artery showed 60% stenosis in the midsegment. c. The ramus intermedius artery showed complete occlusion in the proximal segment. d. The left circumflex artery showed 100% chronic occlusion in the proximal segment. e. The right coronary artery was a dominant vessel arising from the right sinus of Valsalva that showed 40% stenosis in the occiput segment. The posterior descending branch showed 70% stenosis in the proximal segment. f. The left internal mammary artery graft to the left anterior descending artery was a medium caliber vessel that showed 50% stenosis in the very proximal segment. Competitive flow is seen in the mid and distal segments from retrograde filling via [place] left anterior descending artery. g. The saphenous vein graft to the diagonal branch was widely patent. h. The sequential saphenous vein graft to the ramus intermedius artery and obtuse marginal branch of left circumflex artery was widely patent. i. The saphenous vein graft to the posterior descending branch of right coronary artery was widely patent. Conclusion Coronary artery disease s/p coronary artery bypass surgery as described above with patent RUEDA to LAD, patent SVG to diagonal, patent sequential SVG to ramus intermedius and obtuse marginal branch and patent saphenous vein graft to the right coronary artery. Recommendations Optimization of medical therapy. General: Alert, No acute distress Heart: Regular rate Lungs: Other (dull bases, no wheeze, ) Abdomen: Soft Extremities: Other (trace edema) Skin: No rashes Labs LABS REASON: cough PROCEDURE: CHEST PA & LATERAL PA and lateral chest. History: Cough PA and lateral views were taken of the chest. There is a left lung infiltrate consistent with an acute pneumonia. Heart is normal in size with evidence of prior bypass. There is no pleural effusion. Impression: 1. Left lung pneumonia. DICTATED and SIGNED BY: SHIELA TOMLIN MD Laboratory Tests Test 05/04/17 21:00 05/05/17 07:24 05/05/17 11:13 05/05/17 16:08 Glucose (Fingerstick) 244 mg/dL (70-99) 203 mg/dL (70-99) 292 mg/dL (70-99) 189 mg/dL (70-99) Assessment and Plan Assessmemt and Plan Problems Medical Problems: (1) Left lower lobe pneumonia Status: Acute dyspnea pneumonia acute on chronic diastolic CHF lung cancer hypoxia Hx CVA, weakness and debility CHEMO INDUCED PNEUMONITIS CAD , need to optimize medical therapy follows with dr JEFFERSON, Oncology plan, cxr in am abg tonight Problems: Comment Review of Relevant I have reviewed the following items katie (where applicable) has been applied. Labs Laboratory Tests Test 05/03/17 19:25 05/03/17 21:01 05/04/17 01:30 05/04/17 07:26 Troponin I Quantitative 0.022 ng/mL (0.000-0.055) 0.021 ng/mL (0.000-0.055) Glucose (Fingerstick) 249 mg/dL (70-99) 224 mg/dL (70-99) White Blood Count 5.7 x10^3/uL (4.0-11.0) Red Blood Count 3.69 x10^6/uL (4.30-5.70) Hemoglobin 10.0 g/dL (13.0-17.5) Hematocrit 31.3 % (39.0-53.0) Mean Corpuscular Volume 85 fL (79-100) Mean Corpuscular Hemoglobin 27 pg (25-35) Mean Corpuscular Hemoglobin Concent 32 g/dL (31-37) Red Cell Distribution Width 18.2 % (11.5-14.5) Platelet Count 242 x10^3/uL (140-400) Neutrophils (%) (Auto) 70 % (31-73) Lymphocytes (%) (Auto) 9 % (24-48) Monocytes (%) (Auto) 15 % (0-9) Eosinophils (%) (Auto) 6 % (0-3) Basophils (%) (Auto) 1 % (0-3) Neutrophils # (Auto) 4.0 x10^3uL (1.8-7.7) Lymphocytes # (Auto) 0.5 x10^3/uL (1.0-4.8) Monocytes # (Auto) 0.8 x10^3/uL (0.0-1.1) Eosinophils # (Auto) 0.3 x10^3/uL (0.0-0.7) Basophils # (Auto) 0.0 x10^3/uL (0.0-0.2) Sodium Level 140 mmol/L (136-145) Potassium Level 4.1 mmol/L (3.5-5.1) Chloride Level 103 mmol/L (98-107) Carbon Dioxide Level 27 mmol/L (21-32) Anion Gap 10 (6-14) Blood Urea Nitrogen 14 mg/dL (8-26) Creatinine 0.7 mg/dL (0.7-1.3) Estimated GFR (Cockcroft-Gault) 108.2 Glucose Level 238 mg/dL (70-99) Calcium Level 8.3 mg/dL (8.5-10.1) Test 05/04/17 13:31 05/04/17 16:14 05/04/17 21:00 05/05/17 07:24 Glucose (Fingerstick) 206 mg/dL (70-99) 231 mg/dL (70-99) 244 mg/dL (70-99) 203 mg/dL (70-99) Test 05/05/17 11:13 05/05/17 16:08 Glucose (Fingerstick) 292 mg/dL (70-99) 189 mg/dL (70-99) Laboratory Tests Test 05/04/17 21:00 05/05/17 07:24 05/05/17 11:13 05/05/17 16:08 Glucose (Fingerstick) 244 mg/dL (70-99) 203 mg/dL (70-99) 292 mg/dL (70-99) 189 mg/dL (70-99) Microbiology 05/03/17 Blood Culture - Preliminary, Resulted NO GROWTH AFTER 2 DAYS 05/03/17 Urine Culture - Final, Complete 05/03/17 Urine Culture Result 1 (SWAPNIL) - Final, Complete Medications Current Medications Sodium Chloride 1,000 ml @ 1,000 mls/hr 1X ONCE IV Last administered on 05/03 12:35; Start 05/03/17 at 12:15; Stop 05/03/17 at 13:14; Status DC Ceftriaxone Sodium 50 ml @ 100 mls/hr 1X ONCE IV Last administered on 13:23; Start 05/03/17 at 13:15; Stop 05/03/17 at 13:44; Status DC Azithromycin 250 ml @ 250 mls/hr 1X ONCE IV Last administered on 05/03/17 13:58; Start 05/03/17 at 13:15; Stop 05/03/17 at 14:14; Status DC Ondansetron HCl (Zofran) 4 mg PRN Q8HRS PRN IV NAUSEA/VOMITING; Start at 13:45; Stop 05/04/17 at 13:44; Status DC Morphine Sulfate 4 mg PRN Q2HR PRN IV PAIN; Start 05/03/17 at 13:45; Stop 04/10 at 13:44; Status DC Nitroglycerin (Nitrostat) 0.4 mg PRN Q5MIN PRN SL CHEST PAIN; Start 05/03/17 at 13:45; Stop 05/04/17 at 13:44; Status DC Iodixanol (Visipaque 320) 100 ml STK-MED ONCE .ROUTE ; Start 05/04/17 at 09:54 ; Stop 05/04/17 at 09:55; Status DC Lidocaine HCl 20 ml STK-MED ONCE .ROUTE ; Start 05/04/17 at 09:54; Stop at 09:55; Status DC Heparin Sodium/ Sodium Chloride 500 ml @ As Directed STK-MED ONCE .ROUTE ; Start 05/04/17 at 09:54; Stop 05/04/17 at 09:55; Status DC Ceftriaxone Sodium 1 gm/ Dextrose 50 ml @ 100 mls/hr Q24H IV ; Start 05/04/17 at 10:45; Status UNV Ceftriaxone Sodium (Rocephin) 1 gm Q24H IVP Last administered on 05/05/17 11: 03; Start 05/04/17 at 11:00 Azithromycin (Zithromax) 250 mg DAILY PO Last administered on 05/05/17 08:16 ; Start 05/04/17 at 11:00; Stop 05/08/17 at 10:59 Nitroglycerin (Nitroglycerin) 200 mcg 1X ONCE IART Last administered on 11:08; Start 05/04/17 at 11:00; Stop 05/04/17 at 11:03; Status DC Verapamil HCl (Verapamil) 2.5 mg 1X ONCE IART Last administered on 05/04/17 11:08; Start 05/04/17 at 11:00; Stop 05/04/17 at 11:03; Status DC Heparin Sodium (Porcine) (Heparin Sodium) 2,500 unit 1X ONCE IART Last administered on 05/04/17 11:09; Start 05/04/17 at 11:00; Stop 05/04/17 at 11 :03; Status DC Heparin Sodium/ Sodium Chloride 1,000 unit 1X ONCE IART Last administered on 05/04/17 11:07; Start 05/04/17 at 11:00; Stop 05/04/17 at 11:03; Status DC Midazolam HCl (Versed) 1 mg 1X ONCE IV Last administered on 05/04/17 11:09; Start 05/04/17 at 11:00; Stop 05/04/17 at 11:03; Status DC Fentanyl Citrate (Fentanyl 2ml Vial) 50 mcg 1X ONCE IV Last administered on 11:09; Start 05/04/17 at 11:00; Stop 05/04/17 at 11:03; Status DC Iodixanol (Visipaque 320) 155 ml 1X ONCE IART Last administered on 05/04/17 11:08; Start 05/04/17 at 11:00; Stop 05/04/17 at 11:03; Status DC Lidocaine HCl 11 ml 1X ONCE IJ Last administered on 05/04/17 11:08; Start 05/04/17 at 11:00; Stop 05/04/17 at 11:03; Status DC Info (Do NOT chart on this entry -- for MONITORING) 1 each PRN DAILY PRN MC SEE COMMENTS; Start 05/04/17 at 11:15; Stop 05/06/17 at 11:14 Insulin Aspart (NovoLOG) 0-7 UNITS TIDWMEALS SQ Last administered on 17:03; Start 05/04/17 at 17:00 Dextrose (Dextrose 50%-Water Syringe) 12.5 gm PRN Q15MIN PRN IV SEE COMMENTS; Start 05/04/17 at 14:30 Insulin Detemir (Levemir) 6 units QHS SQ Last administered on 05/04/17 21:24 ; Start 05/04/17 at 21:00 Active Scripts Active Novolog Flexpen (Insulin Aspart) 100 Unit/1 Ml Insuln.pen 0 Units SQ TIDWMEALS 30 Days Digoxin 250 Mcg Tablet 250 Mcg PO DAILY Reported Guaifenesin 600 Mg Tablet.er 600 Mg PO BID Metoprolol Succinate ( Xl ) (Metoprolol Succinate) 25 Mg Tab.er.24h 50 Mg PO BID Tessalon Perle (Benzonatate) 100 Mg Capsule 1 Cap PO TID Melatonin 3 Mg Tablet 10 Mg PO HS Lantus Solostar (Insulin Glargine,Hum.rec.anlog) 100 Unit/1 Ml Insuln.pen 25 Unit SQ QHS Lyrica (Pregabalin) 75 Mg Capsule 75 Mg PO BID Eliquis (Apixaban) 5 Mg Tablet 5 Mg PO BID Osteo Bi-Flex Caplet (Glucosamine/D3/Boswellia Shruthi) 1 Each Tablet 1 Each PO DAILY Vitamin B-12 (Cyanocobalamin (Vitamin B-12)) 1,000 Mcg Tablet 1 Tab PO DAILY [place] (S[place] Fruit) 450 Mg Capsule 450 Mg PO DAILY Lipitor (Atorvastatin Calcium) 40 Mg Tablet 40 Mg PO HS Carbidopa-Levodopa 10-100 Tab (Carbidopa/Levodopa) 1 Each Tablet 1 Each PO DAILY Metformin Hcl 1,000 Mg Tablet 1,000 Mg PO BID Prilosec (Omeprazole) 20 Mg Capsule.dr 20 Mg PO DAILY Vitals/I & O Vital Sign - Last 24 Hours 05/04/17 05/04/17 05/05/17 05/05/17 20:00 23:00 03:00 07:00 Temp 97.9 97.7 97.8 97.9 97.7 97.8 Pulse 16 72 113 Resp 16 17 18 B/P (MAP) 99/69 (79) 90/63 (72) 91/64 (73) Pulse Ox 94 93 93 O2 Delivery Nasal Cannula Room Air Room Air Nasal Cannula O2 Flow Rate 4.0 2.0 05/05/17 05/05/17 05/05/17 08:00 10:56 14:50 Temp 97.8 97.8 97.8 97.8 Pulse 115 109 Resp 18 18 B/P (MAP) 101/65 (77) 102/64 (77) Pulse Ox 93 94 O2 Delivery Room Air Nasal Cannula Room Air O2 Flow Rate 2.0 Intake and Output 05/04/17 05/04/17 05/05/17 15:00 23:00 07:00 Intake Total 750 ml 300 ml Output Total 300 ml Balance 750 ml 0 ml NEAL GAMEZ MD May 05, 2017 19:06
[2017-05-05] MEDS: diphenhydrAMINE HCL 25 MG CAPSULE PO PRN (21:19)
[2017-05-05] MEDS: INSULIN DETEMIR 300 UNITS/3 ML INSULN.PEN. SQ SCH (21:26)
[2017-05-05 23:00] VITALS: BP 90/63
[2017-05-06 03:00] VITALS: BP 104/66
[2017-05-06 06:18] LABS: BASO % 1 % (0-3); EOS % 4 % (0-3); LYMPH # 0.6 x10^3/uL (1.0-4.8); LYMPH % 10 % (24-48); MEAN CORPUSCULAR HEMOGLOBIN 27 pg (25-35); MEAN CORPUSCULAR HGB CONC 32 g/dL (31-37); MEAN CORPUSCULAR VOLUME 84 fL (79-100); MONO % 15 % (0-9); NEUT % 71 % (31-73); PLATELET COUNT 251 x10^3/uL (140-400); WHITE BLOOD COUNT 6.3 x10^3/uL (4.0-11.0)
[2017-05-06 06:42] LABS: ALBUMIN 1.9 g/dL (3.4-5.0); ALBUMIN/GLOBULIN RATIO 0.5 (1.0-1.7); CALCIUM 8.4 mg/dL (8.5-10.1); CREATININE 0.7 mg/dL (0.7-1.3); GFR 108.2; POTASSIUM 3.8 mmol/L (3.5-5.1); TOTAL BILIRUBIN 0.4 mg/dL (0.2-1.0); TOTAL PROTEIN 5.7 g/dL (6.4-8.2)
[2017-05-06 07:00] VITALS: BP 104/74
[2017-05-06] MEDS: AZITHROMYCIN 250 MG TABLET. PO SCH (07:48)
[2017-05-06] MEDS: INSULIN ASPART 300 UNITS/3 ML INSULN.PEN SQ SCH ×3 (07:52→17:19)
--- NOTE | 2017-05-06 09:36 | RAD ---
Bilateral RIBS with chest, 05/05/2017: History: Pain, pneumonia, lung cancer The bony structures are demineralized. No rib fracture or destructive bony lesion is seen. There is moderate spurring in the spine.. There is moderate ongoing left lung opacities centered in the parahilar region. There is a suggestion of underlying cavitation. Similar findings were present on 05/03/2017. No right lung infiltrate is seen. No pneumothorax or significant pleural fluid is evident. IMPRESSION: 1. No acute rib abnormality is detected. 2. Ongoing moderate left parahilar infiltrate with possible underlying cavitation.
--- NOTE | 2017-05-06 09:46 | PDOC ---
PULMONARY PROGRESS NOTES Subjective FEELS BETTER, WANTS TO GO HOME Vitals Vital Signs Date Time Temp Pulse Resp B/P (MAP) Pulse Ox O2 Delivery O2 Flow Rate FiO2 05/06/17 07:00 97.8 130 18 104/74 (84) 92 Nasal Cannula 2.0 97.8 General: Alert, No acute distress Lungs: Other (dull bases, no wheeze, ) Cardiovascular: S1, S2 Abdomen: Soft Neuro Exam: Alert Extremities: No Edema, Other Skin: Warm Labs Laboratory Tests Test 05/04/17 13:31 05/04/17 16:14 05/04/17 21:00 05/05/17 07:24 Glucose (Fingerstick) 206 mg/dL (70-99) 231 mg/dL (70-99) 244 mg/dL (70-99) 203 mg/dL (70-99) Test 05/05/17 11:13 05/05/17 16:08 05/05/17 21:18 05/06/17 05:10 Glucose (Fingerstick) 292 mg/dL (70-99) 189 mg/dL (70-99) 254 mg/dL (70-99) White Blood Count 6.3 x10^3/uL (4.0-11.0) Red Blood Count 3.70 x10^6/uL (4.30-5.70) Hemoglobin 10.0 g/dL (13.0-17.5) Hematocrit 31.0 % (39.0-53.0) Mean Corpuscular Volume 84 fL (79-100) Mean Corpuscular Hemoglobin 27 pg (25-35) Mean Corpuscular Hemoglobin Concent 32 g/dL (31-37) Red Cell Distribution Width 18.0 % (11.5-14.5) Platelet Count 251 x10^3/uL (140-400) Neutrophils (%) (Auto) 71 % (31-73) Lymphocytes (%) (Auto) 10 % (24-48) Monocytes (%) (Auto) 15 % (0-9) Eosinophils (%) (Auto) 4 % (0-3) Basophils (%) (Auto) 1 % (0-3) Neutrophils # (Auto) 4.5 x10^3uL (1.8-7.7) Lymphocytes # (Auto) 0.6 x10^3/uL (1.0-4.8) Monocytes # (Auto) 0.9 x10^3/uL (0.0-1.1) Eosinophils # (Auto) 0.2 x10^3/uL (0.0-0.7) Basophils # (Auto) 0.0 x10^3/uL (0.0-0.2) Sodium Level 138 mmol/L (136-145) Potassium Level 3.8 mmol/L (3.5-5.1) Chloride Level 102 mmol/L (98-107) Carbon Dioxide Level 30 mmol/L (21-32) Anion Gap 6 (6-14) Blood Urea Nitrogen 10 mg/dL (8-26) Creatinine 0.7 mg/dL (0.7-1.3) Estimated GFR (Cockcroft-Gault) 108.2 BUN/Creatinine Ratio 14 (6-20) Glucose Level 179 mg/dL (70-99) Calcium Level 8.4 mg/dL (8.5-10.1) Total Bilirubin 0.4 mg/dL (0.2-1.0) Aspartate Amino Transf (AST/SGOT) 20 U/L (15-37) Alanine Aminotransferase (ALT/SGPT) 28 U/L (16-63) Alkaline Phosphatase 96 U/L (46-116) Total Protein 5.7 g/dL (6.4-8.2) Albumin 1.9 g/dL (3.4-5.0) Albumin/Globulin Ratio 0.5 (1.0-1.7) Test 05/06/17 07:34 05/06/17 09:36 Glucose (Fingerstick) 182 mg/dL (70-99) 270 mg/dL (70-99) Laboratory Tests Test 05/05/17 11:13 05/05/17 16:08 05/05/17 21:18 05/06/17 05:10 Glucose (Fingerstick) 292 mg/dL (70-99) 189 mg/dL (70-99) 254 mg/dL (70-99) White Blood Count 6.3 x10^3/uL (4.0-11.0) Red Blood Count 3.70 x10^6/uL (4.30-5.70) Hemoglobin 10.0 g/dL (13.0-17.5) Hematocrit 31.0 % (39.0-53.0) Mean Corpuscular Volume 84 fL (79-100) Mean Corpuscular Hemoglobin 27 pg (25-35) Mean Corpuscular Hemoglobin Concent 32 g/dL (31-37) Red Cell Distribution Width 18.0 % (11.5-14.5) Platelet Count 251 x10^3/uL (140-400) Neutrophils (%) (Auto) 71 % (31-73) Lymphocytes (%) (Auto) 10 % (24-48) Monocytes (%) (Auto) 15 % (0-9) Eosinophils (%) (Auto) 4 % (0-3) Basophils (%) (Auto) 1 % (0-3) Neutrophils # (Auto) 4.5 x10^3uL (1.8-7.7) Lymphocytes # (Auto) 0.6 x10^3/uL (1.0-4.8) Monocytes # (Auto) 0.9 x10^3/uL (0.0-1.1) Eosinophils # (Auto) 0.2 x10^3/uL (0.0-0.7) Basophils # (Auto) 0.0 x10^3/uL (0.0-0.2) Sodium Level 138 mmol/L (136-145) Potassium Level 3.8 mmol/L (3.5-5.1) Chloride Level 102 mmol/L (98-107) Carbon Dioxide Level 30 mmol/L (21-32) Anion Gap 6 (6-14) Blood Urea Nitrogen 10 mg/dL (8-26) Creatinine 0.7 mg/dL (0.7-1.3) Estimated GFR (Cockcroft-Gault) 108.2 BUN/Creatinine Ratio 14 (6-20) Glucose Level 179 mg/dL (70-99) Calcium Level 8.4 mg/dL (8.5-10.1) Total Bilirubin 0.4 mg/dL (0.2-1.0) Aspartate Amino Transf (AST/SGOT) 20 U/L (15-37) Alanine Aminotransferase (ALT/SGPT) 28 U/L (16-63) Alkaline Phosphatase 96 U/L (46-116) Total Protein 5.7 g/dL (6.4-8.2) Albumin 1.9 g/dL (3.4-5.0) Albumin/Globulin Ratio 0.5 (1.0-1.7) Test 05/06/17 07:34 05/06/17 09:36 Glucose (Fingerstick) 182 mg/dL (70-99) 270 mg/dL (70-99) Medications Active Scripts Medications Dose Route/Sig Max Daily Dose Days Date Category Guaifenesin 600 Mg Tablet.er 600 Mg PO BID 05/03/17 Reported Metoprolol Succinate ( Xl ) (Metoprolol Succinate) 25 Mg Tab.er.24h 50 Mg PO BID 05/03/17 Reported Tessalon Perle (Benzonatate) 100 Mg Capsule 1 Cap PO TID 05/03/17 Reported Melatonin 3 Mg Tablet 10 Mg PO HS 05/03/17 Reported Lantus Solostar (Insulin Glargine,Hum.rec.anlog) 100 Unit/1 Ml Insuln.pen 25 Unit SQ QHS 04/23/17 Reported Novolog Flexpen (Insulin Aspart) 100 Unit/1 Ml Insuln.pen 0 Units SQ TIDWMEALS 30 03/26/17 Rx Digoxin 250 Mcg Tablet 250 Mcg PO DAILY 03/26/17 Rx Lyrica (Pregabalin) 75 Mg Capsule 75 Mg PO BID 03/09/17 Reported Eliquis (Apixaban) 5 Mg Tablet 5 Mg PO BID 03/02/17 Reported Osteo Bi-Flex Caplet (Glucosamine/D3/Boswellia Shruthi) 1 Each Tablet 1 Each PO DAILY 12/27/16 Reported Vitamin B-12 (Cyanocobalamin (Vitamin B-12)) 1,000 Mcg Tablet 1 Tab PO DAILY 12/27/16 Reported [place] ([place] Fruit) 450 Mg Capsule 450 Mg PO DAILY 12/21/15 Reported Lipitor (Atorvastatin Calcium) 40 Mg Tablet 40 Mg PO HS 11/03/14 Reported Carbidopa-Levodopa 10-100 Tab (Carbidopa/Levodopa) 1 Each Tablet 1 Each PO DAILY 03/01/14 Reported Metformin Hcl 1,000 Mg Tablet 1,000 Mg PO BID 10/17/13 Reported Prilosec (Omeprazole) 20 Mg Capsule.dr 20 Mg PO DAILY 10/17/13 Reported Impression . . Left lung pneumonia. This is a patient who is status post chemo 5 weeks ago for lung cancer, NSCLC, Stage IIIA, and his CT chest from 04/14/2017 had shown ground-glass opacities in the upper lobes consistent with an infectious etiology and chest x-ray on 05/03/2017 is showing interstitial opacities in the left lung. Most likely this is consistent with infection and inflammatory etiology; however, the possibility of chemo-induced interstitial pneumonitis cannot be ruled out. 2. History of lung cancer with a left lower lobe cavitary mass. He had abnormal CT chest on 04/14/2017, which is showing increase in the size of the left upper lobe nodule, which is 2.5 cm now and there were a few new nodules and new ground-glass opacities in the upper lobes. We will continue to need followup CAT scan in the future. 3. Possible underlying chronic obstructive pulmonary disease. 4. Chest pains, undergoing cardiac catheterization now. 5. Dizziness and weakness. Could be secondary to underlying malignancy/pneumonia along with the use of hydrocodone. 6. History of chronic anticoagulation use secondary to prior strokes. Plan . 1. From a pulmonary standpoint,he is better . wean off present oxygen. 2. Empiric antibiotics . can change to PO augmentin 3. d/w Dr Sun. He received carbo/ taxol on 03/20, less likely chemo induced pneumonitis. 4. We will need a followup CT chest as OP by Dr Sun 5. Bronchodilators. 6. s/p cardiac catheterization . no acute findings. 7. Minimize the use of narcotics. 8. Discussed with the patient's entire family. can go home today KOFFI HERNANDEZ MD May 06, 2017 09:45
[2017-05-06 11:00] VITALS: BP 90/54
[2017-05-06] MEDS: cefTRIAXone IV Push 1 GM VIAL. IVP SCH (11:02)
--- NOTE | 2017-05-06 13:58 | PDOC ---
PROGRESS NOTES Chief Complaint Chief Complaint dyspnea, continues to feel very fatigued with activity, serjio coughing after lunch pneumonia acute on chronic diastolic CHF lung cancer hypoxia Hx CVA, weakness and debility CHEMO INDUCED PNEUMONITIS CAD , need to optimize medical therapy tachycardia, a-fib RVR Chief Complaint Chief Complaint dyspnea pneumonia acute on chronic diastolic CHF lung cancer hypoxia Hx CVA, weakness and debility History of Present Illness History of Present Illness cardiac cath yesterday, problems stable PULM following, cont ABx OOB, PT Vitals Vitals Vital Signs Date Time Temp Pulse Resp B/P (MAP) Pulse Ox O2 Delivery O2 Flow Rate FiO2 05/04/17 14:30 108 18 105/70 (82) 100 Room Air 05/04/17 13:09 4.0 05/04/17 07:00 97.9 97.9 Physical Exam General: Alert, Oriented X3, No acute distress Heart: Regular rate, No murmurs Lungs: Other (dull bases, no wheeze, ) Abdomen: Soft, No hepatosplenomegaly Extremities: Normal pulses Skin: No rashes Labs History of Present Illness History of Present Illness cardiac cath PULM following, cont ABx OOB, PT Vitals Vitals Vital Signs Date Time Temp Pulse Resp B/P (MAP) Pulse Ox O2 Delivery O2 Flow Rate FiO2 05/06/17 11:00 97.8 131 18 90/54 (66) 93 Room Air 97.8 05/06/17 07:00 2.0 Physical Exam Physical Exam PROCEDURE: CHEST PA & LATERAL PA and lateral chest. History: Cough PA and lateral views were taken of the chest. There is a left lung infiltrate consistent with an acute pneumonia. Heart is normal in size with evidence of prior bypass. There is no pleural effusion. Impression: 1. Left lung pneumonia. Lungs: Other (dull bases, long exp phase, ) Cardiovascular: S1, S2 tachy rate 130-128 today Abdomen: Soft Neuro Exam: Alert Extremities: No Edema, Other Skin: Warm eating poorly only 25% of breakfast and very little lunch Procedure(s) performed: Left heart catheterization, selective coronary angiography and selective angiography of the bypass grafts Moderate Sedation: 67 Minutes INDICATION The indication(s) include : unstable angina . PROCEDURE NARRATIVE After explaining the risks, benefits and alternative options, informed consent was obtained from patient. [facility] and his left wrist was prepped and draped in the usual fashion after confirming a positive modified Gregorio's test. Arterial access was obtained in the left radial artery and a 6 Malian sheath was inserted. 6 Mal[place] JR4 catheter was used to perform selective angiography of the left internal mammary artery graft to the left anterior descending artery. Several attempts to engage right coronary artery and the bypass grafts using the 6 [place] JR4 catheter were unsuccessful due to loss of torquability from left subclavian artery tortuosity. Hence a decision was made to switch arterial access to right common femoral artery. 20 mL of 2% lidocaine was infiltrated into the skin and subcutaneous tissues of the right groin for local anesthesia. Arterial access was obtained in the right common femoral artery and 6 [place] sheath was inserted. 6 [place] JR4 catheter was used to perform selective angiography of the right coronary artery, saphenous vein graft to the diagonal branch, sequential saphenous vein graft to the ramus intermedius and obtuse marginal branch. 6 [place] artery probe was catheter was used to perform selective angiography of the saphenous vein graft to the posterior descending branch of right coronary artery. 6 [place] JL4 catheter was used to perform selective angiography of the left coronary artery. LVEDP and transaortic gradients were measured. Hemostasis was achieved using Angio-Seal in the right groin and TR band in the left wrist. Patient tolerated the procedure well.There were no immediate complications. The following findings were noted. FINDINGS 1. Left ventricle end-diastolic pressure 9 mmHg. No pullback gradient across the aortic valve. 2. Coronary and bypass graft angiography: a. The left main coronary artery arose from the left sinus of Valsalva, gave rise to the left anterior descending and left circumflex arteries and showed 40 % calcified stenosis in the distal segment. b. The left anterior descending artery showed 60% stenosis in the midsegment. c. The ramus intermedius artery showed complete occlusion in the proximal segment. d. The left circumflex artery showed 100% chronic occlusion in the proximal segment. e. The right coronary artery was a dominant vessel arising from the right sinus of Valsalva that showed 40% stenosis in the occiput segment. The posterior descending branch showed 70% stenosis in the proximal segment. f. The left internal mammary artery graft to the left anterior descending artery was a medium caliber vessel that showed 50% stenosis in the very proximal segment. Competitive flow is seen in the mid and distal segments from retrograde filling via [place] left anterior descending artery. g. The saphenous vein graft to the diagonal branch was widely patent. h. The sequential saphenous vein graft to the ramus intermedius artery and obtuse marginal branch of left circumflex artery was widely patent. i. The saphenous vein graft to the posterior descending branch of right coronary artery was widely patent. Conclusion Coronary artery disease s/p coronary artery bypass surgery as described above with patent RUEDA to LAD, patent SVG to diagonal, patent sequential SVG to ramus intermedius and obtuse marginal branch and patent saphenous vein graft to the right coronary artery. Recommendations Optimization of medical therapy. General: Alert, No acute distress Heart: Regular rate Lungs: Other (dull bases, no wheeze, ) Abdomen: Soft Extremities: Other (trace edema) Skin: No rashes Labs LABS Laboratory Tests Test 05/05/17 16:08 05/05/17 21:18 05/06/17 05:10 05/06/17 07:34 Glucose (Fingerstick) 189 mg/dL (70-99) 254 mg/dL (70-99) 182 mg/dL (70-99) White Blood Count 6.3 x10^3/uL (4.0-11.0) Red Blood Count 3.70 x10^6/uL (4.30-5.70) Hemoglobin 10.0 g/dL (13.0-17.5) Hematocrit 31.0 % (39.0-53.0) Mean Corpuscular Volume 84 fL (79-100) Mean Corpuscular Hemoglobin 27 pg (25-35) Mean Corpuscular Hemoglobin Concent 32 g/dL (31-37) Red Cell Distribution Width 18.0 % (11.5-14.5) Platelet Count 251 x10^3/uL (140-400) Neutrophils (%) (Auto) 71 % (31-73) Lymphocytes (%) (Auto) 10 % (24-48) Monocytes (%) (Auto) 15 % (0-9) Eosinophils (%) (Auto) 4 % (0-3) Basophils (%) (Auto) 1 % (0-3) Neutrophils # (Auto) 4.5 x10^3uL (1.8-7.7) Lymphocytes # (Auto) 0.6 x10^3/uL (1.0-4.8) Monocytes # (Auto) 0.9 x10^3/uL (0.0-1.1) Eosinophils # (Auto) 0.2 x10^3/uL (0.0-0.7) Basophils # (Auto) 0.0 x10^3/uL (0.0-0.2) Sodium Level 138 mmol/L (136-145) Potassium Level 3.8 mmol/L (3.5-5.1) Chloride Level 102 mmol/L (98-107) Carbon Dioxide Level 30 mmol/L (21-32) Anion Gap 6 (6-14) Blood Urea Nitrogen 10 mg/dL (8-26) Creatinine 0.7 mg/dL (0.7-1.3) Estimated GFR (Cockcroft-Gault) 108.2 BUN/Creatinine Ratio 14 (6-20) Glucose Level 179 mg/dL (70-99) Calcium Level 8.4 mg/dL (8.5-10.1) Total Bilirubin 0.4 mg/dL (0.2-1.0) Aspartate Amino Transf (AST/SGOT) 20 U/L (15-37) Alanine Aminotransferase (ALT/SGPT) 28 U/L (16-63) Alkaline Phosphatase 96 U/L (46-116) Total Protein 5.7 g/dL (6.4-8.2) Albumin 1.9 g/dL (3.4-5.0) Albumin/Globulin Ratio 0.5 (1.0-1.7) Test 05/06/17 09:36 Glucose (Fingerstick) 270 mg/dL (70-99) Assessment and Plan Assessmemt and Plan Problems Medical Problems: (1) Left lower lobe pneumonia Status: Acute dyspnea, continues to feel very fatigued with activity pneumonia acute on chronic diastolic CHF lung cancer hypoxia Hx CVA, weakness and debility CHEMO INDUCED PNEUMONITIS CAD , need to optimize medical therapy tachycardia A-FIB RVR Chief Complaint Chief Complaint dyspnea pneumonia acute on chronic diastolic CHF lung cancer hypoxia Hx CVA, weakness and debility History of Present Illness History of Present Illness cardiac cath yesterday, PULM following, cont ABx OOB, PT CXR IN AM Problems: Comment Review of Relevant I have reviewed the following items katie (where applicable) has been applied. Labs Laboratory Tests Test 05/04/17 16:14 05/04/17 21:00 05/05/17 07:24 05/05/17 11:13 Glucose (Fingerstick) 231 mg/dL (70-99) 244 mg/dL (70-99) 203 mg/dL (70-99) 292 mg/dL (70-99) Test 05/05/17 16:08 05/05/17 21:18 05/06/17 05:10 05/06/17 07:34 Glucose (Fingerstick) 189 mg/dL (70-99) 254 mg/dL (70-99) 182 mg/dL (70-99) White Blood Count 6.3 x10^3/uL (4.0-11.0) Red Blood Count 3.70 x10^6/uL (4.30-5.70) Hemoglobin 10.0 g/dL (13.0-17.5) Hematocrit 31.0 % (39.0-53.0) Mean Corpuscular Volume 84 fL (79-100) Mean Corpuscular Hemoglobin 27 pg (25-35) Mean Corpuscular Hemoglobin Concent 32 g/dL (31-37) Red Cell Distribution Width 18.0 % (11.5-14.5) Platelet Count 251 x10^3/uL (140-400) Neutrophils (%) (Auto) 71 % (31-73) Lymphocytes (%) (Auto) 10 % (24-48) Monocytes (%) (Auto) 15 % (0-9) Eosinophils (%) (Auto) 4 % (0-3) Basophils (%) (Auto) 1 % (0-3) Neutrophils # (Auto) 4.5 x10^3uL (1.8-7.7) Lymphocytes # (Auto) 0.6 x10^3/uL (1.0-4.8) Monocytes # (Auto) 0.9 x10^3/uL (0.0-1.1) Eosinophils # (Auto) 0.2 x10^3/uL (0.0-0.7) Basophils # (Auto) 0.0 x10^3/uL (0.0-0.2) Sodium Level 138 mmol/L (136-145) Potassium Level 3.8 mmol/L (3.5-5.1) Chloride Level 102 mmol/L (98-107) Carbon Dioxide Level 30 mmol/L (21-32) Anion Gap 6 (6-14) Blood Urea Nitrogen 10 mg/dL (8-26) Creatinine 0.7 mg/dL (0.7-1.3) Estimated GFR (Cockcroft-Gault) 108.2 BUN/Creatinine Ratio 14 (6-20) Glucose Level 179 mg/dL (70-99) Calcium Level 8.4 mg/dL (8.5-10.1) Total Bilirubin 0.4 mg/dL (0.2-1.0) Aspartate Amino Transf (AST/SGOT) 20 U/L (15-37) Alanine Aminotransferase (ALT/SGPT) 28 U/L (16-63) Alkaline Phosphatase 96 U/L (46-116) Total Protein 5.7 g/dL (6.4-8.2) Albumin 1.9 g/dL (3.4-5.0) Albumin/Globulin Ratio 0.5 (1.0-1.7) Test 05/06/17 09:36 Glucose (Fingerstick) 270 mg/dL (70-99) Laboratory Tests Test 05/05/17 16:08 05/05/17 21:18 05/06/17 05:10 05/06/17 07:34 Glucose (Fingerstick) 189 mg/dL (70-99) 254 mg/dL (70-99) 182 mg/dL (70-99) White Blood Count 6.3 x10^3/uL (4.0-11.0) Red Blood Count 3.70 x10^6/uL (4.30-5.70) Hemoglobin 10.0 g/dL (13.0-17.5) Hematocrit 31.0 % (39.0-53.0) Mean Corpuscular Volume 84 fL (79-100) Mean Corpuscular Hemoglobin 27 pg (25-35) Mean Corpuscular Hemoglobin Concent 32 g/dL (31-37) Red Cell Distribution Width 18.0 % (11.5-14.5) Platelet Count 251 x10^3/uL (140-400) Neutrophils (%) (Auto) 71 % (31-73) Lymphocytes (%) (Auto) 10 % (24-48) Monocytes (%) (Auto) 15 % (0-9) Eosinophils (%) (Auto) 4 % (0-3) Basophils (%) (Auto) 1 % (0-3) Neutrophils # (Auto) 4.5 x10^3uL (1.8-7.7) Lymphocytes # (Auto) 0.6 x10^3/uL (1.0-4.8) Monocytes # (Auto) 0.9 x10^3/uL (0.0-1.1) Eosinophils # (Auto) 0.2 x10^3/uL (0.0-0.7) Basophils # (Auto) 0.0 x10^3/uL (0.0-0.2) Sodium Level 138 mmol/L (136-145) Potassium Level 3.8 mmol/L (3.5-5.1) Chloride Level 102 mmol/L (98-107) Carbon Dioxide Level 30 mmol/L (21-32) Anion Gap 6 (6-14) Blood Urea Nitrogen 10 mg/dL (8-26) Creatinine 0.7 mg/dL (0.7-1.3) Estimated GFR (Cockcroft-Gault) 108.2 BUN/Creatinine Ratio 14 (6-20) Glucose Level 179 mg/dL (70-99) Calcium Level 8.4 mg/dL (8.5-10.1) Total Bilirubin 0.4 mg/dL (0.2-1.0) Aspartate Amino Transf (AST/SGOT) 20 U/L (15-37) Alanine Aminotransferase (ALT/SGPT) 28 U/L (16-63) Alkaline Phosphatase 96 U/L (46-116) Total Protein 5.7 g/dL (6.4-8.2) Albumin 1.9 g/dL (3.4-5.0) Albumin/Globulin Ratio 0.5 (1.0-1.7) Test 05/06/17 09:36 Glucose (Fingerstick) 270 mg/dL (70-99) Microbiology 05/03/17 Blood Culture - Preliminary, Resulted NO GROWTH AFTER 3 DAYS 05/03/17 Urine Culture - Final, Complete 05/03/17 Urine Culture Result 1 (SWAPNIL) - Final, Complete Medications Current Medications Sodium Chloride 1,000 ml @ 1,000 mls/hr 1X ONCE IV Last administered on 05/03t 12:35; Start 05/03/17 at 12:15; Stop 05/03/17 at 13:14; Status DC Ceftriaxone Sodium 50 ml @ 100 mls/hr 1X ONCE IV Last administered on 13:23; Start 05/03/17 at 13:15; Stop 05/03/17 at 13:44; Status DC Azithromycin 250 ml @ 250 mls/hr 1X ONCE IV Last administered on 05/03/17 13:58; Start 05/03/17 at 13:15; Stop 05/03/17 at 14:14; Status DC Ondansetron HCl (Zofran) 4 mg PRN Q8HRS PRN IV NAUSEA/VOMITING; Start at 13:45; Stop 05/04/17 at 13:44; Status DC Morphine Sulfate 4 mg PRN Q2HR PRN IV PAIN; Start 05/03/17 at 13:45; Stop 04/10 at 13:44; Status DC Nitroglycerin (Nitrostat) 0.4 mg PRN Q5MIN PRN SL CHEST PAIN; Start 05/03/17 at 13:45; Stop 05/04/17 at 13:44; Status DC Iodixanol (Visipaque 320) 100 ml STK-MED ONCE .ROUTE ; Start 05/04/17 at 09:54 ; Stop 05/04/17 at 09:55; Status DC Lidocaine HCl 20 ml STK-MED ONCE .ROUTE ; Start 05/04/17 at 09:54; Stop at 09:55; Status DC Heparin Sodium/ Sodium Chloride 500 ml @ As Directed STK-MED ONCE .ROUTE ; Start 05/04/17 at 09:54; Stop 05/04/17 at 09:55; Status DC Ceftriaxone Sodium 1 gm/ Dextrose 50 ml @ 100 mls/hr Q24H IV ; Start 05/04/17 at 10:45; Status UNV Ceftriaxone Sodium (Rocephin) 1 gm Q24H IVP Last administered on 05/06/17 11: 02; Start 05/04/17 at 11:00 Azithromycin (Zithromax) 250 mg DAILY PO Last administered on 05/06/17 07:48 ; Start 05/04/17 at 11:00; Stop 05/08/17 at 10:59 Nitroglycerin (Nitroglycerin) 200 mcg 1X ONCE IART Last administered on 11:08; Start 05/04/17 at 11:00; Stop 05/04/17 at 11:03; Status DC Verapamil HCl (Verapamil) 2.5 mg 1X ONCE IART Last administered on 05/04/17 11:08; Start 05/04/17 at 11:00; Stop 05/04/17 at 11:03; Status DC Heparin Sodium (Porcine) (Heparin Sodium) 2,500 unit 1X ONCE IART Last administered on 05/04/17 11:09; Start 05/04/17 at 11:00; Stop 05/04/17 at 11 :03; Status DC Heparin Sodium/ Sodium Chloride 1,000 unit 1X ONCE IART Last administered on 05/04/17 11:07; Start 05/04/17 at 11:00; Stop 05/04/17 at 11:03; Status DC Midazolam HCl (Versed) 1 mg 1X ONCE IV Last administered on 05/04/17 11:09; Start 05/04/17 at 11:00; Stop 05/04/17 at 11:03; Status DC Fentanyl Citrate (Fentanyl 2ml Vial) 50 mcg 1X ONCE IV Last administered on 11:09; Start 05/04/17 at 11:00; Stop 05/04/17 at 11:03; Status DC Iodixanol (Visipaque 320) 155 ml 1X ONCE IART Last administered on 05/04/17 11:08; Start 05/04/17 at 11:00; Stop 05/04/17 at 11:03; Status DC Lidocaine HCl 11 ml 1X ONCE IJ Last administered on 05/04/17 11:08; Start 05/04/17 at 11:00; Stop 05/04/17 at 11:03; Status DC Info (Do NOT chart on this entry -- for MONITORING) 1 each PRN DAILY PRN MC SEE COMMENTS; Start 05/04/17 at 11:15; Stop 05/06/17 at 11:14; Status DC Insulin Aspart (NovoLOG) 0-7 UNITS TIDWMEALS SQ Last administered on 11:42; Start 05/04/17 at 17:00 Dextrose (Dextrose 50%-Water Syringe) 12.5 gm PRN Q15MIN PRN IV SEE COMMENTS; Start 05/04/17 at 14:30 Insulin Detemir (Levemir) 6 units QHS SQ Last administered on 05/05/17 21:26 ; Start 05/04/17 at 21:00 Diphenhydramine HCl (Benadryl) 25 mg PRN QHS PRN PO INSOMNIA Last administered on 05/05/17 21:19; Start 05/05/17 at 20:30 Active Scripts Active Novolog Flexpen (Insulin Aspart) 100 Unit/1 Ml Insuln.pen 0 Units SQ TIDWMEALS 30 Days Digoxin 250 Mcg Tablet 250 Mcg PO DAILY Reported Guaifenesin 600 Mg Tablet.er 600 Mg PO BID Metoprolol Succinate ( Xl ) (Metoprolol Succinate) 25 Mg Tab.er.24h 50 Mg PO BID Tessalon Perle (Benzonatate) 100 Mg Capsule 1 Cap PO TID Melatonin 3 Mg Tablet 10 Mg PO HS Lantus Solostar (Insulin Glargine,Hum.rec.anlog) 100 Unit/1 Ml Insuln.pen 25 Unit SQ QHS Lyrica (Pregabalin) 75 Mg Capsule 75 Mg PO BID Eliquis (Apixaban) 5 Mg Tablet 5 Mg PO BID Osteo Bi-Flex Caplet (Glucosamine/D3/Boswellia Shruthi) 1 Each Tablet 1 Each PO DAILY Vitamin B-12 (Cyanocobalamin (Vitamin B-12)) 1,000 Mcg Tablet 1 Tab PO DAILY Saw [place] (Saw [place] Fruit) 450 Mg Capsule 450 Mg PO DAILY Lipitor (Atorvastatin Calcium) 40 Mg Tablet 40 Mg PO HS Carbidopa-Levodopa 10-100 Tab (Carbidopa/Levodopa) 1 Each Tablet 1 Each PO DAILY Metformin Hcl 1,000 Mg Tablet 1,000 Mg PO BID Prilosec (Omeprazole) 20 Mg Capsule.dr 20 Mg PO DAILY Vitals/I & O Vital Sign - Last 24 Hours 05/05/17 05/05/17 05/05/17 05/05/17 14:50 19:00 19:55 23:00 Temp 97.8 97.5 98.8 97.8 97.5 98.8 Pulse 109 127 127 Resp 18 20 26 B/P (MAP) 102/64 (77) 97/75 (82) 90/63 (72) Pulse Ox 94 93 92 O2 Delivery Room Air Room Air 05/06/17 05/06/17 05/06/17 05/06/17 03:00 07:00 08:00 11:00 Temp 98.2 97.8 97.8 98.2 97.8 97.8 Pulse 134 130 131 Resp 22 18 18 B/P (MAP) 104/66 (79) 104/74 (84) 90/54 (66) Pulse Ox 95 92 93 O2 Delivery Nasal Cannula Room Air Room Air O2 Flow Rate 2.0 Intake and Output 05/05/17 05/05/17 05/06/17 15:00 23:00 07:00 Intake Total 420 ml 920 ml 120 ml Balance 420 ml 920 ml 120 ml NEAL GAMEZ MD May 06, 2017 13:58
[2017-05-06 15:00] VITALS: BP 96/66
[2017-05-06 19:00] VITALS: BP 95/68
[2017-05-06] MEDS: INSULIN DETEMIR 300 UNITS/3 ML INSULN.PEN. SQ SCH (20:43)
[2017-05-06] MEDS: diphenhydrAMINE HCL 25 MG CAPSULE PO PRN (21:15)
[2017-05-06] MEDS ORDERED: INSULIN ASPART 300 UNITS/3 ML INSULN.PEN SQ ONE (21:45)
[2017-05-06 22:41] VITALS: BP 93/64
[2017-05-07] VITALS (8 sets, daily range): BP systolic 81–161; BP diastolic 51–91
[2017-05-07] MEDS: AZITHROMYCIN 250 MG TABLET. PO SCH (08:08)
[2017-05-07] MEDS: INSULIN ASPART 300 UNITS/3 ML INSULN.PEN SQ SCH ×4 (08:12→17:38)
[2017-05-07] MEDS ORDERED: ONDANSETRON PF 4 MG/2 ML VIAL. IV ONE (09:15)
[2017-05-07] MEDS ORDERED: ONDANSETRON PF 4 MG/2 ML VIAL. IV PRN (09:30)
--- NOTE | 2017-05-07 09:37 | PDOC ---
PULMONARY PROGRESS NOTES Subjective c/o emesis Vitals Vital Signs Date Time Temp Pulse Resp B/P (MAP) Pulse Ox O2 Delivery O2 Flow Rate FiO2 05/07/17 08:22 Room Air 05/07/17 07:29 97.7 120 22 123/72 (89) 91 97.7 05/06/17 22:41 2.0 ROS: No Chest Pain, No Abdominal Pain, No Increase Cough General: Alert, No acute distress Lungs: Other (dull bases, no wheeze, ) Cardiovascular: S1, S2 Abdomen: Soft Neuro Exam: Alert Extremities: No Edema, Other Skin: Warm Labs Laboratory Tests Test 05/05/17 11:13 05/05/17 16:08 05/05/17 21:18 05/06/17 05:10 Glucose (Fingerstick) 292 mg/dL (70-99) 189 mg/dL (70-99) 254 mg/dL (70-99) White Blood Count 6.3 x10^3/uL (4.0-11.0) Red Blood Count 3.70 x10^6/uL (4.30-5.70) Hemoglobin 10.0 g/dL (13.0-17.5) Hematocrit 31.0 % (39.0-53.0) Mean Corpuscular Volume 84 fL (79-100) Mean Corpuscular Hemoglobin 27 pg (25-35) Mean Corpuscular Hemoglobin Concent 32 g/dL (31-37) Red Cell Distribution Width 18.0 % (11.5-14.5) Platelet Count 251 x10^3/uL (140-400) Neutrophils (%) (Auto) 71 % (31-73) Lymphocytes (%) (Auto) 10 % (24-48) Monocytes (%) (Auto) 15 % (0-9) Eosinophils (%) (Auto) 4 % (0-3) Basophils (%) (Auto) 1 % (0-3) Neutrophils # (Auto) 4.5 x10^3uL (1.8-7.7) Lymphocytes # (Auto) 0.6 x10^3/uL (1.0-4.8) Monocytes # (Auto) 0.9 x10^3/uL (0.0-1.1) Eosinophils # (Auto) 0.2 x10^3/uL (0.0-0.7) Basophils # (Auto) 0.0 x10^3/uL (0.0-0.2) Sodium Level 138 mmol/L (136-145) Potassium Level 3.8 mmol/L (3.5-5.1) Chloride Level 102 mmol/L (98-107) Carbon Dioxide Level 30 mmol/L (21-32) Anion Gap 6 (6-14) Blood Urea Nitrogen 10 mg/dL (8-26) Creatinine 0.7 mg/dL (0.7-1.3) Estimated GFR (Cockcroft-Gault) 108.2 BUN/Creatinine Ratio 14 (6-20) Glucose Level 179 mg/dL (70-99) Calcium Level 8.4 mg/dL (8.5-10.1) Total Bilirubin 0.4 mg/dL (0.2-1.0) Aspartate Amino Transf (AST/SGOT) 20 U/L (15-37) Alanine Aminotransferase (ALT/SGPT) 28 U/L (16-63) Alkaline Phosphatase 96 U/L (46-116) Total Protein 5.7 g/dL (6.4-8.2) Albumin 1.9 g/dL (3.4-5.0) Albumin/Globulin Ratio 0.5 (1.0-1.7) Test 05/06/17 07:34 05/06/17 09:36 05/06/17 16:12 05/06/17 20:06 Glucose (Fingerstick) 182 mg/dL (70-99) 270 mg/dL (70-99) 253 mg/dL (70-99) 376 mg/dL (70-99) Test 05/07/17 06:54 Glucose (Fingerstick) 193 mg/dL (70-99) Laboratory Tests Test 05/06/17 09:36 05/06/17 16:12 05/06/17 20:06 05/07/17 06:54 Glucose (Fingerstick) 270 mg/dL (70-99) 253 mg/dL (70-99) 376 mg/dL (70-99) 193 mg/dL (70-99) Medications Active Scripts Medications Dose Route/Sig Max Daily Dose Days Date Category Guaifenesin 600 Mg Tablet.er 600 Mg PO BID 05/03/17 Reported Metoprolol Succinate ( Xl ) (Metoprolol Succinate) 25 Mg Tab.er.24h 50 Mg PO BID 05/03/17 Reported Tessalon Perle (Benzonatate) 100 Mg Capsule 1 Cap PO TID 05/03/17 Reported Melatonin 3 Mg Tablet 10 Mg PO HS 05/03/17 Reported Lantus Solostar (Insulin Glargine,Hum.rec.anlog) 100 Unit/1 Ml Insuln.pen 25 Unit SQ QHS 04/23/17 Reported Novolog Flexpen (Insulin Aspart) 100 Unit/1 Ml Insuln.pen 0 Units SQ TIDWMEALS 30 03/26/17 Rx Digoxin 250 Mcg Tablet 250 Mcg PO DAILY 03/26/17 Rx Lyrica (Pregabalin) 75 Mg Capsule 75 Mg PO BID 03/09/17 Reported Eliquis (Apixaban) 5 Mg Tablet 5 Mg PO BID 03/02/17 Reported Osteo Bi-Flex Caplet (Glucosamine/D3/Boswellia Shruthi) 1 Each Tablet 1 Each PO DAILY 12/27/16 Reported Vitamin B-12 (Cyanocobalamin (Vitamin B-12)) 1,000 Mcg Tablet 1 Tab PO DAILY 12/27/16 Reported Saw [place] (Saw [place] Fruit) 450 Mg Capsule 450 Mg PO DAILY 12/21/15 Reported Lipitor (Atorvastatin Calcium) 40 Mg Tablet 40 Mg PO HS 11/03/14 Reported Carbidopa-Levodopa 10-100 Tab (Carbidopa/Levodopa) 1 Each Tablet 1 Each PO DAILY 03/01/14 Reported Metformin Hcl 1,000 Mg Tablet 1,000 Mg PO BID 10/17/13 Reported Prilosec (Omeprazole) 20 Mg Capsule.dr 20 Mg PO DAILY 10/17/13 Reported Impression . . Left lung pneumonia. This is a patient who is status post chemo 5 weeks ago for lung cancer, NSCLC, Stage IIIA, and his CT chest from 04/14/2017 had shown ground-glass opacities in the upper lobes consistent with an infectious etiology and chest x-ray on 05/03/2017 is showing interstitial opacities in the left lung. Most likely this is consistent with infection and inflammatory etiology; however, the possibility of chemo-induced interstitial pneumonitis cannot be ruled out. 2. History of lung cancer with a left lower lobe cavitary mass. He had abnormal CT chest on 04/14/2017, which is showing increase in the size of the left upper lobe nodule, which is 2.5 cm now and there were a few new nodules and new ground-glass opacities in the upper lobes. We will continue to need followup CAT scan in the future. 3. Possible underlying chronic obstructive pulmonary disease. 4. Chest pains, undergoing cardiac catheterization now. 5. Dizziness and weakness. Could be secondary to underlying malignancy/pneumonia along with the use of hydrocodone. 6. History of chronic anticoagulation use secondary to prior strokes. 7. emesis, per PCP Plan . 1. From a pulmonary standpoint,he is stable . wean off present oxygen. 2. Empiric antibiotics . can change to PO augmentin when emesis resolved 3. d/w Dr Sun. He received carbo/ taxol on 03/20, less likely chemo induced pneumonitis. 4. We will need a followup CT chest as OP by Dr Sun 5. Bronchodilators. 6. s/p cardiac catheterization . no acute findings. 7. Minimize the use of narcotics. 8. Discussed with KOFFI REED MD May 07, 2017 09:37
[2017-05-07] MEDS: cefTRIAXone IV Push 1 GM VIAL. IVP SCH (11:23)
--- NOTE | 2017-05-07 12:37 | PDOC ---
PROGRESS NOTES Chief Complaint Chief Complaint Acute hypoxic respir failure ASSESSMENT AND PLAN: 1. PNA: L parahilar infiltrate. on IV broad spectrum Abx, taper to PO augmenting. appreciate Dr Grissom's input. 2. CHF exacerbation: diastolic. mild. caution with IVF 3. NSCLC: ?chemo induced pneumonitis - unlikely with carbo/taxol in 04/20 4. CAD: s/p cath on 05/04, with recommendation of med management optimization. restart home meds 5. Afib/RVR: baseline tachy. restart home dig and BB. monitor HR 6. OAC: restart eliquis 7. Hx CVA: on 2ary prevention meds 8. DM2: poorly controlled. increase levemir, monitor ISS 9. N/V/D: new since yesterday. diarrhea resolving. ?viral gastroenteritis. treat symptomatically. gentle fluid hydration 10. Weakness and debility: OOB, PT/OT eval and treat History of Present Illness History of Present Illness nausea main complaint, anorexia because of it. upset that he was kept in a room w/o heat last night. Vitals Vitals Vital Signs Date Time Temp Pulse Resp B/P (MAP) Pulse Ox O2 Delivery O2 Flow Rate FiO2 05/07/17 10:44 98.0 117 18 161/91 (114) 95 Nasal Cannula 2.0 98.0 Physical Exam General: Alert, Oriented X3, Cooperative, mild distress Heart: Other (tachycardic) Lungs: Other (poor inspiration no rales) Abdomen: Normal bowel sounds, Soft, No tenderness Extremities: No edema, Other (trace edema) Skin: No rashes Labs LABS Laboratory Tests Test 05/06/17 16:12 05/06/17 20:06 05/07/17 06:54 05/07/17 11:22 Glucose (Fingerstick) 253 mg/dL (70-99) 376 mg/dL (70-99) 193 mg/dL (70-99) 292 mg/dL (70-99) MARK VAZQUEZ MD May 07, 2017 12:37
[2017-05-07] MEDS: DIGOXIN 250 MCG TABLET. PO SCH (13:00)
[2017-05-07] MEDS: CARBIDOPA/LEVODOPA 10/100MG TABLET PO SCH (13:00)
[2017-05-07] MEDS: METOPROLOL SUCC 24HR ER 25 MG TAB.ER.24H. PO SCH ×2 (13:00→20:49)
[2017-05-07] MEDS ORDERED: BENZONATATE 100 MG CAPSULE. PO SCH (14:00)
[2017-05-07] MEDS: IV NORMAL SALINE 1000ML BAG 1,000 ML IV SCH (14:00)
[2017-05-07] MEDS ORDERED: IV NORMAL SALINE 1000ML BAG 1,000 ML IV ONE (19:45)
[2017-05-07] MEDS: APIXABAN 5 MG TABLET. PO SCH (20:36)
[2017-05-07] MEDS: LACTOBACILLUS RHAMNOSUS GG 1 CAPSULE. PO SCH (20:36)
[2017-05-07] MEDS: diphenhydrAMINE HCL 25 MG CAPSULE PO PRN (20:36)
[2017-05-07] MEDS: AMOXICILLIN/K CLAV 875/125MG TABLET. PO SCH (20:36)
[2017-05-07] MEDS: PREGABALIN 75 MG CAPSULE PO SCH (20:43)
[2017-05-07] MEDS ORDERED: ATORVASTATIN CALCIUM 40 MG TABLET. PO SCH (21:00)
[2017-05-07] MEDS ORDERED: INSULIN DETEMIR 300 UNITS/3 ML INSULN.PEN. SQ SCH ×2 (21:00)
[2017-05-08] MEDS: IV NORMAL SALINE 1000ML BAG 1,000 ML IV SCH (02:42)
[2017-05-08 03:00] VITALS: BP 88/57
[2017-05-08 04:57] LABS: BASO % 1 % (0-3); EOS % 4 % (0-3); HEMATOCRIT 30.3 % (39.0-53.0); HEMOGLOBIN 9.7 g/dL (13.0-17.5); LYMPH # 0.7 x10^3/uL (1.0-4.8); LYMPH % 11 % (24-48); MEAN CORPUSCULAR HEMOGLOBIN 27 pg (25-35); MEAN CORPUSCULAR HGB CONC 32 g/dL (31-37); MEAN CORPUSCULAR VOLUME 85 fL (79-100); MONO % 10 % (0-9); NEUT % 74 % (31-73); PLATELET COUNT 223 x10^3/uL (140-400); RED BLOOD COUNT 3.58 x10^6/uL (4.30-5.70); RED CELL DISTRIBUTION WIDTH 17.8 % (11.5-14.5); WHITE BLOOD COUNT 6.1 x10^3/uL (4.0-11.0)
[2017-05-08 05:20] LABS: CALCIUM 7.9 mg/dL (8.5-10.1); CREATININE 0.6 mg/dL (0.7-1.3); GFR 129.3; MAGNESIUM 1.9 mg/dL (1.8-2.4); POTASSIUM 3.9 mmol/L (3.5-5.1)
[2017-05-08 07:00] VITALS: BP 102/69
[2017-05-08] MEDS: INSULIN ASPART 300 UNITS/3 ML INSULN.PEN SQ SCH ×3 (08:00→12:02)
[2017-05-08] MEDS: AMOXICILLIN/K CLAV 875/125MG TABLET. PO SCH (08:33)
[2017-05-08] MEDS: PREGABALIN 75 MG CAPSULE PO SCH (08:34)
[2017-05-08] MEDS: DIGOXIN 250 MCG TABLET. PO SCH (08:34)
[2017-05-08] MEDS: LACTOBACILLUS RHAMNOSUS GG 1 CAPSULE. PO SCH (08:35)
[2017-05-08] MEDS: METOPROLOL SUCC 24HR ER 25 MG TAB.ER.24H. PO SCH (08:37)
[2017-05-08] MEDS: APIXABAN 5 MG TABLET. PO SCH (08:37)
--- NOTE | 2017-05-08 09:58 | PDOC ---
PROGRESS NOTES Chief Complaint Chief Complaint Acute hypoxic respir failure ASSESSMENT AND PLAN: 1. PNA: L parahilar infiltrate. on IV broad spectrum Abx, taper to PO augmentin. D/w Dr Grissom 2. CHF exacerbation: diastolic. mild. caution with IVF 3. NSCLC: ?chemo induced pneumonitis - unlikely with carbo/taxol in 04/20 4. CAD: s/p cath on 05/04, with recommendation of med management optimization. restart home meds 5. Afib/RVR: remains sl tachy on home dig and BB. monitor HR 6. OAC: restart eliquis 7. Hx CVA: on 2ary prevention meds 8. DM2: poorly controlled. increase levemir, monitor ISS 9. N/V/D: resolved. ?viral gastroenteritis. 10. Weakness and debility: PT/OT rec for SNF. SW consult History of Present Illness History of Present Illness feels much much better today. no and c/o. still very weak. Vitals Vitals Vital Signs Date Time Temp Pulse Resp B/P (MAP) Pulse Ox O2 Delivery O2 Flow Rate FiO2 05/08/17 08:37 107 102/69 05/08/17 07:00 98.1 22 96 Room Air 98.1 05/08/17 03:00 2.0 Physical Exam General: Alert, Oriented X3, Cooperative, mild distress Heart: Other (tachy) Lungs: Other (min rales) Abdomen: Normal bowel sounds, Soft, No tenderness Extremities: No edema Skin: No rashes Labs LABS Laboratory Tests Test 05/07/17 11:22 05/07/17 17:02 05/07/17 20:37 05/08/17 04:35 Glucose (Fingerstick) 292 mg/dL (70-99) 269 mg/dL (70-99) 272 mg/dL (70-99) White Blood Count 6.1 x10^3/uL (4.0-11.0) Red Blood Count 3.58 x10^6/uL (4.30-5.70) Hemoglobin 9.7 g/dL (13.0-17.5) Hematocrit 30.3 % (39.0-53.0) Mean Corpuscular Volume 85 fL (79-100) Mean Corpuscular Hemoglobin 27 pg (25-35) Mean Corpuscular Hemoglobin Concent 32 g/dL (31-37) Red Cell Distribution Width 17.8 % (11.5-14.5) Platelet Count 223 x10^3/uL (140-400) Neutrophils (%) (Auto) 74 % (31-73) Lymphocytes (%) (Auto) 11 % (24-48) Monocytes (%) (Auto) 10 % (0-9) Eosinophils (%) (Auto) 4 % (0-3) Basophils (%) (Auto) 1 % (0-3) Neutrophils # (Auto) 4.5 x10^3uL (1.8-7.7) Lymphocytes # (Auto) 0.7 x10^3/uL (1.0-4.8) Monocytes # (Auto) 0.6 x10^3/uL (0.0-1.1) Eosinophils # (Auto) 0.3 x10^3/uL (0.0-0.7) Basophils # (Auto) 0.0 x10^3/uL (0.0-0.2) Sodium Level 143 mmol/L (136-145) Potassium Level 3.9 mmol/L (3.5-5.1) Chloride Level 106 mmol/L (98-107) Carbon Dioxide Level 30 mmol/L (21-32) Anion Gap 7 (6-14) Blood Urea Nitrogen 10 mg/dL (8-26) Creatinine 0.6 mg/dL (0.7-1.3) Estimated GFR (Cockcroft-Gault) 129.3 Glucose Level 136 mg/dL (70-99) Calcium Level 7.9 mg/dL (8.5-10.1) Magnesium Level 1.9 mg/dL (1.8-2.4) Test 05/08/17 07:54 Glucose (Fingerstick) 98 mg/dL (70-99) MARK VAZQUEZ MD May 08, 2017 09:58
[2017-05-08 11:00] VITALS: BP 113/77
[2017-05-08] MEDS: CARBIDOPA/LEVODOPA 10/100MG TABLET PO SCH (11:00)
--- NOTE | 2017-05-08 11:00 | PDOC ---
PULMONARY PROGRESS NOTES Subjective no further emesis Vitals Vital Signs Date Time Temp Pulse Resp B/P (MAP) Pulse Ox O2 Delivery O2 Flow Rate FiO2 05/08/17 08:37 107 102/69 05/08/17 07:00 98.1 22 96 Room Air 98.1 05/08/17 03:00 2.0 ROS: No Chest Pain, No Abdominal Pain, No Increase Cough General: Alert, No acute distress Lungs: Other (poor inspiration no rales) Cardiovascular: S1, S2 Abdomen: Soft Neuro Exam: Alert Extremities: No Edema, Other Skin: Warm Labs Laboratory Tests Test 05/06/17 16:12 05/06/17 20:06 05/07/17 06:54 05/07/17 11:22 Glucose (Fingerstick) 253 mg/dL (70-99) 376 mg/dL (70-99) 193 mg/dL (70-99) 292 mg/dL (70-99) Test 05/07/17 17:02 05/07/17 20:37 05/08/17 04:35 05/08/17 07:54 Glucose (Fingerstick) 269 mg/dL (70-99) 272 mg/dL (70-99) 98 mg/dL (70-99) White Blood Count 6.1 x10^3/uL (4.0-11.0) Red Blood Count 3.58 x10^6/uL (4.30-5.70) Hemoglobin 9.7 g/dL (13.0-17.5) Hematocrit 30.3 % (39.0-53.0) Mean Corpuscular Volume 85 fL (79-100) Mean Corpuscular Hemoglobin 27 pg (25-35) Mean Corpuscular Hemoglobin Concent 32 g/dL (31-37) Red Cell Distribution Width 17.8 % (11.5-14.5) Platelet Count 223 x10^3/uL (140-400) Neutrophils (%) (Auto) 74 % (31-73) Lymphocytes (%) (Auto) 11 % (24-48) Monocytes (%) (Auto) 10 % (0-9) Eosinophils (%) (Auto) 4 % (0-3) Basophils (%) (Auto) 1 % (0-3) Neutrophils # (Auto) 4.5 x10^3uL (1.8-7.7) Lymphocytes # (Auto) 0.7 x10^3/uL (1.0-4.8) Monocytes # (Auto) 0.6 x10^3/uL (0.0-1.1) Eosinophils # (Auto) 0.3 x10^3/uL (0.0-0.7) Basophils # (Auto) 0.0 x10^3/uL (0.0-0.2) Sodium Level 143 mmol/L (136-145) Potassium Level 3.9 mmol/L (3.5-5.1) Chloride Level 106 mmol/L (98-107) Carbon Dioxide Level 30 mmol/L (21-32) Anion Gap 7 (6-14) Blood Urea Nitrogen 10 mg/dL (8-26) Creatinine 0.6 mg/dL (0.7-1.3) Estimated GFR (Cockcroft-Gault) 129.3 Glucose Level 136 mg/dL (70-99) Calcium Level 7.9 mg/dL (8.5-10.1) Magnesium Level 1.9 mg/dL (1.8-2.4) Laboratory Tests Test 05/07/17 11:22 05/07/17 17:02 05/07/17 20:37 05/08/17 04:35 Glucose (Fingerstick) 292 mg/dL (70-99) 269 mg/dL (70-99) 272 mg/dL (70-99) White Blood Count 6.1 x10^3/uL (4.0-11.0) Red Blood Count 3.58 x10^6/uL (4.30-5.70) Hemoglobin 9.7 g/dL (13.0-17.5) Hematocrit 30.3 % (39.0-53.0) Mean Corpuscular Volume 85 fL (79-100) Mean Corpuscular Hemoglobin 27 pg (25-35) Mean Corpuscular Hemoglobin Concent 32 g/dL (31-37) Red Cell Distribution Width 17.8 % (11.5-14.5) Platelet Count 223 x10^3/uL (140-400) Neutrophils (%) (Auto) 74 % (31-73) Lymphocytes (%) (Auto) 11 % (24-48) Monocytes (%) (Auto) 10 % (0-9) Eosinophils (%) (Auto) 4 % (0-3) Basophils (%) (Auto) 1 % (0-3) Neutrophils # (Auto) 4.5 x10^3uL (1.8-7.7) Lymphocytes # (Auto) 0.7 x10^3/uL (1.0-4.8) Monocytes # (Auto) 0.6 x10^3/uL (0.0-1.1) Eosinophils # (Auto) 0.3 x10^3/uL (0.0-0.7) Basophils # (Auto) 0.0 x10^3/uL (0.0-0.2) Sodium Level 143 mmol/L (136-145) Potassium Level 3.9 mmol/L (3.5-5.1) Chloride Level 106 mmol/L (98-107) Carbon Dioxide Level 30 mmol/L (21-32) Anion Gap 7 (6-14) Blood Urea Nitrogen 10 mg/dL (8-26) Creatinine 0.6 mg/dL (0.7-1.3) Estimated GFR (Cockcroft-Gault) 129.3 Glucose Level 136 mg/dL (70-99) Calcium Level 7.9 mg/dL (8.5-10.1) Magnesium Level 1.9 mg/dL (1.8-2.4) Test 05/08/17 07:54 Glucose (Fingerstick) 98 mg/dL (70-99) Medications Active Scripts Medications Dose Route/Sig Max Daily Dose Days Date Category Guaifenesin 600 Mg Tablet.er 600 Mg PO BID 05/03/17 Reported Metoprolol Succinate ( Xl ) (Metoprolol Succinate) 25 Mg Tab.er.24h 50 Mg PO BID 05/03/17 Reported Tessalon Perle (Benzonatate) 100 Mg Capsule 1 Cap PO TID 05/03/17 Reported Melatonin 3 Mg Tablet 10 Mg PO HS 05/03/17 Reported Lantus Solostar (Insulin Glargine,Hum.rec.anlog) 100 Unit/1 Ml Insuln.pen 25 Unit SQ QHS 04/23/17 Reported Novolog Flexpen (Insulin Aspart) 100 Unit/1 Ml Insuln.pen 0 Units SQ TIDWMEALS 30 03/26/17 Rx Digoxin 250 Mcg Tablet 250 Mcg PO DAILY 03/26/17 Rx Lyrica (Pregabalin) 75 Mg Capsule 75 Mg PO BID 03/09/17 Reported Eliquis (Apixaban) 5 Mg Tablet 5 Mg PO BID 03/02/17 Reported Osteo Bi-Flex Caplet (Glucosamine/D3/Boswellia Shruthi) 1 Each Tablet 1 Each PO DAILY 12/27/16 Reported Vitamin B-12 (Cyanocobalamin (Vitamin B-12)) 1,000 Mcg Tablet 1 Tab PO DAILY 12/27/16 Reported Saw Iola (Saw Iola Fruit) 450 Mg Capsule 450 Mg PO DAILY 12/21/15 Reported Lipitor (Atorvastatin Calcium) 40 Mg Tablet 40 Mg PO HS 11/03/14 Reported Carbidopa-Levodopa 10-100 Tab (Carbidopa/Levodopa) 1 Each Tablet 1 Each PO DAILY 03/01/14 Reported Metformin Hcl 1,000 Mg Tablet 1,000 Mg PO BID 10/17/13 Reported Prilosec (Omeprazole) 20 Mg Capsule. 20 Mg PO DAILY 10/17/13 Reported Impression . . Left lung pneumonia. This is a patient who is status post chemo 5 weeks ago for lung cancer, NSCLC, Stage IIIA, and his CT chest from 04/14/2017 had shown ground-glass opacities in the upper lobes consistent with an infectious etiology and chest x-ray on 05/03/2017 is showing interstitial opacities in the left lung. Most likely this is consistent with infection and inflammatory etiology; however, the possibility of chemo-induced interstitial pneumonitis cannot be ruled out. 2. History of lung cancer with a left lower lobe cavitary mass. He had abnormal CT chest on 04/14/2017, which is showing increase in the size of the left upper lobe nodule, which is 2.5 cm now and there were a few new nodules and new ground-glass opacities in the upper lobes. We will continue to need followup CAT scan in the future. 3. Possible underlying chronic obstructive pulmonary disease. 4. Chest pains, undergoing cardiac catheterization now. 5. Dizziness and weakness. Could be secondary to underlying malignancy/pneumonia along with the use of hydrocodone. 6. History of chronic anticoagulation use secondary to prior strokes. 7. emesis, per PCP, resolved Plan . 1. From a pulmonary standpoint,he is stable . wean off present oxygen. 2. Empiric antibiotics . can change to PO augmentin 3. d/w Dr Sun. He received carbo/ taxol on 03/20, less likely chemo induced pneumonitis. 4. We will need a followup CT chest as OP by Dr Sun 5. Bronchodilators. 6. s/p cardiac catheterization . no acute findings. 7. Minimize the use of narcotics. 8. Discussed with RN alexandr with home. f/u with KOFFI Portillo MD May 08, 2017 11:00
[2017-05-08] MEDS ORDERED: INSU100I27 SQ (12:12)
[2017-05-08] MEDS ORDERED: LACT1CAP19 PO (12:12)
[2017-05-08] MEDS ORDERED: AMOX1TAB11 PO (12:12)
[2017-05-08] MEDS ORDERED: PANTOPRAZOLE 40 MG TABLET.DR. PO SCH (16:30)
--- NOTE | 2017-05-10 15:28 | DS ---
DATE OF DISCHARGE: 05/08/2017 CHIEF COMPLAINT: Acute hypoxic respiratory failure. HOSPITAL COURSE: The patient is an 82-year-old gentleman who presented with acute hypoxic respiratory failure, which was secondary to a left perihilar infiltrate, i.e., pneumonia. He was started on IV broad spectrum antibiotics, which will later tapered to p.o. Augmentin with improvement of his symptoms. He was suspected to also have mild CHF exacerbation of his diastolic heart failure and IV fluids were cautiously administered. He is currently undergoing chemotherapy for non-small cell lung cancer, chemotherapy; however, was not thought to play a role in his respiratory issues. He did experience an episode of 24 hours of nausea, vomiting, diarrhea, which spontaneously resolved and was attributed to a probable viral gastroenteritis. Because of ongoing weakness and debility, OT and PT consult were obtained and recommendations were for a rehab placement, which was accomplished on 05/08/2017. PHYSICAL EXAMINATION: VITAL SIGNS: Show blood pressure of 102/69, heart rate of 107, respiratory rate of 20. He is afebrile. GENERAL: Alert and oriented, no acute distress. LUNGS: Clear. HEART: Minimal rales. ABDOMEN: Normal bowel sounds, soft, nontender. EXTREMITIES: Show no edema. DISCHARGE DATE: 05/08/2017. DISCHARGE DISPOSITION: To SNF. DISCHARGE CONDITION: Improved. DISCHARGE MEDICATIONS: Please refer to MAR. DISCHARGE INSTRUCTIONS: The patient will follow up with PCP and Oncology upon return to home. Greater than 30 minutes were spent in arranging his discharge. MARK VAZQUEZ MD DR: SARAI/nts JOB#: [id number] / [id number] SHIELA Mora MD
== END 2017-05-08 14:45 | DRG 286 ==
LOC: ER 11:45 → 5 SOUTH 13:41
PROVIDERS: ADMIT Internal Medicine; ATTEND Internal Medicine
PROC: 4A023N7 Measurement of Cardiac Sampling and Pressure, Left Heart, Percutaneous Approach (ICD-10-PCS; principal; 2017-05-04)
PROC: B2111ZZ Fluoroscopy of Multiple Coronary Arteries using Low Osmolar Contrast (ICD-10-PCS; 2017-05-04)
PROC: B2181ZZ Fluoroscopy of Left Internal Mammary Bypass Graft using Low Osmolar Contrast (ICD-10-PCS; 2017-05-04)
PROC: B2131ZZ Fluoroscopy of Multiple Coronary Artery Bypass Grafts using Low Osmolar Contrast (ICD-10-PCS; 2017-05-04)
DX: I50.43 Acute on chronic combined systolic (congestive) and diastolic (congestive) heart failure (principal); J15.6 Pneumonia due to other Gram-negative bacteria; J96.01 Acute respiratory failure with hypoxia; E11.40 Type 2 diabetes mellitus with diabetic neuropathy, unspecified; E11.65 Type 2 diabetes mellitus with hyperglycemia; C34.90 Malignant neoplasm of unspecified part of unspecified bronchus or lung; I48.0 Paroxysmal atrial fibrillation; J44.0 Chronic obstructive pulmonary disease with (acute) lower respiratory infection; I11.0 Hypertensive heart disease with heart failure; F03.90 Unspecified dementia, unspecified severity, without behavioral disturbance, psychotic disturbance, mood disturbance, and anxiety; E78.5 Hyperlipidemia, unspecified; E78.00 Pure hypercholesterolemia, unspecified; I25.10 Atherosclerotic heart disease of native coronary artery without angina pectoris; K21.9 Gastro-esophageal reflux disease without esophagitis; A08.4 Viral intestinal infection, unspecified; T45.1X5A Adverse effect of antineoplastic and immunosuppressive drugs, initial encounter; Z95.1 Presence of aortocoronary bypass graft; Z86.73 Personal history of transient ischemic attack (TIA), and cerebral infarction without residual deficits; Z83.3 Family history of diabetes mellitus; Z79.01 Long term (current) use of anticoagulants; Z87.891 Personal history of nicotine dependence
CPT/HCPCS: 36415; 70450; 71020; 71111; 80048; 80053; 81001; 82962; 83605; 83735; 83880; 84484; 85025; 87040; 87086; 93005; 93459; 96361; 96365; 96367; 99152; 99153; C1769; C1771; C1892; G0269; J0456; J0690; J0696; J1644; J1815; J2250; J2405; J3010; J3490; J7030; Q0144; Q0163; 99285-25; J2001

== ENCOUNTER → 2017-06-17 | Outpatient (CLI) | payer MEDICARE, OTHER | END | disposition home or self-care (01) | LOC: CT 11:21 | DX: C34.92 Malignant neoplasm of unspecified part of left bronchus or lung (principal); R91.8 Other nonspecific abnormal finding of lung field | CPT/HCPCS: 71250 ==

== ENCOUNTER 2017-07-04 07:05 | Inpatient (IN) | payer MEDICARE, OTHER ==
[2017-07-04] MEDS: VANCOMYCIN PER PHARMACY MC ×2 (07:30→11:36)
[2017-07-04] MEDS ORDERED: MEROPENEM 1 GM in IV NORMAL SALINE 100ML 100 ML IV (07:30)
[2017-07-04 07:46] LABS: BASO % 0 % (0-3); EOS # 0.1 x10^3/uL (0.0-0.7); EOS % 1 % (0-3); HEMOGLOBIN 12.3 g/dL (13.0-17.5); LYMPH # 0.4 x10^3/uL (1.0-4.8); LYMPH % 3 % (24-48); MEAN CORPUSCULAR HEMOGLOBIN 26 pg (25-35); MEAN CORPUSCULAR HGB CONC 32 g/dL (31-37); MEAN CORPUSCULAR VOLUME 81 fL (79-100); MONO # 1.1 x10^3/uL (0.0-1.1); MONO % 9 % (0-9); NEUT # 10.7 x10^3uL (1.8-7.7); NEUT % 87 % (31-73); PLATELET COUNT 178 x10^3/uL (140-400); RED BLOOD COUNT 4.73 x10^6/uL (4.30-5.70); RED CELL DISTRIBUTION WIDTH 17.3 % (11.5-14.5); WHITE BLOOD COUNT 12.3 x10^3/uL (4.0-11.0)
[2017-07-04] MEDS: IV NORMAL SALINE 1000ML BAG 1,000 ML IV ×2 (07:46→07:47)
[2017-07-04 07:49] LABS: ADD MAN DIFF? YES
[2017-07-04] MEDS: HYDROCORTISONE SOD SUCC/PF 100 MG/2 ML VIAL. IV (07:51)
[2017-07-04] MEDS: NOREPINEPHRIN PREMIX 250 ML IV (07:51)
[2017-07-04] MEDS: MEROPENEM IV Push 1 GM VIAL. IVP (07:54)
[2017-07-04 07:55] LABS: ANION GAP 10 (6-14); BLOOD UREA NITROGEN 10 mg/dL (8-26); BUN/CREATININE RATIO 11 (6-20); CARBON DIOXIDE 28 mmol/L (21-32); CHLORIDE 100 mmol/L (98-107); CREATININE 0.9 mg/dL (0.7-1.3); GLUCOSE 235 mg/dL (70-99); POTASSIUM 3.8 mmol/L (3.5-5.1); SODIUM 138 mmol/L (136-145)
[2017-07-04 08:00] LABS: INR 1.3 (0.8-1.1); PROTHROMBIN TIME PATIENT 15.5 SEC (11.7-14.0)
[2017-07-04 08:01] LABS: PARTIAL THROMBOPLASTIN TIME 37 SEC (24-38)
[2017-07-04] MEDS: VANCOMYCIN 1.5 GM in IV DEXTROSE 5 %-0.2 % NACL 500 ML IV (08:01)
[2017-07-04 08:04] LABS: LACTIC ACID 3.3 mmol/L (0.4-2.0)
[2017-07-04 08:10] LABS: ALBUMIN 2.9 g/dL (3.4-5.0); ALBUMIN/GLOBULIN RATIO 0.7 (1.0-1.7); ALK PHOS 73 U/L (46-116); ALT (SGPT) 10 U/L (16-63); AST (SGOT) 20 U/L (15-37); DIRECT BILIRUBIN 0.2 mg/dL (0.0-0.2); LIPASE 73 U/L (73-393); TOTAL BILIRUBIN 0.5 mg/dL (0.2-1.0); TOTAL PROTEIN 6.9 g/dL (6.4-8.2)
[2017-07-04 08:26] LABS: INFLUENZA A PATIENT NEGATIVE (NEGATIVE); INFLUENZA B PATIENT NEGATIVE (NEGATIVE); OBC FLU VALID
[2017-07-04] MEDS: OSELTAMIVIR 75 MG CAPSULE PO (08:27)
[2017-07-04 08:46] LABS: % BANDS 3 % (0-9); % EOS 1 % (0-5); % LYMPHS 7 % (24-48); % MONOS 5 % (0-10); % SEGS 84 % (35-66); ANISOCYTOSIS PRESENT; PLT ESTIMATE ADEQUATE (ADEQUATE)
[2017-07-04] MEDS ORDERED: IPRATRPIUM/ALBUTEROL 0.5/2.5MG 3 ML NEBU. (10:11)
[2017-07-04] MEDS: IPRATRPIUM/ALBUTEROL 0.5/2.5MG 3 ML NEBU. NEB ×3 (10:16→19:36)
[2017-07-04] MEDS: PIPERACILLIN/TAZOBACTAM 3.375 GM in IV NORMAL SALINE 50ML 50 ML IV ×2 (11:34→17:29)
[2017-07-04] MEDS: methylPREDNISolone SOD SUCC PF 40 MG/ML VIAL. IV ×2 (11:36→21:07)
[2017-07-04] MEDS: PANTOPRAZOLE 40 MG TABLET.DR. PO (11:36)
[2017-07-04 12:06] LABS: LACTIC ACID 1.6 mmol/L (0.4-2.0)
[2017-07-04] MEDS ORDERED: DEXTROSE 50% 25 GM / 50ML DISP.SYRIN. IV (12:15)
[2017-07-04] MEDS: guaiFENesin DM 600/30MG 1 TAB TAB.ER.12H PO ×2 (12:30→21:06)
[2017-07-04] MEDS: METOPROLOL SUCC 24HR ER 50 MG TAB.ER.24H. PO ×2 (12:30→20:42)
[2017-07-04] MEDS: DIGOXIN 250 MCG TABLET. PO (12:30)
[2017-07-04] MEDS: DOCUSATE SODIUM 100 MG CAPSULE. PO ×2 (12:30→21:06)
[2017-07-04] MEDS: APIXABAN 5 MG TABLET. PO ×2 (12:30→21:06)
[2017-07-04] MEDS: CARBIDOPA/LEVODOPA 10/100MG TABLET PO (12:30)
[2017-07-04] MEDS: PREGABALIN 75 MG CAPSULE PO ×2 (12:30→21:06)
[2017-07-04 12:34] LABS: POC GLUCOSE 261 mg/dL (70-99)
[2017-07-04] MEDS: INSULIN ASPART 300 UNITS/3 ML INSULN.PEN SQ ×2 (12:48→17:27)
[2017-07-04 13:13] LABS: BILIRUBIN,URINE NEGATIVE (NEG); CLARITY,URINE CLEAR; COLOR,URINE YELLOW; GLUCOSE,URINE 250 mg/dL (NEG); NITRITE,URINE NEGATIVE (NEG); PH,URINE 5.5; PROTEIN,URINE NEGATIVE (NEG-TRACE); UROBILINOGEN,URINE 0.2 mg/dL (0.2 mg/dL)
[2017-07-04 13:30] LABS: RBC,URINE OCC /HPF (0-2)
[2017-07-04 13:32] LABS: BACTERIA,URINE 0 /HPF (0-FEW)
[2017-07-04] MEDS: DOXYCYCLINE HYCLATE 100 MG TABLET PO ×2 (16:03→21:06)
[2017-07-04] MEDS: ENOXAPARIN 40 MG/0.4 ML SYRINGE. SQ (16:03)
[2017-07-04 17:26] LABS: POC GLUCOSE 285 mg/dL (70-99)
[2017-07-04] MEDS: HYDROcodone/APAP 7.5/325MG 1 TAB TABLET PO (19:15)
[2017-07-04] MEDS: TAMSULOSIN 0.4 MG CAP.ER.24H. PO (21:06)
[2017-07-04] MEDS: INSULIN DETEMIR 300 UNITS/3 ML INSULN.PEN. SQ (21:23)
[2017-07-04 21:26] LABS: POC GLUCOSE 306 mg/dL (70-99)
[2017-07-04 23:09] LABS: MRSA BY PCR Negative (Negative)
[2017-07-05] MEDS: PIPERACILLIN/TAZOBACTAM 3.375 GM in IV NORMAL SALINE 50ML 50 ML IV ×4 (00:33→16:55)
[2017-07-05] MEDS: ANTI-COAG MONITOR BY PHARMACY. MC (07:49)
[2017-07-05] MEDS: VANCOMYCIN 1 GM in IV 1/2 NORMAL SALINE 250 ML IV (08:34)
[2017-07-05] MEDS: DOCUSATE SODIUM 100 MG CAPSULE. PO ×2 (08:35→20:48)
[2017-07-05] MEDS: PANTOPRAZOLE 40 MG TABLET.DR. PO (08:35)
[2017-07-05] MEDS: methylPREDNISolone SOD SUCC PF 40 MG/ML VIAL. IV (08:35)
[2017-07-05] MEDS: guaiFENesin DM 600/30MG 1 TAB TAB.ER.12H PO ×2 (08:35→20:48)
[2017-07-05] MEDS: PREGABALIN 75 MG CAPSULE PO ×2 (08:36→20:47)
[2017-07-05] MEDS: DOXYCYCLINE HYCLATE 100 MG TABLET PO ×2 (08:36→20:48)
[2017-07-05] MEDS: CARBIDOPA/LEVODOPA 10/100MG TABLET PO (08:36)
[2017-07-05] MEDS: METOPROLOL SUCC 24HR ER 50 MG TAB.ER.24H. PO ×2 (08:36→20:50)
[2017-07-05] MEDS: DIGOXIN 250 MCG TABLET. PO (08:36)
[2017-07-05] MEDS: APIXABAN 5 MG TABLET. PO ×2 (08:37→20:47)
[2017-07-05] MEDS: INSULIN ASPART 300 UNITS/3 ML INSULN.PEN SQ ×3 (08:38→17:03)
[2017-07-05 08:50] LABS: POC GLUCOSE 231 mg/dL (70-99)
[2017-07-05] MEDS: IPRATRPIUM/ALBUTEROL 0.5/2.5MG 3 ML NEBU. NEB ×4 (08:59→19:24)
[2017-07-05] MEDS: VANCOMYCIN PER PHARMACY MC (09:50)
[2017-07-05 10:18] LABS: ANION GAP 11 (6-14); BLOOD UREA NITROGEN 14 mg/dL (8-26); CALCIUM 8.3 mg/dL (8.5-10.1); CARBON DIOXIDE 27 mmol/L (21-32); CHLORIDE 100 mmol/L (98-107); CREATININE 1.2 mg/dL (0.7-1.3); GFR 58.1; GLUCOSE 371 mg/dL (70-99); POTASSIUM 3.6 mmol/L (3.5-5.1); SODIUM 138 mmol/L (136-145)
[2017-07-05 10:19] LABS: HEMOGLOBIN 12.4 g/dL (13.0-17.5); MEAN CORPUSCULAR HEMOGLOBIN 26 pg (25-35); MEAN CORPUSCULAR HGB CONC 32 g/dL (31-37); MEAN CORPUSCULAR VOLUME 82 fL (79-100); PLATELET COUNT 174 x10^3/uL (140-400); RED BLOOD COUNT 4.75 x10^6/uL (4.30-5.70); RED CELL DISTRIBUTION WIDTH 17.5 % (11.5-14.5)
[2017-07-05 11:59] LABS: POC GLUCOSE 335 mg/dL (70-99)
[2017-07-05] MEDS: LACTOBACILLUS RHAMNOSUS GG 1 CAPSULE. PO ×2 (12:02→20:47)
[2017-07-05 16:45] LABS: POC GLUCOSE 304 mg/dL (70-99)
[2017-07-05 18:09] LABS: LEGIONELLA AG UR Negative (Negative)
[2017-07-05 18:09] LABS: SPECIMEN SOURCE Urine (.); STREP PNEUMO ANTIGEN Negative (Negative)
[2017-07-05] MEDS: IV NORMAL SALINE 1000ML BAG 1,000 ML IV (20:26)
[2017-07-05 20:41] LABS: POC GLUCOSE 308 mg/dL (70-99)
[2017-07-05] MEDS: TAMSULOSIN 0.4 MG CAP.ER.24H. PO (20:48)
[2017-07-05] MEDS: INSULIN DETEMIR 300 UNITS/3 ML INSULN.PEN. SQ (21:15)
[2017-07-06] MEDS: PIPERACILLIN/TAZOBACTAM 3.375 GM in IV NORMAL SALINE 50ML 50 ML IV ×5 (00:13→23:33)
[2017-07-06] MEDS: IV NORMAL SALINE 1000ML BAG 1,000 ML IV ×3 (01:45→23:31)
[2017-07-06 05:09] LABS: ADD MAN DIFF? NO
[2017-07-06 05:20] LABS: BASO % 1 % (0-3); EOS % 0 % (0-3); HEMATOCRIT 30.8 % (39.0-53.0); LYMPH # 0.4 x10^3/uL (1.0-4.8); LYMPH % 6 % (24-48); MEAN CORPUSCULAR HEMOGLOBIN 26 pg (25-35); MEAN CORPUSCULAR HGB CONC 32 g/dL (31-37); MEAN CORPUSCULAR VOLUME 80 fL (79-100); MONO # 0.6 x10^3/uL (0.0-1.1); MONO % 8 % (0-9); NEUT # 5.7 x10^3uL (1.8-7.7); NEUT % 85 % (31-73); PLATELET COUNT 122 x10^3/uL (140-400); RED BLOOD COUNT 3.84 x10^6/uL (4.30-5.70); RED CELL DISTRIBUTION WIDTH 17.7 % (11.5-14.5); WHITE BLOOD COUNT 6.7 x10^3/uL (4.0-11.0)
[2017-07-06 05:38] LABS: ALBUMIN 2.3 g/dL (3.4-5.0); ALBUMIN/GLOBULIN RATIO 0.7 (1.0-1.7); ALK PHOS 56 U/L (46-116); ALT (SGPT) 14 U/L (16-63); ANION GAP 8 (6-14); AST (SGOT) 13 U/L (15-37); BLOOD UREA NITROGEN 20 mg/dL (8-26); BUN/CREATININE RATIO 25 (6-20); CALCIUM 8.3 mg/dL (8.5-10.1); CARBON DIOXIDE 28 mmol/L (21-32); CHLORIDE 106 mmol/L (98-107); CREATININE 0.8 mg/dL (0.7-1.3); GFR 92.8; GLUCOSE 57 mg/dL (70-99); POTASSIUM 3.2 mmol/L (3.5-5.1); SODIUM 142 mmol/L (136-145); TOTAL BILIRUBIN 0.3 mg/dL (0.2-1.0); TOTAL PROTEIN 5.7 g/dL (6.4-8.2)
[2017-07-06] MEDS: PANTOPRAZOLE 40 MG TABLET.DR. PO (07:30)
[2017-07-06 07:42] LABS: POC GLUCOSE 59 mg/dL (70-99)
[2017-07-06] MEDS: IPRATRPIUM/ALBUTEROL 0.5/2.5MG 3 ML NEBU. NEB ×4 (07:57→20:35)
[2017-07-06] MEDS: INSULIN ASPART 300 UNITS/3 ML INSULN.PEN SQ ×3 (08:00→17:24)
[2017-07-06 08:07] LABS: POC GLUCOSE 62 mg/dL (70-99)
[2017-07-06] MEDS: DOXYCYCLINE HYCLATE 100 MG TABLET PO ×2 (08:54→21:03)
[2017-07-06] MEDS: APIXABAN 5 MG TABLET. PO ×2 (08:54→21:03)
[2017-07-06] MEDS: guaiFENesin DM 600/30MG 1 TAB TAB.ER.12H PO ×2 (08:54→21:05)
[2017-07-06] MEDS: CARBIDOPA/LEVODOPA 10/100MG TABLET PO (08:55)
[2017-07-06] MEDS: DIGOXIN 250 MCG TABLET. PO (08:55)
[2017-07-06] MEDS: METOPROLOL SUCC 24HR ER 50 MG TAB.ER.24H. PO ×2 (08:55→21:04)
[2017-07-06] MEDS: PREGABALIN 75 MG CAPSULE PO ×2 (08:55→21:05)
[2017-07-06] MEDS: LACTOBACILLUS RHAMNOSUS GG 1 CAPSULE. PO ×2 (08:56→21:03)
[2017-07-06] MEDS: methylPREDNISolone SOD SUCC PF 40 MG/ML VIAL. IV (08:56)
[2017-07-06] MEDS: DOCUSATE SODIUM 100 MG CAPSULE. PO ×2 (08:56→21:00)
[2017-07-06 09:27] LABS: NT-PRO BNP 2232 pg/mL (0-449)
[2017-07-06] MEDS: ANTI-COAG MONITOR BY PHARMACY. MC (11:24)
[2017-07-06 12:26] LABS: POC GLUCOSE 235 mg/dL (70-99)
[2017-07-06] MEDS: POTASSIUM CHLORIDE 20 MEQ TABLET.ER. PO (21:03)
[2017-07-06] MEDS: TAMSULOSIN 0.4 MG CAP.ER.24H. PO (21:04)
[2017-07-06] MEDS: HYDROcodone/APAP 7.5/325MG 1 TAB TABLET PO (21:05)
[2017-07-06] MEDS: diphenhydrAMINE HCL 25 MG CAPSULE PO (21:05)
[2017-07-06] MEDS: INSULIN DETEMIR 300 UNITS/3 ML INSULN.PEN. SQ (21:18)
[2017-07-06 21:32] LABS: POC GLUCOSE 205 mg/dL (70-99)
[2017-07-07] MEDS: PIPERACILLIN/TAZOBACTAM 3.375 GM in IV NORMAL SALINE 50ML 50 ML IV (06:17)
[2017-07-07 07:38] LABS: POC GLUCOSE 51 mg/dL (70-99)
[2017-07-07] MEDS: INSULIN ASPART 300 UNITS/3 ML INSULN.PEN SQ ×2 (07:42→12:39)
[2017-07-07] MEDS: IPRATRPIUM/ALBUTEROL 0.5/2.5MG 3 ML NEBU. NEB ×2 (07:44→11:48)
[2017-07-07 08:02] LABS: POC GLUCOSE 57 mg/dL (70-99)
[2017-07-07 08:29] LABS: POC GLUCOSE 93 mg/dL (70-99)
[2017-07-07] MEDS: APIXABAN 5 MG TABLET. PO (09:35)
[2017-07-07] MEDS: DOXYCYCLINE HYCLATE 100 MG TABLET PO (09:35)
[2017-07-07] MEDS: guaiFENesin DM 600/30MG 1 TAB TAB.ER.12H PO (09:35)
[2017-07-07] MEDS: LACTOBACILLUS RHAMNOSUS GG 1 CAPSULE. PO (09:35)
[2017-07-07] MEDS: METOPROLOL SUCC 24HR ER 50 MG TAB.ER.24H. PO (09:36)
[2017-07-07] MEDS: CARBIDOPA/LEVODOPA 10/100MG TABLET PO (09:36)
[2017-07-07] MEDS: PANTOPRAZOLE 40 MG TABLET.DR. PO (09:36)
[2017-07-07] MEDS: PREGABALIN 75 MG CAPSULE PO (09:36)
[2017-07-07] MEDS: DIGOXIN 250 MCG TABLET. PO (09:37)
[2017-07-07] MEDS: DOCUSATE SODIUM 100 MG CAPSULE. PO (09:37)
[2017-07-07 11:05] LABS: POC GLUCOSE 163 mg/dL (70-99)
[2017-07-07] MEDS: ANTI-COAG MONITOR BY PHARMACY. MC (13:53)
[2017-07-07 20:42] LABS: POC GLUCOSE 238 mg/dL (70-99)
== END 2017-07-07 15:30 | disposition home health service (06) | DRG 871 ==
LOC: 2 NORTH 07-05 15:11 → ER 07:05 → 1 WEST ICU 08:57
PROC: 02HV33Z Insertion of Infusion Device into Superior Vena Cava, Percutaneous Approach (ICD-10-PCS; principal; 2017-07-04)
PROC: B548ZZA Ultrasonography of Superior Vena Cava, Guidance (ICD-10-PCS; 2017-07-04)
DX: A41.9 Sepsis, unspecified organism (principal); J96.00 Acute respiratory failure, unspecified whether with hypoxia or hypercapnia; R65.21 Severe sepsis with septic shock; J18.9 Pneumonia, unspecified organism; E11.40 Type 2 diabetes mellitus with diabetic neuropathy, unspecified; C34.90 Malignant neoplasm of unspecified part of unspecified bronchus or lung; E11.51 Type 2 diabetes mellitus with diabetic peripheral angiopathy without gangrene; E86.1 Hypovolemia; G20 Parkinson's disease; J44.0 Chronic obstructive pulmonary disease with (acute) lower respiratory infection; J44.1 Chronic obstructive pulmonary disease with (acute) exacerbation; E78.5 Hyperlipidemia, unspecified; F03.90 Unspecified dementia, unspecified severity, without behavioral disturbance, psychotic disturbance, mood disturbance, and anxiety; I10 Essential (primary) hypertension; I25.10 Atherosclerotic heart disease of native coronary artery without angina pectoris; I25.2 Old myocardial infarction; I48.91 Unspecified atrial fibrillation; K21.9 Gastro-esophageal reflux disease without esophagitis; N40.0 Benign prostatic hyperplasia without lower urinary tract symptoms; Y95 Nosocomial condition; M19.90 Unspecified osteoarthritis, unspecified site; Z51.5 Encounter for palliative care; Z80.1 Family history of malignant neoplasm of trachea, bronchus and lung; Z82.49 Family history of ischemic heart disease and other diseases of the circulatory system; Z83.3 Family history of diabetes mellitus; Z85.118 Personal history of other malignant neoplasm of bronchus and lung; Z86.010 Personal history of colon polyps; Z86.73 Personal history of transient ischemic attack (TIA), and cerebral infarction without residual deficits; Z87.891 Personal history of nicotine dependence; Z92.21 Personal history of antineoplastic chemotherapy; Z92.3 Personal history of irradiation; Z95.1 Presence of aortocoronary bypass graft
CPT/HCPCS: 36415; 36556; 71045; 80048; 80053; 80076; 81001; 82962; 83605; 83690; 83880; 85007; 85025; 85027; 85610; 85730; 87040; 87086; 87205; 87449; 87641; 87804; 87804-59; 93005; 93970; 94640; 96365; 96366; 96375; 97162-GP; 97165-GO; 97530-GO; 97535-GO; 99291-25; J1650; J1720; J1815; J2185; J2543; J2920; J3370; J7030; J7620; Q0163

== ENCOUNTER 2017-07-21 08:10 | Emergency (ER) | payer MEDICARE, OTHER ==
[2017-07-21] MEDS ORDERED: 0.9 % SODIUM CHLORIDE 10 ML DISP.SYRIN. IV (08:30)
[2017-07-21] MEDS: IV NORMAL SALINE 500ML BAG 500 ML IV (08:57)
[2017-07-21 09:02] LABS: ADD MAN DIFF? NO
[2017-07-21 09:04] LABS: BASO % 1 % (0-3); EOS # 0.1 x10^3/uL (0.0-0.7); EOS % 2 % (0-3); HEMATOCRIT 35.7 % (39.0-53.0); HEMOGLOBIN 11.5 g/dL (13.0-17.5); LYMPH # 0.5 x10^3/uL (1.0-4.8); LYMPH % 10 % (24-48); MEAN CORPUSCULAR HEMOGLOBIN 26 pg (25-35); MEAN CORPUSCULAR HGB CONC 32 g/dL (31-37); MEAN CORPUSCULAR VOLUME 81 fL (79-100); MONO # 0.7 x10^3/uL (0.0-1.1); MONO % 12 % (0-9); NEUT # 4.1 x10^3uL (1.8-7.7); NEUT % 76 % (31-73); PLATELET COUNT 139 x10^3/uL (140-400); RED BLOOD COUNT 4.43 x10^6/uL (4.30-5.70); RED CELL DISTRIBUTION WIDTH 17.8 % (11.5-14.5); WHITE BLOOD COUNT 5.5 x10^3/uL (4.0-11.0)
[2017-07-21 09:31] LABS: ANION GAP 8 (6-14); BLOOD UREA NITROGEN 13 mg/dL (8-26); CALCIUM 9.4 mg/dL (8.5-10.1); CARBON DIOXIDE 28 mmol/L (21-32); CHLORIDE 102 mmol/L (98-107); CREATININE 0.9 mg/dL (0.7-1.3); GLUCOSE 329 mg/dL (70-99); POTASSIUM 4.1 mmol/L (3.5-5.1); SODIUM 138 mmol/L (136-145)
[2017-07-21 09:37] LABS: ALBUMIN 2.6 g/dL (3.4-5.0); ALK PHOS 83 U/L (46-116); ALT (SGPT) 10 U/L (16-63); AST (SGOT) 17 U/L (15-37); DIRECT BILIRUBIN 0.1 mg/dL (0.0-0.2); LIPASE 82 U/L (73-393); MAGNESIUM 1.4 mg/dL (1.8-2.4); TOTAL BILIRUBIN 0.2 mg/dL (0.2-1.0); TOTAL PROTEIN 6.4 g/dL (6.4-8.2)
[2017-07-21 09:38] LABS: TROPONINI < 0.017 ng/mL (0.000-0.055)
[2017-07-21 09:42] LABS: THYROID STIM HORMONE (TSH) 2.429 uIU/mL (0.358-3.74)
[2017-07-21 09:43] LABS: BILIRUBIN,URINE NEGATIVE (NEG); CLARITY,URINE CLEAR; COLOR,URINE YELLOW; GLUCOSE,URINE >=1000 mg/dL (NEG); NITRITE,URINE NEGATIVE (NEG); PROTEIN,URINE NEGATIVE (NEG-TRACE); UROBILINOGEN,URINE 0.2 mg/dL (0.2 mg/dL)
[2017-07-21 09:52] LABS: HYALINE CASTS, URINE FEW /HPF; SQUAMOUS EPITHELIAL CELL,UR FEW /LPF
[2017-07-21 09:53] LABS: BACTERIA,URINE FEW /HPF (0-FEW); RBC,URINE 0 /HPF (0-2)
[2017-07-21 10:00] LABS: CKMB MASS 2.8 ng/mL (0.0-3.6); CREATINE KINASE 51 U/L (39-308)
[2017-07-21 10:00] LABS: NT-PRO BNP 1453 pg/mL (0-449)
== END 2017-07-21 10:12 | disposition home or self-care (01) ==
LOC: ER 08:10
DX: I95.1 Orthostatic hypotension (principal); D64.9 Anemia, unspecified; F03.90 Unspecified dementia, unspecified severity, without behavioral disturbance, psychotic disturbance, mood disturbance, and anxiety; E11.40 Type 2 diabetes mellitus with diabetic neuropathy, unspecified; K21.9 Gastro-esophageal reflux disease without esophagitis; E78.00 Pure hypercholesterolemia, unspecified; I25.2 Old myocardial infarction; I11.9 Hypertensive heart disease without heart failure; Z86.73 Personal history of transient ischemic attack (TIA), and cerebral infarction without residual deficits; Z95.1 Presence of aortocoronary bypass graft; Z92.21 Personal history of antineoplastic chemotherapy; Z92.3 Personal history of irradiation; Z85.118 Personal history of other malignant neoplasm of bronchus and lung
CPT/HCPCS: 36415; 80048; 80076; 81001; 82553; 83690; 83735; 83880; 84443; 84484; 85025; 87086; 93005; 99285-25; J7040

== ENCOUNTER 2017-08-28 08:12 | Outpatient (CLI) | payer MEDICARE, OTHER ==
[2017-08-28 08:32] LABS: ADD MAN DIFF? NO
[2017-08-28 08:43] LABS: ANION GAP 10 (6-14); BLOOD UREA NITROGEN 15 mg/dL (8-26); CALCIUM 9.5 mg/dL (8.5-10.1); CARBON DIOXIDE 26 mmol/L (21-32); CHLORIDE 104 mmol/L (98-107); CREATININE 0.8 mg/dL (0.7-1.3); GFR 92.8; GLUCOSE 186 mg/dL (70-99); POTASSIUM 4.4 mmol/L (3.5-5.1); SODIUM 140 mmol/L (136-145)
[2017-08-28 08:57] LABS: BASO % 0 % (0-3); EOS # 0.1 x10^3/uL (0.0-0.7); EOS % 1 % (0-3); HEMATOCRIT 39.2 % (39.0-53.0); HEMOGLOBIN 12.3 g/dL (13.0-17.5); LYMPH # 0.8 x10^3/uL (1.0-4.8); LYMPH % 6 % (24-48); MEAN CORPUSCULAR HEMOGLOBIN 25 pg (25-35); MEAN CORPUSCULAR HGB CONC 31 g/dL (31-37); MEAN CORPUSCULAR VOLUME 80 fL (79-100); MONO # 1.1 x10^3/uL (0.0-1.1); MONO % 9 % (0-9); NEUT # 10.4 x10^3uL (1.8-7.7); NEUT % 84 % (31-73); PLATELET COUNT 202 x10^3/uL (140-400); RED BLOOD COUNT 4.88 x10^6/uL (4.30-5.70); RED CELL DISTRIBUTION WIDTH 17.5 % (11.5-14.5); WHITE BLOOD COUNT 12.4 x10^3/uL (4.0-11.0)
[2017-08-28 09:04] LABS: PROTHROMBIN TIME PATIENT 13.1 SEC (11.7-14.0)
[2017-08-28] MEDS ORDERED: LIDOCAINE 2%/EPI 1:100,000 20 ML VIAL. (09:09)
[2017-08-28] MEDS ORDERED: HEPARIN PF 500 UNIT/5 ML DISP.SYRIN. IV (09:09)
[2017-08-28] MEDS ORDERED: fentaNYL PF VIAL 100 MCG/2 ML VIAL (09:43)
[2017-08-28] MEDS ORDERED: MIDAZOLAM HCL/PF 2 MG/2 ML VIAL. (09:43)
[2017-08-28] MEDS: LIDOCAINE 2%/EPI 1:100,000 20 ML VIAL. IJ (10:19)
[2017-08-28] MEDS: MIDAZOLAM HCL/PF 2 MG/2 ML VIAL. IV (10:20)
[2017-08-28] MEDS: fentaNYL PF VIAL 100 MCG/2 ML VIAL IV (10:21)
[2017-08-28] MEDS: HEPARIN PF 500 UNIT/5 ML DISP.SYRIN. IV (10:23)
== END 2017-08-28 13:00 | disposition home or self-care (01) ==
LOC: INTRAD 08:12
DX: C34.90 Malignant neoplasm of unspecified part of unspecified bronchus or lung (principal); E11.42 Type 2 diabetes mellitus with diabetic polyneuropathy; Z79.4 Long term (current) use of insulin; Z79.84 Long term (current) use of oral hypoglycemic drugs; Z79.01 Long term (current) use of anticoagulants; Z98.42 Cataract extraction status, left eye; Z98.41 Cataract extraction status, right eye; Z86.73 Personal history of transient ischemic attack (TIA), and cerebral infarction without residual deficits; I48.91 Unspecified atrial fibrillation; I25.10 Atherosclerotic heart disease of native coronary artery without angina pectoris; I73.9 Peripheral vascular disease, unspecified; Z95.1 Presence of aortocoronary bypass graft; E78.00 Pure hypercholesterolemia, unspecified; I10 Essential (primary) hypertension; J43.9 Emphysema, unspecified; Z86.010 Personal history of colon polyps; E66.9 Obesity, unspecified; K21.9 Gastro-esophageal reflux disease without esophagitis; Z98.52 Vasectomy status; Z87.440 Personal history of urinary (tract) infections; M19.90 Unspecified osteoarthritis, unspecified site; Z79.82 Long term (current) use of aspirin; F17.210 Nicotine dependence, cigarettes, uncomplicated; Z83.3 Family history of diabetes mellitus
CPT/HCPCS: 36415; 36561; 76937; 77001; 80048; 85025; 85610; 99152; 99153; C1751; C1769; C1892; J0690; J2250; J3010; J3490

== ENCOUNTER → 2017-12-16 | Outpatient (CLI) | payer MEDICARE, OTHER ==
[~2017-12-16] MED LIST changes: -APIX5TAB PO; -ASPI-630 PO; -ATOR40TA PO; -BENZ-8 PO; -CARB1TAB20 PO; -CEFP100T PO; +CONTRAST GIVEN. MC; -CYAN10005 PO; -DIGO250T PO; -DILT180C29 PO; -DILT180T7 PO; -GABA-585 PO; -GABA-586 PO; -GLUC1TAB71 PO; -GUAI5SYR PO; -HUM100VI4 SQ; -INSU100I13 SQ; -INSU100I17 SQ; -LEVO500T59 PO; -LEVO750T31 PO; -LISI-334 PO; -LISI40TA PO; -LOSA100T6 PO; -METF-620 PO; -METO-239 PO; -METO25TA4 PO; -OMEP20CA5 PO; -PITA2TAB2 PO; -PREG75CA PO; -SAW450CA7 PO; -TRAM1TAB4 PO
[2017-12-16] MEDS: IOHEXOL 240 MG/ML 50ML VIAL. PO (09:21)
[2017-12-16] MEDS: IOHEXOL 300 MG/ML 100ML VIAL. IV (09:21)
[2017-12-16] MEDS: HEPARIN PF 500 UNIT/5 ML DISP.SYRIN. IV (09:24)
== END | disposition home or self-care (01) ==
LOC: CT 07:57
DX: C34.32 Malignant neoplasm of lower lobe, left bronchus or lung (principal); K80.20 Calculus of gallbladder without cholecystitis without obstruction; N40.0 Benign prostatic hyperplasia without lower urinary tract symptoms; K76.89 Other specified diseases of liver; K57.30 Diverticulosis of large intestine without perforation or abscess without bleeding; I11.0 Hypertensive heart disease with heart failure; I50.9 Heart failure, unspecified; E11.42 Type 2 diabetes mellitus with diabetic polyneuropathy; E78.5 Hyperlipidemia, unspecified; E78.00 Pure hypercholesterolemia, unspecified; J44.1 Chronic obstructive pulmonary disease with (acute) exacerbation; E87.6 Hypokalemia; I48.0 Paroxysmal atrial fibrillation; K21.9 Gastro-esophageal reflux disease without esophagitis; R16.1 Splenomegaly, not elsewhere classified
CPT/HCPCS: 71260; 74177; Q9966; Q9967

== ENCOUNTER → 2017-12-24 | Outpatient (CLI) | payer MEDICARE, OTHER | END | disposition home or self-care (01) | LOC: PETSC 10:37 | DX: C34.32 Malignant neoplasm of lower lobe, left bronchus or lung (principal); R91.8 Other nonspecific abnormal finding of lung field; I10 Essential (primary) hypertension; E11.9 Type 2 diabetes mellitus without complications; E78.5 Hyperlipidemia, unspecified; J44.9 Chronic obstructive pulmonary disease, unspecified; Z87.891 Personal history of nicotine dependence | CPT/HCPCS: 78815; A9552 ==

== ENCOUNTER → 2018-03-25 | Outpatient (CLI) | payer MEDICARE, OTHER ==
[2017-08-28 13:00] VITALS: BP 135/77
[~2018-03-25] MED LIST changes: +AMOX1TAB11 PO; +AMOX1TAB61 PO; +APIX5TAB PO; +ASPI-630 PO; +ATOR40TA PO; +BENZ-8 PO; +BENZ100C PO; +CARB1TAB20 PO; +CEFP100T PO; -CONTRAST GIVEN. MC; +CYAN10005 PO; +DIGO125T PO; +DIGO250T PO; +DILT180C29 PO; +DILT180T7 PO; +DOCU-109 PO; +GABA-585 PO; +GABA-586 PO; +GLUC1TAB71 PO; +GUAI-108 PO; +GUAI5SYR PO; +GUAI600T79 PO; +HUM100VI4 SQ; +HYDR-2762 PO; +INSU100I13 SQ; +INSU100I17 SQ; +INSU100I27 SQ; +LACT1CAP19 PO; +LEVO500T59 PO; +LEVO750T31 PO; +LISI-130 PO; +LISI-334 PO; +LOSA100T7 PO; +MELA3TAB2 PO; +METF10007 PO; +METO-239 PO; +METO25TA4 PO; +OMEP20CA5 PO; +PITA2TAB2 PO; +PREG75CA PO; +SAW450CA7 PO; +SERT50TA PO; +TAMS0.4C97 PO; +TRAM1TAB4 PO
--- NOTE | 2018-03-25 13:03 | RAD ---
FDG tumor localization scan, PET/CT, 03/25/2018: History: Follow-up lung cancer Following IV injection of 14.2 mCi of 18 F-FDG, imaging was performed from the skull base to the proximal thighs. The noncontrast CT component was performed for attenuation correction and anatomic localization purposes rather than for primary diagnosis. The patient's blood glucose level at the time of injection was 173 MG/DL. Comparison is made to a study from 12/24/2017. Physiologic activity is present in the neck. There are persistent increased densities in the medial aspect of the left lung with volume loss and infiltrate. There is patchy increased FDG uptake in this region similar to that seen on the previous study. The maximum SUV in these regions range from approximate 6-7. There is persistent left-sided pleural fluid. The small 8 mm nodule seen posterolaterally in the left lower lobe on the previous study has increased in size and now measures 13 mm. It demonstrates a maximum SUV of 5.6 compared to a value 2.6 on the previous study. The hypermetabolic left upper lobe pulmonary nodule which measured 9 mm and demonstrate a maximum SUV of 3.3 on the previous study, now measures 14 mm with a maximum issue the of 8.2. There is a new 12 mm hypermetabolic nodule along the posteromedial aspect of the right hilum in the right lower lobe. It demonstrates a maximum SUV of 6.8. A couple of small right upper lobe pulmonary nodules appear to be unchanged and are not hypermetabolic. Normal GI tract and urinary tract activity is evident in the abdomen and pelvis. No hypermetabolic abdominal or pelvic lesion is seen. Several ill-defined low density foci in the liver appear unchanged. The liver FDG uptake is heterogeneous with no definite hypermetabolic focus identified. Incidental CT findings include the presence of moderate nonspecific prostatic enlargement. Colonic diverticulosis is evident. Cholelithiasis is present. There is extensive calcific plaquing of the aorta and coronary arteries. IMPRESSION: 1. Abnormal hypermetabolic left paramediastinal densities persists, much of which may be secondary to radiation therapy. Underlying neoplasm cannot be excluded. 2. Enlarging left lung nodules and interval development of a new hypermetabolic right lung nodule suggesting metastatic disease.
== END | disposition home or self-care (01) ==
LOC: PETSC 10:19
PROVIDERS: ATTEND Internal Medicine Hematology & Oncology
DX: C34.32 Malignant neoplasm of lower lobe, left bronchus or lung (principal); K80.20 Calculus of gallbladder without cholecystitis without obstruction; N40.0 Benign prostatic hyperplasia without lower urinary tract symptoms; K57.30 Diverticulosis of large intestine without perforation or abscess without bleeding; R91.8 Other nonspecific abnormal finding of lung field
CPT/HCPCS: 78815; A9552

== ENCOUNTER 2018-04-03 16:16 | Emergency (ER) | payer MEDICARE, OTHER ==
[~2018-04-03] VITALS: Ht 172.7 cm; Wt 74.8 kg
[2018-04-03] MEDS ORDERED: HYDROcodone/APAP 5/325MG 1 TAB TABLET PO ONE (17:00)
--- NOTE | 2018-04-03 17:34 | RAD ---
Examination: RIBS LEFT AND PA CHEST, THORACIC SPINE 3V History: FALL. LEFT RIB PAIN Comparison/Correlation: 03/25/2018 PET-CT Skull base-Thighs Findings: Total 7 images of the thoracic spine and left ribs were obtained. This includes a PA view of the chest. Sternal wires are present. Left hilar surgical clips present. Right internal jugular infusion port catheter tip is identified to terminate overlying the superior vena cava. Scarring in the left perihilar region is present. Left lung volume loss is suggested. Pleural thickening involving the left lateral thorax noted. Scarring involving the left perihilar and infrahilar region is present. Right lung field is clear. Alignment of the thoracic spine is normal. Vertebral body heights are adequate. Evaluation on the lateral views limited as a swimmer's lateral view is not provided. Calcification of the abdominal aorta noted. There is no left rib fracture. Epicardial leads noted. Impression: No displaced left rib fracture. Alignment of the spine is unremarkable. Left perihilar interstitial thickening and scarring identified. Electronically signed by: Diego Mario MD (04/03/2018 5:31 PM) [id number]
--- NOTE | 2018-04-03 17:51 | PHYS DOC ---
Past Medical History Past Medical History: Cancer, Dementia, Diabetes-Type II, GERD, High Cholesterol, Hypertension, IA, Stroke Additional Past Medical Histor: neuropathy, lung cancer W/ CHEMO AND RADIATION Past Surgical History: Other Additional Past Surgical Histo: CABG X 5 VESSELS, BACK SX Alcohol Use: Occasionally Drug Use: None Adult General Chief Complaint Chief Complaint: MECHANICAL FALL HPI HPI Patient is a 83 year old [f__sex] who presents with [] Review of Systems Review of Systems Constitutional: Denies fever or chills [] Eyes: Denies change in visual acuity, redness, or eye pain [] HENT: Denies nasal congestion or sore throat [] Respiratory: Denies cough or shortness of breath [] Cardiovascular: No additional information not addressed in HPI [] GI: Denies abdominal pain, nausea, vomiting, bloody stools or diarrhea [] : Denies dysuria or hematuria [] Musculoskeletal: Denies back pain or joint pain [] Integument: Denies rash or skin lesions [] Neurologic: Denies headache, focal weakness or sensory changes [] Endocrine: Denies polyuria or polydipsia [] All other systems were reviewed and found to be within normal limits, except as documented in this note. Current Medications Current Medications Current Medications Medications (Trade) Dose Ordered Sig/Jimmy Start Time Stop Time Status Last Admin Dose Admin Acetaminophen/ Hydrocodone Bitart (Lortab 5/325) 1 tab 1X ONCE 04/03/18 17:00 04/03/18 17:01 DC 04/03/18 16:53 1 TAB Allergies Allergies Allergies Coded Allergies Type Severity Reaction Last Updated Verified No Known Medication Allergies Allergy Unknown 12/29/16 Yes Physical Exam Physical Exam Constitutional: Well developed, well nourished, no acute distress, non-toxic appearance. [] HENT: Normocephalic, atraumatic, bilateral external ears normal, oropharynx moist, no oral exudates, nose normal. [] Eyes: PERRLA, EOMI, conjunctiva normal, no discharge. [] Neck: Normal range of motion, no tenderness, supple, no stridor. [] Cardiovascular:Heart rate regular rhythm, no murmur [] Lungs & Thorax: Bilateral breath sounds clear to auscultation [] Abdomen: Bowel sounds normal, soft, no tenderness, no masses, no pulsatile masses. [] Skin: Warm, dry, no erythema, no rash. [] Back: No tenderness, no CVA tenderness. [] Extremities: No tenderness, no cyanosis, no clubbing, ROM intact, no edema. [] Neurologic: Alert and oriented X 3, normal motor function, normal sensory function, no focal deficits noted. [] Psychologic: Affect normal, judgement normal, mood normal. [] Current Patient Data Vital Signs Vital Signs Date Time Temp Pulse Resp B/P (MAP) Pulse Ox O2 Delivery O2 Flow Rate FiO2 04/03/18 16:53 18 95 Room Air 04/03/18 16:32 97.5 95 152/67 (95) 97.5 EKG EKG [] Radiology/Procedures Radiology/Procedures [] Course & Med Decision Making Course & Med Decision Making Pertinent Labs and Imaging studies reviewed. (See chart for details) [] Dragon Disclaimer Dragon Disclaimer This electronic medical record was generated, in whole or in part, using a voice recognition dictation system. Departure Departure Impression: Primary Impression: Fall at home Additional Impressions: Contusion of rib on left side Thoracic back pain Disposition: 01 HOME, SELF-CARE Condition: STABLE Referrals: SHIELA MATHIS Jr, MD (PCP) Patient Instructions: Fall Prevention and Home Safety, Rubc-ox-Coge, Rib Contusion Additional Instructions: Continue taking your pain medication as prescribed. Use the incentive spirometer provided every hour when you are awake. Follow up with your doctor next week, return to the ER if symptoms worsen. Problem Qualifiers Primary Impression: Fall at home Encounter type: initial encounter Qualified Codes: W19.XXXA - Unspecified fall, initial encounter; Y92.009 - Unspecified place in unspecified non- institutional (private) residence as the place of occurrence of the external cause Additional Impressions: Contusion of rib on left side Encounter type: initial encounter Qualified Codes: S20.212A - Contusion of left front wall of thorax, initial encounter Thoracic back pain Chronicity: acute Back pain laterality: left Qualified Codes: M54.6 - Pain in thoracic spine AMAYA [address] [employer] Apr 03, 2018 17:51
[2018-04-03 17:56] VITALS: BP 133/60
== END 2018-04-03 18:00 | disposition home or self-care (01) ==
LOC: ER 16:16
DX: S20.212A Contusion of left front wall of thorax, initial encounter (principal); M54.6 Pain in thoracic spine; E11.40 Type 2 diabetes mellitus with diabetic neuropathy, unspecified; I10 Essential (primary) hypertension; E78.00 Pure hypercholesterolemia, unspecified; K21.9 Gastro-esophageal reflux disease without esophagitis; Z86.73 Personal history of transient ischemic attack (TIA), and cerebral infarction without residual deficits; I25.2 Old myocardial infarction; F03.90 Unspecified dementia, unspecified severity, without behavioral disturbance, psychotic disturbance, mood disturbance, and anxiety; Z95.1 Presence of aortocoronary bypass graft; Z98.890 Other specified postprocedural states; Z85.118 Personal history of other malignant neoplasm of bronchus and lung; W01.0XXA Fall on same level from slipping, tripping and stumbling without subsequent striking against object, initial encounter; Y93.89 Activity, other specified; Y92.098 Other place in other non-institutional residence as the place of occurrence of the external cause; Y99.8 Other external cause status
CPT/HCPCS: 71101; 72072; 99284

== ENCOUNTER → 2018-04-21 | Outpatient (CLI) | payer MEDICARE, OTHER ==
[2018-04-03 17:56] VITALS: BP 133/60
[~2018-04-21] MED LIST changes: +GADOBUTROL 7.5 MMOL/7.5 ML VIAL IV ONE; -HYDR-2762 PO; +HYDR-2765 PO
--- NOTE | 2018-04-21 11:20 | RAD ---
EXAM: Brain MRI with and without contrast. HISTORY: Lung cancer. TECHNIQUE: Multiplanar, multisequence magnetic resonance imaging of the brain was performed prior to and following the administration of 10 cc Gadavist intravenous contrast. COMPARISON: MRI dated 03/21/2017. FINDINGS: There is no restricted diffusion to suggest acute or subacute infarction. There is abnormal signal on diffusion weighted images within the inferior left cerebellum and posterior right occipital lobe, corresponding with regions of encephalomalacia and T1 hyperintensity likely due to hemorrhagic transformation of prior infarcts. The imaging appearance does not favor intracranial metastases. There is no significant enhancement within these regions between T1 precontrast and postcontrast images. There is no mass effect or midline shift. There is no hydrocephalus. There are multiple scattered areas of signal change throughout the cerebral white matter, likely due to chronic small vessel disease. There are small chronic cortical infarct within the right parietal and frontal lobes. There is cerebral atrophy. There are few tiny foci of encephalomalacia within the right cerebellum due to chronic infarction. There are also chronic infarcts within the left thalamus and right caudate nucleus. There is slight decreased flow void within the distal right internal carotid artery. This likely due to low flow from proximal stenosis. There is evidence of lens surgery. There is paranasal sinus because of thickening with maxillary sinus mucous retention cysts. The mastoid air cells are clear. IMPRESSION: 1. Suspected early chronic or chronic infarct with prior hemorrhagic transformation within the left cerebellum and right occipital lobe. There is no restricted diffusion to suggest acute or subacute infarction. 2. No convincing intracranial metastatic disease. 3. Scattered areas of signal change throughout the cerebral white matter, likely due to chronic small vessel disease. 4. Chronic infarcts within the right parietal and frontal lobe cortex, right cerebellum, right caudate nucleus and left thalamus. 5. Cerebral volume loss. 6. Decreased flow void within the distal right internal carotid artery. This may be due to hemodynamically significant proximal stenosis. This can be better assessed with a CT angiogram of the head and neck. Electronically signed by: Bryanna Daniels MD (04/21/2018 11:16 AM) [facility]
== END | disposition home or self-care (01) ==
LOC: MRI 09:22
PROVIDERS: ATTEND Internal Medicine Hematology & Oncology
DX: G31.89 Other specified degenerative diseases of nervous system (principal); J34.1 Cyst and mucocele of nose and nasal sinus; Z85.118 Personal history of other malignant neoplasm of bronchus and lung
CPT/HCPCS: 70553; A9585

== ENCOUNTER → 2018-06-21 | Outpatient (CLI) | payer MEDICARE ==
[~2018-06-21] MED LIST changes: +DURV120V IV; -GABA-586 PO; +GABA300C18 PO; -GADOBUTROL 7.5 MMOL/7.5 ML VIAL IV ONE; +LOSA100T14 PO; -LOSA100T7 PO
== END | disposition home or self-care (01) ==
LOC: LAB 15:12
PROVIDERS: ATTEND Psychiatry & Neurology Neurology with Special Qualifications in Child Neurology
DX: G62.9 Polyneuropathy, unspecified (principal); R20.2 Paresthesia of skin; R53.1 Weakness
CPT/HCPCS: 36415; 82607; 82746; 84165; 84443; 85651; 86038

== ENCOUNTER 2018-08-17 19:19 | Inpatient (IN) | payer MEDICARE, OTHER ==
[~2018-08-17] VITALS: Ht 172.7 cm; Wt 68.1 kg
[~2018-08-17 19:19] MED LIST changes: -ALBU2.5V8 NEB; -ALBUTEROL SULFATE 2.5 MG/3 ML NEBU. NEB PRN; -DOXY100T PO; -EPINEPHrine 1 MG/ML VIAL INJ PRN; -EPINEPHrine 1 MG/ML VIAL ONE; -HYDROmorphone 2 MG/ML VIAL IV PRN; -IV RINGERS,LACTATED 1000ML 1,000 ML IV SCH; -LIDOCAINE 1% Multi-Dose 20 ML VIAL. INJ PRN; -LIDOCAINE 1% Multi-Dose 20 ML VIAL. ONE; -LIDOCAINE 2% VISCOUS 100 ML BOTTLE. MM PRN; -LIDOCAINE 2% VISCOUS 100 ML BOTTLE. ONE; -LIDOCAINE 4% TOPICAL 50 ML SOLUTION. MM PRN; -LIDOCAINE 4% TOPICAL 50 ML SOLUTION. ONE; -MORPHINE SULFATE 2 MG/ML VIAL. IV PRN; -ONDANSETRON PF 4 MG/2 ML VIAL. IV PRN; -PROCHLORPERAZINE 10 MG/2 ML VIAL. IV PRN; -PROPOFOL 40 ML IV ONE; -fentaNYL PF VIAL 100 MCG/2 ML VIAL IV PRN
[2018-08-17] MEDS ORDERED: IPRATRPIUM/ALBUTEROL 0.5/2.5MG 3 ML NEBU. ONE (19:29)
[2018-08-17] MEDS ORDERED: IV NORMAL SALINE 1000ML BAG 1,000 ML IV ONE ×2 (19:30→21:30)
[2018-08-17] MEDS ORDERED: IPRATRPIUM/ALBUTEROL 0.5/2.5MG 3 ML NEBU. NEB ONE (19:30)
[2018-08-17 19:44] LABS: BASO % 0 % (0-3); EOS # 0.1 x10^3/uL (0.0-0.7); EOS % 1 % (0-3); HEMOGLOBIN 10.9 g/dL (13.0-17.5); LYMPH % 9 % (24-48); MEAN CORPUSCULAR HEMOGLOBIN 24 pg (25-35); MEAN CORPUSCULAR HGB CONC 31 g/dL (31-37); MEAN CORPUSCULAR VOLUME 78 fL (79-100); MONO # 0.9 x10^3/uL (0.0-1.1); MONO % 8 % (0-9); NEUT # 9.9 x10^3uL (1.8-7.7); NEUT % 82 % (31-73); PLATELET COUNT 190 x10^3/uL (140-400); RED CELL DISTRIBUTION WIDTH 17.2 % (11.5-14.5)
[2018-08-17] MEDS ORDERED: DEXAMETHASONE SOD PHOS 20 MG/5 ML VIAL. IV ONE (19:45)
[2018-08-17 19:50] LABS: BILIRUBIN,URINE NEGATIVE (NEG); CLARITY,URINE CLEAR; COLOR,URINE YELLOW; NITRITE,URINE NEGATIVE (NEG); PH,URINE 5.5; PROTEIN,URINE 100 mg/dL (NEG-TRACE); UROBILINOGEN,URINE 0.2 mg/dL (0.2 mg/dL)
--- NOTE | 2018-08-17 19:59 | PHYS DOC ---
Past Medical History Past Medical History: A-Fib, Cancer, Dementia, Diabetes-Type II, GERD, High Cholesterol, Hypertension, HI, Stroke Additional Past Medical Histor: neuropathy, lung cancer W/ CHEMO AND RADIATION Past Surgical History: Other Additional Past Surgical Histo: CABG X 5 VESSELS, BACK SX Alcohol Use: Occasionally Drug Use: None Adult General Chief Complaint Chief Complaint: SHORTNESS OF BREATH HPI HPI Patient is a 83 year old male with past medical history of lung cancer and multiple strokes who presents to the emergency department with shortness of breath which started shortly after a bronchoscope earlier today. He has a recent history of hemoptysis for which he has bronchoscopes in the past month. Today was the first incident where he felt shortness of breath later in the day following his bronchoscope. He has also been experiencing chills and "shaking" as well as increased urinary frequency. His and son accompanied him in the exam room and also helped corroborate the patient's history. Review of Systems Review of Systems Constitutional: Denies fever, admits chills. Eyes: Denies change in visual acuity, redness, or eye pain. HENT: Denies nasal congestion or sore throat. Respiratory: Denies cough. Admits shortness of breath. Cardiovascular: Admits occasional palpitations. GI: Denies abdominal pain, nausea, vomiting, bloody stools or diarrhea. : Denies dysuria or hematuria. Admits polyuria. Musculoskeletal: Denies back pain or joint pain. Integument: Admits recent rash on left shoulder. Neurologic: Denies headache, focal weakness or sensory changes. Endocrine: Denies polyuria or polydipsia. Complete systems were reviewed and found to be within normal limits, except as documented in this note. Current Medications Current Medications Current Medications Medications (Trade) Dose Ordered Sig/Jimmy Start Time Stop Time Status Last Admin Dose Admin Albuterol/ Ipratropium (Duoneb) 3 ml STK-MED ONCE 08/17/18 19:29 08/17/18 19:30 DC Dexamethasone Sodium Phosphate (Decadron) 10 mg 1X ONCE 08/17/18 19:45 08/17/18 19:46 DC 08/17/18 19:58 10 MG Info (CONTRAST GIVEN -- Rx MONITORING) 1 each PRN DAILY PRN 08/17/18 20:30 08/19/18 20:29 Iohexol (Omnipaque 350 Mg/ml) 90 ml 1X ONCE 08/17/18 20:30 08/17/18 20:31 DC 08/17/18 20:46 90 ML Levofloxacin/ Dextrose 100 ml @ 100 mls/hr 1X ONCE 08/17/18 20:45 08/17/18 21:44 DC 08/17/18 21:09 100 MLS/HR Lorazepam (Ativan) 1 mg 1X ONCE 08/17/18 21:45 08/17/18 21:46 DC 08/17/18 21:49 1 MG Magnesium Sulfate 50 ml @ 25 mls/hr 1X ONCE 08/17/18 20:45 08/17/18 22:44 08/17/18 21:10 25 MLS/HR Piperacillin Sod/ Tazobactam Sod 4.5 gm/Sodium Chloride 100 ml @ 200 mls/hr 1X ONCE 08/17/18 20:45 08/17/18 21:14 DC 08/17/18 21:18 200 MLS/HR Sodium Chloride 500 ml @ 500 mls/hr 1X ONCE 08/17/18 21:30 08/17/18 22:29 Vancomycin HCl 1.75 gm/Sodium Chloride 500 ml @ 250 mls/hr 1X ONCE 08/17/18 21:00 08/17/18 22:59 Allergies Allergies Allergies Coded Allergies Type Severity Reaction Last Updated Verified No Known Medication Allergies Allergy Unknown 08/17/18 Yes Physical Exam Physical Exam Constitutional: Well developed, well nourished, restless. HENT: Normocephalic, atraumatic, bilateral external ears normal, oropharynx moist, no oral exudates, nose normal. Eyes: PERRLA, EOMI, conjunctiva normal, no discharge. Neck: Normal range of motion, no tenderness, supple, no stridor. Cardiovascular: Heart rate tachycardic with normal rhythm, no murmur. Lungs & Thorax: Bibasilar crackles, scattered wheezing. Abdomen: Bowel sounds normal, soft, no tenderness, no masses, no pulsatile masses. Skin: Warm, dry, no erythema, scalp eczema. Back: No tenderness, no CVA tenderness. Extremities: No tenderness, no cyanosis, no clubbing, ROM intact, no edema. Neurologic: Alert and oriented X 3, generalized weakness L>R due to h/o stroke, numbness in bilateral fingertips. Psychologic: Affect normal, judgement normal, mood normal. Current Patient Data Vital Signs Vital Signs Date Time Temp Pulse Resp B/P (MAP) Pulse Ox O2 Delivery O2 Flow Rate FiO2 08/17/18 19:33 90 Nasal Cannula 2.0 08/17/18 19:19 99.8 130 26 103/55 (71) 99.8 Lab Values Laboratory Tests Test 08/17/18 19:25 White Blood Count 12.0 x10^3/uL (4.0-11.0) H Red Blood Count 4.50 x10^6/uL (4.30-5.70) Hemoglobin 10.9 g/dL (13.0-17.5) L Hematocrit 35.0 % (39.0-53.0) L Mean Corpuscular Volume 78 fL (79-100) L Mean Corpuscular Hemoglobin 24 pg (25-35) L Mean Corpuscular Hemoglobin Concent 31 g/dL (31-37) Red Cell Distribution Width 17.2 % (11.5-14.5) H Platelet Count 190 x10^3/uL (140-400) Neutrophils (%) (Auto) 82 % (31-73) H Lymphocytes (%) (Auto) 9 % (24-48) L Monocytes (%) (Auto) 8 % (0-9) Eosinophils (%) (Auto) 1 % (0-3) Basophils (%) (Auto) 0 % (0-3) Neutrophils # (Auto) 9.9 x10^3uL (1.8-7.7) H Lymphocytes # (Auto) 1.0 x10^3/uL (1.0-4.8) Monocytes # (Auto) 0.9 x10^3/uL (0.0-1.1) Eosinophils # (Auto) 0.1 x10^3/uL (0.0-0.7) Basophils # (Auto) 0.0 x10^3/uL (0.0-0.2) Urine Collection Type Unknown Urine Color Yellow Urine Clarity Clear Urine pH 5.5 Urine Specific [place] 1.015 Urine Protein 100 mg/dL (NEG-TRACE) Urine Glucose (UA) 250 mg/dL (NEG) Urine Ketones (Stick) Negative mg/dL (NEG) Urine Blood Small (NEG) Urine Nitrite Negative (NEG) Urine Bilirubin Negative (NEG) Urine Urobilinogen Dipstick 0.2 mg/dL (0.2 mg/dL) Urine Leukocyte Esterase Small (NEG) Urine RBC 1-2 /HPF (0-2) Urine WBC 11-20 /HPF (0-4) Urine Squamous Epithelial Cells Few /LPF Urine Bacteria Few /HPF (0-FEW) Urine Hyaline Casts Occasional /HPF Urine Mucus Slight /LPF Sodium Level 137 mmol/L (136-145) Potassium Level 4.9 mmol/L (3.5-5.1) Chloride Level 99 mmol/L (98-107) Carbon Dioxide Level 24 mmol/L (21-32) Anion Gap 14 (6-14) Blood Urea Nitrogen 23 mg/dL (8-26) Creatinine 1.1 mg/dL (0.7-1.3) Estimated GFR (Cockcroft-Gault) 64.1 BUN/Creatinine Ratio 21 (6-20) H Glucose Level 227 mg/dL (70-99) H Lactic Acid Level 4.5 mmol/L (0.4-2.0) *H Calcium Level 9.2 mg/dL (8.5-10.1) Magnesium Level 1.4 mg/dL (1.8-2.4) L Total Bilirubin 0.4 mg/dL (0.2-1.0) Aspartate Amino Transferase (AST) 34 U/L (15-37) Alanine Aminotransferase (ALT) 33 U/L (16-63) Alkaline Phosphatase 135 U/L (46-116) H Creatine Kinase 66 U/L (39-308) Creatine Kinase MB (Mass) 2.9 ng/mL (0.0-3.6) Creatine Kinase MB Relative Index % (0-4) Troponin I Quantitative 0.019 ng/mL (0.000-0.055) RN-Bpb-Z-Type Natriuretic Peptide 960 pg/mL (0-449) H Total Protein 7.5 g/dL (6.4-8.2) Albumin 3.4 g/dL (3.4-5.0) Albumin/Globulin Ratio 0.8 (1.0-1.7) L Digoxin Level 0.6 ng/mL (0.9-2.0) L Digoxin Last Dose Date Digoxin Last Dose Time Laboratory Tests 08/17/18 19:25 Laboratory Tests 08/17/18 19:25 EKG EKG @1935 Sinus tachycardia at 130bpm, no ST elevation, compared to prior EKG per MUSE review from 06/25/18 which was NSR at 85bpm. Radiology/Procedures Radiology/Procedures PROCEDURE: CT ANGIOGRAPHY CHEST EXAM: CT chest with contrast - pulmonary embolus protocol CLINICAL HISTORY: dyspnea COMPARISON: 12/16/2017 TECHNIQUE: CT of the chest following the administration of intravenous contrast during the pulmonary arterial phase. Axial, coronal and sagittal reformatted images were generated including MIP images. ---PQRS compliance statement - One or more of the following individualized dose reduction techniques were utilized for this study: 1. Automated exposure control 2. Adjustment of the mA and/or kV according to patient size 3. Use of iterative reconstruction technique--- FINDINGS: CHEST: Diagnostic quality: Adequate. Pulmonary emboli: None seen Right heart strain: None Pulmonary arteries: Normal in caliber. Heart is not enlarged. Coronary artery calcifications are seen. No pericardial effusion. No mediastinal or hilar lymphadenopathy. No axillary lymphadenopathy. Small left pleural effusion. A spiculated left upper lobe lung mass abuts the left apical pleura, measuring 2.2 cm. Bilateral lower lobe airspace opacities are seen, suspicious for developing multifocal consolidative process such as multifocal pneumonia. Several additional bilateral lung nodules are seen and some of which are obscured by the associated parenchymal opacities. For example an 8 mm middle lobe lung nodule is seen. No pneumothorax. Bilateral gynecomastia. Visualized Upper abdomen: Several enhancing foci within the liver, possibly foci of metastatic disease, less conspicuous than prior examination. Mild nodularity of the liver suspicious for hepatic steatosis. Bones: Multilevel degenerative changes of the spine are seen. IMPRESSION: 1. Bilateral airspace opacities are seen most prominent in the lower lobes suspicious for developing consolidative process such as multifocal pneumonia. 2. Left apical spiculated lung nodule has is new or increased in size compared to 12/16/2017. 3. Small left pleural effusion. 4. Bilateral gynecomastia is seen. 5. Enhancing hepatic lesions, metastasis, are again seen, slightly less conspicuous based on phase of contrast. Electronically signed by: Domingo Jackson MD (08/17/2018 9:45 PM) [facility] Course & Med Decision Making Course & Med Decision Making Pertinent Labs and Imaging studies reviewed. (See chart for details) Patient is a 83-year-old male who presented to the ED today after experiencing shortness of breath following a bronchoscopy. He has a past medical history of lung cancer and a recent history of hemoptysis which was the reason for his bronchoscopy today. He experienced chills and a has a fever. Work-up in the ED was significant for positive SIRS (tachypneic, tachycardic, elevated WBC, and elevated lactate). A urinalysis was positive for UTI. CMP was significant for low magnesium which was ordered. Due to the possibility of a hypercoagulable state secondary to his cancer, a CTA was ordered to rule out pulmonary embolism. He was started on broad spectrum antibiotics to empirically treat his infection. Patient will be admitted the floor tonight. Dragon Disclaimer Dragon Disclaimer This electronic medical record was generated, in whole or in part, using a voice recognition dictation system. Departure Departure Impression: Primary Impression: Septic shock Additional Impressions: Hx of cancer of lung UTI (urinary tract infection) Disposition: 09 ADMITTED INPATIENT Admitting Physician: Antoine Acosta Condition: GUARDED Referrals: NARAYAN LABOY MD (PCP) Critical Care Time Critical care time was 30 minutes which includes time at bedside, spent in discussion of patient's care with specialists and/or family members, with interpretation of laboratory and/or radiological studies and is exclusive of procedures. Problem Qualifiers Additional Impressions: UTI (urinary tract infection) Urinary tract infection type: acute cystitis Hematuria presence: without hematuria Qualified Codes: N30.00 - Acute cystitis without hematuria BRITTANY PISANO DO Aug 17, 2018 19:59
[2018-08-17 20:05] LABS: BACTERIA,URINE FEW /HPF (0-FEW); HYALINE CASTS, URINE OCCASIONAL /HPF; SQUAMOUS EPITHELIAL CELL,UR FEW /LPF
[2018-08-17 20:12] LABS: CALCIUM 9.2 mg/dL (8.5-10.1); CREATININE 1.1 mg/dL (0.7-1.3); GFR 64.1; POTASSIUM 4.9 mmol/L (3.5-5.1)
[2018-08-17 20:21] LABS: ALBUMIN 3.4 g/dL (3.4-5.0); ALBUMIN/GLOBULIN RATIO 0.8 (1.0-1.7); CREATINE KINASE 66 U/L (39-308); MAGNESIUM 1.4 mg/dL (1.8-2.4); TOTAL BILIRUBIN 0.4 mg/dL (0.2-1.0); TOTAL PROTEIN 7.5 g/dL (6.4-8.2)
[2018-08-17] MEDS ORDERED: IOHEXOL 350 MG/ML 100 ML VIAL. IV ONE (20:30)
[2018-08-17] MEDS ORDERED: CONTRAST GIVEN. MC PRN (20:30)
[2018-08-17 20:37] LABS: DIG 0.6 ng/mL (0.9-2.0)
[2018-08-17] MEDS ORDERED: MAGNESIUM SULFATE 2GM 50 ML IV ONE (20:45)
[2018-08-17] MEDS ORDERED: PIPERACILLIN/TAZOBACTAM 4.5 GM in IV NORMAL SALINE 100ML 100 ML IV ONE (20:45)
[2018-08-17] MEDS ORDERED: VANCOMYCIN 1.75 GM in IV NORMAL SALINE 500ML BAG 500 ML IV ONE (21:00)
[2018-08-17] MEDS ORDERED: IV NORMAL SALINE 500ML BAG 500 ML IV ONE (21:30)
--- NOTE | 2018-08-17 21:47 | RAD ---
EXAM: CT chest with contrast - pulmonary embolus protocol CLINICAL HISTORY: dyspnea COMPARISON: 12/16/2017 TECHNIQUE: CT of the chest following the administration of intravenous contrast during the pulmonary arterial phase. Axial, coronal and sagittal reformatted images were generated including MIP images. ---PQRS compliance statement - One or more of the following individualized dose reduction techniques were utilized for this study: 1. Automated exposure control 2. Adjustment of the mA and/or kV according to patient size 3. Use of iterative reconstruction technique--- FINDINGS: CHEST: Diagnostic quality: Adequate. Pulmonary emboli: None seen Right heart strain: None Pulmonary arteries: Normal in caliber. Heart is not enlarged. Coronary artery calcifications are seen. No pericardial effusion. No mediastinal or hilar lymphadenopathy. No axillary lymphadenopathy. Small left pleural effusion. A spiculated left upper lobe lung mass abuts the left apical pleura, measuring 2.2 cm. Bilateral lower lobe airspace opacities are seen, suspicious for developing multifocal consolidative process such as multifocal pneumonia. Several additional bilateral lung nodules are seen and some of which are obscured by the associated parenchymal opacities. For example an 8 mm middle lobe lung nodule is seen. No pneumothorax. Bilateral gynecomastia. Visualized Upper abdomen: Several enhancing foci within the liver, possibly foci of metastatic disease, less conspicuous than prior examination. Mild nodularity of the liver suspicious for hepatic steatosis. Bones: Multilevel degenerative changes of the spine are seen. IMPRESSION: 1. Bilateral airspace opacities are seen most prominent in the lower lobes suspicious for developing consolidative process such as multifocal pneumonia. 2. Left apical spiculated lung nodule has is new or increased in size compared to 12/16/2017. 3. Small left pleural effusion. 4. Bilateral gynecomastia is seen. 5. Enhancing hepatic lesions, metastasis, are again seen, slightly less conspicuous based on phase of contrast. Electronically signed by: Domingo Jackson MD (08/17/2018 9:45 PM) [facility]
[2018-08-17] MEDS ORDERED: DEXTROSE 50% 25 GM / 50ML DISP.SYRIN. IV PRN (22:00)
[2018-08-17] MEDS ORDERED: fentaNYL PF VIAL 100 MCG/2 ML VIAL IV PRN (22:00)
[2018-08-17] MEDS ORDERED: ONDANSETRON PF 4 MG/2 ML VIAL. IV PRN (22:00)
[2018-08-17] MEDS ORDERED: ASPIRIN 325 MG TABLET PO ONE (22:15)
[2018-08-17 22:17] LABS: INFLUENZA A PATIENT NEGATIVE (NEGATIVE); INFLUENZA B PATIENT NEGATIVE (NEGATIVE)
[2018-08-17] MEDS ORDERED: ALBUTEROL SULFATE 2.5 MG/3 ML NEBU. NEB PRN (22:30)
[2018-08-17 23:45] VITALS: BP 125/64
[2018-08-18] VITALS (21 sets, daily range): BP systolic 76–154; BP diastolic 44–89
[2018-08-18] MEDS: IV NORMAL SALINE 1000ML BAG 1,000 ML IV SCH ×2 (03:00→16:51)
[2018-08-18] MEDS ORDERED: NOREPINEPHRIN 8MG/250ML PREMIX 250 ML IV PRN (03:30)
--- NOTE | 2018-08-18 04:13 | EKG ---
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
[2018-08-18] MEDS ORDERED: PROPOFOL 100 ML IV PRN (05:30)
--- NOTE | 2018-08-18 08:11 | PDOC ---
Infectious Disease Note Vital Signs: Vital Signs Vital Signs Date Time Temp Pulse Resp B/P (MAP) Pulse Ox O2 Delivery O2 Flow Rate FiO2 08/18/18 06:00 95 23 137/69 (91) 93 Room Air 08/18/18 04:00 2.0 08/18/18 04:00 98.5 98.5 Medications: Inpatient Meds: Current Medications Medications (Trade) Dose Ordered Sig/Jimmy Start Time Stop Time Status Last Admin Dose Admin Albuterol Sulfate (Ventolin Neb Soln) 2.5 mg PRN Q6HRS PRN 08/17/18 22:30 Albuterol/ Ipratropium (Duoneb) 3 ml STK-MED ONCE 08/17/18 19:29 08/17/18 19:30 DC Aspirin (Kika Aspirin) 325 mg 1X ONCE 08/17/18 22:15 08/17/18 22:16 DC Dexamethasone Sodium Phosphate (Decadron) 10 mg 1X ONCE 08/17/18 19:45 08/17/18 19:46 DC 08/17/18 19:58 10 MG Dextrose (Dextrose 50%-Water Syringe) 12.5 gm PRN Q15MIN PRN 08/17/18 22:00 Fentanyl Citrate (Fentanyl 2ml Vial) 25 mcg PRN Q1HR PRN 08/17/18 22:00 08/18/18 21:59 Info (CONTRAST GIVEN -- Rx MONITORING) 1 each PRN DAILY PRN 08/17/18 20:30 08/19/18 20:29 Insulin Human Lispro (HumaLOG) 0-5 UNITS TIDWMEALS 08/18/18 08:00 Iohexol (Omnipaque 350 Mg/ml) 90 ml 1X ONCE 08/17/18 20:30 08/17/18 20:31 DC 08/17/18 20:46 90 ML Levofloxacin/ Dextrose 100 ml @ 100 mls/hr 1X ONCE 08/17/18 20:45 08/17/18 21:44 DC 08/17/18 21:09 100 MLS/HR Lorazepam (Ativan) 1 mg 1X ONCE 08/17/18 21:45 08/17/18 21:46 DC 08/17/18 21:49 1 MG Magnesium Sulfate 50 ml @ 25 mls/hr 1X ONCE 08/17/18 20:45 08/17/18 22:44 DC 08/17/18 21:10 25 MLS/HR Norepinephrine Bitartrate 250 ml @ 1.875 mls/ hr CONT PRN 08/18/18 03:30 Ondansetron HCl (Zofran) 4 mg PRN Q8HRS PRN 08/17/18 22:00 08/18/18 21:59 Piperacillin Sod/ Tazobactam Sod 4.5 gm/Sodium Chloride 100 ml @ 200 mls/hr 1X ONCE 08/17/18 20:45 08/17/18 21:14 DC 08/17/18 21:18 200 MLS/HR Propofol 100 ml @ 1.037 mls/ hr CONT PRN 08/18/18 05:30 Sodium Chloride 1,000 ml @ 70 mls/hr [id number] 08/18/18 03:00 08/18/18 03:00 70 MLS/HR Vancomycin HCl 1.75 gm/Sodium Chloride 500 ml @ 250 mls/hr 1X ONCE 08/17/18 21:00 08/17/18 22:59 DC 08/17/18 22:01 250 MLS/HR Labs: Lab Laboratory Tests Test 08/17/18 19:25 08/17/18 21:50 08/18/18 00:00 08/18/18 05:35 White Blood Count 12.0 x10^3/uL (4.0-11.0) Red Blood Count 4.50 x10^6/uL (4.30-5.70) Hemoglobin 10.9 g/dL (13.0-17.5) Hematocrit 35.0 % (39.0-53.0) Mean Corpuscular Volume 78 fL (79-100) Mean Corpuscular Hemoglobin 24 pg (25-35) Mean Corpuscular Hemoglobin Concent 31 g/dL (31-37) Red Cell Distribution Width 17.2 % (11.5-14.5) Platelet Count 190 x10^3/uL (140-400) Neutrophils (%) (Auto) 82 % (31-73) Lymphocytes (%) (Auto) 9 % (24-48) Monocytes (%) (Auto) 8 % (0-9) Eosinophils (%) (Auto) 1 % (0-3) Basophils (%) (Auto) 0 % (0-3) Neutrophils # (Auto) 9.9 x10^3uL (1.8-7.7) Lymphocytes # (Auto) 1.0 x10^3/uL (1.0-4.8) Monocytes # (Auto) 0.9 x10^3/uL (0.0-1.1) Eosinophils # (Auto) 0.1 x10^3/uL (0.0-0.7) Basophils # (Auto) 0.0 x10^3/uL (0.0-0.2) Urine Collection Type Unknown Urine Color Yellow Urine Clarity Clear Urine pH 5.5 Urine Specific [place] 1.015 Urine Protein 100 mg/dL (NEG-TRACE) Urine Glucose (UA) 250 mg/dL (NEG) Urine Ketones (Stick) Negative mg/dL (NEG) Urine Blood Small (NEG) Urine Nitrite Negative (NEG) Urine Bilirubin Negative (NEG) Urine Urobilinogen Dipstick 0.2 mg/dL (0.2 mg/dL) Urine Leukocyte Esterase Small (NEG) Urine RBC 1-2 /HPF (0-2) Urine WBC 11-20 /HPF (0-4) Urine Squamous Epithelial Cells Few /LPF Urine Bacteria Few /HPF (0-FEW) Urine Hyaline Casts Occasional /HPF Urine Mucus Slight /LPF Sodium Level 137 mmol/L (136-145) Potassium Level 4.9 mmol/L (3.5-5.1) Chloride Level 99 mmol/L (98-107) Carbon Dioxide Level 24 mmol/L (21-32) Anion Gap 14 (6-14) Blood Urea Nitrogen 23 mg/dL (8-26) Creatinine 1.1 mg/dL (0.7-1.3) Estimated GFR (Cockcroft-Gault) 64.1 BUN/Creatinine Ratio 21 (6-20) Glucose Level 227 mg/dL (70-99) Lactic Acid Level 4.5 mmol/L (0.4-2.0) 3.4 mmol/L (0.4-2.0) Calcium Level 9.2 mg/dL (8.5-10.1) Magnesium Level 1.4 mg/dL (1.8-2.4) Total Bilirubin 0.4 mg/dL (0.2-1.0) Aspartate Amino Transf (AST/SGOT) 34 U/L (15-37) Alanine Aminotransferase (ALT/SGPT) 33 U/L (16-63) Alkaline Phosphatase 135 U/L (46-116) Creatine Kinase 66 U/L (39-308) Creatine Kinase MB (Mass) 2.9 ng/mL (0.0-3.6) Creatine Kinase MB Relative Index % (0-4) Troponin I Quantitative 0.019 ng/mL (0.000-0.055) 0.039 ng/mL (0.000-0.055) 0.021 ng/mL (0.000-0.055) HZ-Afu-T-Type Natriuretic Peptide 960 pg/mL (0-449) Total Protein 7.5 g/dL (6.4-8.2) Albumin 3.4 g/dL (3.4-5.0) Albumin/Globulin Ratio 0.8 (1.0-1.7) Digoxin Level 0.6 ng/mL (0.9-2.0) Digoxin Last Dose Date Digoxin Last Dose Time Influenza Type A Antigen Negative (NEGATIVE) Influenza Type B Antigen Negative (NEGATIVE) Test 08/18/18 07:39 Glucose (Fingerstick) 322 mg/dL (70-99) Objective: Assessment: Febrile illness leucocytosis Lactic acidosis Pyuria Hemoptysis s/p Bronch 08/17, H/O Lung CA s/p Chemoradiation Plan: Plan of Care Zosyn and doxycycline sputum c/s f/u bc and uc Thank you [phone] MATY JOSHUA MD Aug 18, 2018 08:11
[2018-08-18] MEDS ORDERED: PIP/TAZO PER PHARMACY MC PRN (08:15)
[2018-08-18] MEDS: INSULIN LISPRO 300 UNITS/3 ML INSULN.PEN. SQ SCH ×3 (08:41→16:55)
[2018-08-18 08:48] LABS: BASO % 0 % (0-3); EOS % 0 % (0-3); HEMOGLOBIN 9.4 g/dL (13.0-17.5); LYMPH # 0.3 x10^3/uL (1.0-4.8); LYMPH % 3 % (24-48); MEAN CORPUSCULAR HEMOGLOBIN 24 pg (25-35); MEAN CORPUSCULAR HGB CONC 31 g/dL (31-37); MEAN CORPUSCULAR VOLUME 77 fL (79-100); MONO # 0.7 x10^3/uL (0.0-1.1); MONO % 7 % (0-9); NEUT # 8.9 x10^3uL (1.8-7.7); NEUT % 90 % (31-73); PLATELET COUNT 139 x10^3/uL (140-400); RED BLOOD COUNT 3.92 x10^6/uL (4.30-5.70); RED CELL DISTRIBUTION WIDTH 16.8 % (11.5-14.5); WHITE BLOOD COUNT 9.9 x10^3/uL (4.0-11.0)
[2018-08-18] MEDS: DOXYCYCLINE HYCLATE 100 MG TABLET PO SCH ×2 (09:27→21:02)
[2018-08-18] MEDS: PIPERACILLIN/TAZOBACTAM 4.5 GM in IV NORMAL SALINE 100ML 100 ML IV SCH ×2 (09:52→16:51)
--- NOTE | 2018-08-18 10:37 | PDOC1 ---
History and Physical Date of Admission Date of Admission DATE: 08/18/18 TIME: 10:35 Identification/Chief Complaint Chief Complaint SEEN IN ER , 83 year old male with past medical history of lung cancer and multiple strokes who presents to the emergency department with shortness of breath which started shortly after a bronchoscope 08/17 . He has a recent history of hemoptysis for which he has bronchoscopes in the past month. Today was the first incident where he felt shortness of breath later in the day following his bronchoscope. He has also been experiencing chills and "shaking" Past Medical History Past Medical History Past Medical History Past Medical History: Cancer, Dementia, Diabetes-Type II, GERD, High Cholesterol, Hypertension, [place], Stroke Additional Past Medical Histor: neuropathy, lung cancer W/ CHEMO AND RADIATION Past Surgical History: Other Additional Past Surgical Histo: CABG X 5 VESSELS, BACK SX Alcohol Use: Occasionally Drug Use: None Cardiovascular: AFIB, CAD, HTN, Syncope, Other Pulmonary: COPD CENTRAL NERVOUS SYSTEM: Other GI: No pertinent hx Heme/Onc: No pertinent hx Hepatobiliary: No pertinent hx Psych: No pertinent hx Musculoskeletal: No pain Rheumatologic: No pertinent hx Infectious disease: No pertinent hx Renal/: UTI Endocrine: Diabetes Past Surgical History Past Surgical History: CABG, Tonsillectomy, Other Family History Family History: Cancer, Depression, Diabetes Social History Smoke: No ALCOHOL: none Drugs: None Cardiovascular: AFIB, CAD, HTN, Syncope, Other Pulmonary: COPD, Other CENTRAL NERVOUS SYSTEM: Other GI: No pertinent hx Heme/Onc: No pertinent hx Hepatobiliary: No pertinent hx Psych: No pertinent hx Musculoskeletal: No pain Rheumatologic: No pertinent hx Infectious disease: No pertinent hx Renal/: UTI Endocrine: Diabetes Past Surgical History Past Surgical History: CABG, Tonsillectomy, Other Family History Family History: Cancer, Depression, Diabetes Social History Smoke: Quit ALCOHOL: none Drugs: None Current Problem List Problem List Problems Medical Problems: (1) Hx of cancer of lung Status: Acute (2) Septic shock Status: Acute (3) UTI (urinary tract infection) Status: Acute Current Medications Current Medications Current Medications Albuterol/ Ipratropium (Duoneb) 3 ml 1X ONCE NEB Last administered on at 19:33; Start 08/17/18 at 19:30; Stop 08/17/18 at 19:40; Status DC Albuterol/ Ipratropium (Duoneb) 3 ml STK-MED ONCE .ROUTE ; Start 08/17/18 at 19: 29; Stop 08/17/18 at 19:30; Status DC Sodium Chloride 1,000 ml @ 1,000 mls/hr 1X ONCE IV Last administered on at 19:56; Start 08/17/18 at 19:30; Stop 08/17/18 at 20:29; Status DC Dexamethasone Sodium Phosphate (Decadron) 10 mg 1X ONCE IV Last administered on 08/17/18at 19:58; Start 08/17/18 at 19:45; Stop 08/17/18 at 19:46; Status DC Iohexol (Omnipaque 350 Mg/ml) 90 ml 1X ONCE IV Last administered on 08/17/18at 20:46; Start 08/17/18 at 20:30; Stop 08/17/18 at 20:31; Status DC Info (CONTRAST GIVEN -- Rx MONITORING) 1 each PRN DAILY PRN MC SEE COMMENTS; Start 08/17/18 at 20:30; Stop 08/19/18 at 20:29 Piperacillin Sod/ Tazobactam Sod 4.5 gm/Sodium Chloride 100 ml @ 200 mls/hr 1X ONCE IV Last administered on 08/17/18at 21:18; Start 08/17/18 at 20:45; Stop 08/17/18 at 21:14; Status DC Vancomycin HCl 1.75 gm/Sodium Chloride 500 ml @ 250 mls/hr 1X ONCE IV Last administered on 08/17/18at 22:01; Start 08/17/18 at 21:00; Stop 08/17/18 at 22:59 ; Status DC Levofloxacin/ Dextrose 100 ml @ 100 mls/hr 1X ONCE IV Last administered on at 21:09; Start 08/17/18 at 20:45; Stop 08/17/18 at 21:44; Status DC Magnesium Sulfate 50 ml @ 25 mls/hr 1X ONCE IV Last administered on 08/17/18at 21:10; Start 08/17/18 at 20:45; Stop 08/17/18 at 22:44; Status DC Sodium Chloride 1,000 ml @ 1,000 mls/hr 1X ONCE IV Last administered on at 21:58; Start 08/17/18 at 21:30; Stop 08/17/18 at 22:29; Status DC Sodium Chloride 500 ml @ 500 mls/hr 1X ONCE IV Last administered on at 22:06; Start 08/17/18 at 21:30; Stop 08/17/18 at 22:29; Status DC Lorazepam (Ativan) 1 mg 1X ONCE IV Last administered on 08/17/18at 21:49; Start 08/17/18 at 21:45; Stop 08/17/18 at 21:46; Status DC Ondansetron HCl (Zofran) 4 mg PRN Q8HRS PRN IV NAUSEA/VOMITING; Start 08/17/18 at 22:00; Stop 08/18/18 at 21:59 Fentanyl Citrate (Fentanyl 2ml Vial) 25 mcg PRN Q1HR PRN IV PAIN; Start at 22:00; Stop 08/18/18 at 21:59 Insulin Human Lispro (HumaLOG) 0-5 UNITS TIDWMEALS SQ Last administered on 08/18at 08:41; Start 08/18/18 at 08:00 Dextrose (Dextrose 50%-Water Syringe) 12.5 gm PRN Q15MIN PRN IV SEE COMMENTS; Start 08/17/18 at 22:00 Aspirin (Appconomy Aspirin) 325 mg 1X ONCE PO ; Start 08/17/18 at 22:15; Stop 08/17 at 22:16; Status DC Albuterol Sulfate (Ventolin Neb Soln) 2.5 mg PRN Q6HRS PRN NEB WHEEZING; Start 08/17/18 at 22:30 Sodium Chloride 1,000 ml @ 70 mls/hr [id number] IV Last administered on at 03:00; Start 08/18/18 at 03:00 Norepinephrine Bitartrate 250 ml @ 1.875 mls/ hr CONT PRN IV SEE I/O RECORD; Start 08/18/18 at 03:30 Propofol 100 ml @ 1.037 mls/ hr CONT PRN IV SEDATION; Start 08/18/18 at 05:30 Piperacillin Sod/ Tazobactam Sod (Zosyn Per Pharmacy) 1 each PRN DAILY PRN MC SEE COMMENTS; Start 08/18/18 at 08:15 Doxycycline Hyclate (Vibra-Tab) 100 mg BID PO Last administered on 08/18/18at 09 :27; Start 08/18/18 at 09:00 Piperacillin Sod/ Tazobactam Sod 4.5 gm/Sodium Chloride 100 ml @ 200 mls/hr Q6HRS IV Last administered on 08/18/18at 09:52; Start 08/18/18 at 09:00 Active Scripts Active Digoxin 125 Mcg Tablet 1 Tab PO DAILY Reported Aspirin 81 Mg Tab.chew 1 Tab PO DAILY Vitamin B-12 (Cyanocobalamin (Vitamin B-12)) 1,000 Mcg Tablet 500 Mcg PO DAILY Probiotic (Lactobacillus Combo No.11) 1 Each Cap.sprink 1 Each PO DAILY Lantus Solostar (Insulin Glargine,Hum.rec.anlog) 100 Unit/1 Ml Insuln.pen 25 Unit SQ HS Zoloft (Sertraline Hcl) 50 Mg Tablet 50 Mg PO DAILY Flomax (Tamsulosin Hcl) 0.4 Mg Cap.er.24h 1 Cap PO HS Lyrica (Pregabalin) 75 Mg Capsule 1 Cap PO BID Mucinex Dm Er 600-30 Mg Tablet (Guaifenesin/Dextromethorphan) 1 Each Tab.er.12h 1 Each PO BID PRN Metformin Hcl 1,000 Mg Tablet 1,000 Mg PO BIDWMEALS Hydrocodone-Apap 7.5-325 (Hydrocodone Bit/Acetaminophen) 1 Each Tablet 1 Tab PO PRN Q6HRS PRN Eliquis (Apixaban) 5 Mg Tablet 5 Mg PO BID Metoprolol Succinate ( Xl ) (Metoprolol Succinate) 25 Mg Tab.er.24h 1 Tab PO DAILY Novolog Flexpen (Insulin Aspart) 100 Unit/1 Ml Insuln.pen 0 SQ PER SLIDING SCALE AC Prilosec (Omeprazole) 20 Mg Capsule.dr 20 Mg PO DAILY Allergies Allergies: Coded Allergies: No Known Medication Allergies (Verified Allergy, Unknown, 08/17/18) ROS Review of System Eyes: Denies change in visual acuity, redness, or eye pain. HENT: Denies nasal congestion or sore throat. Respiratory: Denies cough. Admits shortness of breath. Cardiovascular: Admits occasional palpitations. GI: Denies abdominal pain, nausea, vomiting, bloody stools or diarrhea. : Denies dysuria or hematuria. Admits polyuria. Musculoskeletal: Denies back pain or joint pain. Integument: Admits recent rash on left shoulder. Neurologic: Denies headache, focal weakness or sensory changes. Endocrine: Denies polyuria or polydipsia. 14 PT systems were reviewed and found to be within normal limits, except as documented PSYCHOLOGICAL ROS: YES: Concentration difficultie Neurological: Yes Confusion Physical Exam Physical Exam Constitutional: Well developed, well nourished, restless. HENT: Normocephalic, atraumatic, bilateral external ears normal, oropharynx moist, no oral exudates, nose normal. Eyes: PERRLA, EOMI, conjunctiva normal, no discharge. Neck: Normal range of motion, no tenderness, supple, no stridor. Cardiovascular: Heart rate tachycardic with normal rhythm, no murmur. Lungs & Thorax: Bibasilar crackles, scattered wheezing. Abdomen: Bowel sounds normal, soft, no tenderness, no masses, no pulsatile masses. Skin: Warm, dry, no erythema, scalp eczema. Back: No tenderness, no CVA tenderness. Extremities: No tenderness, no cyanosis, no clubbing, ROM intact, no edema. Neurologic: Alert and oriented X 3, generalized weakness L>R due to h/o stroke, numbness in bilateral fingertips General: Cooperative HEENT: Atraumatic Breasts: Not examined Abdomen: Soft Vitals Vitals Vital Signs Date Time Temp Pulse Resp B/P (MAP) Pulse Ox O2 Delivery O2 Flow Rate FiO2 08/18/18 10:00 97.6 101 117/56 (76) 96 Room Air 97.6 08/18/18 09:00 28 08/18/18 04:00 2.0 Labs Labs Laboratory Tests Test 08/17/18 19:25 08/17/18 21:50 08/18/18 00:00 08/18/18 05:35 White Blood Count 12.0 x10^3/uL (4.0-11.0) Red Blood Count 4.50 x10^6/uL (4.30-5.70) Hemoglobin 10.9 g/dL (13.0-17.5) Hematocrit 35.0 % (39.0-53.0) Mean Corpuscular Volume 78 fL (79-100) Mean Corpuscular Hemoglobin 24 pg (25-35) Mean Corpuscular Hemoglobin Concent 31 g/dL (31-37) Red Cell Distribution Width 17.2 % (11.5-14.5) Platelet Count 190 x10^3/uL (140-400) Neutrophils (%) (Auto) 82 % (31-73) Lymphocytes (%) (Auto) 9 % (24-48) Monocytes (%) (Auto) 8 % (0-9) Eosinophils (%) (Auto) 1 % (0-3) Basophils (%) (Auto) 0 % (0-3) Neutrophils # (Auto) 9.9 x10^3uL (1.8-7.7) Lymphocytes # (Auto) 1.0 x10^3/uL (1.0-4.8) Monocytes # (Auto) 0.9 x10^3/uL (0.0-1.1) Eosinophils # (Auto) 0.1 x10^3/uL (0.0-0.7) Basophils # (Auto) 0.0 x10^3/uL (0.0-0.2) Urine Collection Type Unknown Urine Color Yellow Urine Clarity Clear Urine pH 5.5 Urine Specific [place] 1.015 Urine Protein 100 mg/dL (NEG-TRACE) Urine Glucose (UA) 250 mg/dL (NEG) Urine Ketones (Stick) Negative mg/dL (NEG) Urine Blood Small (NEG) Urine Nitrite Negative (NEG) Urine Bilirubin Negative (NEG) Urine Urobilinogen Dipstick 0.2 mg/dL (0.2 mg/dL) Urine Leukocyte Esterase Small (NEG) Urine RBC 1-2 /HPF (0-2) Urine WBC 11-20 /HPF (0-4) Urine Squamous Epithelial Cells Few /LPF Urine Bacteria Few /HPF (0-FEW) Urine Hyaline Casts Occasional /HPF Urine Mucus Slight /LPF Sodium Level 137 mmol/L (136-145) Potassium Level 4.9 mmol/L (3.5-5.1) Chloride Level 99 mmol/L (98-107) Carbon Dioxide Level 24 mmol/L (21-32) Anion Gap 14 (6-14) Blood Urea Nitrogen 23 mg/dL (8-26) Creatinine 1.1 mg/dL (0.7-1.3) Estimated GFR (Cockcroft-Gault) 64.1 BUN/Creatinine Ratio 21 (6-20) Glucose Level 227 mg/dL (70-99) Lactic Acid Level 4.5 mmol/L (0.4-2.0) 3.4 mmol/L (0.4-2.0) Calcium Level 9.2 mg/dL (8.5-10.1) Magnesium Level 1.4 mg/dL (1.8-2.4) Total Bilirubin 0.4 mg/dL (0.2-1.0) Aspartate Amino Transf (AST/SGOT) 34 U/L (15-37) Alanine Aminotransferase (ALT/SGPT) 33 U/L (16-63) Alkaline Phosphatase 135 U/L (46-116) Creatine Kinase 66 U/L (39-308) Creatine Kinase MB (Mass) 2.9 ng/mL (0.0-3.6) Creatine Kinase MB Relative Index % (0-4) Troponin I Quantitative 0.019 ng/mL (0.000-0.055) 0.039 ng/mL (0.000-0.055) 0.021 ng/mL (0.000-0.055) DN-Hjs-P-Type Natriuretic Peptide 960 pg/mL (0-449) Total Protein 7.5 g/dL (6.4-8.2) Albumin 3.4 g/dL (3.4-5.0) Albumin/Globulin Ratio 0.8 (1.0-1.7) Digoxin Level 0.6 ng/mL (0.9-2.0) Digoxin Last Dose Date Digoxin Last Dose Time Influenza Type A Antigen Negative (NEGATIVE) Influenza Type B Antigen Negative (NEGATIVE) Test 08/18/18 07:39 08/18/18 08:37 Glucose (Fingerstick) 322 mg/dL (70-99) White Blood Count 9.9 x10^3/uL (4.0-11.0) Red Blood Count 3.92 x10^6/uL (4.30-5.70) Hemoglobin 9.4 g/dL (13.0-17.5) Hematocrit 30.0 % (39.0-53.0) Mean Corpuscular Volume 77 fL (79-100) Mean Corpuscular Hemoglobin 24 pg (25-35) Mean Corpuscular Hemoglobin Concent 31 g/dL (31-37) Red Cell Distribution Width 16.8 % (11.5-14.5) Platelet Count 139 x10^3/uL (140-400) Neutrophils (%) (Auto) 90 % (31-73) Lymphocytes (%) (Auto) 3 % (24-48) Monocytes (%) (Auto) 7 % (0-9) Eosinophils (%) (Auto) 0 % (0-3) Basophils (%) (Auto) 0 % (0-3) Neutrophils # (Auto) 8.9 x10^3uL (1.8-7.7) Lymphocytes # (Auto) 0.3 x10^3/uL (1.0-4.8) Monocytes # (Auto) 0.7 x10^3/uL (0.0-1.1) Eosinophils # (Auto) 0.0 x10^3/uL (0.0-0.7) Basophils # (Auto) 0.0 x10^3/uL (0.0-0.2) Lactic Acid Level 1.5 mmol/L (0.4-2.0) Magnesium Level 2.0 mg/dL (1.8-2.4) Laboratory Tests Test 08/17/18 19:25 08/17/18 21:50 08/18/18 00:00 08/18/18 05:35 White Blood Count 12.0 x10^3/uL (4.0-11.0) Red Blood Count 4.50 x10^6/uL (4.30-5.70) Hemoglobin 10.9 g/dL (13.0-17.5) Hematocrit 35.0 % (39.0-53.0) Mean Corpuscular Volume 78 fL (79-100) Mean Corpuscular Hemoglobin 24 pg (25-35) Mean Corpuscular Hemoglobin Concent 31 g/dL (31-37) Red Cell Distribution Width 17.2 % (11.5-14.5) Platelet Count 190 x10^3/uL (140-400) Neutrophils (%) (Auto) 82 % (31-73) Lymphocytes (%) (Auto) 9 % (24-48) Monocytes (%) (Auto) 8 % (0-9) Eosinophils (%) (Auto) 1 % (0-3) Basophils (%) (Auto) 0 % (0-3) Neutrophils # (Auto) 9.9 x10^3uL (1.8-7.7) Lymphocytes # (Auto) 1.0 x10^3/uL (1.0-4.8) Monocytes # (Auto) 0.9 x10^3/uL (0.0-1.1) Eosinophils # (Auto) 0.1 x10^3/uL (0.0-0.7) Basophils # (Auto) 0.0 x10^3/uL (0.0-0.2) Urine Collection Type Unknown Urine Color Yellow Urine Clarity Clear Urine pH 5.5 Urine Specific [place] 1.015 Urine Protein 100 mg/dL (NEG-TRACE) Urine Glucose (UA) 250 mg/dL (NEG) Urine Ketones (Stick) Negative mg/dL (NEG) Urine Blood Small (NEG) Urine Nitrite Negative (NEG) Urine Bilirubin Negative (NEG) Urine Urobilinogen Dipstick 0.2 mg/dL (0.2 mg/dL) Urine Leukocyte Esterase Small (NEG) Urine RBC 1-2 /HPF (0-2) Urine WBC 11-20 /HPF (0-4) Urine Squamous Epithelial Cells Few /LPF Urine Bacteria Few /HPF (0-FEW) Urine Hyaline Casts Occasional /HPF Urine Mucus Slight /LPF Sodium Level 137 mmol/L (136-145) Potassium Level 4.9 mmol/L (3.5-5.1) Chloride Level 99 mmol/L (98-107) Carbon Dioxide Level 24 mmol/L (21-32) Anion Gap 14 (6-14) Blood Urea Nitrogen 23 mg/dL (8-26) Creatinine 1.1 mg/dL (0.7-1.3) Estimated GFR (Cockcroft-Gault) 64.1 BUN/Creatinine Ratio 21 (6-20) Glucose Level 227 mg/dL (70-99) Lactic Acid Level 4.5 mmol/L (0.4-2.0) 3.4 mmol/L (0.4-2.0) Calcium Level 9.2 mg/dL (8.5-10.1) Magnesium Level 1.4 mg/dL (1.8-2.4) Total Bilirubin 0.4 mg/dL (0.2-1.0) Aspartate Amino Transf (AST/SGOT) 34 U/L (15-37) Alanine Aminotransferase (ALT/SGPT) 33 U/L (16-63) Alkaline Phosphatase 135 U/L (46-116) Creatine Kinase 66 U/L (39-308) Creatine Kinase MB (Mass) 2.9 ng/mL (0.0-3.6) Creatine Kinase MB Relative Index % (0-4) Troponin I Quantitative 0.019 ng/mL (0.000-0.055) 0.039 ng/mL (0.000-0.055) 0.021 ng/mL (0.000-0.055) OV-Rvi-H-Type Natriuretic Peptide 960 pg/mL (0-449) Total Protein 7.5 g/dL (6.4-8.2) Albumin 3.4 g/dL (3.4-5.0) Albumin/Globulin Ratio 0.8 (1.0-1.7) Digoxin Level 0.6 ng/mL (0.9-2.0) Digoxin Last Dose Date Digoxin Last Dose Time Influenza Type A Antigen Negative (NEGATIVE) Influenza Type B Antigen Negative (NEGATIVE) Test 08/18/18 07:39 08/18/18 08:37 Glucose (Fingerstick) 322 mg/dL (70-99) White Blood Count 9.9 x10^3/uL (4.0-11.0) Red Blood Count 3.92 x10^6/uL (4.30-5.70) Hemoglobin 9.4 g/dL (13.0-17.5) Hematocrit 30.0 % (39.0-53.0) Mean Corpuscular Volume 77 fL (79-100) Mean Corpuscular Hemoglobin 24 pg (25-35) Mean Corpuscular Hemoglobin Concent 31 g/dL (31-37) Red Cell Distribution Width 16.8 % (11.5-14.5) Platelet Count 139 x10^3/uL (140-400) Neutrophils (%) (Auto) 90 % (31-73) Lymphocytes (%) (Auto) 3 % (24-48) Monocytes (%) (Auto) 7 % (0-9) Eosinophils (%) (Auto) 0 % (0-3) Basophils (%) (Auto) 0 % (0-3) Neutrophils # (Auto) 8.9 x10^3uL (1.8-7.7) Lymphocytes # (Auto) 0.3 x10^3/uL (1.0-4.8) Monocytes # (Auto) 0.7 x10^3/uL (0.0-1.1) Eosinophils # (Auto) 0.0 x10^3/uL (0.0-0.7) Basophils # (Auto) 0.0 x10^3/uL (0.0-0.2) Lactic Acid Level 1.5 mmol/L (0.4-2.0) Magnesium Level 2.0 mg/dL (1.8-2.4) Images Images FINDINGS: CHEST: Diagnostic quality: Adequate. Pulmonary emboli: None seen Right heart strain: None Pulmonary arteries: Normal in caliber. Heart is not enlarged. Coronary artery calcifications are seen. No pericardial effusion. No mediastinal or hilar lymphadenopathy. No axillary lymphadenopathy. Small left pleural effusion. A spiculated left upper lobe lung mass abuts the left apical pleura, measuring 2.2 cm. Bilateral lower lobe airspace opacities are seen, suspicious for developing multifocal consolidative process such as multifocal pneumonia. Several additional bilateral lung nodules are seen and some of which are obscured by the associated parenchymal opacities. For example an 8 mm middle lobe lung nodule is seen. No pneumothorax. Bilateral gynecomastia. Visualized Upper abdomen: Several enhancing foci within the liver, possibly foci of metastatic disease, less conspicuous than prior examination. Mild nodularity of the liver suspicious for hepatic steatosis. Bones: Multilevel degenerative changes of the spine are seen. IMPRESSION: 1. Bilateral airspace opacities are seen most prominent in the lower lobes suspicious for developing consolidative process such as multifocal pneumonia. 2. Left apical spiculated lung nodule has is new or increased in size compared to 12/16/2017. 3. Small left pleural effusion. 4. Bilateral gynecomastia is seen. 5. Enhancing hepatic lesions, metastasis, are again seen, slightly less conspicuous based on phase of contrast. Electronically signed by: Domingo Jackson MD (08/17/2018 9:45 PM) [facility] DICTATED and SIGNED BY: DOMINGO JACKSON MD VTE Prophylaxis Ordered VTE Prophylaxis Devices: Yes VTE Pharmacological Prophylaxi: Yes Assessment/Plan Assessment/Plan Assessment/Plan Assessment/Plan Impression: SEPSIS UTI (urinary tract infection) HX CABG 2012 PMC HX LUNG CA pneumonia . Bilateral airspace opacities are seen most prominent in the lower lobes suspicious for developing consolidative process such as multifocal pneumonia. Left apical spiculated lung nodule has is new or increased in size compared to 12/16/2017. Small left pleural effusion. Bilateral gynecomastia is seen.. Enhancing hepatic lesions, metastasis, DIABETES, uncontrolled ADMITTED ICU bed serial troponin i echo cardiology consult pulm consult tele dvt prophylaxis, ON ELIQUIS po protonix URINE AND BLOOD CULT emperic iv antibiotics SS INSULIN id consult 38 min cc time Past Medical History Past Medical History: A-Fib, Cancer, Dementia, Diabetes-Type II, GERD, High Cholesterol, Hypertension, [place], Stroke Additional Past Medical Histor: neuropathy, lung cancer W/ CHEMO AND RADIATION Past Surgical History: Other Additional Past Surgical Histo: CABG X 5 VESSELS, BACK SX Alcohol Use: Occasionally Drug Use: None NEAL GAMEZ MD Aug 18, 2018 10:37
--- NOTE | 2018-08-18 11:17 | NUR ---
SS following for discharge planning. SS reviewed pt chart. Pt is from home with family and is currently requiring oxygen. Pt previously had services with [facility], ; fax [phone]. SS will continue to follow for discharge planning.
[2018-08-18 11:34] LABS: % BANDS 3 % (0-9); % LYMPHS 2 % (24-48); % MONOS 7 % (0-10); % SEGS 88 % (35-66); PLT ESTIMATE DECREASED (ADEQUATE)
[2018-08-18 11:35] LABS: ANISOCYTOSIS SLIGHT; HYPOCHROMIA SLIGHT; POIKILOCYTOSIS PRESENT
--- NOTE | 2018-08-18 12:21 | PDOC ---
PULMONARY PROGRESS NOTES Vitals Vital Signs Date Time Temp Pulse Resp B/P (MAP) Pulse Ox O2 Delivery O2 Flow Rate FiO2 08/18/18 10:00 97.6 101 117/56 (76) 96 Room Air 97.6 08/18/18 09:00 28 08/18/18 04:00 2.0 General: Alert, No acute distress Lungs: Crackles Cardiovascular: S1, S2 Abdomen: Soft, Non-tender, Other Extremities: Other Labs Laboratory Tests Test 08/17/18 19:25 08/17/18 21:50 08/18/18 00:00 08/18/18 05:35 White Blood Count 12.0 x10^3/uL (4.0-11.0) Red Blood Count 4.50 x10^6/uL (4.30-5.70) Hemoglobin 10.9 g/dL (13.0-17.5) Hematocrit 35.0 % (39.0-53.0) Mean Corpuscular Volume 78 fL (79-100) Mean Corpuscular Hemoglobin 24 pg (25-35) Mean Corpuscular Hemoglobin Concent 31 g/dL (31-37) Red Cell Distribution Width 17.2 % (11.5-14.5) Platelet Count 190 x10^3/uL (140-400) Neutrophils (%) (Auto) 82 % (31-73) Lymphocytes (%) (Auto) 9 % (24-48) Monocytes (%) (Auto) 8 % (0-9) Eosinophils (%) (Auto) 1 % (0-3) Basophils (%) (Auto) 0 % (0-3) Neutrophils # (Auto) 9.9 x10^3uL (1.8-7.7) Lymphocytes # (Auto) 1.0 x10^3/uL (1.0-4.8) Monocytes # (Auto) 0.9 x10^3/uL (0.0-1.1) Eosinophils # (Auto) 0.1 x10^3/uL (0.0-0.7) Basophils # (Auto) 0.0 x10^3/uL (0.0-0.2) Urine Collection Type Unknown Urine Color Yellow Urine Clarity Clear Urine pH 5.5 Urine Specific [place] 1.015 Urine Protein 100 mg/dL (NEG-TRACE) Urine Glucose (UA) 250 mg/dL (NEG) Urine Ketones (Stick) Negative mg/dL (NEG) Urine Blood Small (NEG) Urine Nitrite Negative (NEG) Urine Bilirubin Negative (NEG) Urine Urobilinogen Dipstick 0.2 mg/dL (0.2 mg/dL) Urine Leukocyte Esterase Small (NEG) Urine RBC 1-2 /HPF (0-2) Urine WBC 11-20 /HPF (0-4) Urine Squamous Epithelial Cells Few /LPF Urine Bacteria Few /HPF (0-FEW) Urine Hyaline Casts Occasional /HPF Urine Mucus Slight /LPF Sodium Level 137 mmol/L (136-145) Potassium Level 4.9 mmol/L (3.5-5.1) Chloride Level 99 mmol/L (98-107) Carbon Dioxide Level 24 mmol/L (21-32) Anion Gap 14 (6-14) Blood Urea Nitrogen 23 mg/dL (8-26) Creatinine 1.1 mg/dL (0.7-1.3) Estimated GFR (Cockcroft-Gault) 64.1 BUN/Creatinine Ratio 21 (6-20) Glucose Level 227 mg/dL (70-99) Lactic Acid Level 4.5 mmol/L (0.4-2.0) 3.4 mmol/L (0.4-2.0) Calcium Level 9.2 mg/dL (8.5-10.1) Magnesium Level 1.4 mg/dL (1.8-2.4) Total Bilirubin 0.4 mg/dL (0.2-1.0) Aspartate Amino Transf (AST/SGOT) 34 U/L (15-37) Alanine Aminotransferase (ALT/SGPT) 33 U/L (16-63) Alkaline Phosphatase 135 U/L (46-116) Creatine Kinase 66 U/L (39-308) Creatine Kinase MB (Mass) 2.9 ng/mL (0.0-3.6) Creatine Kinase MB Relative Index % (0-4) Troponin I Quantitative 0.019 ng/mL (0.000-0.055) 0.039 ng/mL (0.000-0.055) 0.021 ng/mL (0.000-0.055) UP-Noi-N-Type Natriuretic Peptide 960 pg/mL (0-449) Total Protein 7.5 g/dL (6.4-8.2) Albumin 3.4 g/dL (3.4-5.0) Albumin/Globulin Ratio 0.8 (1.0-1.7) Digoxin Level 0.6 ng/mL (0.9-2.0) Digoxin Last Dose Date Digoxin Last Dose Time Influenza Type A Antigen Negative (NEGATIVE) Influenza Type B Antigen Negative (NEGATIVE) Test 08/18/18 07:39 08/18/18 08:37 Glucose (Fingerstick) 322 mg/dL (70-99) White Blood Count 9.9 x10^3/uL (4.0-11.0) Red Blood Count 3.92 x10^6/uL (4.30-5.70) Hemoglobin 9.4 g/dL (13.0-17.5) Hematocrit 30.0 % (39.0-53.0) Mean Corpuscular Volume 77 fL (79-100) Mean Corpuscular Hemoglobin 24 pg (25-35) Mean Corpuscular Hemoglobin Concent 31 g/dL (31-37) Red Cell Distribution Width 16.8 % (11.5-14.5) Platelet Count 139 x10^3/uL (140-400) Neutrophils (%) (Auto) 90 % (31-73) Lymphocytes (%) (Auto) 3 % (24-48) Monocytes (%) (Auto) 7 % (0-9) Eosinophils (%) (Auto) 0 % (0-3) Basophils (%) (Auto) 0 % (0-3) Neutrophils # (Auto) 8.9 x10^3uL (1.8-7.7) Lymphocytes # (Auto) 0.3 x10^3/uL (1.0-4.8) Monocytes # (Auto) 0.7 x10^3/uL (0.0-1.1) Eosinophils # (Auto) 0.0 x10^3/uL (0.0-0.7) Basophils # (Auto) 0.0 x10^3/uL (0.0-0.2) Segmented Neutrophils % 88 % (35-66) Band Neutrophils % 3 % (0-9) Lymphocytes % 2 % (24-48) Monocytes % 7 % (0-10) Platelet Estimate Decreased (ADEQUATE) Large Platelets Present Hypochromasia Slight Poikilocytosis Present Anisocytosis Slight Lactic Acid Level 1.5 mmol/L (0.4-2.0) Magnesium Level 2.0 mg/dL (1.8-2.4) Laboratory Tests Test 08/17/18 19:25 08/17/18 21:50 08/18/18 00:00 08/18/18 05:35 White Blood Count 12.0 x10^3/uL (4.0-11.0) Red Blood Count 4.50 x10^6/uL (4.30-5.70) Hemoglobin 10.9 g/dL (13.0-17.5) Hematocrit 35.0 % (39.0-53.0) Mean Corpuscular Volume 78 fL (79-100) Mean Corpuscular Hemoglobin 24 pg (25-35) Mean Corpuscular Hemoglobin Concent 31 g/dL (31-37) Red Cell Distribution Width 17.2 % (11.5-14.5) Platelet Count 190 x10^3/uL (140-400) Neutrophils (%) (Auto) 82 % (31-73) Lymphocytes (%) (Auto) 9 % (24-48) Monocytes (%) (Auto) 8 % (0-9) Eosinophils (%) (Auto) 1 % (0-3) Basophils (%) (Auto) 0 % (0-3) Neutrophils # (Auto) 9.9 x10^3uL (1.8-7.7) Lymphocytes # (Auto) 1.0 x10^3/uL (1.0-4.8) Monocytes # (Auto) 0.9 x10^3/uL (0.0-1.1) Eosinophils # (Auto) 0.1 x10^3/uL (0.0-0.7) Basophils # (Auto) 0.0 x10^3/uL (0.0-0.2) Urine Collection Type Unknown Urine Color Yellow Urine Clarity Clear Urine pH 5.5 Urine Specific [place] 1.015 Urine Protein 100 mg/dL (NEG-TRACE) Urine Glucose (UA) 250 mg/dL (NEG) Urine Ketones (Stick) Negative mg/dL (NEG) Urine Blood Small (NEG) Urine Nitrite Negative (NEG) Urine Bilirubin Negative (NEG) Urine Urobilinogen Dipstick 0.2 mg/dL (0.2 mg/dL) Urine Leukocyte Esterase Small (NEG) Urine RBC 1-2 /HPF (0-2) Urine WBC 11-20 /HPF (0-4) Urine Squamous Epithelial Cells Few /LPF Urine Bacteria Few /HPF (0-FEW) Urine Hyaline Casts Occasional /HPF Urine Mucus Slight /LPF Sodium Level 137 mmol/L (136-145) Potassium Level 4.9 mmol/L (3.5-5.1) Chloride Level 99 mmol/L (98-107) Carbon Dioxide Level 24 mmol/L (21-32) Anion Gap 14 (6-14) Blood Urea Nitrogen 23 mg/dL (8-26) Creatinine 1.1 mg/dL (0.7-1.3) Estimated GFR (Cockcroft-Gault) 64.1 BUN/Creatinine Ratio 21 (6-20) Glucose Level 227 mg/dL (70-99) Lactic Acid Level 4.5 mmol/L (0.4-2.0) 3.4 mmol/L (0.4-2.0) Calcium Level 9.2 mg/dL (8.5-10.1) Magnesium Level 1.4 mg/dL (1.8-2.4) Total Bilirubin 0.4 mg/dL (0.2-1.0) Aspartate Amino Transf (AST/SGOT) 34 U/L (15-37) Alanine Aminotransferase (ALT/SGPT) 33 U/L (16-63) Alkaline Phosphatase 135 U/L (46-116) Creatine Kinase 66 U/L (39-308) Creatine Kinase MB (Mass) 2.9 ng/mL (0.0-3.6) Creatine Kinase MB Relative Index % (0-4) Troponin I Quantitative 0.019 ng/mL (0.000-0.055) 0.039 ng/mL (0.000-0.055) 0.021 ng/mL (0.000-0.055) OI-Fqx-T-Type Natriuretic Peptide 960 pg/mL (0-449) Total Protein 7.5 g/dL (6.4-8.2) Albumin 3.4 g/dL (3.4-5.0) Albumin/Globulin Ratio 0.8 (1.0-1.7) Digoxin Level 0.6 ng/mL (0.9-2.0) Digoxin Last Dose Date Digoxin Last Dose Time Influenza Type A Antigen Negative (NEGATIVE) Influenza Type B Antigen Negative (NEGATIVE) Test 08/18/18 07:39 08/18/18 08:37 Glucose (Fingerstick) 322 mg/dL (70-99) White Blood Count 9.9 x10^3/uL (4.0-11.0) Red Blood Count 3.92 x10^6/uL (4.30-5.70) Hemoglobin 9.4 g/dL (13.0-17.5) Hematocrit 30.0 % (39.0-53.0) Mean Corpuscular Volume 77 fL (79-100) Mean Corpuscular Hemoglobin 24 pg (25-35) Mean Corpuscular Hemoglobin Concent 31 g/dL (31-37) Red Cell Distribution Width 16.8 % (11.5-14.5) Platelet Count 139 x10^3/uL (140-400) Neutrophils (%) (Auto) 90 % (31-73) Lymphocytes (%) (Auto) 3 % (24-48) Monocytes (%) (Auto) 7 % (0-9) Eosinophils (%) (Auto) 0 % (0-3) Basophils (%) (Auto) 0 % (0-3) Neutrophils # (Auto) 8.9 x10^3uL (1.8-7.7) Lymphocytes # (Auto) 0.3 x10^3/uL (1.0-4.8) Monocytes # (Auto) 0.7 x10^3/uL (0.0-1.1) Eosinophils # (Auto) 0.0 x10^3/uL (0.0-0.7) Basophils # (Auto) 0.0 x10^3/uL (0.0-0.2) Segmented Neutrophils % 88 % (35-66) Band Neutrophils % 3 % (0-9) Lymphocytes % 2 % (24-48) Monocytes % 7 % (0-10) Platelet Estimate Decreased (ADEQUATE) Large Platelets Present Hypochromasia Slight Poikilocytosis Present Anisocytosis Slight Lactic Acid Level 1.5 mmol/L (0.4-2.0) Magnesium Level 2.0 mg/dL (1.8-2.4) Medications Active Scripts Medications Dose Route/Sig Max Daily Dose Days Date Category Aspirin 81 Mg Tab.chew 1 Tab PO DAILY 08/17/18 Reported Vitamin B-12 (Cyanocobalamin (Vitamin B-12)) 1,000 Mcg Tablet 500 Mcg PO DAILY 06/25/18 Reported Probiotic (Lactobacillus Combo No.11) 1 Each Cap.sprink 1 Each PO DAILY 06/25/18 Reported Lantus Solostar (Insulin Glargine,Hum.rec.anlog) 100 Unit/1 Ml Insuln.pen 25 Unit SQ HS 05/03/18 Reported Zoloft (Sertraline Hcl) 50 Mg Tablet 50 Mg PO DAILY 08/28/17 Reported Digoxin 125 Mcg Tablet 1 Tab PO DAILY 07/07/17 Rx Flomax (Tamsulosin Hcl) 0.4 Mg Cap.er.24h 1 Cap PO HS 07/04/17 Reported Lyrica (Pregabalin) 75 Mg Capsule 1 Cap PO BID 07/04/17 Reported Mucinex Dm Er 600-30 Mg Tablet (Guaifenesin/Dextromethorphan) 1 Each Tab.er.12h 1 Each PO BID PRN 07/04/17 Reported Metformin Hcl 1,000 Mg Tablet 1,000 Mg PO BIDWMEALS 07/04/17 Reported Hydrocodone-Apap 7.5-325 (Hydrocodone Bit/Acetaminophen) 1 Each Tablet 1 Tab PO PRN Q6HRS PRN 07/04/17 Reported Eliquis (Apixaban) 5 Mg Tablet 5 Mg PO BID 07/04/17 Reported Metoprolol Succinate ( Xl ) (Metoprolol Succinate) 25 Mg Tab.er.24h 1 Tab PO DAILY 07/04/17 Reported Novolog Flexpen (Insulin Aspart) 100 Unit/1 Ml Insuln.pen 0 SQ PER SLIDING SCALE AC 06/15/17 Reported Prilosec (Omeprazole) 20 Mg Capsule. 20 Mg PO DAILY 10/17/13 Reported Impression . FULL CONSULT DICTATED SEPSIS PNEUMONIA AGREE WITH CURRENT RX THANKS D/W JHONNY GAYLE MD Aug 18, 2018 12:21
[2018-08-18] MEDS ORDERED: DEXTROSE 50% 25 GM / 50ML DISP.SYRIN. IV PRN (14:30)
[2018-08-18] MEDS ORDERED: guaiFENesin DM 600/30MG 1 TAB TAB.ER.12H PO PRN (14:30)
[2018-08-18] MEDS: DIGOXIN 125 MCG TABLET. PO SCH (15:00)
[2018-08-18] MEDS: METOPROLOL SUCC 24HR ER 25 MG TAB.ER.24H. PO SCH (15:21)
[2018-08-18] MEDS: CYANOCOBALAMIN (VITAMIN B-12) 1,000 MCG TABLET. PO SCH (15:22)
[2018-08-18] MEDS: PANTOPRAZOLE IV PUSH 40 MG VIAL. IVP SCH (15:23)
[2018-08-18] MEDS: SERTRALINE 50 MG TABLET. PO SCH (15:23)
[2018-08-18] MEDS ORDERED: ANTI-COAG MONITOR BY PHARMACY. MC PRN (15:45)
[2018-08-18] MEDS: HYDROcodone/APAP 7.5/325MG 1 TAB TABLET PO PRN (16:53)
[2018-08-18] MEDS: PREGABALIN 75 MG CAPSULE PO SCH (21:02)
[2018-08-18] MEDS: TAMSULOSIN 0.4 MG CAP.ER.24H. PO SCH (21:02)
[2018-08-18] MEDS: APIXABAN 5 MG TABLET. PO SCH (21:02)
[2018-08-18] MEDS: LACTOBACILLUS RHAMNOSUS GG 1 CAPSULE. PO SCH (21:02)
--- NOTE | 2018-08-18 21:35 | CONS ---
DATE OF CONSULTATION: 08/18/2018 REFERRING PHYSICIAN: [facility]. HISTORY OF PRESENT ILLNESS: An 83-year-old male with past medical history of squamous cell carcinoma of the left lower lobe, status post chemoradiation, underwent bronchoscopy by Dr. Cardenas on 08/17/2018 as an outpatient with a recent history of hemoptysis for the past month. Subsequently, later in the day, he started feeling short of breath, had chills and "shaking" with increased urinary frequency. He presented to the ER, had a temperature of 99.8 with leukocytosis and pyuria. The patient had lactic acidosis. Due to history of lung cancer and concern for PE, CT chest was done, which showed bilateral airspace opacities, seen more prominent in the lower lobe suspicious for developing consolidative process such as multifocal pneumonia, left apical spiculated lung nodule, has a new or increased in size compared to 12/16/2017 small left pleural effusion, bilateral gynecomastia, enhancing left hepatic lesion, metastases are again seen, slightly less conspicuous based on the phase of the contrast. The patient was given empiric IV vancomycin, Zosyn, and Levaquin 1 time dose and has been admitted to ICU. The patient states he is feeling little better. He still has some shortness of breath, cough, has intermittent blood in sputum. Denies any chest pain with deep breathing. He is not on any oxygen. He denies any headache, nasal or sinus congestion, sore throat, difficulty swallowing. Denies any nausea, vomiting, diarrhea. He does wake up several times at night to urinate. He denies any dysuria or difficulty voiding. He did have chills yesterday, which have settled down. His lactate was around 4.5, repeat last night was 3.4. AM labs are pending at this time. PAST MEDICAL HISTORY: History of pneumonia, E. 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 PAST SURGICAL HISTORY: Coronary artery bypass grafting, cataract extraction, left femoral endarterectomy and left external iliac to superficial femoral artery bypass with reimplantation of profunda femoris in 11/2014, back surgery, tonsillectomy. FAMILY HISTORY: As per HPI. SOCIAL HISTORY: The patient is and lives at home with his . Former smoker. ALLERGIES: No known drug allergies. CURRENT MEDICATIONS: The patient received one dose of IV vancomycin, Zosyn and Levaquin in the ER. Other medications as per HPI. REVIEW OF SYSTEMS: Negative except for above in HPI. PHYSICAL EXAMINATION: VITAL SIGNS: Stable. Temperature 98.5, pulse 95, respiratory rate 23, blood pressure 137/69, oxygen saturation 93% on room air, T-max 99.8. GENERAL: Alert, oriented male lying in bed comfortably, in no acute distress, cooperative, pleasant. HEENT: Normocephalic, atraumatic, anicteric. Oral mucosa moist. No thrush. Dentures in place. NECK: Supple. LUNGS: Decreased breath sounds at the bases, otherwise nonlabored. HEART: S1, S2. ABDOMEN: Soft, bowel sounds present, nontender, nondistended. EXTREMITIES: No edema, no cyanosis. DERMATOLOGIC: Warm, dry, no generalized rash. NEUROLOGIC: Alert and oriented x 3. Grossly nonfocal. PIV look okay. LABORATORY DATA: WBC 12.0, hemoglobin 10.9, hematocrit 35.0, platelets 190. Sodium 137, potassium 4.9, chloride 99, bicarbonate 24, BUN 23, creatinine 1.1, glucose 227. Lactate was 4.5, now 3.4. AM lab is pending at this time. Alkaline phosphatase 135. BNP 960 Influenza screen negative. Micro pending at this time. IMAGING: CTA shows bilateral airspace opacities, most prominent in the lower lobe suspicious for developing consolidative process. Suggest multifocal pneumonia, left apical spiculated lung nodule, new or increased in size; small left pleural effusion; bilateral gynecomastia; enhancing hepatic lesions basically unchanged. IMPRESSION: 1. Febrile illness.Early sepsis 2. Leukocytosis. 3. Lactic acidosis. 4. Status post bronchoscopy 08/17/2018 5. Lactic acidosis. 6. History of hemoptysis, status post bronchoscopy, 08/17/2018. cultures done 7. History of squamous cell stage 3 lung cancer status post chemoradiation 02/2017. 8. Pyuria. Urine cultures are pending at this time. RECOMMENDATIONS: 1. Restart Zosyn.Add doxycycline 2. Follow up blood culture and urine culture. 3. Follow up bronchoscopy cultures 4. Follow up labs, trend WBC and lactic acid. 5. The patient is on supplements for hypomagnesemia. 6. Maintain aspiration precautions. 7. Continue supportive care. 8. Discussed with RN. Thank you for consulting Infectious Disease to participate in this patient's care. If you have any questions, do not hesitate to contact me. MATY JOHSUA MD DR: YOLANDA/brenda JOB#: [id number] / [id number] LELO
[2018-08-18] MEDS: INSULIN GLARGINE 300 UNITS/3 ML INSULN.PEN. SQ SCH (21:43)
[2018-08-19] MEDS: PIPERACILLIN/TAZOBACTAM 4.5 GM in IV NORMAL SALINE 100ML 100 ML IV SCH ×4 (00:04→16:46)
--- NOTE | 2018-08-19 01:54 | CONS ---
DATE OF CONSULTATION: 08/18/2018 ATTENDING PHYSICIAN: Dr. Soares CONSULTING PHYSICIAN: Jhonny Allen MD REASON FOR CONSULTATION: The patient is seen in pulmonary consultation at the request of Dr. Soares for sepsis, pneumonia. HISTORY OF PRESENT ILLNESS: The patient is an 83-year-old well known to me from previous outpatient visits. He has a history of stage 3A squamous cell carcinoma of the left upper lobe, status post combined chemoradiation. He was being treated with maintenance treatment on Imfinzi. The patient presented in the outpatient department with some hemoptysis. He underwent bronchoscopy yesterday. There were no endobronchial lesions. I performed a BAL of the left lower lobe. He represented last evening to the Emergency Department with increasing shortness of breath, fever, chills, productive cough or hemoptysis. Once again, he was admitted. He was hypotensive. He is currently being treated for sepsis. He is in the Intensive Care Unit receiving IV fluids. He was seen by the Infectious Disease service and is started on Zosyn and doxycycline. The patient now feels better. He is off of oxygen supplementation. He has had no further hemoptysis. He did have some nausea yesterday. No emesis. PAST MEDICAL HISTORY: Remarkable for: 1. Squamous cell carcinoma stage 3A, status post chemoradiation. His diagnosis was confirmed in 12/2016, his treatments were completed in 02/2017. 2. COPD. 3. AFib. 4. Mild dementia. 5. Type 2 diabetes. 6. Gastroesophageal reflux. 7. Hyperlipidemia. 8. Hypertension. 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 PAST SURGICAL HISTORY: Status post coronary artery bypass grafting. He has had some back surgeries. SOCIAL HISTORY: Occasional use of alcohol. He is currently not smoking. REVIEW OF SYSTEMS: CONSTITUTIONAL: Subjective fever. EYES: No change in visual acuity. HEENT: No nasal congestion or sore throat. PULMONARY: As indicated above. CARDIOVASCULAR: No chest pain or pressure. GASTROINTESTINAL: Some nausea, no vomiting. GENITOURINARY: No dysuria or frequency. MUSCULOSKELETAL: Chronic pain. No acute discomfort. SKIN: No new skin rashes. NEUROLOGIC: No headaches, diplopia or blurred vision. CURRENT MEDICATIONS: List was reviewed. ALLERGIES: No known drug allergies. PHYSICAL EXAMINATION: GENERAL: The patient was in the Intensive Care Unit. VITAL SIGNS: Blood pressure was 70/40. He was on no oxygen supplementation. He was not dizzy. HEENT: Eyes, the sclerae were nonicteric. NECK: Jugular venous distention was not elevated. No lymphadenopathy. CHEST: Full expansion. LUNGS: Coarse breath sounds, rales on the right. CARDIOVASCULAR: Regular rate and rhythm with S1, S2, no S3. ABDOMEN: Soft, nontender, nondistended. EXTREMITIES: No clubbing, cyanosis or edema. NEUROLOGIC: The patient was awake, alert, following commands. A detailed neuro exam was not performed. LABORATORY DATA: Serology for influenza was negative. Electrolytes were noted. BUN was normal. Creatinine was normal. Lactic acid level was elevated at 4.5, repeat 3.4. Albumin upon admission was 3.4. BNP was elevated. White count was elevated. Hemoglobin and hematocrit were noted. A CT chest for PE protocol was reviewed. There was no evidence of pulmonary emboli. There was a new left lower lobe infiltrate, consolidation in the left apical, left apical spiculated nodule had increased in size. There was a small pleural effusion. IMPRESSION: 1. Sepsis secondary to pneumonia. 2. Suspect gram-negative, possibly gram-positive pneumonia. 3. History of lung cancer as described above, squamous cell, stage 3A, status post chemoradiation. 4. Hemoptysis, status post bronchoscopy on 08/17, no endobronchial lesions were visualized. BAL was performed. No active bleeding was visualized. 5. Hepatic lesion, suspect metastatic. 6. Chronic anemia. 7. Neuropathy. 8. Multiple other comorbidities as indicated above including coronary artery disease, previous coronary artery bypass grafting. PLAN: 1. We will continue current empiric antibiotics. 2. Case discussed with Infectious Disease Service, will follow up on BAL. 3. IV fluids, maintain mean arterial pressure above 60, if needed, we will provide pressors. 4. DVT and GI prophylaxis. I do appreciate the privilege in sharing in the patient's care. Total cumulative critical care time of 45 minutes. JHONNY ALLEN MD DR: DEIDRE/brenda JOB#: [id number] / [id number]
[2018-08-19 03:37] VITALS: BP 131/77
[2018-08-19 04:01] LABS: BASO % 0 % (0-3); EOS % 1 % (0-3); HEMATOCRIT 29.3 % (39.0-53.0); HEMOGLOBIN 9.3 g/dL (13.0-17.5); LYMPH # 0.5 x10^3/uL (1.0-4.8); LYMPH % 7 % (24-48); MEAN CORPUSCULAR HEMOGLOBIN 24 pg (25-35); MEAN CORPUSCULAR HGB CONC 32 g/dL (31-37); MEAN CORPUSCULAR VOLUME 77 fL (79-100); MONO # 0.5 x10^3/uL (0.0-1.1); MONO % 8 % (0-9); NEUT # 5.8 x10^3uL (1.8-7.7); NEUT % 85 % (31-73); PLATELET COUNT 139 x10^3/uL (140-400); RED BLOOD COUNT 3.83 x10^6/uL (4.30-5.70); RED CELL DISTRIBUTION WIDTH 17.2 % (11.5-14.5); WHITE BLOOD COUNT 6.9 x10^3/uL (4.0-11.0)
[2018-08-19 04:21] LABS: ALBUMIN 2.8 g/dL (3.4-5.0); ALBUMIN/GLOBULIN RATIO 0.8 (1.0-1.7); CALCIUM 8.7 mg/dL (8.5-10.1); CREATININE 0.9 mg/dL (0.7-1.3); GFR 80.8; POTASSIUM 4.1 mmol/L (3.5-5.1); TOTAL BILIRUBIN 0.4 mg/dL (0.2-1.0); TOTAL PROTEIN 6.4 g/dL (6.4-8.2)
[2018-08-19 07:14] VITALS: BP 137/68
[2018-08-19] MEDS ORDERED: PANTOPRAZOLE 40 MG TABLET.DR. PO SCH (07:30)
[2018-08-19] MEDS: LACTOBACILLUS RHAMNOSUS GG 1 CAPSULE. PO SCH ×2 (07:58→19:57)
[2018-08-19] MEDS: ASPIRIN CHEWABLE 81 MG TABLET. PO SCH (07:58)
[2018-08-19] MEDS: DOXYCYCLINE HYCLATE 100 MG TABLET PO SCH ×2 (07:58→19:58)
[2018-08-19] MEDS: APIXABAN 5 MG TABLET. PO SCH ×2 (07:58→19:57)
[2018-08-19] MEDS: PREGABALIN 75 MG CAPSULE PO SCH ×2 (07:58→19:57)
[2018-08-19] MEDS: CYANOCOBALAMIN (VITAMIN B-12) 1,000 MCG TABLET. PO SCH (07:59)
[2018-08-19] MEDS: METOPROLOL SUCC 24HR ER 25 MG TAB.ER.24H. PO SCH (07:59)
[2018-08-19] MEDS: SERTRALINE 50 MG TABLET. PO SCH (07:59)
[2018-08-19] MEDS: DIGOXIN 125 MCG TABLET. PO SCH (07:59)
[2018-08-19] MEDS: IV NORMAL SALINE 1000ML BAG 1,000 ML IV SCH (08:01)
[2018-08-19] MEDS: PANTOPRAZOLE IV PUSH 40 MG VIAL. IVP SCH (08:02)
[2018-08-19] MEDS: INSULIN LISPRO 300 UNITS/3 ML INSULN.PEN. SQ SCH ×3 (08:07→16:51)
--- NOTE | 2018-08-19 08:34 | NUR ---
SW following pt. PT/OT pending. SW will await for PT/OT recommendation to assess dc needs.
[2018-08-19] MEDS ORDERED: ONDANSETRON PF 4 MG/2 ML VIAL. IV PRN (09:00)
[2018-08-19] MEDS ORDERED: ACETAMINOPHEN 500 MG TABLET PO PRN (09:00)
[2018-08-19] MEDS ORDERED: ONDANSETRON ODT 4 MG TAB.RAPDIS. PO PRN (09:00)
[2018-08-19] MEDS ORDERED: [UNRECOGNIZED DRUG - OTHER] PO SCH (09:00)
[2018-08-19] MEDS ORDERED: DEXTROSE 50% 25 GM / 50ML DISP.SYRIN. IV PRN (09:00)
--- NOTE | 2018-08-19 10:55 | PDOC ---
PROGRESS NOTES Chief Complaint Chief Complaint Sepsis with hypotension-off levophed Pneumonia in an immunocompromised Stage III lung carcinoma left upper lobe on chemoradiation Fevers Blood culture preliminary negative COPD Chronic A. fib Some dementia versus cognitive impairment GERD stable DM 2 on insulin, controlled XIMENA VMN secondary to hypoperfusion History of Present Illness History of Present Illness HAs no complaints Post lung Auscultation no wheezes or crackles Indwelling [place] catheter - good uO Transferred out of ICU 08/19/18 for hypotension needing levophed Plan: DC [place] Follow blood cultures He came from home PTOT Monitor for further fevers IV antibiotics per ID Might be able to go home tomorrow once we have blood cultures etc. and PTOT eval Vitals Vitals Vital Signs Date Time Temp Pulse Resp B/P (MAP) Pulse Ox O2 Delivery O2 Flow Rate FiO2 08/19/18 07:59 90 137/68 08/19/18 07:15 Room Air 08/19/18 07:14 97.6 19 93 97.6 Physical Exam General: Alert, Oriented X3, Cooperative Heart: Regular rate, Normal S1, Normal S2 Abdomen: Normal bowel sounds, Soft Extremities: No clubbing, No cyanosis Skin: No rashes, No breakdown, No significant lesion Labs LABS Laboratory Tests Test 08/18/18 12:19 08/18/18 16:47 08/18/18 19:35 08/19/18 03:45 Glucose (Fingerstick) 404 mg/dL (70-99) 203 mg/dL (70-99) 197 mg/dL (70-99) White Blood Count 6.9 x10^3/uL (4.0-11.0) Red Blood Count 3.83 x10^6/uL (4.30-5.70) Hemoglobin 9.3 g/dL (13.0-17.5) Hematocrit 29.3 % (39.0-53.0) Mean Corpuscular Volume 77 fL (79-100) Mean Corpuscular Hemoglobin 24 pg (25-35) Mean Corpuscular Hemoglobin Concent 32 g/dL (31-37) Red Cell Distribution Width 17.2 % (11.5-14.5) Platelet Count 139 x10^3/uL (140-400) Neutrophils (%) (Auto) 85 % (31-73) Lymphocytes (%) (Auto) 7 % (24-48) Monocytes (%) (Auto) 8 % (0-9) Eosinophils (%) (Auto) 1 % (0-3) Basophils (%) (Auto) 0 % (0-3) Neutrophils # (Auto) 5.8 x10^3uL (1.8-7.7) Lymphocytes # (Auto) 0.5 x10^3/uL (1.0-4.8) Monocytes # (Auto) 0.5 x10^3/uL (0.0-1.1) Eosinophils # (Auto) 0.0 x10^3/uL (0.0-0.7) Basophils # (Auto) 0.0 x10^3/uL (0.0-0.2) Sodium Level 141 mmol/L (136-145) Potassium Level 4.1 mmol/L (3.5-5.1) Chloride Level 105 mmol/L (98-107) Carbon Dioxide Level 27 mmol/L (21-32) Anion Gap 9 (6-14) Blood Urea Nitrogen 17 mg/dL (8-26) Creatinine 0.9 mg/dL (0.7-1.3) Estimated GFR (Cockcroft-Gault) 80.8 BUN/Creatinine Ratio 19 (6-20) Glucose Level 250 mg/dL (70-99) Calcium Level 8.7 mg/dL (8.5-10.1) Total Bilirubin 0.4 mg/dL (0.2-1.0) Aspartate Amino Transf (AST/SGOT) 23 U/L (15-37) Alanine Aminotransferase (ALT/SGPT) 28 U/L (16-63) Alkaline Phosphatase 93 U/L (46-116) Total Protein 6.4 g/dL (6.4-8.2) Albumin 2.8 g/dL (3.4-5.0) Albumin/Globulin Ratio 0.8 (1.0-1.7) Test 08/19/18 07:11 Glucose (Fingerstick) 303 mg/dL (70-99) Review of Systems Review of Systems A 14 point ROS was completed with the following noted as positive: Other systems reviewed and negative. \CONSTITUTIONAL: No fever or chills EYES: No recent changes SKIN: No rash or itching CARDIOVASCULAR: No chest pain, syncope, palpitations, or edema RESPIRATORY: No SOB or cough GASTROINTESTINAL: No nausea, vomiting or abdominal pain NEUROLOGICAL: No headaches or weakness ENDOCRINE: No cold or heat intolerance GENITOURINARY: No urgency or frequency of urination MUSCULOSKELETAL: No back pain or joint pain LYMPHATICS: No enlarged lymph nodes PSYCHIATRIC: No anxiety or depression Assessment and Plan Assessmemt and Plan Problems Medical Problems: (1) Hx of cancer of lung Status: Acute (2) Septic shock Status: Acute (3) UTI (urinary tract infection) Status: Acute Comment Review of Relevant I have reviewed the following items katie (where applicable) has been applied. Labs Laboratory Tests Test 08/17/18 19:25 08/17/18 21:50 08/18/18 00:00 08/18/18 05:35 White Blood Count 12.0 x10^3/uL (4.0-11.0) Red Blood Count 4.50 x10^6/uL (4.30-5.70) Hemoglobin 10.9 g/dL (13.0-17.5) Hematocrit 35.0 % (39.0-53.0) Mean Corpuscular Volume 78 fL (79-100) Mean Corpuscular Hemoglobin 24 pg (25-35) Mean Corpuscular Hemoglobin Concent 31 g/dL (31-37) Red Cell Distribution Width 17.2 % (11.5-14.5) Platelet Count 190 x10^3/uL (140-400) Neutrophils (%) (Auto) 82 % (31-73) Lymphocytes (%) (Auto) 9 % (24-48) Monocytes (%) (Auto) 8 % (0-9) Eosinophils (%) (Auto) 1 % (0-3) Basophils (%) (Auto) 0 % (0-3) Neutrophils # (Auto) 9.9 x10^3uL (1.8-7.7) Lymphocytes # (Auto) 1.0 x10^3/uL (1.0-4.8) Monocytes # (Auto) 0.9 x10^3/uL (0.0-1.1) Eosinophils # (Auto) 0.1 x10^3/uL (0.0-0.7) Basophils # (Auto) 0.0 x10^3/uL (0.0-0.2) Urine Collection Type Unknown Urine Color Yellow Urine Clarity Clear Urine pH 5.5 Urine Specific [place] 1.015 Urine Protein 100 mg/dL (NEG-TRACE) Urine Glucose (UA) 250 mg/dL (NEG) Urine Ketones (Stick) Negative mg/dL (NEG) Urine Blood Small (NEG) Urine Nitrite Negative (NEG) Urine Bilirubin Negative (NEG) Urine Urobilinogen Dipstick 0.2 mg/dL (0.2 mg/dL) Urine Leukocyte Esterase Small (NEG) Urine RBC 1-2 /HPF (0-2) Urine WBC 11-20 /HPF (0-4) Urine Squamous Epithelial Cells Few /LPF Urine Bacteria Few /HPF (0-FEW) Urine Hyaline Casts Occasional /HPF Urine Mucus Slight /LPF Sodium Level 137 mmol/L (136-145) Potassium Level 4.9 mmol/L (3.5-5.1) Chloride Level 99 mmol/L (98-107) Carbon Dioxide Level 24 mmol/L (21-32) Anion Gap 14 (6-14) Blood Urea Nitrogen 23 mg/dL (8-26) Creatinine 1.1 mg/dL (0.7-1.3) Estimated GFR (Cockcroft-Gault) 64.1 BUN/Creatinine Ratio 21 (6-20) Glucose Level 227 mg/dL (70-99) Lactic Acid Level 4.5 mmol/L (0.4-2.0) 3.4 mmol/L (0.4-2.0) Calcium Level 9.2 mg/dL (8.5-10.1) Magnesium Level 1.4 mg/dL (1.8-2.4) Total Bilirubin 0.4 mg/dL (0.2-1.0) Aspartate Amino Transf (AST/SGOT) 34 U/L (15-37) Alanine Aminotransferase (ALT/SGPT) 33 U/L (16-63) Alkaline Phosphatase 135 U/L (46-116) Creatine Kinase 66 U/L (39-308) Creatine Kinase MB (Mass) 2.9 ng/mL (0.0-3.6) Creatine Kinase MB Relative Index % (0-4) Troponin I Quantitative 0.019 ng/mL (0.000-0.055) 0.039 ng/mL (0.000-0.055) 0.021 ng/mL (0.000-0.055) WZ-Xir-P-Type Natriuretic Peptide 960 pg/mL (0-449) Total Protein 7.5 g/dL (6.4-8.2) Albumin 3.4 g/dL (3.4-5.0) Albumin/Globulin Ratio 0.8 (1.0-1.7) Digoxin Level 0.6 ng/mL (0.9-2.0) Digoxin Last Dose Date Digoxin Last Dose Time Influenza Type A Antigen Negative (NEGATIVE) Influenza Type B Antigen Negative (NEGATIVE) Nasal Screen MRSA (PCR) Negative (Negative) Test 08/18/18 07:39 08/18/18 08:37 08/18/18 12:19 08/18/18 16:47 Glucose (Fingerstick) 322 mg/dL (70-99) 404 mg/dL (70-99) 203 mg/dL (70-99) White Blood Count 9.9 x10^3/uL (4.0-11.0) Red Blood Count 3.92 x10^6/uL (4.30-5.70) Hemoglobin 9.4 g/dL (13.0-17.5) Hematocrit 30.0 % (39.0-53.0) Mean Corpuscular Volume 77 fL (79-100) Mean Corpuscular Hemoglobin 24 pg (25-35) Mean Corpuscular Hemoglobin Concent 31 g/dL (31-37) Red Cell Distribution Width 16.8 % (11.5-14.5) Platelet Count 139 x10^3/uL (140-400) Neutrophils (%) (Auto) 90 % (31-73) Lymphocytes (%) (Auto) 3 % (24-48) Monocytes (%) (Auto) 7 % (0-9) Eosinophils (%) (Auto) 0 % (0-3) Basophils (%) (Auto) 0 % (0-3) Neutrophils # (Auto) 8.9 x10^3uL (1.8-7.7) Lymphocytes # (Auto) 0.3 x10^3/uL (1.0-4.8) Monocytes # (Auto) 0.7 x10^3/uL (0.0-1.1) Eosinophils # (Auto) 0.0 x10^3/uL (0.0-0.7) Basophils # (Auto) 0.0 x10^3/uL (0.0-0.2) Segmented Neutrophils % 88 % (35-66) Band Neutrophils % 3 % (0-9) Lymphocytes % 2 % (24-48) Monocytes % 7 % (0-10) Platelet Estimate Decreased (ADEQUATE) Large Platelets Present Hypochromasia Slight Poikilocytosis Present Anisocytosis Slight Lactic Acid Level 1.5 mmol/L (0.4-2.0) Magnesium Level 2.0 mg/dL (1.8-2.4) Test 08/18/18 19:35 08/19/18 03:45 08/19/18 07:11 Glucose (Fingerstick) 197 mg/dL (70-99) 303 mg/dL (70-99) White Blood Count 6.9 x10^3/uL (4.0-11.0) Red Blood Count 3.83 x10^6/uL (4.30-5.70) Hemoglobin 9.3 g/dL (13.0-17.5) Hematocrit 29.3 % (39.0-53.0) Mean Corpuscular Volume 77 fL (79-100) Mean Corpuscular Hemoglobin 24 pg (25-35) Mean Corpuscular Hemoglobin Concent 32 g/dL (31-37) Red Cell Distribution Width 17.2 % (11.5-14.5) Platelet Count 139 x10^3/uL (140-400) Neutrophils (%) (Auto) 85 % (31-73) Lymphocytes (%) (Auto) 7 % (24-48) Monocytes (%) (Auto) 8 % (0-9) Eosinophils (%) (Auto) 1 % (0-3) Basophils (%) (Auto) 0 % (0-3) Neutrophils # (Auto) 5.8 x10^3uL (1.8-7.7) Lymphocytes # (Auto) 0.5 x10^3/uL (1.0-4.8) Monocytes # (Auto) 0.5 x10^3/uL (0.0-1.1) Eosinophils # (Auto) 0.0 x10^3/uL (0.0-0.7) Basophils # (Auto) 0.0 x10^3/uL (0.0-0.2) Sodium Level 141 mmol/L (136-145) Potassium Level 4.1 mmol/L (3.5-5.1) Chloride Level 105 mmol/L (98-107) Carbon Dioxide Level 27 mmol/L (21-32) Anion Gap 9 (6-14) Blood Urea Nitrogen 17 mg/dL (8-26) Creatinine 0.9 mg/dL (0.7-1.3) Estimated GFR (Cockcroft-Gault) 80.8 BUN/Creatinine Ratio 19 (6-20) Glucose Level 250 mg/dL (70-99) Calcium Level 8.7 mg/dL (8.5-10.1) Total Bilirubin 0.4 mg/dL (0.2-1.0) Aspartate Amino Transf (AST/SGOT) 23 U/L (15-37) Alanine Aminotransferase (ALT/SGPT) 28 U/L (16-63) Alkaline Phosphatase 93 U/L (46-116) Total Protein 6.4 g/dL (6.4-8.2) Albumin 2.8 g/dL (3.4-5.0) Albumin/Globulin Ratio 0.8 (1.0-1.7) Laboratory Tests Test 08/18/18 12:19 08/18/18 16:47 08/18/18 19:35 08/19/18 03:45 Glucose (Fingerstick) 404 mg/dL (70-99) 203 mg/dL (70-99) 197 mg/dL (70-99) White Blood Count 6.9 x10^3/uL (4.0-11.0) Red Blood Count 3.83 x10^6/uL (4.30-5.70) Hemoglobin 9.3 g/dL (13.0-17.5) Hematocrit 29.3 % (39.0-53.0) Mean Corpuscular Volume 77 fL (79-100) Mean Corpuscular Hemoglobin 24 pg (25-35) Mean Corpuscular Hemoglobin Concent 32 g/dL (31-37) Red Cell Distribution Width 17.2 % (11.5-14.5) Platelet Count 139 x10^3/uL (140-400) Neutrophils (%) (Auto) 85 % (31-73) Lymphocytes (%) (Auto) 7 % (24-48) Monocytes (%) (Auto) 8 % (0-9) Eosinophils (%) (Auto) 1 % (0-3) Basophils (%) (Auto) 0 % (0-3) Neutrophils # (Auto) 5.8 x10^3uL (1.8-7.7) Lymphocytes # (Auto) 0.5 x10^3/uL (1.0-4.8) Monocytes # (Auto) 0.5 x10^3/uL (0.0-1.1) Eosinophils # (Auto) 0.0 x10^3/uL (0.0-0.7) Basophils # (Auto) 0.0 x10^3/uL (0.0-0.2) Sodium Level 141 mmol/L (136-145) Potassium Level 4.1 mmol/L (3.5-5.1) Chloride Level 105 mmol/L (98-107) Carbon Dioxide Level 27 mmol/L (21-32) Anion Gap 9 (6-14) Blood Urea Nitrogen 17 mg/dL (8-26) Creatinine 0.9 mg/dL (0.7-1.3) Estimated GFR (Cockcroft-Gault) 80.8 BUN/Creatinine Ratio 19 (6-20) Glucose Level 250 mg/dL (70-99) Calcium Level 8.7 mg/dL (8.5-10.1) Total Bilirubin 0.4 mg/dL (0.2-1.0) Aspartate Amino Transf (AST/SGOT) 23 U/L (15-37) Alanine Aminotransferase (ALT/SGPT) 28 U/L (16-63) Alkaline Phosphatase 93 U/L (46-116) Total Protein 6.4 g/dL (6.4-8.2) Albumin 2.8 g/dL (3.4-5.0) Albumin/Globulin Ratio 0.8 (1.0-1.7) Test 08/19/18 07:11 Glucose (Fingerstick) 303 mg/dL (70-99) Microbiology 08/17/18 Blood Culture - Preliminary, Resulted NO GROWTH AFTER 1 DAY Medications Current Medications Albuterol/ Ipratropium (Duoneb) 3 ml 1X ONCE NEB Last administered on at 19:33; Start 08/17/18 at 19:30; Stop 08/17/18 at 19:40; Status DC Albuterol/ Ipratropium (Duoneb) 3 ml STK-MED ONCE .ROUTE ; Start 08/17/18 at 19: 29; Stop 08/17/18 at 19:30; Status DC Sodium Chloride 1,000 ml @ 1,000 mls/hr 1X ONCE IV Last administered on at 19:56; Start 08/17/18 at 19:30; Stop 08/17/18 at 20:29; Status DC Dexamethasone Sodium Phosphate (Decadron) 10 mg 1X ONCE IV Last administered on 08/17/18at 19:58; Start 08/17/18 at 19:45; Stop 08/17/18 at 19:46; Status DC Iohexol (Omnipaque 350 Mg/ml) 90 ml 1X ONCE IV Last administered on 08/17/18at 20:46; Start 08/17/18 at 20:30; Stop 08/17/18 at 20:31; Status DC Info (CONTRAST GIVEN -- Rx MONITORING) 1 each PRN DAILY PRN MC SEE COMMENTS; Start 08/17/18 at 20:30; Stop 08/19/18 at 20:29 Piperacillin Sod/ Tazobactam Sod 4.5 gm/Sodium Chloride 100 ml @ 200 mls/hr 1X ONCE IV Last administered on 08/17/18at 21:18; Start 08/17/18 at 20:45; Stop 08/17/18 at 21:14; Status DC Vancomycin HCl 1.75 gm/Sodium Chloride 500 ml @ 250 mls/hr 1X ONCE IV Last administered on 08/17/18at 22:01; Start 08/17/18 at 21:00; Stop 08/17/18 at 22:59 ; Status DC Levofloxacin/ Dextrose 100 ml @ 100 mls/hr 1X ONCE IV Last administered on at 21:09; Start 08/17/18 at 20:45; Stop 08/17/18 at 21:44; Status DC Magnesium Sulfate 50 ml @ 25 mls/hr 1X ONCE IV Last administered on 08/17/18at 21:10; Start 08/17/18 at 20:45; Stop 08/17/18 at 22:44; Status DC Sodium Chloride 1,000 ml @ 1,000 mls/hr 1X ONCE IV Last administered on at 21:58; Start 08/17/18 at 21:30; Stop 08/17/18 at 22:29; Status DC Sodium Chloride 500 ml @ 500 mls/hr 1X ONCE IV Last administered on at 22:06; Start 08/17/18 at 21:30; Stop 08/17/18 at 22:29; Status DC Lorazepam (Ativan) 1 mg 1X ONCE IV Last administered on 08/17/18at 21:49; Start 08/17/18 at 21:45; Stop 08/17/18 at 21:46; Status DC Ondansetron HCl (Zofran) 4 mg PRN Q8HRS PRN IV NAUSEA/VOMITING; Start 08/17/18 at 22:00; Stop 08/18/18 at 21:59; Status DC Fentanyl Citrate (Fentanyl 2ml Vial) 25 mcg PRN Q1HR PRN IV PAIN; Start at 22:00; Stop 08/18/18 at 21:59; Status DC Insulin Human Lispro (HumaLOG) 0-5 UNITS TIDWMEALS SQ Last administered on 08/18at 12:29; Start 08/18/18 at 08:00; Stop 08/18/18 at 14:33; Status DC Dextrose (Dextrose 50%-Water Syringe) 12.5 gm PRN Q15MIN PRN IV SEE COMMENTS; Start 08/17/18 at 22:00; Stop 08/18/18 at 14:34; Status DC Aspirin (Kika Aspirin) 325 mg 1X ONCE PO ; Start 08/17/18 at 22:15; Stop 08/17 at 22:16; Status DC Albuterol Sulfate (Ventolin Neb Soln) 2.5 mg PRN Q6HRS PRN NEB WHEEZING; Start 08/17/18 at 22:30 Sodium Chloride 1,000 ml @ 70 mls/hr [id number] IV Last administered on at 08:01; Start 08/18/18 at 03:00; Stop 08/19/18 at 08:56; Status DC Norepinephrine Bitartrate 250 ml @ 1.875 mls/ hr CONT PRN IV SEE I/O RECORD; Start 08/18/18 at 03:30; Stop 08/18/18 at 15:48; Status DC Propofol 100 ml @ 1.037 mls/ hr CONT PRN IV SEDATION; Start 08/18/18 at 05:30 ; Status Cancel Piperacillin Sod/ Tazobactam Sod (Zosyn Per Pharmacy) 1 each PRN DAILY PRN MC SEE COMMENTS; Start 08/18/18 at 08:15 Doxycycline Hyclate (Vibra-Tab) 100 mg BID PO Last administered on 08/19/18 07 :58; Start 08/18/18 at 09:00 Piperacillin Sod/ Tazobactam Sod 4.5 gm/Sodium Chloride 100 ml @ 200 mls/hr Q6HRS IV Last administered on 08/19/18 05:40; Start 08/18/18 at 09:00 Apixaban (Eliquis) 5 mg BID PO Last administered on 08/19/18 07:58; Start at 21:00 Aspirin (Children'S Aspirin) 81 mg DAILY PO Last administered on 08/19/18 07: 58; Start 08/19/18 at 09:00 Cyanocobalamin (Vitamin B-12) 500 mcg DAILY PO Last administered on 08/19/18 07:59; Start 08/18/18 at 15:00 Digoxin (Lanoxin) 125 mcg DAILY PO Last administered on 08/19/18 07:59; Start 08/18/18 at 15:00 Guaifenesin (MUCINEX ER with DM) 1 tab PRN BID PRN PO COUGH; Start 08/18/18 at 14:30 Acetaminophen/ Hydrocodone Bitart (Lortab 7.5/325) 1 tab PRN Q6HRS PRN PO PAIN Last administered on 08/18/18at 16:53; Start 08/18/18 at 14:30 Insulin Glargine (Lantus) 25 units HS SQ Last administered on 08/18/18at 21:43; Start 08/18/18 at 21:00 Metoprolol Succinate (Toprol Xl) 25 mg DAILY PO Last administered on 08/19/18 07:59; Start 08/18/18 at 15:00 Pregabalin (Lyrica) 75 mg BID PO Last administered on 08/19/18 07:58; Start at 21:00 Sertraline HCl (Zoloft) 50 mg DAILY PO Last administered on 08/19/18 07:59; Start 08/18/18 at 15:00 Tamsulosin HCl (Flomax) 0.4 mg HS PO Last administered on 08/18/18at 21:02; Start 08/18/18 at 21:00 Non-Formulary Medication (Lactobacillus Combo No.11 (Probiotic)) 1 each DAILY PO ; Start 08/19/18 at 09:00; Status UNV Pantoprazole Sodium (Protonix) 40 mg DAILYAC PO ; Start 08/19/18 at 07:30; Stop 08/19/18 at 07:30; Status DC Insulin Human Lispro (HumaLOG) 0-5 UNITS TIDWMEALS SQ Last administered on 08/19at 08:07; Start 08/18/18 at 17:00; Stop 08/19/18 at 08:55; Status DC Dextrose (Dextrose 50%-Water Syringe) 12.5 gm PRN Q15MIN PRN IV SEE COMMENTS; Start 08/18/18 at 14:30 Pantoprazole Sodium (PROTONIX VIAL for IV PUSH) 40 mg DAILYAC IVP Last administered on 08/19/18at 08:02; Start 08/18/18 at 15:00 Info (Anti-Coagulation Monitoring By Pharmacy) 1 each PRN DAILY PRN MC SEE COMMENTS Last administered on 08/18/18at 15:33; Start 08/18/18 at 15:45 Lactobacillus Rhamnosus (Culturelle) 1 cap BID PO Last administered on at 07:58; Start 08/18/18 at 21:00 Acetaminophen (Tylenol) 500 mg PRN Q6HRS PRN PO MILD PAIN / TEMP; Start at 09:00 Ondansetron HCl (Zofran) 4 mg PRN Q6HRS PRN IV NAUSEA/VOMITING; Start 08/19/18 at 09:00 Ondansetron HCl (Zofran Odt) 4 mg PRN Q6HRS PRN PO NAUSEA/VOMITING; Start 08/19 at 09:00 Insulin Human Lispro (HumaLOG) 0-9 UNITS TIDWMEALS SQ ; Start 08/19/18 at 12:00 Dextrose (Dextrose 50%-Water Syringe) 12.5 gm PRN Q15MIN PRN IV SEE COMMENTS; Start 08/19/18 at 09:00; Status UNV Active Scripts Active Digoxin 125 Mcg Tablet 1 Tab PO DAILY Reported Aspirin 81 Mg Tab.chew 1 Tab PO DAILY Vitamin B-12 (Cyanocobalamin (Vitamin B-12)) 1,000 Mcg Tablet 500 Mcg PO DAILY Probiotic (Lactobacillus Combo No.11) 1 Each Cap.sprink 1 Each PO DAILY Lantus Solostar (Insulin Glargine,Hum.rec.anlog) 100 Unit/1 Ml Insuln.pen 25 Unit SQ HS Zoloft (Sertraline Hcl) 50 Mg Tablet 50 Mg PO DAILY Flomax (Tamsulosin Hcl) 0.4 Mg Cap.er.24h 1 Cap PO HS Lyrica (Pregabalin) 75 Mg Capsule 1 Cap PO BID Mucinex Dm Er 600-30 Mg Tablet (Guaifenesin/Dextromethorphan) 1 Each Tab.er.12h 1 Each PO BID PRN Metformin Hcl 1,000 Mg Tablet 1,000 Mg PO BIDWMEALS Hydrocodone-Apap 7.5-325 (Hydrocodone Bit/Acetaminophen) 1 Each Tablet 1 Tab PO PRN Q6HRS PRN Eliquis (Apixaban) 5 Mg Tablet 5 Mg PO BID Metoprolol Succinate ( Xl ) (Metoprolol Succinate) 25 Mg Tab.er.24h 1 Tab PO DAILY Novolog Flexpen (Insulin Aspart) 100 Unit/1 Ml Insuln.pen 0 SQ PER SLIDING SCALE AC Prilosec (Omeprazole) 20 Mg Capsule.dr 20 Mg PO DAILY Vitals/I & O Vital Sign - Last 24 Hours 08/18/18 08/18/18 08/18/18 08/18/18 11:00 12:00 12:00 13:00 Pulse 93 95 97 Resp B/P (MAP) 111/51 (71) 152/70 (97) 124/63 (83) Pulse Ox 95 97 O2 Delivery Room Air Room Air Room Air Room Air 08/18/18 08/18/18 08/18/18 08/18/18 14:46 15:00 15:21 15:50 Temp 97.7 97.8 97.7 97.8 Pulse 90 26 71 Resp 22 B/P (MAP) 126/62 (83) 121/62 121/62 132/89 (103) Pulse Ox 96 96 O2 Delivery Room Air Room Air 08/18/18 08/18/18 08/18/18 08/18/18 16:53 17:57 19:48 20:15 Temp 97.5 97.5 Pulse 80 Resp 20 B/P (MAP) 115/54 (74) Pulse Ox 96 O2 Delivery Room Air Room Air Room Air Room Air 08/18/18 08/19/18 08/19/18 08/19/18 23:45 03:37 07:14 07:15 Temp 98.0 97.6 97.6 98.0 97.6 97.6 Pulse 88 90 90 Resp 18 18 19 B/P (MAP) 94/44 (61) 131/77 (95) 137/68 (91) Pulse Ox 94 96 93 O2 Delivery Room Air Room Air Room Air Room Air 08/19/18 08/19/18 07:59 07:59 Pulse 90 90 B/P (MAP) 137/68 137/68 Intake and Output 08/18/18 08/18/18 08/19/18 15:00 23:00 07:00 Intake Total 637 ml 100 ml 850 ml Output Total 1500 ml 750 ml 2200 ml Balance -863 ml -650 ml -1350 ml CAROL MELTON MD Aug 19, 2018 10:55
--- NOTE | 2018-08-19 11:06 | PDOC ---
PULMONARY PROGRESS NOTES Subjective PT FEELS BETTER NO MORE HEMOPTYSIS Vitals Vital Signs Date Time Temp Pulse Resp B/P (MAP) Pulse Ox O2 Delivery O2 Flow Rate FiO2 08/19/18 07:59 90 137/68 08/19/18 07:15 Room Air 08/19/18 07:14 97.6 19 93 97.6 ROS: No Nausea, No Chest Pain, No Abdominal Pain, No Increase Cough General: Alert Lungs: Clear Cardiovascular: S1, S2 Abdomen: Soft, Non-tender, Other Neuro Exam: Alert Extremities: No Edema Skin: Warm Labs Laboratory Tests Test 08/17/18 19:25 08/17/18 21:50 08/18/18 00:00 08/18/18 05:35 White Blood Count 12.0 x10^3/uL (4.0-11.0) Red Blood Count 4.50 x10^6/uL (4.30-5.70) Hemoglobin 10.9 g/dL (13.0-17.5) Hematocrit 35.0 % (39.0-53.0) Mean Corpuscular Volume 78 fL (79-100) Mean Corpuscular Hemoglobin 24 pg (25-35) Mean Corpuscular Hemoglobin Concent 31 g/dL (31-37) Red Cell Distribution Width 17.2 % (11.5-14.5) Platelet Count 190 x10^3/uL (140-400) Neutrophils (%) (Auto) 82 % (31-73) Lymphocytes (%) (Auto) 9 % (24-48) Monocytes (%) (Auto) 8 % (0-9) Eosinophils (%) (Auto) 1 % (0-3) Basophils (%) (Auto) 0 % (0-3) Neutrophils # (Auto) 9.9 x10^3uL (1.8-7.7) Lymphocytes # (Auto) 1.0 x10^3/uL (1.0-4.8) Monocytes # (Auto) 0.9 x10^3/uL (0.0-1.1) Eosinophils # (Auto) 0.1 x10^3/uL (0.0-0.7) Basophils # (Auto) 0.0 x10^3/uL (0.0-0.2) Urine Collection Type Unknown Urine Color Yellow Urine Clarity Clear Urine pH 5.5 Urine Specific [place] 1.015 Urine Protein 100 mg/dL (NEG-TRACE) Urine Glucose (UA) 250 mg/dL (NEG) Urine Ketones (Stick) Negative mg/dL (NEG) Urine Blood Small (NEG) Urine Nitrite Negative (NEG) Urine Bilirubin Negative (NEG) Urine Urobilinogen Dipstick 0.2 mg/dL (0.2 mg/dL) Urine Leukocyte Esterase Small (NEG) Urine RBC 1-2 /HPF (0-2) Urine WBC 11-20 /HPF (0-4) Urine Squamous Epithelial Cells Few /LPF Urine Bacteria Few /HPF (0-FEW) Urine Hyaline Casts Occasional /HPF Urine Mucus Slight /LPF Sodium Level 137 mmol/L (136-145) Potassium Level 4.9 mmol/L (3.5-5.1) Chloride Level 99 mmol/L (98-107) Carbon Dioxide Level 24 mmol/L (21-32) Anion Gap 14 (6-14) Blood Urea Nitrogen 23 mg/dL (8-26) Creatinine 1.1 mg/dL (0.7-1.3) Estimated GFR (Cockcroft-Gault) 64.1 BUN/Creatinine Ratio 21 (6-20) Glucose Level 227 mg/dL (70-99) Lactic Acid Level 4.5 mmol/L (0.4-2.0) 3.4 mmol/L (0.4-2.0) Calcium Level 9.2 mg/dL (8.5-10.1) Magnesium Level 1.4 mg/dL (1.8-2.4) Total Bilirubin 0.4 mg/dL (0.2-1.0) Aspartate Amino Transf (AST/SGOT) 34 U/L (15-37) Alanine Aminotransferase (ALT/SGPT) 33 U/L (16-63) Alkaline Phosphatase 135 U/L (46-116) Creatine Kinase 66 U/L (39-308) Creatine Kinase MB (Mass) 2.9 ng/mL (0.0-3.6) Creatine Kinase MB Relative Index % (0-4) Troponin I Quantitative 0.019 ng/mL (0.000-0.055) 0.039 ng/mL (0.000-0.055) 0.021 ng/mL (0.000-0.055) ZF-Anp-E-Type Natriuretic Peptide 960 pg/mL (0-449) Total Protein 7.5 g/dL (6.4-8.2) Albumin 3.4 g/dL (3.4-5.0) Albumin/Globulin Ratio 0.8 (1.0-1.7) Digoxin Level 0.6 ng/mL (0.9-2.0) Digoxin Last Dose Date Digoxin Last Dose Time Influenza Type A Antigen Negative (NEGATIVE) Influenza Type B Antigen Negative (NEGATIVE) Nasal Screen MRSA (PCR) Negative (Negative) Test 08/18/18 07:39 08/18/18 08:37 08/18/18 12:19 08/18/18 16:47 Glucose (Fingerstick) 322 mg/dL (70-99) 404 mg/dL (70-99) 203 mg/dL (70-99) White Blood Count 9.9 x10^3/uL (4.0-11.0) Red Blood Count 3.92 x10^6/uL (4.30-5.70) Hemoglobin 9.4 g/dL (13.0-17.5) Hematocrit 30.0 % (39.0-53.0) Mean Corpuscular Volume 77 fL (79-100) Mean Corpuscular Hemoglobin 24 pg (25-35) Mean Corpuscular Hemoglobin Concent 31 g/dL (31-37) Red Cell Distribution Width 16.8 % (11.5-14.5) Platelet Count 139 x10^3/uL (140-400) Neutrophils (%) (Auto) 90 % (31-73) Lymphocytes (%) (Auto) 3 % (24-48) Monocytes (%) (Auto) 7 % (0-9) Eosinophils (%) (Auto) 0 % (0-3) Basophils (%) (Auto) 0 % (0-3) Neutrophils # (Auto) 8.9 x10^3uL (1.8-7.7) Lymphocytes # (Auto) 0.3 x10^3/uL (1.0-4.8) Monocytes # (Auto) 0.7 x10^3/uL (0.0-1.1) Eosinophils # (Auto) 0.0 x10^3/uL (0.0-0.7) Basophils # (Auto) 0.0 x10^3/uL (0.0-0.2) Segmented Neutrophils % 88 % (35-66) Band Neutrophils % 3 % (0-9) Lymphocytes % 2 % (24-48) Monocytes % 7 % (0-10) Platelet Estimate Decreased (ADEQUATE) Large Platelets Present Hypochromasia Slight Poikilocytosis Present Anisocytosis Slight Lactic Acid Level 1.5 mmol/L (0.4-2.0) Magnesium Level 2.0 mg/dL (1.8-2.4) Test 08/18/18 19:35 08/19/18 03:45 08/19/18 07:11 Glucose (Fingerstick) 197 mg/dL (70-99) 303 mg/dL (70-99) White Blood Count 6.9 x10^3/uL (4.0-11.0) Red Blood Count 3.83 x10^6/uL (4.30-5.70) Hemoglobin 9.3 g/dL (13.0-17.5) Hematocrit 29.3 % (39.0-53.0) Mean Corpuscular Volume 77 fL (79-100) Mean Corpuscular Hemoglobin 24 pg (25-35) Mean Corpuscular Hemoglobin Concent 32 g/dL (31-37) Red Cell Distribution Width 17.2 % (11.5-14.5) Platelet Count 139 x10^3/uL (140-400) Neutrophils (%) (Auto) 85 % (31-73) Lymphocytes (%) (Auto) 7 % (24-48) Monocytes (%) (Auto) 8 % (0-9) Eosinophils (%) (Auto) 1 % (0-3) Basophils (%) (Auto) 0 % (0-3) Neutrophils # (Auto) 5.8 x10^3uL (1.8-7.7) Lymphocytes # (Auto) 0.5 x10^3/uL (1.0-4.8) Monocytes # (Auto) 0.5 x10^3/uL (0.0-1.1) Eosinophils # (Auto) 0.0 x10^3/uL (0.0-0.7) Basophils # (Auto) 0.0 x10^3/uL (0.0-0.2) Sodium Level 141 mmol/L (136-145) Potassium Level 4.1 mmol/L (3.5-5.1) Chloride Level 105 mmol/L (98-107) Carbon Dioxide Level 27 mmol/L (21-32) Anion Gap 9 (6-14) Blood Urea Nitrogen 17 mg/dL (8-26) Creatinine 0.9 mg/dL (0.7-1.3) Estimated GFR (Cockcroft-Gault) 80.8 BUN/Creatinine Ratio 19 (6-20) Glucose Level 250 mg/dL (70-99) Calcium Level 8.7 mg/dL (8.5-10.1) Total Bilirubin 0.4 mg/dL (0.2-1.0) Aspartate Amino Transf (AST/SGOT) 23 U/L (15-37) Alanine Aminotransferase (ALT/SGPT) 28 U/L (16-63) Alkaline Phosphatase 93 U/L (46-116) Total Protein 6.4 g/dL (6.4-8.2) Albumin 2.8 g/dL (3.4-5.0) Albumin/Globulin Ratio 0.8 (1.0-1.7) Laboratory Tests Test 08/18/18 12:19 08/18/18 16:47 08/18/18 19:35 08/19/18 03:45 Glucose (Fingerstick) 404 mg/dL (70-99) 203 mg/dL (70-99) 197 mg/dL (70-99) White Blood Count 6.9 x10^3/uL (4.0-11.0) Red Blood Count 3.83 x10^6/uL (4.30-5.70) Hemoglobin 9.3 g/dL (13.0-17.5) Hematocrit 29.3 % (39.0-53.0) Mean Corpuscular Volume 77 fL (79-100) Mean Corpuscular Hemoglobin 24 pg (25-35) Mean Corpuscular Hemoglobin Concent 32 g/dL (31-37) Red Cell Distribution Width 17.2 % (11.5-14.5) Platelet Count 139 x10^3/uL (140-400) Neutrophils (%) (Auto) 85 % (31-73) Lymphocytes (%) (Auto) 7 % (24-48) Monocytes (%) (Auto) 8 % (0-9) Eosinophils (%) (Auto) 1 % (0-3) Basophils (%) (Auto) 0 % (0-3) Neutrophils # (Auto) 5.8 x10^3uL (1.8-7.7) Lymphocytes # (Auto) 0.5 x10^3/uL (1.0-4.8) Monocytes # (Auto) 0.5 x10^3/uL (0.0-1.1) Eosinophils # (Auto) 0.0 x10^3/uL (0.0-0.7) Basophils # (Auto) 0.0 x10^3/uL (0.0-0.2) Sodium Level 141 mmol/L (136-145) Potassium Level 4.1 mmol/L (3.5-5.1) Chloride Level 105 mmol/L (98-107) Carbon Dioxide Level 27 mmol/L (21-32) Anion Gap 9 (6-14) Blood Urea Nitrogen 17 mg/dL (8-26) Creatinine 0.9 mg/dL (0.7-1.3) Estimated GFR (Cockcroft-Gault) 80.8 BUN/Creatinine Ratio 19 (6-20) Glucose Level 250 mg/dL (70-99) Calcium Level 8.7 mg/dL (8.5-10.1) Total Bilirubin 0.4 mg/dL (0.2-1.0) Aspartate Amino Transf (AST/SGOT) 23 U/L (15-37) Alanine Aminotransferase (ALT/SGPT) 28 U/L (16-63) Alkaline Phosphatase 93 U/L (46-116) Total Protein 6.4 g/dL (6.4-8.2) Albumin 2.8 g/dL (3.4-5.0) Albumin/Globulin Ratio 0.8 (1.0-1.7) Test 08/19/18 07:11 Glucose (Fingerstick) 303 mg/dL (70-99) Medications Active Scripts Medications Dose Route/Sig Max Daily Dose Days Date Category Aspirin 81 Mg Tab.chew 1 Tab PO DAILY 08/17/18 Reported Vitamin B-12 (Cyanocobalamin (Vitamin B-12)) 1,000 Mcg Tablet 500 Mcg PO DAILY 06/25/18 Reported Probiotic (Lactobacillus Combo No.11) 1 Each Cap.sprink 1 Each PO DAILY 06/25/18 Reported Lantus Solostar (Insulin Glargine,Hum.rec.anlog) 100 Unit/1 Ml Insuln.pen 25 Unit SQ HS 05/03/18 Reported Zoloft (Sertraline Hcl) 50 Mg Tablet 50 Mg PO DAILY 08/28/17 Reported Digoxin 125 Mcg Tablet 1 Tab PO DAILY 07/07/17 Rx Flomax (Tamsulosin Hcl) 0.4 Mg Cap.er.24h 1 Cap PO HS 07/04/17 Reported Lyrica (Pregabalin) 75 Mg Capsule 1 Cap PO BID 07/04/17 Reported Mucinex Dm Er 600-30 Mg Tablet (Guaifenesin/Dextromethorphan) 1 Each Tab.er.12h 1 Each PO BID PRN 07/04/17 Reported Metformin Hcl 1,000 Mg Tablet 1,000 Mg PO BIDWMEALS 07/04/17 Reported Hydrocodone-Apap 7.5-325 (Hydrocodone Bit/Acetaminophen) 1 Each Tablet 1 Tab PO PRN Q6HRS PRN 07/04/17 Reported Eliquis (Apixaban) 5 Mg Tablet 5 Mg PO BID 07/04/17 Reported Metoprolol Succinate ( Xl ) (Metoprolol Succinate) 25 Mg Tab.er.24h 1 Tab PO DAILY 07/04/17 Reported Novolog Flexpen (Insulin Aspart) 100 Unit/1 Ml Insuln.pen 0 SQ PER SLIDING SCALE AC 06/15/17 Reported Prilosec (Omeprazole) 20 Mg Capsule.dr 20 Mg PO DAILY 10/17/13 Reported Impression . IMPRESSION: 1. Sepsis secondary to pneumonia. 2. Suspect gram-negative, possibly gram-positive pneumonia. 3. History of lung cancer as described above, squamous cell, stage 3A, status post chemoradiation. 4. Hemoptysis, status post bronchoscopy on 08/17, no endobronchial lesions were visualized. BAL was performed. No active bleeding was visualized. 5. Hepatic lesion, suspect metastatic. 6. Chronic anemia. 7. Neuropathy. 8. Multiple other comorbidities as indicated above including coronary artery disease, previous coronary artery bypass grafting. Plan . BETTER TODAY HOPEFULLY HOME SOON ANTIBX PER ID 1. We will continue current empiric antibiotics. 2. Case discussed with Infectious Disease Service, will follow up on BAL. 3. IV fluids, maintain mean arterial pressure above 60, if needed, we will provide pressors. 4. DVT and GI prophylaxis. JHONNY ALLEN MD Aug 19, 2018 11:06
--- NOTE | 2018-08-19 11:17 | PDOC ---
Infectious Disease Note Subjective: Subjective pt says feels better today no f/c/sweats cough is improving, has some wheezing no gu symptoms ROS: ROS Negative except for above. Vital Signs: Vital Signs Vital Signs Date Time Temp Pulse Resp B/P (MAP) Pulse Ox O2 Delivery O2 Flow Rate FiO2 08/19/18 07:59 90 137/68 08/19/18 07:15 Room Air 08/19/18 07:14 97.6 19 93 97.6 Physical Exam: PHYSICAL EXAM GENERAL: Alert, oriented male lying in bed comfortably, in no acute distress, cooperative, pleasant. HEENT: Normocephalic, atraumatic, anicteric. Oral mucosa moist. No thrush. Dentures in place. NECK: Supple. LUNGS: Decreased breath sounds at the bases,wheezing present otherwise nonlabored. HEART: S1, S2. ABDOMEN: Soft, bowel sounds present, nontender, nondistended. EXTREMITIES: No edema, no cyanosis. DERMATOLOGIC: Warm, dry, no generalized rash. NEUROLOGIC: Alert and oriented x 3. Grossly nonfocal. PIV look okay. Medications: Inpatient Meds: Current Medications Medications (Trade) Dose Ordered Sig/Jimmy Start Time Stop Time Status Last Admin Dose Admin Acetaminophen (Tylenol) 500 mg PRN Q6HRS PRN 08/19/18 09:00 Acetaminophen/ Hydrocodone Bitart (Lortab 7.5/325) 1 tab PRN Q6HRS PRN 08/18/18 14:30 08/18/18 16:53 1 TAB Albuterol Sulfate (Ventolin Neb Soln) 2.5 mg PRN Q6HRS PRN 08/17/18 22:30 Albuterol/ Ipratropium (Duoneb) 3 ml STK-MED ONCE 08/17/18 19:29 08/17/18 19:30 DC Apixaban (Eliquis) 5 mg BID 08/18/18 21:00 08/19/18 07:58 5 MG Aspirin (Kika Aspirin) 325 mg 1X ONCE 08/17/18 22:15 08/17/18 22:16 DC Aspirin (Children'S Aspirin) 81 mg DAILY 08/19/18 09:00 08/19/18 07:58 81 MG Cyanocobalamin (Vitamin B-12) 500 mcg DAILY 08/18/18 15:00 08/19/18 07:59 500 MCG Dexamethasone Sodium Phosphate (Decadron) 10 mg 1X ONCE 08/17/18 19:45 08/17/18 19:46 DC 08/17/18 19:58 10 MG Dextrose (Dextrose 50%-Water Syringe) 12.5 gm PRN Q15MIN PRN 08/19/18 09:00 UNV Digoxin (Lanoxin) 125 mcg DAILY 08/18/18 15:00 08/19/18 07:59 125 MCG Doxycycline Hyclate (Vibra-Tab) 100 mg BID 08/18/18 09:00 08/19/18 07:58 100 MG Fentanyl Citrate (Fentanyl 2ml Vial) 25 mcg PRN Q1HR PRN 08/17/18 22:00 08/18/18 21:59 DC Guaifenesin (MUCINEX ER with DM) 1 tab PRN BID PRN 08/18/18 14:30 Info (Anti-Coagulation Monitoring By Pharmacy) 1 each PRN DAILY PRN 08/18/18 15:45 08/18/18 15:33 1 EACH Info (CONTRAST GIVEN -- Rx MONITORING) 1 each PRN DAILY PRN 08/17/18 20:30 08/19/18 20:29 Insulin Glargine (Lantus) 25 units HS 08/18/18 21:00 08/18/18 21:43 25 UNITS Insulin Human Lispro (HumaLOG) 0-9 UNITS TIDWMEALS 08/19/18 12:00 Iohexol (Omnipaque 350 Mg/ml) 90 ml 1X ONCE 08/17/18 20:30 08/17/18 20:31 DC 08/17/18 20:46 90 ML Lactobacillus Rhamnosus (Culturelle) 1 cap BID 08/18/18 21:00 08/19/18 07:58 1 CAP Levofloxacin/ Dextrose 100 ml @ 100 mls/hr 1X ONCE 08/17/18 20:45 08/17/18 21:44 DC 08/17/18 21:09 100 MLS/HR Lorazepam (Ativan) 1 mg 1X ONCE 08/17/18 21:45 08/17/18 21:46 DC 08/17/18 21:49 1 MG Magnesium Sulfate 50 ml @ 25 mls/hr 1X ONCE 08/17/18 20:45 08/17/18 22:44 DC 08/17/18 21:10 25 MLS/HR Metoprolol Succinate (Toprol Xl) 25 mg DAILY 08/18/18 15:00 08/19/18 07:59 25 MG Non-Formulary Medication (Lactobacillus Combo No.11 (Probiotic)) 1 each DAILY 08/19/18 09:00 UNV Norepinephrine Bitartrate 250 ml @ 1.875 mls/ hr CONT PRN 08/18/18 03:30 08/18/18 15:48 DC Ondansetron HCl (Zofran Odt) 4 mg PRN Q6HRS PRN 08/19/18 09:00 Ondansetron HCl (Zofran) 4 mg PRN Q6HRS PRN 08/19/18 09:00 Pantoprazole Sodium (PROTONIX VIAL for IV PUSH) 40 mg DAILYAC 08/18/18 15:00 08/19/18 08:02 40 MG Pantoprazole Sodium (Protonix) 40 mg DAILYAC 08/19/18 07:30 08/19/18 07:30 DC Piperacillin Sod/ Tazobactam Sod (Zosyn Per Pharmacy) 1 each PRN DAILY PRN 08/18/18 08:15 Piperacillin Sod/ Tazobactam Sod 4.5 gm/Sodium Chloride 100 ml @ 200 mls/hr Q6HRS 08/18/18 09:00 08/19/18 05:40 200 MLS/HR Pregabalin (Lyrica) 75 mg BID 08/18/18 21:00 08/19/18 07:58 75 MG Propofol 100 ml @ 1.037 mls/ hr CONT PRN 08/18/18 05:30 Cancel Sertraline HCl (Zoloft) 50 mg DAILY 08/18/18 15:00 08/19/18 07:59 50 MG Sodium Chloride 1,000 ml @ 70 mls/hr [id number] 08/18/18 03:00 08/19/18 08:56 DC 08/19/18 08:01 70 MLS/HR Tamsulosin HCl (Flomax) 0.4 mg HS 08/18/18 21:00 08/18/18 21:02 0.4 MG Vancomycin HCl 1.75 gm/Sodium Chloride 500 ml @ 250 mls/hr 1X ONCE 08/17/18 21:00 08/17/18 22:59 DC 08/17/18 22:01 250 MLS/HR Labs: Lab Laboratory Tests Test 08/18/18 12:19 08/18/18 16:47 08/18/18 19:35 08/19/18 03:45 Glucose (Fingerstick) 404 mg/dL (70-99) 203 mg/dL (70-99) 197 mg/dL (70-99) White Blood Count 6.9 x10^3/uL (4.0-11.0) Red Blood Count 3.83 x10^6/uL (4.30-5.70) Hemoglobin 9.3 g/dL (13.0-17.5) Hematocrit 29.3 % (39.0-53.0) Mean Corpuscular Volume 77 fL (79-100) Mean Corpuscular Hemoglobin 24 pg (25-35) Mean Corpuscular Hemoglobin Concent 32 g/dL (31-37) Red Cell Distribution Width 17.2 % (11.5-14.5) Platelet Count 139 x10^3/uL (140-400) Neutrophils (%) (Auto) 85 % (31-73) Lymphocytes (%) (Auto) 7 % (24-48) Monocytes (%) (Auto) 8 % (0-9) Eosinophils (%) (Auto) 1 % (0-3) Basophils (%) (Auto) 0 % (0-3) Neutrophils # (Auto) 5.8 x10^3uL (1.8-7.7) Lymphocytes # (Auto) 0.5 x10^3/uL (1.0-4.8) Monocytes # (Auto) 0.5 x10^3/uL (0.0-1.1) Eosinophils # (Auto) 0.0 x10^3/uL (0.0-0.7) Basophils # (Auto) 0.0 x10^3/uL (0.0-0.2) Sodium Level 141 mmol/L (136-145) Potassium Level 4.1 mmol/L (3.5-5.1) Chloride Level 105 mmol/L (98-107) Carbon Dioxide Level 27 mmol/L (21-32) Anion Gap 9 (6-14) Blood Urea Nitrogen 17 mg/dL (8-26) Creatinine 0.9 mg/dL (0.7-1.3) Estimated GFR (Cockcroft-Gault) 80.8 BUN/Creatinine Ratio 19 (6-20) Glucose Level 250 mg/dL (70-99) Calcium Level 8.7 mg/dL (8.5-10.1) Total Bilirubin 0.4 mg/dL (0.2-1.0) Aspartate Amino Transf (AST/SGOT) 23 U/L (15-37) Alanine Aminotransferase (ALT/SGPT) 28 U/L (16-63) Alkaline Phosphatase 93 U/L (46-116) Total Protein 6.4 g/dL (6.4-8.2) Albumin 2.8 g/dL (3.4-5.0) Albumin/Globulin Ratio 0.8 (1.0-1.7) Test 08/19/18 07:11 Glucose (Fingerstick) 303 mg/dL (70-99) Micro urineneg bronch neg bc neg Objective: Assessment: Febrile illness resolving leucocytosis Lactic acidosis Pyuria Hemoptysis s/p Bronch 08/17, H/O Lung CA s/p Chemoradiation Plan: Plan of Care Zosyn and doxycycline sputum c/s f/u bc bronch and uc cont supportive care MATY JOSHUA MD Aug 19, 2018 11:17
[2018-08-19 11:31] VITALS: BP 125/58
[2018-08-19 14:18] VITALS: BP 100/52
[2018-08-19] MEDS: IPRATRPIUM/ALBUTEROL 0.5/2.5MG 3 ML NEBU. NEB SCH ×2 (15:54→20:48)
[2018-08-19 19:15] VITALS: BP 133/62
[2018-08-19] MEDS: HYDROcodone/APAP 7.5/325MG 1 TAB TABLET PO PRN (19:57)
[2018-08-19] MEDS: TAMSULOSIN 0.4 MG CAP.ER.24H. PO SCH (19:58)
[2018-08-19] MEDS: INSULIN GLARGINE 300 UNITS/3 ML INSULN.PEN. SQ SCH (20:14)
[2018-08-19 23:15] VITALS: BP 125/53
[2018-08-20] MEDS: PIPERACILLIN/TAZOBACTAM 4.5 GM in IV NORMAL SALINE 100ML 100 ML IV SCH ×2 (00:35→05:25)
[2018-08-20 03:15] VITALS: BP 124/55
[2018-08-20 05:02] LABS: BASO % 1 % (0-3); EOS # 0.1 x10^3/uL (0.0-0.7); EOS % 2 % (0-3); HEMATOCRIT 28.9 % (39.0-53.0); HEMOGLOBIN 9.1 g/dL (13.0-17.5); LYMPH # 0.5 x10^3/uL (1.0-4.8); LYMPH % 11 % (24-48); MEAN CORPUSCULAR HEMOGLOBIN 24 pg (25-35); MEAN CORPUSCULAR HGB CONC 32 g/dL (31-37); MEAN CORPUSCULAR VOLUME 77 fL (79-100); MONO # 0.6 x10^3/uL (0.0-1.1); MONO % 12 % (0-9); NEUT # 3.6 x10^3uL (1.8-7.7); NEUT % 74 % (31-73); PLATELET COUNT 136 x10^3/uL (140-400); RED BLOOD COUNT 3.77 x10^6/uL (4.30-5.70); RED CELL DISTRIBUTION WIDTH 17.3 % (11.5-14.5); WHITE BLOOD COUNT 4.8 x10^3/uL (4.0-11.0)
[2018-08-20 05:25] LABS: ALBUMIN 2.7 g/dL (3.4-5.0); ALBUMIN/GLOBULIN RATIO 0.8 (1.0-1.7); CALCIUM 8.7 mg/dL (8.5-10.1); GFR 71.5; TOTAL BILIRUBIN 0.4 mg/dL (0.2-1.0); TOTAL PROTEIN 6.3 g/dL (6.4-8.2)
[2018-08-20] MEDS: HYDROcodone/APAP 7.5/325MG 1 TAB TABLET PO PRN (05:26)
[2018-08-20] MEDS: IPRATRPIUM/ALBUTEROL 0.5/2.5MG 3 ML NEBU. NEB SCH (07:07)
[2018-08-20 07:20] VITALS: BP 146/73
[2018-08-20] MEDS: LACTOBACILLUS RHAMNOSUS GG 1 CAPSULE. PO SCH (07:40)
[2018-08-20] MEDS: APIXABAN 5 MG TABLET. PO SCH (07:41)
[2018-08-20] MEDS: DOXYCYCLINE HYCLATE 100 MG TABLET PO SCH (07:41)
[2018-08-20] MEDS: ASPIRIN CHEWABLE 81 MG TABLET. PO SCH (07:41)
[2018-08-20] MEDS: SERTRALINE 50 MG TABLET. PO SCH (07:41)
[2018-08-20] MEDS: PREGABALIN 75 MG CAPSULE PO SCH (07:41)
[2018-08-20] MEDS: CYANOCOBALAMIN (VITAMIN B-12) 1,000 MCG TABLET. PO SCH (07:41)
[2018-08-20 07:42] VITALS: BP 146/73
[2018-08-20] MEDS: PANTOPRAZOLE IV PUSH 40 MG VIAL. IVP SCH (07:42)
[2018-08-20] MEDS: METOPROLOL SUCC 24HR ER 25 MG TAB.ER.24H. PO SCH (07:42)
[2018-08-20] MEDS: DIGOXIN 125 MCG TABLET. PO SCH (07:42)
[2018-08-20] MEDS: INSULIN LISPRO 300 UNITS/3 ML INSULN.PEN. SQ SCH (07:47)
--- NOTE | 2018-08-20 09:02 | NUR ---
SW following pt. PT/OT recommends home health. EDELMIRA will faxed resumption orders to [facility], ; fax [phone] upon dc. Will continue to follow.
--- NOTE | 2018-08-20 09:34 | PDOC ---
PULMONARY PROGRESS NOTES Subjective PT FEELS BETTER NO MORE HEMOPTYSIS Vitals Vital Signs Date Time Temp Pulse Resp B/P (MAP) Pulse Ox O2 Delivery O2 Flow Rate FiO2 08/20/18 07:42 116 146/73 08/20/18 07:20 97.8 20 95 Room Air 97.8 ROS: No Nausea, No Chest Pain, No Abdominal Pain, No Increase Cough General: Alert Lungs: Clear Cardiovascular: S1, S2 Abdomen: Soft, Non-tender, Other Neuro Exam: Alert Extremities: No Edema Skin: Warm Labs Laboratory Tests Test 08/18/18 12:19 08/18/18 16:47 08/18/18 19:35 08/19/18 03:45 Glucose (Fingerstick) 404 mg/dL (70-99) 203 mg/dL (70-99) 197 mg/dL (70-99) White Blood Count 6.9 x10^3/uL (4.0-11.0) Red Blood Count 3.83 x10^6/uL (4.30-5.70) Hemoglobin 9.3 g/dL (13.0-17.5) Hematocrit 29.3 % (39.0-53.0) Mean Corpuscular Volume 77 fL (79-100) Mean Corpuscular Hemoglobin 24 pg (25-35) Mean Corpuscular Hemoglobin Concent 32 g/dL (31-37) Red Cell Distribution Width 17.2 % (11.5-14.5) Platelet Count 139 x10^3/uL (140-400) Neutrophils (%) (Auto) 85 % (31-73) Lymphocytes (%) (Auto) 7 % (24-48) Monocytes (%) (Auto) 8 % (0-9) Eosinophils (%) (Auto) 1 % (0-3) Basophils (%) (Auto) 0 % (0-3) Neutrophils # (Auto) 5.8 x10^3uL (1.8-7.7) Lymphocytes # (Auto) 0.5 x10^3/uL (1.0-4.8) Monocytes # (Auto) 0.5 x10^3/uL (0.0-1.1) Eosinophils # (Auto) 0.0 x10^3/uL (0.0-0.7) Basophils # (Auto) 0.0 x10^3/uL (0.0-0.2) Sodium Level 141 mmol/L (136-145) Potassium Level 4.1 mmol/L (3.5-5.1) Chloride Level 105 mmol/L (98-107) Carbon Dioxide Level 27 mmol/L (21-32) Anion Gap 9 (6-14) Blood Urea Nitrogen 17 mg/dL (8-26) Creatinine 0.9 mg/dL (0.7-1.3) Estimated GFR (Cockcroft-Gault) 80.8 BUN/Creatinine Ratio 19 (6-20) Glucose Level 250 mg/dL (70-99) Calcium Level 8.7 mg/dL (8.5-10.1) Total Bilirubin 0.4 mg/dL (0.2-1.0) Aspartate Amino Transf (AST/SGOT) 23 U/L (15-37) Alanine Aminotransferase (ALT/SGPT) 28 U/L (16-63) Alkaline Phosphatase 93 U/L (46-116) Total Protein 6.4 g/dL (6.4-8.2) Albumin 2.8 g/dL (3.4-5.0) Albumin/Globulin Ratio 0.8 (1.0-1.7) Test 08/19/18 07:11 08/19/18 11:24 08/19/18 16:35 08/19/18 20:08 Glucose (Fingerstick) 303 mg/dL (70-99) 242 mg/dL (70-99) 264 mg/dL (70-99) 319 mg/dL (70-99) Test 08/20/18 04:55 08/20/18 07:24 White Blood Count 4.8 x10^3/uL (4.0-11.0) Red Blood Count 3.77 x10^6/uL (4.30-5.70) Hemoglobin 9.1 g/dL (13.0-17.5) Hematocrit 28.9 % (39.0-53.0) Mean Corpuscular Volume 77 fL (79-100) Mean Corpuscular Hemoglobin 24 pg (25-35) Mean Corpuscular Hemoglobin Concent 32 g/dL (31-37) Red Cell Distribution Width 17.3 % (11.5-14.5) Platelet Count 136 x10^3/uL (140-400) Neutrophils (%) (Auto) 74 % (31-73) Lymphocytes (%) (Auto) 11 % (24-48) Monocytes (%) (Auto) 12 % (0-9) Eosinophils (%) (Auto) 2 % (0-3) Basophils (%) (Auto) 1 % (0-3) Neutrophils # (Auto) 3.6 x10^3uL (1.8-7.7) Lymphocytes # (Auto) 0.5 x10^3/uL (1.0-4.8) Monocytes # (Auto) 0.6 x10^3/uL (0.0-1.1) Eosinophils # (Auto) 0.1 x10^3/uL (0.0-0.7) Basophils # (Auto) 0.0 x10^3/uL (0.0-0.2) Sodium Level 142 mmol/L (136-145) Potassium Level 4.0 mmol/L (3.5-5.1) Chloride Level 106 mmol/L (98-107) Carbon Dioxide Level 27 mmol/L (21-32) Anion Gap 9 (6-14) Blood Urea Nitrogen 13 mg/dL (8-26) Creatinine 1.0 mg/dL (0.7-1.3) Estimated GFR (Cockcroft-Gault) 71.5 BUN/Creatinine Ratio 13 (6-20) Glucose Level 232 mg/dL (70-99) Calcium Level 8.7 mg/dL (8.5-10.1) Total Bilirubin 0.4 mg/dL (0.2-1.0) Aspartate Amino Transf (AST/SGOT) 20 U/L (15-37) Alanine Aminotransferase (ALT/SGPT) 30 U/L (16-63) Alkaline Phosphatase 84 U/L (46-116) Total Protein 6.3 g/dL (6.4-8.2) Albumin 2.7 g/dL (3.4-5.0) Albumin/Globulin Ratio 0.8 (1.0-1.7) Glucose (Fingerstick) 190 mg/dL (70-99) Laboratory Tests Test 08/19/18 11:24 08/19/18 16:35 08/19/18 20:08 08/20/18 04:55 Glucose (Fingerstick) 242 mg/dL (70-99) 264 mg/dL (70-99) 319 mg/dL (70-99) White Blood Count 4.8 x10^3/uL (4.0-11.0) Red Blood Count 3.77 x10^6/uL (4.30-5.70) Hemoglobin 9.1 g/dL (13.0-17.5) Hematocrit 28.9 % (39.0-53.0) Mean Corpuscular Volume 77 fL (79-100) Mean Corpuscular Hemoglobin 24 pg (25-35) Mean Corpuscular Hemoglobin Concent 32 g/dL (31-37) Red Cell Distribution Width 17.3 % (11.5-14.5) Platelet Count 136 x10^3/uL (140-400) Neutrophils (%) (Auto) 74 % (31-73) Lymphocytes (%) (Auto) 11 % (24-48) Monocytes (%) (Auto) 12 % (0-9) Eosinophils (%) (Auto) 2 % (0-3) Basophils (%) (Auto) 1 % (0-3) Neutrophils # (Auto) 3.6 x10^3uL (1.8-7.7) Lymphocytes # (Auto) 0.5 x10^3/uL (1.0-4.8) Monocytes # (Auto) 0.6 x10^3/uL (0.0-1.1) Eosinophils # (Auto) 0.1 x10^3/uL (0.0-0.7) Basophils # (Auto) 0.0 x10^3/uL (0.0-0.2) Sodium Level 142 mmol/L (136-145) Potassium Level 4.0 mmol/L (3.5-5.1) Chloride Level 106 mmol/L (98-107) Carbon Dioxide Level 27 mmol/L (21-32) Anion Gap 9 (6-14) Blood Urea Nitrogen 13 mg/dL (8-26) Creatinine 1.0 mg/dL (0.7-1.3) Estimated GFR (Cockcroft-Gault) 71.5 BUN/Creatinine Ratio 13 (6-20) Glucose Level 232 mg/dL (70-99) Calcium Level 8.7 mg/dL (8.5-10.1) Total Bilirubin 0.4 mg/dL (0.2-1.0) Aspartate Amino Transf (AST/SGOT) 20 U/L (15-37) Alanine Aminotransferase (ALT/SGPT) 30 U/L (16-63) Alkaline Phosphatase 84 U/L (46-116) Total Protein 6.3 g/dL (6.4-8.2) Albumin 2.7 g/dL (3.4-5.0) Albumin/Globulin Ratio 0.8 (1.0-1.7) Test 08/20/18 07:24 Glucose (Fingerstick) 190 mg/dL (70-99) Medications Active Scripts Medications Dose Route/Sig Max Daily Dose Days Date Category Aspirin 81 Mg Tab.chew 1 Tab PO DAILY 08/17/18 Reported Vitamin B-12 (Cyanocobalamin (Vitamin B-12)) 1,000 Mcg Tablet 500 Mcg PO DAILY 06/25/18 Reported Probiotic (Lactobacillus Combo No.11) 1 Each Cap.sprink 1 Each PO DAILY 06/25/18 Reported Lantus Solostar (Insulin Glargine,Hum.rec.anlog) 100 Unit/1 Ml Insuln.pen 25 Unit SQ HS 05/03/18 Reported Zoloft (Sertraline Hcl) 50 Mg Tablet 50 Mg PO DAILY 08/28/17 Reported Digoxin 125 Mcg Tablet 1 Tab PO DAILY 07/07/17 Rx Flomax (Tamsulosin Hcl) 0.4 Mg Cap.er.24h 1 Cap PO HS 07/04/17 Reported Lyrica (Pregabalin) 75 Mg Capsule 1 Cap PO BID 07/04/17 Reported Mucinex Dm Er 600-30 Mg Tablet (Guaifenesin/Dextromethorphan) 1 Each Tab.er.12h 1 Each PO BID PRN 07/04/17 Reported Metformin Hcl 1,000 Mg Tablet 1,000 Mg PO BIDWMEALS 07/04/17 Reported Hydrocodone-Apap 7.5-325 (Hydrocodone Bit/Acetaminophen) 1 Each Tablet 1 Tab PO PRN Q6HRS PRN 07/04/17 Reported Eliquis (Apixaban) 5 Mg Tablet 5 Mg PO BID 07/04/17 Reported Metoprolol Succinate ( Xl ) (Metoprolol Succinate) 25 Mg Tab.er.24h 1 Tab PO DAILY 07/04/17 Reported Novolog Flexpen (Insulin Aspart) 100 Unit/1 Ml Insuln.pen 0 SQ PER SLIDING SCALE AC 1/22/18 Reported Prilosec (Omeprazole) 20 Mg Capsule.dr 20 Mg PO DAILY 10/17/13 Reported Impression . IMPRESSION: 1. Sepsis secondary to pneumonia. 2. Suspect gram-negative, possibly gram-positive pneumonia. 3. History of lung cancer as described above, squamous cell, stage 3A, status post chemoradiation. 4. Hemoptysis, status post bronchoscopy on 08/17, no endobronchial lesions were visualized. BAL was performed. No active bleeding was visualized. 5. Hepatic lesion, suspect metastatic. 6. Chronic anemia. 7. Neuropathy. 8. Multiple other comorbidities as indicated above including coronary artery disease, previous coronary artery bypass grafting. Plan . BETTER TODAY HOPEFULLY HOME SOON ANTIBX PER ID 1. We will continue current empiric antibiotics. 2. Case discussed with Infectious Disease Service, will follow up on BAL. 3. IV fluids, maintain mean arterial pressure above 60, if needed, we will provide pressors. 4. DVT and GI prophylaxis. JHONNY ALLEN MD Aug 20, 2018 09:34
[2018-08-20] MEDS ORDERED: ALBU2.5V8 NEB (10:33)
[2018-08-20] MEDS ORDERED: DOXY100T PO (10:33)
--- NOTE | 2018-08-20 10:33 | SNU/HH DC ---
DISCHARGE WITH HOME HEALTH DISCHARGE INFORMATION: Discharge Date: Aug 20, 2018 Final Diagnosis: Problems Medical Problems: (1) Hx of cancer of lung Status: Acute (2) Septic shock Status: Acute (3) UTI (urinary tract infection) Status: Acute Condition on Discharge: Stable CODE STATUS: Code Status: Full HOME HEALTH: Face to Face: I certify this patient is under my care and that I, or a nurse practitioner or physician's fundraising assistant working with me, had a face to face encounter that meets the physician face to face encounter requirements with this patient on []. Physical Therapy For: Evalulation/Treatment Occupational Therapy For: Evaluation/Treatment Speech Language Pathology For: Evaluation/Treatment Home Health Aide For: Self-care MANAGER PET For: Community Resources Pt Meets Homebound Status: Unsteady balance w/ amb, POST DISCHARGE ORDERS: Activity Instructions for Disc: Resume previous activity, Activity as tolerated Weight Bearing Status after Di: No restrictions Bathing Instructions: Shower-keep dressing dry DIET AFTER DISCHARGE: Cardiac Wound/Incision Care: Keep wound/cast CDI CHECKS AFTER DISCHARGE: Checks after discharge: Check blood press - daily, Check blood sugar, ac/hs FOLLOW-UP: PCP to follow with Home Health PCP or ID or pulmonary if no better TREATMENT/EQUIPMENT ORDERS: Adaptive Equipment Issued: Walker CERTIFICATION STATEMENT: Certification Statement: Certification Statement: Based on the above finding, I certify that this patient is confined to the home and needs intermittent residential care, physical therapy and/or speech therapy, or continues to need occupational therapy.~ This patient is under my care, and I have initiated the establishment of the plan of care.~ This patient will be followed by myself or a community physician who will periodically review the plan of care. Home Meds Active Scripts Amoxicillin/Potassium Clav (AUGMENTIN 875-125 TABLET) 1 Each Tablet, 1 TAB PO BID for pneumonia in an immunocpmp, #20 TAB Prov:CAROL MELTON MD 08/20/18 Albuterol Sulfate (Proair Hfa) 8.5 Gm Hfa.aer.ad, 2.5 MG NEB PRN Q6HRS PRN for WHEEZING MDD 1 for 7 Days, #1 INHALER Prov:CAROL MELTON MD 08/20/18 Doxycycline Hyclate (DOXYCYCLINE HYCLATE) 100 Mg Tablet, 100 MG PO BID for sepsis MDD 1 for 7 Days, #14 TAB Prov:CAROL MELTON MD 08/20/18 Digoxin (DIGOXIN) 125 Mcg Tablet, 1 TAB PO DAILY, #30 TAB 5 Refills Prov:ROLANDO MYRICK MD 07/07/17 Reported Medications Aspirin (ASPIRIN) 81 Mg Tab.chew, 1 TAB PO DAILY for heart, #30 TAB 3 Refills 08/17/18 Cyanocobalamin (Vitamin B-12) (VITAMIN B-12) 1,000 Mcg Tablet, 500 MCG PO DAILY for supplement, #30 TAB 2 Refills 06/25/18 Lactobacillus Combo No.11 (PROBIOTIC) 1 Each Cap.sprink, 1 EACH PO DAILY for prophylaxis, CAP 06/25/18 Insulin Glargine,Hum.rec.anlog (LANTUS SOLOSTAR) 100 Unit/1 Ml Insuln.pen, 25 UNIT SQ HS for diabetes 05/03/18 Sertraline Hcl (ZOLOFT) 50 Mg Tablet, 50 MG PO DAILY for ANTI-DEPRESSANT 08/28/17 Tamsulosin Hcl (FLOMAX) 0.4 Mg Cap.er.24h, 1 CAP PO HS for BPH 07/04/17 Pregabalin (LYRICA) 75 Mg Capsule, 1 CAP PO BID for peripheral neuropathy 07/04/17 Guaifenesin/Dextromethorphan (MUCINEX DM ER 600-30 MG TABLET) 1 Each Tab.er.12h , 1 EACH PO BID PRN for COUGH 07/04/17 Metformin Hcl (METFORMIN HCL) 1,000 Mg Tablet, 1000 MG PO BIDWMEALS for diabetes 07/04/17 Hydrocodone Bit/Acetaminophen (HYDROCODONE-APAP 7.5-325 ) 1 Each Tablet, 1 TAB PO PRN Q6HRS PRN for PAIN 07/04/17 Apixaban (ELIQUIS) 5 Mg Tablet, 5 MG PO BID for brain infarct 07/04/17 Metoprolol Succinate (METOPROLOL SUCCINATE ( XL )) 25 Mg Tab.er.24h, 1 TAB PO DAILY for HTN 07/04/17 Insulin Aspart (NOVOLOG FLEXPEN) 100 Unit/1 Ml Insuln.pen, 0 SQ per sliding scale AC for diabetes 06/15/17 Omeprazole (PRILOSEC) 20 Mg Capsule.dr, 20 MG PO DAILY for GERD 10/17/13 Discontinued Reported Medications Durvalumab (Imfinzi) 120 Mg/2.4 Ml Vial, 120 MG IV Q2WKS for lung cancer immunotherapy 05/03/18 Docusate Sodium (COLACE) 100 Mg Capsule, 1 CAP PO BID for constipation 07/04/17 CAROL MELTON MD Aug 20, 2018 10:33
[2018-08-20] MEDS ORDERED: AMOX1TAB61 PO (10:36)
--- NOTE | 2018-08-20 10:36 | PDOC3 ---
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 fib Some dementia versus cognitive impairment GERD stable DM 2 on insulin, controlled XIMENA VMN secondary to hypoperfusion Final Diagnosis Problems Medical Problems: (1) Hx of cancer of lung Status: Acute (2) Septic shock Status: Acute (3) UTI (urinary tract infection) Status: Acute Brief Hospital Course Allergies Allergies Coded Allergies Type Severity Reaction Last Updated Verified No Known Medication Allergies Allergy Unknown 08/17/18 Yes Vital Signs Vital Signs Date Time Temp Pulse Resp B/P (MAP) Pulse Ox O2 Delivery O2 Flow Rate FiO2 08/20/18 07:42 116 146/73 08/20/18 07:20 97.8 20 95 Room Air 97.8 Lab Results Laboratory Tests Test 08/18/18 12:19 08/18/18 16:47 08/18/18 19:35 08/19/18 03:45 Glucose (Fingerstick) 404 mg/dL (70-99) 203 mg/dL (70-99) 197 mg/dL (70-99) White Blood Count 6.9 x10^3/uL (4.0-11.0) Red Blood Count 3.83 x10^6/uL (4.30-5.70) Hemoglobin 9.3 g/dL (13.0-17.5) Hematocrit 29.3 % (39.0-53.0) Mean Corpuscular Volume 77 fL (79-100) Mean Corpuscular Hemoglobin 24 pg (25-35) Mean Corpuscular Hemoglobin Concent 32 g/dL (31-37) Red Cell Distribution Width 17.2 % (11.5-14.5) Platelet Count 139 x10^3/uL (140-400) Neutrophils (%) (Auto) 85 % (31-73) Lymphocytes (%) (Auto) 7 % (24-48) Monocytes (%) (Auto) 8 % (0-9) Eosinophils (%) (Auto) 1 % (0-3) Basophils (%) (Auto) 0 % (0-3) Neutrophils # (Auto) 5.8 x10^3uL (1.8-7.7) Lymphocytes # (Auto) 0.5 x10^3/uL (1.0-4.8) Monocytes # (Auto) 0.5 x10^3/uL (0.0-1.1) Eosinophils # (Auto) 0.0 x10^3/uL (0.0-0.7) Basophils # (Auto) 0.0 x10^3/uL (0.0-0.2) Sodium Level 141 mmol/L (136-145) Potassium Level 4.1 mmol/L (3.5-5.1) Chloride Level 105 mmol/L (98-107) Carbon Dioxide Level 27 mmol/L (21-32) Anion Gap 9 (6-14) Blood Urea Nitrogen 17 mg/dL (8-26) Creatinine 0.9 mg/dL (0.7-1.3) Estimated GFR (Cockcroft-Gault) 80.8 BUN/Creatinine Ratio 19 (6-20) Glucose Level 250 mg/dL (70-99) Calcium Level 8.7 mg/dL (8.5-10.1) Total Bilirubin 0.4 mg/dL (0.2-1.0) Aspartate Amino Transf (AST/SGOT) 23 U/L (15-37) Alanine Aminotransferase (ALT/SGPT) 28 U/L (16-63) Alkaline Phosphatase 93 U/L (46-116) Total Protein 6.4 g/dL (6.4-8.2) Albumin 2.8 g/dL (3.4-5.0) Albumin/Globulin Ratio 0.8 (1.0-1.7) Test 08/19/18 07:11 08/19/18 11:24 08/19/18 16:35 08/19/18 20:08 Glucose (Fingerstick) 303 mg/dL (70-99) 242 mg/dL (70-99) 264 mg/dL (70-99) 319 mg/dL (70-99) Test 08/20/18 04:55 08/20/18 07:24 White Blood Count 4.8 x10^3/uL (4.0-11.0) Red Blood Count 3.77 x10^6/uL (4.30-5.70) Hemoglobin 9.1 g/dL (13.0-17.5) Hematocrit 28.9 % (39.0-53.0) Mean Corpuscular Volume 77 fL (79-100) Mean Corpuscular Hemoglobin 24 pg (25-35) Mean Corpuscular Hemoglobin Concent 32 g/dL (31-37) Red Cell Distribution Width 17.3 % (11.5-14.5) Platelet Count 136 x10^3/uL (140-400) Neutrophils (%) (Auto) 74 % (31-73) Lymphocytes (%) (Auto) 11 % (24-48) Monocytes (%) (Auto) 12 % (0-9) Eosinophils (%) (Auto) 2 % (0-3) Basophils (%) (Auto) 1 % (0-3) Neutrophils # (Auto) 3.6 x10^3uL (1.8-7.7) Lymphocytes # (Auto) 0.5 x10^3/uL (1.0-4.8) Monocytes # (Auto) 0.6 x10^3/uL (0.0-1.1) Eosinophils # (Auto) 0.1 x10^3/uL (0.0-0.7) Basophils # (Auto) 0.0 x10^3/uL (0.0-0.2) Sodium Level 142 mmol/L (136-145) Potassium Level 4.0 mmol/L (3.5-5.1) Chloride Level 106 mmol/L (98-107) Carbon Dioxide Level 27 mmol/L (21-32) Anion Gap 9 (6-14) Blood Urea Nitrogen 13 mg/dL (8-26) Creatinine 1.0 mg/dL (0.7-1.3) Estimated GFR (Cockcroft-Gault) 71.5 BUN/Creatinine Ratio 13 (6-20) Glucose Level 232 mg/dL (70-99) Calcium Level 8.7 mg/dL (8.5-10.1) Total Bilirubin 0.4 mg/dL (0.2-1.0) Aspartate Amino Transf (AST/SGOT) 20 U/L (15-37) Alanine Aminotransferase (ALT/SGPT) 30 U/L (16-63) Alkaline Phosphatase 84 U/L (46-116) Total Protein 6.3 g/dL (6.4-8.2) Albumin 2.7 g/dL (3.4-5.0) Albumin/Globulin Ratio 0.8 (1.0-1.7) Glucose (Fingerstick) 190 mg/dL (70-99) Laboratory Tests Test 08/19/18 11:24 08/19/18 16:35 08/19/18 20:08 08/20/18 04:55 Glucose (Fingerstick) 242 mg/dL (70-99) 264 mg/dL (70-99) 319 mg/dL (70-99) White Blood Count 4.8 x10^3/uL (4.0-11.0) Red Blood Count 3.77 x10^6/uL (4.30-5.70) Hemoglobin 9.1 g/dL (13.0-17.5) Hematocrit 28.9 % (39.0-53.0) Mean Corpuscular Volume 77 fL (79-100) Mean Corpuscular Hemoglobin 24 pg (25-35) Mean Corpuscular Hemoglobin Concent 32 g/dL (31-37) Red Cell Distribution Width 17.3 % (11.5-14.5) Platelet Count 136 x10^3/uL (140-400) Neutrophils (%) (Auto) 74 % (31-73) Lymphocytes (%) (Auto) 11 % (24-48) Monocytes (%) (Auto) 12 % (0-9) Eosinophils (%) (Auto) 2 % (0-3) Basophils (%) (Auto) 1 % (0-3) Neutrophils # (Auto) 3.6 x10^3uL (1.8-7.7) Lymphocytes # (Auto) 0.5 x10^3/uL (1.0-4.8) Monocytes # (Auto) 0.6 x10^3/uL (0.0-1.1) Eosinophils # (Auto) 0.1 x10^3/uL (0.0-0.7) Basophils # (Auto) 0.0 x10^3/uL (0.0-0.2) Sodium Level 142 mmol/L (136-145) Potassium Level 4.0 mmol/L (3.5-5.1) Chloride Level 106 mmol/L (98-107) Carbon Dioxide Level 27 mmol/L (21-32) Anion Gap 9 (6-14) Blood Urea Nitrogen 13 mg/dL (8-26) Creatinine 1.0 mg/dL (0.7-1.3) Estimated GFR (Cockcroft-Gault) 71.5 BUN/Creatinine Ratio 13 (6-20) Glucose Level 232 mg/dL (70-99) Calcium Level 8.7 mg/dL (8.5-10.1) Total Bilirubin 0.4 mg/dL (0.2-1.0) Aspartate Amino Transf (AST/SGOT) 20 U/L (15-37) Alanine Aminotransferase (ALT/SGPT) 30 U/L (16-63) Alkaline Phosphatase 84 U/L (46-116) Total Protein 6.3 g/dL (6.4-8.2) Albumin 2.7 g/dL (3.4-5.0) Albumin/Globulin Ratio 0.8 (1.0-1.7) Test 08/20/18 07:24 Glucose (Fingerstick) 190 mg/dL (70-99) Brief Hospital Course Mr. Bridges is a 83 old white male with stage III lung carcinoma left upper lobe and chemoradiation. Admitted because of pneumonia in an immunocompromised fevers , fulfills sepsis criteria. He has COPD and chronic A. fib on OAC and that is not a problem. Maybe some UTI initially on admission? Needed ICU because of levophed. Now able to be back on home meds. Doxycycline on Rx Follow-up heme onc regarding lung carcinoma Consults performed pulmonary/ID/ Procedures performed levophed ICU Low up instructions pulmonary 4 weeks Discharge Information Condition at Discharge: Improved, Stable Follow Up: Weeks (4 weeks pulmo) Disposition/Orders: D/C to Home w/ HH Scheduled Apixaban (Eliquis) 5 Mg Tablet, 5 MG PO BID for brain infarct, (Reported) Entered as Reported by: ELIJAH COVINGTON on 07/04/17 1203 Last Action: Continued on 08/18/18 142 by NEAL GAMEZ MD Aspirin (Aspirin) 81 Mg Tab.chew, 1 TAB PO DAILY for heart, #30 Ref 3 (Reported) Entered as Reported by: DAVE RITCHIE on 08/17/18 1240 Last Action: Continued on 08/18/18 142 by NEAL GAMEZ MD Cyanocobalamin (Vitamin B-12) (Vitamin B-12) 1,000 Mcg Tablet, 500 MCG PO DAILY for supplement, #30 Ref 2 (Reported) Entered as Reported by: Rosalino Barraza on 06/25/181754 Last Action: Continued on 08/18/181424 by NEAL GAMEZ MD Digoxin (Digoxin) 125 Mcg Tablet, 1 TAB PO DAILY, #30 Ref 5 Prescribed by: ROLANDO MYRICK on 07/07/17 1212 Last Action: Continued on 08/18/181424 by NEAL GAMEZ MD Doxycycline Hyclate (Doxycycline Hyclate) 100 Mg Tablet, 100 MG PO BID for sepsis MDD 1 for 7 Days, #14 Prescribed by: CAROL MELTON on 08/20/18 1033 Insulin Aspart (Novolog Flexpen) 100 Unit/1 Ml Insuln.pen, 0 SQ per sliding scale AC for diabetes, (Reported) Entered as Reported by: ELIJAH FATIMA on 06/15/17 1009 Last Action: Reviewed on 08/18/18 0342 by BRITTANY COCHRAN RN Insulin Glargine,Hum.rec.anlog (Lantus Solostar) 100 Unit/1 Ml Insuln.pen, 25 UNIT SQ HS for diabetes, (Reported) Entered as Reported by: ELIJAH FATIMA on 05/03/18 0826 Last Action: Continued on 08/18/181424 by NEAL GAMEZ MD Lactobacillus Combo No.11 (Probiotic) 1 Each Cap.sprink, 1 EACH PO DAILY for prophylaxis, (Reported) Entered as Reported by: Rosalino Barraza on 06/25/181754 Last Action: Converted on 08/18/181424 by NEAL GAMEZ MD Metformin Hcl (Metformin Hcl) 1,000 Mg Tablet, 1,000 MG PO BIDWMEALS for diabetes, (Reported) Entered as Reported by: ELIJAH COVINGTON on 07/04/17 1203 Last Action: HELD on 08/18/181424 by NEAL GAMEZ MD Metoprolol Succinate (Metoprolol Succinate ( Xl )) 25 Mg Tab.er.24h, 1 TAB PO DAILY for HTN, (Reported) Entered as Reported by: ELIJAH COVINGTON on 07/04/17 1203 Last Action: Continued on 08/18/181424 by NEAL GAMEZ MD Omeprazole (Prilosec) 20 Mg Capsule.dr, 20 MG PO DAILY for GERD, (Reported) Entered as Reported by: KAI JACOME on 10/17/13 0831 Last Action: Converted on 08/18/181424 by NEAL GAMEZ MD Pregabalin (Lyrica) 75 Mg Capsule, 1 CAP PO BID for peripheral neuropathy, ( Reported) Entered as Reported by: ELIJAH COVINGTON on 07/04/171202 Last Action: Continued on 08/18/181424 by NEAL GAMEZ MD Sertraline Hcl (Zoloft) 50 Mg Tablet, 50 MG PO DAILY for ANTI-DEPRESSANT, ( Reported) Entered as Reported by: NIGEL LAIRD on 08/28/17 0832 Last Action: Continued on 08/18/181424 by NEAL GAMEZ MD Tamsulosin Hcl (Flomax) 0.4 Mg Cap.er.24h, 1 CAP PO HS for BPH, (Reported) Entered as Reported by: ELIJAH COVINGTON on 07/04/171202 Last Action: Continued on 08/18/181424 by NEAL GAMEZ MD Scheduled PRN Albuterol Sulfate (Proair Hfa) 8.5 Gm Hfa.aer.ad, 2.5 MG NEB PRN Q6HRS PRN for WHEEZING MDD 1 for 7 Days, #1 Prescribed by: CAROL MELTON on 08/20/18 1033 Guaifenesin/Dextromethorphan (Mucinex Dm Er 600-30 Mg Tablet) 1 Each Tab.er.12h , 1 EACH PO BID PRN for COUGH, (Reported) Entered as Reported by: ELIJAH COVINGTON on 07/04/171202 Last Action: Continued on 08/18/181424 by NEAL GAMEZ MD Hydrocodone Bit/Acetaminophen (Hydrocodone-Apap 7.5-325 ) 1 Each Tablet, 1 TAB PO PRN Q6HRS PRN for PAIN, (Reported) Entered as Reported by: ELIJAH COVINGTON on 07/04/171202 Last Action: Continued on 08/18/181424 by NEAL GAMEZ MD Discontinued Medications Docusate Sodium (Colace) 100 Mg Capsule, 1 CAP PO BID for constipation, ( Reported) Entered as Reported by: ELIJAH COVINGTON on 07/04/171202 Last Action: Discontinued on 08/18/18342 by BRITTANY COCHRAN RN Durvalumab (Imfinzi) 120 Mg/2.4 Ml Vial, 120 MG IV Q2WKS for lung cancer immunotherapy, (Reported) Entered as Reported by: ELIJAH FATIMA on 05/03/18825 Last Action: Discontinued on 08/18/18342 by BRITTANY COCHRAN RN CAROL MELTON MD Aug 20, 2018 10:36
[2018-08-20] MEDS ORDERED: HEPARIN PF 500 UNIT/5 ML DISP.SYRIN. IV ONE (10:45)
--- NOTE | 2018-08-20 11:03 | PDOC ---
Infectious Disease Note Subjective: Subjective pt says feels better today no f/c/sweats cough is improving no gu symptoms ROS: ROS Negative except for above. Vital Signs: Vital Signs Vital Signs Date Time Temp Pulse Resp B/P (MAP) Pulse Ox O2 Delivery O2 Flow Rate FiO2 08/20/18 07:42 116 146/73 08/20/18 07:20 97.8 20 95 Room Air 97.8 Physical Exam: PHYSICAL EXAM GENERAL: Alert, oriented male lying in bed comfortably, in no acute distress, cooperative, pleasant. HEENT: Normocephalic, atraumatic, anicteric. Oral mucosa moist. No thrush. Dentures in place. NECK: Supple. LUNGS: Decreased breath sounds at the bases,wheezing present otherwise nonlabored. HEART: S1, S2. ABDOMEN: Soft, bowel sounds present, nontender, nondistended. EXTREMITIES: No edema, no cyanosis. DERMATOLOGIC: Warm, dry, no generalized rash. NEUROLOGIC: Alert and oriented x 3. Grossly nonfocal. PIV look okay. Medications: Inpatient Meds: Current Medications Medications (Trade) Dose Ordered Sig/Jimmy Start Time Stop Time Status Last Admin Dose Admin Acetaminophen (Tylenol) 500 mg PRN Q6HRS PRN 08/19/18 09:00 Acetaminophen/ Hydrocodone Bitart (Lortab 7.5/325) 1 tab PRN Q6HRS PRN 08/18/18 14:30 08/19/18 19:57 1 TAB Albuterol Sulfate (Ventolin Neb Soln) 2.5 mg PRN Q6HRS PRN 08/17/18 22:30 Albuterol/ Ipratropium (Duoneb) 3 ml RTQID 08/19/18 16:00 08/20/18 07:07 3 ML Apixaban (Eliquis) 5 mg BID 08/18/18 21:00 08/20/18 07:41 5 MG Aspirin (Kika Aspirin) 325 mg 1X ONCE 08/17/18 22:15 08/17/18 22:16 DC Aspirin (Children'S Aspirin) 81 mg DAILY 08/19/18 09:00 08/20/18 07:41 81 MG Cyanocobalamin (Vitamin B-12) 500 mcg DAILY 08/18/18 15:00 08/20/18 07:41 500 MCG Dexamethasone Sodium Phosphate (Decadron) 10 mg 1X ONCE 08/17/18 19:45 08/17/18 19:46 DC 08/17/18 19:58 10 MG Dextrose (Dextrose 50%-Water Syringe) 12.5 gm PRN Q15MIN PRN 08/19/18 09:00 UNV Digoxin (Lanoxin) 125 mcg DAILY 08/18/18 15:00 08/20/18 07:42 125 MCG Doxycycline Hyclate (Vibra-Tab) 100 mg BID 08/18/18 09:00 08/20/18 07:41 100 MG Fentanyl Citrate (Fentanyl 2ml Vial) 25 mcg PRN Q1HR PRN 08/17/18 22:00 08/18/18 21:59 DC Guaifenesin (MUCINEX ER with DM) 1 tab PRN BID PRN 08/18/18 14:30 Heparin Sodium (Porcine) (Hep Lock Adult) 500 unit 1X ONCE 08/20/18 10:45 08/20/18 10:47 DC 08/20/18 10:53 500 UNIT Info (Anti-Coagulation Monitoring By Pharmacy) 1 each PRN DAILY PRN 08/18/18 15:45 08/18/18 15:33 1 EACH Info (CONTRAST GIVEN -- Rx MONITORING) 1 each PRN DAILY PRN 08/17/18 20:30 08/19/18 20:29 DC Insulin Glargine (Lantus) 25 units HS 08/18/18 21:00 08/19/18 20:14 25 UNITS Insulin Human Lispro (HumaLOG) 0-9 UNITS TIDWMEALS 08/19/18 12:00 08/20/18 07:47 4 UNITS Iohexol (Omnipaque 350 Mg/ml) 90 ml 1X ONCE 08/17/18 20:30 08/17/18 20:31 DC 08/17/18 20:46 90 ML Lactobacillus Rhamnosus (Culturelle) 1 cap BID 08/18/18 21:00 08/20/18 07:40 1 CAP Levofloxacin/ Dextrose 100 ml @ 100 mls/hr 1X ONCE 08/17/18 20:45 08/17/18 21:44 DC 08/17/18 21:09 100 MLS/HR Lorazepam (Ativan) 1 mg 1X ONCE 08/17/18 21:45 08/17/18 21:46 DC 08/17/18 21:49 1 MG Magnesium Sulfate 50 ml @ 25 mls/hr 1X ONCE 08/17/18 20:45 08/17/18 22:44 DC 08/17/18 21:10 25 MLS/HR Metoprolol Succinate (Toprol Xl) 25 mg DAILY 08/18/18 15:00 08/20/18 07:42 25 MG Non-Formulary Medication (Lactobacillus Combo No.11 (Probiotic)) 1 each DAILY 08/19/18 09:00 UNV Norepinephrine Bitartrate 250 ml @ 1.875 mls/ hr CONT PRN 08/18/18 03:30 08/18/18 15:48 DC Ondansetron HCl (Zofran Odt) 4 mg PRN Q6HRS PRN 08/19/18 09:00 Ondansetron HCl (Zofran) 4 mg PRN Q6HRS PRN 08/19/18 09:00 Pantoprazole Sodium (PROTONIX VIAL for IV PUSH) 40 mg DAILYAC 08/18/18 15:00 08/20/18 07:42 40 MG Pantoprazole Sodium (Protonix) 40 mg DAILYAC 08/19/18 07:30 08/19/18 07:30 DC Piperacillin Sod/ Tazobactam Sod (Zosyn Per Pharmacy) 1 each PRN DAILY PRN 08/18/18 08:15 Piperacillin Sod/ Tazobactam Sod 4.5 gm/Sodium Chloride 100 ml @ 200 mls/hr Q6HRS 08/18/18 09:00 08/20/18 05:25 200 MLS/HR Pregabalin (Lyrica) 75 mg BID 08/18/18 21:00 08/20/18 07:41 75 MG Propofol 100 ml @ 1.037 mls/ hr CONT PRN 08/18/18 05:30 Cancel Sertraline HCl (Zoloft) 50 mg DAILY 08/18/18 15:00 08/20/18 07:41 50 MG Sodium Chloride 1,000 ml @ 70 mls/hr [id number] 08/18/18 03:00 08/19/18 08:56 DC 08/19/18 08:01 70 MLS/HR Tamsulosin HCl (Flomax) 0.4 mg HS 08/18/18 21:00 08/19/18 19:58 0.4 MG Vancomycin HCl 1.75 gm/Sodium Chloride 500 ml @ 250 mls/hr 1X ONCE 08/17/18 21:00 08/17/18 22:59 DC 08/17/18 22:01 250 MLS/HR Labs: Lab Laboratory Tests Test 08/19/18 11:24 08/19/18 16:35 08/19/18 20:08 08/20/18 04:55 Glucose (Fingerstick) 242 mg/dL (70-99) 264 mg/dL (70-99) 319 mg/dL (70-99) White Blood Count 4.8 x10^3/uL (4.0-11.0) Red Blood Count 3.77 x10^6/uL (4.30-5.70) Hemoglobin 9.1 g/dL (13.0-17.5) Hematocrit 28.9 % (39.0-53.0) Mean Corpuscular Volume 77 fL (79-100) Mean Corpuscular Hemoglobin 24 pg (25-35) Mean Corpuscular Hemoglobin Concent 32 g/dL (31-37) Red Cell Distribution Width 17.3 % (11.5-14.5) Platelet Count 136 x10^3/uL (140-400) Neutrophils (%) (Auto) 74 % (31-73) Lymphocytes (%) (Auto) 11 % (24-48) Monocytes (%) (Auto) 12 % (0-9) Eosinophils (%) (Auto) 2 % (0-3) Basophils (%) (Auto) 1 % (0-3) Neutrophils # (Auto) 3.6 x10^3uL (1.8-7.7) Lymphocytes # (Auto) 0.5 x10^3/uL (1.0-4.8) Monocytes # (Auto) 0.6 x10^3/uL (0.0-1.1) Eosinophils # (Auto) 0.1 x10^3/uL (0.0-0.7) Basophils # (Auto) 0.0 x10^3/uL (0.0-0.2) Sodium Level 142 mmol/L (136-145) Potassium Level 4.0 mmol/L (3.5-5.1) Chloride Level 106 mmol/L (98-107) Carbon Dioxide Level 27 mmol/L (21-32) Anion Gap 9 (6-14) Blood Urea Nitrogen 13 mg/dL (8-26) Creatinine 1.0 mg/dL (0.7-1.3) Estimated GFR (Cockcroft-Gault) 71.5 BUN/Creatinine Ratio 13 (6-20) Glucose Level 232 mg/dL (70-99) Calcium Level 8.7 mg/dL (8.5-10.1) Total Bilirubin 0.4 mg/dL (0.2-1.0) Aspartate Amino Transf (AST/SGOT) 20 U/L (15-37) Alanine Aminotransferase (ALT/SGPT) 30 U/L (16-63) Alkaline Phosphatase 84 U/L (46-116) Total Protein 6.3 g/dL (6.4-8.2) Albumin 2.7 g/dL (3.4-5.0) Albumin/Globulin Ratio 0.8 (1.0-1.7) Test 08/20/18 07:24 Glucose (Fingerstick) 190 mg/dL (70-99) Micro urineneg bronch neg bc neg Objective: Assessment: Febrile illness resolving leucocytosis Lactic acidosis Pyuria Hemoptysis s/p Bronch 08/17, H/O Lung CA s/p Chemoradiation Plan: Plan of Care OK to dc on doxycycline f/u bronch d/w MATY CAMILO MD Aug 20, 2018 11:03
--- NOTE | 2018-08-20 11:09 | NUR ---
SW phoned and faxed orders to [facility] , ; fax [phone]. Pt aware of plan and agreeable. ADRIANO JOHNSON.
--- NOTE | 2018-08-20 11:10 | NUR ---
Discharge Note: KANG AYALA Discharge instructions and discharge home medications reviewed with Patient and a copy given. All questions have been answered and understanding verbalized. The following instructions and handouts were given: information about septic shock, lung cancer. Discontinued lines and drains: right subclavian port-a-cath injected with 5ml of Heparin flush and de-accessed port. Patient discharged to home with home health with , patient transported to discharge vehicle.
== END 2018-08-20 11:10 | disposition home health service (06) | DRG 871 ==
LOC: ER 19:19 → 1 WEST ICU 21:54 → 6 SOUTH 08-18 15:46
PROVIDERS: ADMIT Family Medicine; ATTEND Family Medicine
DX: A41.9 Sepsis, unspecified organism (principal); J18.9 Pneumonia, unspecified organism; R65.21 Severe sepsis with septic shock; N17.0 Acute kidney failure with tubular necrosis; J44.0 Chronic obstructive pulmonary disease with (acute) lower respiratory infection; C34.12 Malignant neoplasm of upper lobe, left bronchus or lung; I69.354 Hemiplegia and hemiparesis following cerebral infarction affecting left non-dominant side; N39.0 Urinary tract infection, site not specified; E87.2 Acidosis; Z95.1 Presence of aortocoronary bypass graft; Z85.118 Personal history of other malignant neoplasm of bronchus and lung; D64.9 Anemia, unspecified; D89.9 Disorder involving the immune mechanism, unspecified; E11.42 Type 2 diabetes mellitus with diabetic polyneuropathy; E11.51 Type 2 diabetes mellitus with diabetic peripheral angiopathy without gangrene; E11.65 Type 2 diabetes mellitus with hyperglycemia; E78.00 Pure hypercholesterolemia, unspecified; E78.5 Hyperlipidemia, unspecified; F03.90 Unspecified dementia, unspecified severity, without behavioral disturbance, psychotic disturbance, mood disturbance, and anxiety; G20 Parkinson's disease; I10 Essential (primary) hypertension; M19.90 Unspecified osteoarthritis, unspecified site; M54.9 Dorsalgia, unspecified; I25.10 Atherosclerotic heart disease of native coronary artery without angina pectoris; I48.2 Chronic atrial fibrillation; K76.9 Liver disease, unspecified; K21.9 Gastro-esophageal reflux disease without esophagitis; N40.0 Benign prostatic hyperplasia without lower urinary tract symptoms; N62 Hypertrophy of breast; Z79.4 Long term (current) use of insulin; Z81.8 Family history of other mental and behavioral disorders; Z83.3 Family history of diabetes mellitus; Z86.010 Personal history of colon polyps; Z87.01 Personal history of pneumonia (recurrent); Z87.891 Personal history of nicotine dependence; Z92.21 Personal history of antineoplastic chemotherapy; Z92.3 Personal history of irradiation
CPT/HCPCS: 36415; 71275; 80053; 80162; 81001; 82553; 82962; 83605; 83735; 83880; 84484; 85007; 85025; 85610; 85730; 87040; 87070; 87086; 87205; 87641; 87804; 88112; 93005; 94640; 96361; 96365; 96368; 96375; 99291; A4314; C9113; J1100; J1815; J1956; J2060; J2543; J3370; J3475; J7030; J7040; J7620; Q9967; 97116; 97535

== ENCOUNTER → 2018-08-17 | Day surgery (SDC) | payer MEDICARE, OTHER ==
[~2018-08-17] MED LIST changes: +ALBU2.5V8 NEB; +ALBUTEROL SULFATE 2.5 MG/3 ML NEBU. NEB PRN; +DOXY100T PO; +EPINEPHrine 1 MG/ML VIAL INJ PRN; +EPINEPHrine 1 MG/ML VIAL ONE; +HYDROmorphone 2 MG/ML VIAL IV PRN; +IV RINGERS,LACTATED 1000ML 1,000 ML IV SCH; +LACT1CAP8 PO; +LIDOCAINE 1% Multi-Dose 20 ML VIAL. INJ PRN; +LIDOCAINE 1% Multi-Dose 20 ML VIAL. ONE; +LIDOCAINE 2% VISCOUS 100 ML BOTTLE. MM PRN; +LIDOCAINE 2% VISCOUS 100 ML BOTTLE. ONE; +LIDOCAINE 4% TOPICAL 50 ML SOLUTION. MM PRN; +LIDOCAINE 4% TOPICAL 50 ML SOLUTION. ONE; +MORPHINE SULFATE 2 MG/ML VIAL. IV PRN; +ONDANSETRON PF 4 MG/2 ML VIAL. IV PRN; +PROCHLORPERAZINE 10 MG/2 ML VIAL. IV PRN; +PROPOFOL 40 ML IV ONE; +fentaNYL PF VIAL 100 MCG/2 ML VIAL IV PRN
[2018-08-17 12:52] LABS: BASO # 0.1 x10^3/uL (0.0-0.2); BASO % 1 % (0-3); EOS # 0.2 x10^3/uL (0.0-0.7); EOS % 3 % (0-3); HEMATOCRIT 34.4 % (39.0-53.0); HEMOGLOBIN 10.9 g/dL (13.0-17.5); LYMPH # 0.9 x10^3/uL (1.0-4.8); LYMPH % 12 % (24-48); MEAN CORPUSCULAR HEMOGLOBIN 24 pg (25-35); MEAN CORPUSCULAR HGB CONC 32 g/dL (31-37); MEAN CORPUSCULAR VOLUME 77 fL (79-100); MONO # 0.7 x10^3/uL (0.0-1.1); MONO % 9 % (0-9); NEUT # 5.7 x10^3uL (1.8-7.7); NEUT % 76 % (31-73); PLATELET COUNT 197 x10^3/uL (140-400); RED BLOOD COUNT 4.45 x10^6/uL (4.30-5.70); RED CELL DISTRIBUTION WIDTH 17.3 % (11.5-14.5); WHITE BLOOD COUNT 7.5 x10^3/uL (4.0-11.0)
[2018-08-17 13:04] LABS: PROTHROMBIN TIME PATIENT 13.5 SEC (11.7-14.0)
[2018-08-17 13:59] VITALS: BP 103/55
--- NOTE | 2018-08-17 15:09 | PDOC4 ---
PROCEDURE Procedure DICTATED NO ENDO LESION JHONNY ALLEN MD Aug 17, 2018 15:09
--- NOTE | 2018-08-17 15:54 | OP ---
DATE OF SURGERY: 08/17/2018 PROCEDURE: Bronchoscopy, bronchoalveolar lavage. INDICATIONS: Hemoptysis in a patient with known lung cancer, undergoing a diagnostic bronchoscopy. Risks, benefits, and alternatives reviewed with the patient and son. They consented. DESCRIPTION OF PROCEDURE: A timeout was performed prior to sedation. Vital signs and O2 saturation were maintained within normal limits throughout the procedure. The bronchoscope was passed through the right naris. The vocal cords were identified moving bilaterally without any dysfunction. The vocal cords were anesthetized with a total 5 mL of 4% lidocaine. The bronchoscope was passed through the vocal cords into the proximal trachea, which was normal. The distal trachea was likewise normal. The right and left segments and subsegments were visualized. There were no endobronchial lesions. There was no evidence of active bleeding. FINDINGS: 1. Normal vocal cords. 2. No endobronchial lesion. 3. No evidence of active bleeding. PLAN: 1. Follow up in the office in 4-6 weeks. 2. We will send BAL for culture and sensitivity. JHONNY ALLEN MD DR: DEIDRE/brenda JOB#: [id number] / [id number] Pamella Moseley VINAY MD
--- NOTE | 2018-08-18 18:06 | PATHOLOGY ---
Note [facility] Accession Number: [id number] TESTS RESULT FLAG UNITS REF RANGE LAB Clinician Provided Cytology Information No. of containers..01 Other (Miscellaneous) Source: RIGHT LUNG BAL DIAGNOSIS: 02 RIGHT LUNG BAL NEGATIVE FOR MALIGNANT CELLS. FOCALLY REACTIVE BRONCHIAL EPITHELIAL CELLS, PULMONARY MACROPHAGES, AND NEUTROPHILS PRESENT. Signed out by: Ryan Arriaza MD, Pathologist NPI- [id number] Performed by: Michael Hopkins, Client Services Vice President ([facility]) Gross description: 01 4ML, PINK, CLOUDY /LCS FLAG LEGEND: L-Low Normal,H-High Normal,LL-Alert Low,HH-Alert High <-Panic Low,>-Panic High,A-Abnormal,AA-Critical Abnormal Performed at: [address] [address] Lennox Jimenez MD, 02 [facility] [address] [place] [address] Ryan Arriaza MD, Specimen Comment: A courtesy copy of this report has been sent to Specimen Comment: [phone]. Specimen Comment: Report sent to Specimen Comment: A duplicate report has been generated due to demographic updates. Performed at: [address] [place] [address] [address], [place] [id number] MD Lennox Jimenez MD Phone: [phone]
== END | disposition home or self-care (01) ==
LOC: SURG 11:59
PROVIDERS: ATTEND Internal Medicine Critical Care Medicine
DX: C34.12 Malignant neoplasm of upper lobe, left bronchus or lung (principal); I10 Essential (primary) hypertension; I25.10 Atherosclerotic heart disease of native coronary artery without angina pectoris; I48.91 Unspecified atrial fibrillation; Z86.73 Personal history of transient ischemic attack (TIA), and cerebral infarction without residual deficits; K21.9 Gastro-esophageal reflux disease without esophagitis; E11.40 Type 2 diabetes mellitus with diabetic neuropathy, unspecified; G20 Parkinson's disease; H91.90 Unspecified hearing loss, unspecified ear; Z86.010 Personal history of colon polyps; J43.9 Emphysema, unspecified; Z72.89 Other problems related to lifestyle; M19.90 Unspecified osteoarthritis, unspecified site; Z98.52 Vasectomy status; Z95.1 Presence of aortocoronary bypass graft; Z98.42 Cataract extraction status, left eye; Z98.41 Cataract extraction status, right eye; Z96.1 Presence of intraocular lens; Z79.899 Other long term (current) drug therapy; Z79.84 Long term (current) use of oral hypoglycemic drugs
CPT/HCPCS: 31622; 94640; J2704; J7613; 36415; 82962; 85025; 85610; 85730; 87070; 87205; 88112; J0171

== ENCOUNTER → 2018-09-30 | Outpatient (CLI) | payer MEDICARE, OTHER ==
[~2018-09-30] MED LIST changes: +ALBU2.5V8 NEB; +DOXY100T PO
--- NOTE | 2018-09-30 13:14 | RAD ---
FDG tumor localization scan, PET/CT, 09/30/2018: History: Restaging lung cancer Following IV injection of 14.6 mCi of 18 F-FDG, imaging was performed from the skull base to the proximal thighs. The noncontrast CT component was performed for attenuation correction and anatomic localization purposes rather than for primary diagnosis. The patient's blood glucose level at the time of injection was 128 MG/DL. Comparison is made to a study from 06/24/2018. There are multiple bilateral hypermetabolic lung lesions which have increased in size and number since 06/24/2018 exam. For example a hypermetabolic mass along the posterior inferior aspect of the right hilum in the right lower lobe which measured 3.2 cm on the previous study now measures approximately 4 cm. It demonstrates a maximum SUV of 19.5 compared to a value of 12.4 on the previous study. There are new and enlarging hypermetabolic mediastinal lymph nodes. A right precarinal lymph node which measured 8 mm in short axis dimension on the previous study now measures 14 mm and now demonstrates a maximum SUV of 15.4. There are several other areas of new hypermetabolic mediastinal adenopathy including the subcarinal region. Hypermetabolic liver lesions have markedly progressed. There are now large confluent lesions in the right lobe laterally demonstrating a maximum she via 11.5. There are new hypermetabolic retroperitoneal lymph nodes in the upper abdomen including the periaortic, pericaval and portacaval regions. Normal GI tract and urinary tract activity is present. Irregular foci of increased activity are seen in the right paraspinous musculature near the thoracolumbar junction. This could be posttraumatic or metastatic. Incidental CT findings include the presence of marked prostatic enlargement. There is moderate colonic diverticulosis. There is extensive calcific plaquing of the aorta and its branches including the coronary arteries. Cholelithiasis is present. A right Port-A-Cath extends into the superior vena cava. IMPRESSION: Considerable interval worsening of the pulmonary and hepatic metastatic disease, with interval development of hypermetabolic mediastinal and abdominal adenopathy on a metastatic basis.
== END | disposition home or self-care (01) ==
LOC: PETSC 10:58
PROVIDERS: ATTEND Internal Medicine Hematology & Oncology
DX: C78.7 Secondary malignant neoplasm of liver and intrahepatic bile duct (principal); C34.32 Malignant neoplasm of lower lobe, left bronchus or lung; R91.1 Solitary pulmonary nodule; R91.8 Other nonspecific abnormal finding of lung field; J98.59 Other diseases of mediastinum, not elsewhere classified; R59.0 Localized enlarged lymph nodes; N40.0 Benign prostatic hyperplasia without lower urinary tract symptoms; K57.30 Diverticulosis of large intestine without perforation or abscess without bleeding; I25.10 Atherosclerotic heart disease of native coronary artery without angina pectoris; K80.20 Calculus of gallbladder without cholecystitis without obstruction
CPT/HCPCS: 78815; A9552